=== PATIENT | female | born 1945 | race Caucasian/White ===

== ENCOUNTER 2020-10-29 09:59 | Inpatient (IN) | payer MEDICARE, SELFPAY ==
[2020-10-29] VITALS (9 sets, daily range): BP systolic 136–182; BP diastolic 67–93; PULSE 70–95; RESP 14–19; TEMP 36.7–36.8; O2SAT 88–99; BMI 31.2
--- NOTE | ~2020-10-29 | CT_ITS ---
EXAMINATION: CT ANGIOGRAM OF THE CHEST WITH AND WITHOUT CONTRAST (CT PULMONARY ANGIOGRAM FOR PE) CLINICAL INFORMATION: Reason for Exam History DVTs. Prior on Coumadin. Recently from epistaxis COMPARISON: None TECHNIQUE: Prior to contrast administration, noncontrast localization images were obtained. Subsequently, multidetector volumetric imaging was performed from the thoracic inlet to below the diaphragms following the administration of 65 mL Omnipaque 350 intravenous contrast. No contrast reaction reported Sagittal, coronal, and MIP oblique sagittal reformatted images were obtained on the CT workstation, uploaded to PACS, and reviewed. This CT examination was performed using dose optimization techniques as appropriate, variously including the following: *Automated exposure control *Adjustment of mA and/or kV according to patient size (this includes techniques or standardized protocols for targeted exams where dose is matched to indication/reason for exam; i.e. extremities or head) *Use of iterative reconstruction technique Total exam dose-length product 422 mGy-cm FINDINGS: QUALITY OF STUDY/CONTRAST BOLUS: Satisfactory. PULMONARY ARTERIES: No central or segmental pulmonary emboli. THORACIC AORTA: No aneurysm or dissection. LUNG: There is a large hiatal hernia present with most of the stomach in the chest. This is associated with left lower lobe atelectasis. No gross consolidations or suspicious pulmonary masses are seen. PLEURA: No pleural effusion or pneumothorax. MEDIASTINUM: Normal heart size. Pulmonary artery is prominent in size with the main pulmonary artery measuring 3.5 cm suggesting elevated right-sided heart pressures. No pericardial effusion. No hilar or mediastinal lymphadenopathy. No evidence of septal bowing or right heart strain. CHEST WALL/AXILLA: No axillary or internal mammary lymphadenopathy. OSSEOUS STRUCTURES: No acute or suspicious osseous abnormality. UPPER ABDOMEN: A left-sided renal cyst is present. No reflux of contrast into the hepatic veins to suggest elevated right heart pressures. CT/CT angio chest PE protocol IMPRESSION: No evidence of pulmonary emboli. Large hiatal hernia with most of the stomach within the left chest producing atelectasis/compression. Main pulmonary artery is dilated suggesting elevated right heart pressure. VTE: negative
--- NOTE | ~2020-10-29 | CT_ITS ---
EXAMINATION: CT HEAD WITHOUT CONTRAST CLINICAL INFORMATION: Fall, trauma, on Coumadin COMPARISON: None TECHNIQUE: Contiguous axial imaging was performed from the skull base to vertex without intravenous administration of contrast. Additional 2-D coronal and sagittal reformatted images are generated on the CT workstation and uploaded to PACS. This CT examination was performed using dose optimization techniques as appropriate, variously including the following: *Automated exposure control *Adjustment of mA and/or kV according to patient size (this includes techniques or standardized protocols for targeted exams where dose is matched to indication/reason for exam; i.e. extremities or head) *Use of iterative reconstruction technique DLP: 643 mGy-cm FINDINGS: There is no intracranial hemorrhage, hematoma, or extra-axial fluid collection. The ventricles are normal in size. There is no hydrocephalus, edema, or mass effect. The allen-white matter differentiation appears symmetric. There is no visible acute territorial infarct or mass lesion. The calvarium appears intact. There is no pneumocephalus or orbital emphysema. The visualized sinuses and middle ears and mastoid air cells show no significant mucosal thickening. There are no air-fluid levels. CT/CT head/brain wo con IMPRESSION: No acute intracranial abnormality.
--- NOTE | ~2020-10-29 | XR_ITS ---
EXAMINATION: XR CHEST CLINICAL INFORMATION: Left basilar opacity, follow-up. COMPARISON: Frontal view from earlier today. TECHNIQUE: Lateral view of the chest was obtained. FINDINGS: There is a large hiatal hernia with air-fluid level. Mild superjacent vascular crowding/atelectasis is seen. The right lung is clear. The heart and mediastinal structures are unremarkable. XR/XR chest 1V IMPRESSION: Large hiatal hernia with superjacent vascular crowding/atelectasis. The air-fluid level appears to be within the gastric lumen. No acute cardiopulmonary process.
--- NOTE | ~2020-10-29 | XR_ITS ---
EXAMINATION: XR CHEST CLINICAL INFORMATION: Shortness of breath. COMPARISON: None TECHNIQUE: Frontal view of the chest was obtained. FINDINGS: Mild opacification is seen at the left lung base with blunting of the left costophrenic angle. The left upper lung field and right lung are clear. The heart and mediastinal structures are unremarkable. XR/XR chest 1V IMPRESSION: Mild left basilar opacification is nonspecific and could represent pleural reflection/scarring however a left pleural effusion cannot be excluded. A lateral view of the chest would be helpful in this patient.
--- NOTE | 2020-10-29 10:21 | ECG_ITS ---
Test Reason : WEAKNESS Blood Pressure : / mmHG Vent. Rate : 086 BPM Atrial Rate : 086 BPM P-R Int : 132 ms QRS Dur : 082 ms QT Int : 344 ms P-R-T Axes : 072 067 -21 degrees QTc Int : 411 ms Normal sinus rhythm Nonspecific T wave abnormality Abnormal ECG No previous ECGs available Referred By: Sobeida Aguirre Electronically Signed By:Florencio Marina
--- NOTE | 2020-10-29 10:27 | ED_ITS ---
HPI - Fall General Chief Complaint: Fall Stated Complaint: NAUSEA Time Seen by Provider: 10/29/20 10:08 Source: EMS Mode of arrival: EMS History of Present Illness HPI Narrative: 74-year-old female with past medical history of COPD, HTN, DVT on Coumadin, wheelchair bound s/p back surgery, BIBA for SOB, nausea, and fall last night. Patient reports was discharged from [facility] last night for uncontrolled epistaxis which required nasal packing on Monday, states was trying to change thermostat and fell backwards on buttock, denies head trauma or LOC. Told daughter about incident this morning, who called EMS. States has not ambulated since incident due to fear of falling. Reports feeling SOB prior to fall and mild lightheadedness/dizziness. Per EMS patient was noted to be lethargic and 89% on room air, increased to 100% on non-rebreather due to nasal packing, pt admitted to taking 2 ER Morphine and 1 immediate release Morphine this morning. Reports not taking her Coumadin due to recent epistaxis. Denies fever, chills, cough, abdominal pain, vomiting, diarrhea, chest pain MD complaint: fall Onset (ago): day(s) Related Data Allergies Allergy/AdvReac Type Severity Reaction Status Date / Time No Known Allergies Allergy Verified 10/29/20 10:21 Review of Systems Review of Systems: Constitutional: No Fever, No Chills, No Night Sweats, No Fatigue ENT/Mouth: +epistaxis (resolved) No Sinus Pain, No Hoarseness, No sore throat Eyes: No Eye Pain, No Swelling, No Redness, No Vision Changes Cardiovascular: No Chest Pain, + SOB Respiratory: No Cough, No Sputum Gastrointestinal: +Nausea, No Vomiting, No Diarrhea, No Constipation, No Abdominal pain Genitourinary: No irregular bleeding, No Dysuria, No Urinary Frequency, No Hematuria Musculoskeletal: No joint pain, No Myalgias, No Joint Swelling Skin: No Skin Lesions, No rash Neuro: No Weakness, No Numbness, No Paresthesias, No Loss of Consciousness, +lightheadedness/ Dizziness, No Headache Yes all other systems are reviewed and are negative [facility] Past Medical History Attestation statement: The following information was validated with the patient. Medical History (Updated 10/29/20 @ 17:48 by ZORAIDA Lorenzo) COPD (chronic obstructive pulmonary disease) DVT (deep venous thrombosis) HTN (hypertension) Surgical History (Updated 10/29/20 @ 10:39 by Lamar Hollins) Previous back surgery Social History Social History Smoking Status: Former smoker Use of substances other than those prescribed or required for medical reasons: No Advance Directives: No Advance Directives Information Provided: Yes Physical Exam Vital Signs: Vital Signs: Last Vital Signs Temp 98.2 F 10/29/20 15:05 Pulse 94 10/29/20 16:29 Resp 16 10/29/20 16:29 BP 162/74 H 10/29/20 16:29 Pulse Ox 95 10/29/20 16:29 Body Mass Index 31.2 Const: Other: Lethargic, easily arousable to voice, A&O x3 General: cooperative, healthy appearing, comfortable and lethargic Orientation/consciousness: patient oriented x3 and lethargic Limitations: no limitations HENMT: Other: + nasal packing intact to right nare with dried external blood Head: Yes normal to inspection Ears: hearing grossly normal bilaterally Face and sinus: Yes normal facial exam Mouth: mucous membranes dry Eyes: General: appearance normal, both eyes and all related structures Pupils: Equal, round and reactive pupils present EOM: EOMs intact bilaterally Neck: Neck: Yes normal visual inspection and Yes no meningeal signs Resp: Effort & Inspection: normal respiratory effort Cardio: Rate: regular rate GI: Inspection: Yes normal to inspection Palpation (GI): Soft to palpation, nontender, no guarding and not rigid Back/Spine/Pelvis: Other: No midline thoracic/lumbar spinous tenderness Skin: Rashes: no rashes Wounds: no wounds Neuro: General: patient oriented x3, tone normal, moves all extremities, no meningeal signs, no focal motor deficits and CN's II-XI intact bilaterally Cranial nerves: Yes CN's II-XII intact bilaterally and Yes Equal, round and reactive pupils present Gait exam (Neuro): Normal gait present Coordination: [id number] test normal Extrem: General: Yes normal to inspection Course Course Course Narrative: Received records from [facility]: Patient was admitted for epistaxis due to elevated INR and noted hypoxia. Nasal packing was supposed to be removed on 10/29, will remove today. INR was 2.5 on admission date at [facility], patient was prescribed prophylactic Keflex x5 days. Hypoxia was noted secondary to the nasal packing in her right nare in conjunction with a large hiatal hernia containing all of her stomach and large portion of her transverse colon. Labs from 10/28 showed H&H of 9.3/28.3. PT 28/INR 2.5. Patient voiced wanting to start NOAC and was prescribed Eliquis, instructed to initiate taking once INR reached 1.5 > patient's daughter was spoken to today. Patient lives at home alone, is wheelchair-bound and believes she would benefit from short-term rehab. Patient is in agreement. -H&H stable/improved from [facility] records. INR 1.5 today > discussed with patient her subtherapeutic INR, she voiced still wanting to start Eliquis and d/c Coumadin, will hold Eliquis today and initiate tomorrow due to just removing nasal packing -head CT unremarkable -initial troponin 10 > will obtain 3 hour repeat XR chest 1V IMPRESSION: Large hiatal hernia with superjacent vascular crowding/atelectasis. The air-fluid level appears to be within the gastric lumen. No acute cardiopulmonary process. -on further questioning patient admits to taking 60 mg of extended release morphine, 15 of immediate release morphine, and Klonopin. Is more awake and alert at this time. Nasal packing was removed without evidence of rebleed.. O xygen saturations maintaining greater than 92% on RA when patient is awake and alert/talking, however dropped significantly when falls asleep less nasal cannula placed due to patient's lethargy. Is in no respiratory distress. Plan for PT/case management for STR -1743-on re-evaluation patient is still lethargic, easily arousable, still desatting when sleeping. Will obtain CTA to rule out PE. -1800--ED care transferred to ZORAIDA Condon pending CTA, repeat troponin, PT, and case management evaluation MDM - Fall MDM Narrative Medical decision making narrative: 74-year-old female with past medical history of COPD, HTN, DVT on Coumadin, wheelchair bound s/p back surgery, BIBA for SOB, nausea, and fall last night. Patient reports was discharged from [facility] last night for uncontrolled epistaxis which required nasal packing on Monday, states was trying to change thermostat and fell backwards on buttock, denies head trauma or LOC. On exam standing 91% on room air, lethargic, A&O x3, easily arousable, no focal neuro deficits, packing intact to right Nare. Hypoxia likely due to opiate abuse/nasal packing, Lethargy likely due to over medication with opiates. Fall- ?Mechanical, rule out ACS/metabolic abnormalities or infectious etiology. Lower concern for ICH/CVA/TIA or severe sepsis, or PE. Rule out anemia Plan: EKG, labs, UA, CXR, CTA, IVF, re-evaluate Medical Records Attestation: I reviewed the patient's medical records. Lab Data Attestation: I reviewed the patient's lab results. Result diagrams: 10/29/20 11:09 10/29/20 11:09 Labs: Lab Results 10/29/20 10/29/20 10/29/20 Range/Units 11:09 11:09 11:09 WBC 11.5 H (4.8-10.8) X10*3/uL RBC 3.28 L (4.20-5.50) X10*6/uL Hgb 9.8 L (12.0-16.0) g/dl Hct 29.9 L (37-47) % MCV 91.2 (80-98) fL MCH 29.9 (27.0-33.0) pg MCHC 32.8 (31.0-35.0) g/dl RDW 13.0 (11.0-16.0) % Plt Count 208 (160-400) X10*3/uL MPV 10.9 (9.4-12.3) fL Immature Gran % (Auto) 0.7 H (0.0-0.4) % Neut % (Auto) 85.5 H (45-73) % Lymph % (Auto) 9.8 L (20-40) % [place] % (Auto) 3.6 (2-11) % Eos % (Auto) 0.1 (0-4) % Baso % (Auto) 0.3 (0-2) % Lymph # (Auto) 1.1 L (1.2-4.9) X10*3/uL [place] # (Auto) 0.4 (0.1-1.2) X10*3/uL Eos # (Auto) 0.0 (0.0-0.4) X10*3/uL Baso # (Auto) 0.0 (0.0-0.2) X10*3/uL Abs Immat Gran (auto) 0.08 H (0.00-0.03) X10*3/uL Absolute Neuts (auto) 9.9 H (2.0-8.3) X10*3/uL Absolute Nucleated RBC 0.000 (0.0-0.012) X10*3/uL Nucleated RBC % (auto) 0.0 (0.0-0.2) /100WBC PT (10.8-13.0) SEC INR (0.9-1.1) APTT (24.1-38.0) SEC Sodium 141 (135-145) mmol/L Potassium 3.1 L (3.3-5.1) mmol/L Chloride 99 (96-108) mmol/L Carbon Dioxide 34 H (22-29) mmol/L Anion Gap 11 L (12-20) BUN 22 H (9-16) mg/dL Creatinine 0.78 (0.5-1.4) mg/dL Estim Creat Clear Calc 58.0 Estimated GFR > 60 Random Glucose 152 H (60-115) mg/dL Calcium 9.5 (8.4-10.2) mg/dL Magnesium 1.8 (1.6-2.6) mg/dL Total Bilirubin 0.8 (0.0-1.0) mg/dL Direct Bilirubin 0.3 (0.0-0.5) mg/dL AST 28 (5-31) U/L ALT 21 (0-31) U/L Alkaline Phosphatase 59 (39-117) U/L Total Creatine Kinase 207 H (26-140) U/L Troponin I High Sens 10.0 (<3.5-17.0) ng/L Total Protein 6.4 L (6.5-8.0) g/dL Albumin 3.8 (3.5-5.0) g/dL Ethyl Alcohol mg/dL COVID-19 (SAM) (Negative) COVID-19 Clin Com 10/29/20 10/29/20 10/29/20 Range/Units 11:09 11:09 12:04 WBC (4.8-10.8) X10*3/uL RBC (4.20-5.50) X10*6/uL Hgb (12.0-16.0) g/dl Hct (37-47) % MCV (80-98) fL MCH (27.0-33.0) pg MCHC (31.0-35.0) g/dl RDW (11.0-16.0) % Plt Count (160-400) X10*3/uL MPV (9.4-12.3) fL Immature Gran % (Auto) (0.0-0.4) % Neut % (Auto) (45-73) % Lymph % (Auto) (20-40) % [place] % (Auto) (2-11) % Eos % (Auto) (0-4) % Baso % (Auto) (0-2) % Lymph # (Auto) (1.2-4.9) X10*3/uL [place] # (Auto) (0.1-1.2) X10*3/uL Eos # (Auto) (0.0-0.4) X10*3/uL Baso # (Auto) (0.0-0.2) X10*3/uL Abs Immat Gran (auto) (0.00-0.03) X10*3/uL Absolute Neuts (auto) (2.0-8.3) X10*3/uL Absolute Nucleated RBC (0.0-0.012) X10*3/uL Nucleated RBC % (auto) (0.0-0.2) /100WBC PT 17.8 H (10.8-13.0) SEC INR 1.5 H (0.9-1.1) APTT 29.0 (24.1-38.0) SEC Sodium (135-145) mmol/L Potassium (3.3-5.1) mmol/L Chloride (96-108) mmol/L Carbon Dioxide (22-29) mmol/L Anion Gap (12-20) BUN (9-16) mg/dL Creatinine (0.5-1.4) mg/dL Estim Creat Clear Calc Estimated GFR Random Glucose (60-115) mg/dL Calcium (8.4-10.2) mg/dL Magnesium (1.6-2.6) mg/dL Total Bilirubin (0.0-1.0) mg/dL Direct Bilirubin (0.0-0.5) mg/dL AST (5-31) U/L ALT (0-31) U/L Alkaline Phosphatase (39-117) U/L Total Creatine Kinase (26-140) U/L Troponin I High Sens (<3.5-17.0) ng/L Total Protein (6.5-8.0) g/dL Albumin (3.5-5.0) g/dL Ethyl Alcohol < 10 mg/dL COVID-19 (SAM) Negative (Negative) COVID-19 Clin Com See Note Discharge Plan Discharge Clinical Impression: Misuse of medication, Encounter for removal of nasal packing, Shortness of breath, Fall
[2020-10-29] MEDS: 0.9 % Sodium Chloride 1,000 ML 999 ML IVCONT (11:14)
[2020-10-29 11:15] LABS: MANUAL DIFF FLAG NO
[2020-10-29] MEDS: ondansetron HCL 4 MG/2 ML VIAL IVPUSH (11:16)
[2020-10-29 11:19] LABS: Basophils Percent Auto 0.3 % (0-2); Eosinophils Percent Auto 0.1 % (0-4); Hematocrit 29.9 % (37-47); Hemoglobin 9.8 g/dl (12.0-16.0); Imm Gran Abs Auto 0.08 X10*3/uL (0.00-0.03); Imm Gran Pct Auto 0.7 % (0.0-0.4); Lymphocytes Absolute Auto 1.1 X10*3/uL (1.2-4.9); Lymphocytes Percent Auto 9.8 % (20-40); Mean Corpuscular HGB Conc 32.8 g/dl (31.0-35.0); Mean Corpuscular Hemoglobin 29.9 pg (27.0-33.0); Mean Corpuscular Volume 91.2 fL (80-98); Mean Platelet Volume 10.9 fL (9.4-12.3); Monocytes Absolute Auto 0.4 X10*3/uL (0.1-1.2); Monocytes Percent Auto 3.6 % (2-11); Neutrophils Absolute Auto 9.9 X10*3/uL (2.0-8.3); Neutrophils Percent Auto 85.5 % (45-73); Platelet Count 208 X10*3/uL (160-400); Red Blood Count 3.28 X10*6/uL (4.20-5.50); White Blood Count 11.5 X10*3/uL (4.8-10.8)
--- NOTE | 2020-10-29 11:25 | PC.NURSE ---
Pt reporting freqeunt falls at home, unable to ambulate, uses wheelchair. Fall on Monday and on floor for three days per pt. Fall last night, denies headstrike or LOC Right nare with nasal packing in, dried and crusted around Sat fluctuates 88-90 but have noted sat down to 70s when asleep, denies sleep apnea, or SOB. Placed on 2lpm via nc in left nare, sat consistently 95% at this time. NSR on tele Reports 7/10 buttock pain s/p fall last night. 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 Awakes easily.
[2020-10-29 11:29] LABS: INTERNATIONAL NORM RATIO 1.5 (0.9-1.1); Prothrombin Time 17.8 SEC (10.8-13.0)
[2020-10-29 11:46] LABS: Ethanol < 10 mg/dL
[2020-10-29 11:50] LABS: Alanine Aminotransferase 21 U/L (0-31); Albumin Level 3.8 g/dL (3.5-5.0); Alkaline Phosphatase 59 U/L (39-117); Anion Gap 11 (12-20); Aspartate Amino Transferase 28 U/L (5-31); Bilirubin Direct 0.3 mg/dL (0.0-0.5); Bilirubin Total 0.8 mg/dL (0.0-1.0); Blood Urea Nitrogen 22 mg/dL (9-16); Calcium 9.5 mg/dL (8.4-10.2); Carbon Dioxide 34 mmol/L (22-29); Chloride 99 mmol/L (96-108); Estimated Glomerular Filt Rate > 60; Glucose Random 152 mg/dL (60-115); Magnesium 1.8 mg/dL (1.6-2.6); Potassium 3.1 mmol/L (3.3-5.1); Sodium 141 mmol/L (135-145); Total Protein 6.4 g/dL (6.5-8.0)
[2020-10-29 12:25] LABS: COVID-19 Test Negative (Negative); IDNOW Serial# 9DD0AD1C
--- NOTE | 2020-10-29 12:35 | PC.NURSE ---
Spoke to pts daughter Vilma [phone] and states pt needs rehab/snf placement if no medical reason for admission. Frequent falls at home and pt reports pt was released too early from [facility]. ALso states nasal packing in x 48hours and needs removal. Sobeida CONWAY updated.
[2020-10-29] MEDS: Potassium Chloride Packet 20 MEQ PACKET 40 MEQ PO (13:47)
--- NOTE | 2020-10-29 16:30 | PC.NURSE ---
Plan for PT/case managment, pt and daughter Vilma express concerns for pt to return home. Needs PT evaluation tomorrow in ED. Pt remains sleepy but easily arousable and oriented x 3.
[2020-10-29] MEDS: iohexoL 350 MG/ML 100 ML INFUS..BTL IV (17:59)
--- NOTE | 2020-10-29 18:53 | MHC.CM.ED ---
CM met with pt to discuss plan of care. Pt had fall last night attempting to stand to adjust heat from her motor scooter. Pt is essentially wheelchair bound s/p back surgery. Debilitating pain per daughter. Pt takes both extended release and immediate Morphine for pain. Walks very short distances with her walker in her apartment, but mostly uses her scooter. 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 Also has meals on wheels through [facility] [employer]. CM spoke with HCP/daughter, Vilma Carrion ([phone]). HCP not on file. Requested another be completed. Will review with pt. Discussed plan of care and need for PT eval in the am and STR based on recommendations. Both daughter and pt would like STR. Neither has any requests, will refer locally. Daughter is concerned about her mother's medications, but does not have a medication list. Pharmacy is [facility] in [place]. CM called and obtained medication list. PA and RN aware and given medication list. D/C plan is probable STR with transportation via S. CM to follow for d/c needs
[2020-10-29 20:00] LABS: B Type Natriuretic Peptide 254 pg/mL (<100); Troponin-I High Sensitivity 88.6 ng/L (<3.5-17.0)
--- NOTE | 2020-10-29 22:26 | ECG_ITS ---
Test Reason : ELEVATED TROPONIN Blood Pressure : / mmHG Vent. Rate : 088 BPM Atrial Rate : 088 BPM P-R Int : 120 ms QRS Dur : 076 ms QT Int : 376 ms P-R-T Axes : 044 075 052 degrees QTc Int : 454 ms Normal sinus rhythm Nonspecific ST abnormality Abnormal ECG When compared with ECG of 29-OCT-2020 10:54, Nonspecific T wave abnormality, improved in Inferior leads Referred By: Taurus Sethi Electronically Signed By:Florencio Marina
[2020-10-30] VITALS (8 sets, daily range): BP systolic 133–168; BP diastolic 60–88; PULSE 82–104; RESP 16–20; TEMP 36.8–37; O2SAT 92–100
--- NOTE | 2020-10-30 00:42 | P.HPHOSP_ITS ---
History of Present Illness Date of Service: 10/30/20 Chief Complaint: SOB [age] old female with a past medical history of hypertension, COPD, history of chronic back pain status post surgery, wheelchair-bound for surgery, hiatal hernia presented to the hospital with a chief complaint of shortness of breath. Patient is a poor historian. Most of the history obtained from the records and ER team. Reportedly patient was adequately deep concern hospital on Monday secondary to epistaxis and had Nasser packing placed. Sent home on cephalexin. Coumadin was stopped and placed on apixaban. Today she came into the hospital after a fall. Denies any numbness tingling head strike or loss of consciousness. Mentions that she is at baseline wheelchair-bound and no new focal deficits. Denies any urinary complaints or GI complaints. Mentioned that her shortness of breath is better. Denies any chest pain or palpitations. ER course: For ER team patient had nasal packing that was removed. EKG was nonischemic. Troponin was 10 followed by 88. Spoke to Cardiology who recommended admission to the hospital for observation. Mentioned no heparin. Patient was saturating at 91%-pain rest on 2 L of nasal cannula. Presumed to be secondary to the nasal packing. [facility] Medical History (Updated 10/30/20 @ 00:20 by ZORAIDA Pickering) COPD (chronic obstructive pulmonary disease) DVT (deep venous thrombosis) HTN (hypertension) Surgical History (Updated 10/29/20 @ 10:39 by Lamar Hollins) Previous back surgery Social History Smoking Status: Former smoker Use of substances other than those prescribed or required for medical reasons: No Advance Directives: No Advance Directives Information Provided: Yes Meds Allergies Allergy/AdvReac Type Severity Reaction Status Date / Time No Known Allergies Allergy Verified 10/29/20 10:21 Active Medications: Current Medications Generic Name Dose Route Start Last Admin Trade Name Freq PRN Reason Stop Dose Admin Amphetamine/Dextroamphetamine 15 mg 10/30/20 09:00 Amphetamine Mixed Salts 10 Mg Tablet PO TID KARL Apixaban 5 mg 10/30/20 08:00 Apixaban 5 Mg Tablet PO BID KARL Apixaban 5 mg 10/30/20 09:00 Apixaban 5 Mg Tablet PO BID KARL Bupropion HCl 150 mg 10/30/20 00:45 Bupropion Hcl Xl 150 Mg Tab.Er.24h PO QAM KARL Cephalexin HCl 500 mg 10/30/20 00:45 Cephalexin 500 Mg Capsule PO Q8H [facility] Clonazepam 0.5 mg 10/30/20 00:37 Clonazepam 0.5 Mg Tablet PO BID PRN Anxiety Docusate Sodium 250 mg 10/30/20 09:00 Docusate Sodium 100 Mg/10 Ml Liquid PO BID [facility] Duloxetine HCl 60 mg 10/30/20 09:00 Duloxetine Hcl 60 Mg Capsule.Dr PO DAILY [facility] Morphine Sulfate 15 mg 10/30/20 00:37 Morphine Sulfate Immed Release 15 Mg Tablet PO Q6H PRN Pain Morphine Sulfate 30 mg 10/30/20 00:45 Morphine Sulfate Er 30 Mg Tablet.Er PO Q12H [facility] Naloxone HCl 4 mg 10/30/20 00:37 Naloxone Hcl Nasal 4 Mg [place] NOSTRILALT Q3M PRN Opioid Reversal Non-Formulary Medication 1 tab 10/30/20 09:00 Lisinopril-Hydrochlorothiazide PO BID [facility] Non-Formulary Medication 6 mg 10/30/20 21:00 Melatonin PO BEDTIME [facility] Pharmacy Consult 1 each 10/29/20 18:41 Consult Rx Perform Med Rec MISCELLANE ONCE PRN Consult order Sodium Chloride 3 ml 10/30/20 08:00 0.9 % Sodium Chloride Flush 3 Ml Syringe IVFLUSH QSHIFT [facility] Valacyclovir HCl 1,000 mg 10/30/20 09:00 Valacycyclovir Hcl 1,000 Mg Tablet PO BID [facility] Vitamin D 25 mcg 10/30/20 09:00 Cholecalciferol (Vitamin D3) 25 Mcg Tablet PO DAILY [facility] Home Medications Medication Instructions Recorded Confirmed Last Taken Type Bacillus subtilis-inulin 1 tab PO DAILY 10/29/20 10/29/20 Unknown History apixaban [Eliquis] 5 mg PO BID 10/29/20 10/29/20 Unknown History bupropion HCl 150 mg PO QAM 10/29/20 10/29/20 Unknown History cephalexin [Keflex] 500 mg PO Q8H 10/29/20 10/29/20 Unknown History cholecalciferol (vitamin D3) 25 mcg PO DAILY 10/29/20 10/29/20 Unknown History clonazepam [Klonopin] 0.5 mg PO BID PRN 10/29/20 10/29/20 Unknown History dextroamphetamine-amphetamine 15 mg PO TID 10/29/20 10/29/20 Unknown History [Adderall] docusate sodium 250 mg PO BID 10/29/20 10/29/20 Unknown History duloxetine 60 mg PO DAILY 10/29/20 10/29/20 Unknown History lisinopril-hydrochlorothiazide 1 tab PO BID 10/29/20 10/29/20 Unknown History melatonin 12 mg PO BEDTIME 10/29/20 10/29/20 Unknown History morphine 15 mg PO Q6H PRN 10/29/20 10/29/20 Unknown History morphine 30 mg PO Q12H 10/29/20 10/29/20 Unknown History naloxone [Narcan] 4 mg INTRANASAL Q3M PRN 10/29/20 10/29/20 Unknown History nitrofurantoin macrocrystal 100 mg PO BID 10/29/20 10/29/20 Unknown History valacyclovir 1,000 mg PO BID 10/29/20 10/29/20 Unknown History Physical Exam Vital Signs and Narrative: Vital Signs: Last Vital Signs Temp 98.1 F 10/29/20 20:09 Pulse 75 10/29/20 20:52 Resp 19 10/29/20 20:52 BP 151/73 H 10/29/20 20:52 Pulse Ox 99 10/29/20 20:09 Body Mass Index 31.2 Gen: Appears be in no acute distress HEENT: NCAT, Moist mucosa. Pulmonary: Vesicular breath sounds, fair air entry CVS: Normal S1-S2 Abdomen: BS+, Soft, Nontender Extremities: Warm well perfused; no spinal tenderness noticed. On hip exam range of motion intact and no tenderness elicited. Neuro: Alert and awake. Results Labs CBC and Chem 7: 10/29/20 11:09 10/29/20 11:09 Labs: Laboratory Results - last 24 hr 10/29/20 10/29/20 10/29/20 11:09 11:09 11:09 MCV 91.2 MCH 29.9 MCHC 32.8 RDW 13.0 Plt Count 208 MPV 10.9 Immature Gran % (Auto) 0.7 H Neut % (Auto) 85.5 H Lymph % (Auto) 9.8 L [place] % (Auto) 3.6 Eos % (Auto) 0.1 Baso % (Auto) 0.3 Lymph # (Auto) 1.1 L [place] # (Auto) 0.4 Eos # (Auto) 0.0 Baso # (Auto) 0.0 Abs Immat Gran (auto) 0.08 H Absolute Neuts (auto) 9.9 H Absolute Nucleated RBC 0.000 Nucleated RBC % (auto) 0.0 PT INR APTT Anion Gap 11 L Estim Creat Clear Calc 58.0 Estimated GFR > 60 Random Glucose 152 H Calcium 9.5 Magnesium 1.8 Total Bilirubin 0.8 Direct Bilirubin 0.3 AST 28 ALT 21 Alkaline Phosphatase 59 Total Creatine Kinase 207 H Troponin I High Sens 10.0 B-Natriuretic Peptide Cancelled Total Protein 6.4 L Albumin 3.8 Ethyl Alcohol COVID-19 (SAM) COVID-19 Clin Com 10/29/20 10/29/20 10/29/20 11:09 11:09 12:04 MCV MCH MCHC RDW Plt Count MPV Immature Gran % (Auto) Neut % (Auto) Lymph % (Auto) [place] % (Auto) Eos % (Auto) Baso % (Auto) Lymph # (Auto) [place] # (Auto) Eos # (Auto) Baso # (Auto) Abs Immat Gran (auto) Absolute Neuts (auto) Absolute Nucleated RBC Nucleated RBC % (auto) PT 17.8 H INR 1.5 H APTT 29.0 Anion Gap Estim Creat Clear Calc Estimated GFR Random Glucose Calcium Magnesium Total Bilirubin Direct Bilirubin AST ALT Alkaline Phosphatase Total Creatine Kinase Troponin I High Sens B-Natriuretic Peptide Total Protein Albumin Ethyl Alcohol < 10 COVID-19 (SAM) Negative COVID-19 Clin Com See Note 10/29/20 18:53 MCV MCH MCHC RDW Plt Count MPV Immature Gran % (Auto) Neut % (Auto) Lymph % (Auto) [place] % (Auto) Eos % (Auto) Baso % (Auto) Lymph # (Auto) [place] # (Auto) Eos # (Auto) Baso # (Auto) Abs Immat Gran (auto) Absolute Neuts (auto) Absolute Nucleated RBC Nucleated RBC % (auto) PT INR APTT Anion Gap Estim Creat Clear Calc Estimated GFR Random Glucose Calcium Magnesium Total Bilirubin Direct Bilirubin AST ALT Alkaline Phosphatase Total Creatine Kinase Troponin I High Sens 88.6 H D B-Natriuretic Peptide 254 H Total Protein Albumin Ethyl Alcohol COVID-19 (SAM) COVID-19 Clin Com Imaging Radiologist's Impressions: Impressions Head CT 10/29/20 10:21 IMPRESSION: No acute intracranial abnormality. Chest X-Ray 10/29/20 10:22 IMPRESSION: Mild left basilar opacification is nonspecific and could represent pleural reflection/scarring however a left pleural effusion cannot be excluded. A lateral view of the chest would be helpful in this patient. Chest X-Ray 10/29/20 11:20 IMPRESSION: Large hiatal hernia with superjacent vascular crowding/atelectasis. The air-fluid level appears to be within the gastric lumen. No acute cardiopulmonary process. Chest CTA 10/29/20 17:36 IMPRESSION: No evidence of pulmonary emboli. Large hiatal hernia with most of the stomach within the left chest producing atelectasis/compression. Main pulmonary artery is dilated suggesting elevated right heart pressure. VTE: negative Assessment and Plan (1) Shortness of breath: Status: Acute 74-year-old female with a past medical history of hypertension, COPD, DVT, chronic back pain status post surgery, wheelchair-bound presented with shortness of breath. Shortness of breath: Presumed to be secondary to nasal packing. Which was removed. Placed on supplemental oxygen. Patient denies any chest pain. COVID-19 negative Troponin elevated: Patient denies any chest pain. EKG nonischemic. Cardiology notified. Recommended admission for observation. Echocardiogram; trend troponins Fall: Mechanical in nature. Patient is wheelchair-bound at baseline. History of DVT: Patient was on Coumadin which was discontinued and started on apixaban. Epistaxis: Nasal packing removed in the ER. Patient on cephalexin for prophylaxis. History of hypertension: Continue home medications Code status: Full code
[2020-10-30] MEDS: cephALEXin 500 MG CAPSULE PO ×3 (01:30→16:39)
[2020-10-30] MEDS: Morphine Sulfate Immed Release 15 MG TABLET PO (01:39)
[2020-10-30] MEDS: Melatonin 3 MG TABLET 6 MG PO ×2 (02:48→20:01)
[2020-10-30 06:43] LABS: MANUAL DIFF FLAG NO
[2020-10-30 07:02] LABS: Basophils Percent Auto 0.2 % (0-2); Eosinophils Percent Auto 0.2 % (0-4); Hematocrit 29.3 % (37-47); Hemoglobin 9.8 g/dl (12.0-16.0); Imm Gran Abs Auto 0.11 X10*3/uL (0.00-0.03); Imm Gran Pct Auto 0.8 % (0.0-0.4); Lymphocytes Absolute Auto 1.6 X10*3/uL (1.2-4.9); Mean Corpuscular HGB Conc 33.4 g/dl (31.0-35.0); Mean Corpuscular Hemoglobin 30.2 pg (27.0-33.0); Mean Corpuscular Volume 90.4 fL (80-98); Mean Platelet Volume 10.9 fL (9.4-12.3); Monocytes Percent Auto 7.5 % (2-11); Neutrophils Absolute Auto 10.3 X10*3/uL (2.0-8.3); Neutrophils Percent Auto 79.3 % (45-73); Platelet Count 242 X10*3/uL (160-400); Red Blood Count 3.24 X10*6/uL (4.20-5.50); Red Cell Distribution Width 13.1 % (11.0-16.0)
[2020-10-30 07:17] LABS: Anion Gap 12 (12-20); Blood Urea Nitrogen 13 mg/dL (9-16); Calcium 8.7 mg/dL (8.4-10.2); Carbon Dioxide 32 mmol/L (22-29); Chloride 98 mmol/L (96-108); Creatinine Clr Calc Pharmacy 65.5; Estimated Glomerular Filt Rate > 60; Glucose Random 130 mg/dL (60-115); Potassium 3.6 mmol/L (3.3-5.1); Sodium 138 mmol/L (135-145)
[2020-10-30 07:23] LABS: Troponin-I High Sensitivity 185.7 ng/L (<3.5-17.0)
--- NOTE | 2020-10-30 07:30 | CA_ITS ---
Transthoracic Echocardiogram Patient (Last, First, Middle): Qi Carrington, Gender: Female Date of : 1945 Age: 74 Procedure Date: 10/30/2020 Procedure Type: Transthoracic Echocardiogram Location: ER Height: 152.4 cm Weight: 72.58 kg BSA: 1.70 m2 Heart Rate: bpm BP: 146 / 73 mmHg [place]: Referring MD: Felix Starr MD Symptoms: sob Study Quality: Good ECG Rhythm: Sinus with extra beats Conclusions: - Normal left ventricular size, thickness, systolic function, and wall motion. - Normal right ventricular cavity size and systolic function. Findings Left Ventricle Normal left ventricular size, thickness, systolic function, and wall motion. The visually estimated ejection fraction is between 55-60%. Diastolic function is normal for age. Right Ventricle Normal right ventricular cavity size and systolic function. Atria Both atria are normal in size. Aortic Valve Normal aortic valve structure and function. There is no aortic valve stenosis. There is no aortic valve regurgitation. Mitral Valve Normal mitral valve structure and function. There is no mitral valve regurgitation. There is no mitral valve stenosis. Pulmonic Valve The pulmonic valve is likely normal. Tricuspid Valve Normal tricuspid valve structure and function. There is trace tricuspid valve regurgitation. Normal right atrial pressure. There is no evidence of pulmonary hypertension. Great Vessels All visible segments of the aorta are normal in size. The pulmonary artery was not well visualized. Venous The inferior vena cava is normal in size and collapses greater than 50% with inspiration. Pericardium/Pleural There is no evidence of pericardial effusion. Prior Study Comparison No prior study available for comparison. Measurements 2D Linear Measurements IVSd: 1.10 0.6-0.9/0.6-1.0 cm LVIDd: 3.88 3.9-5.3/4.2-5.9 cm LVIDd Index: 2.28 2.4-3.2/2.2-3.1 cm/m2 LVIDs: 2.40 2.0-3.6 cm LVPWd: 0.81 0.7-1.1 cm Ao Root: 2.90 2.1-3.5 cm LA Diam: 2.00 2.7-3.8/3.0-4.0 cm LAIDs Index: 1.18 1.5-2.3 cm/m2 LV Mass: 141.23 67-162/88-224 g LV Mass Index: 83.07 43-95/49-115 g/m2 LVOT Diam: 2.00 3.0+(-)1.3 cm Mitral Valve MV Pk E: 0.83 MV PK A: 1.04 MV Decel Time: 201.00 E/A: 0.80 E'Lateral: 7.45 E'Medial: 6.67 E/E' Med: 12.40 E/E' Lat: 11.10 PHT: 59.00 MVA PHT: 3.73 Decel [place]: 4.13 Aortic Valve AoV Pk Davian: 1.84 AoV Mn Davian: 1.11 AoV VTI: 0.33 AoV Pk Grad: 14.00 Aov Mn Grad: 6.00 ROXANA Cont.VTI: 2.15 LVOT LVOT Pk Davian: 1.09 LVOT Mn Davian: 0.69 LVOT VTI: 0.22 LVOT Pk Grad: 5.00 LVOT Mn Grad: 2.00 LVOT Diam: 2.00 LVOT Area: 3.14 Diastolic Function MV Pk E: 0.83 MV Pk A: 1.04 E/A: 0.80 E'Medial: 6.67 E/E' Med: 12.40 E' Laterial: 7.45 E/E' Lat: 11.10 Tricuspid Valve TR Pk Davian: 1.82 TR Pk Grad: 13.00 RA Press: 2.00 RVSP: 15.00 Great Vessels Aorta Ao Root-2D: 2.90 2.0-3.7 cm Ao Asc: 3.00 2.1-3.4 cm Pulmonary Valve PV Pk Davian: 1.15 Peak PV Grad: 5.00 Updated in Other Vendor System with Status of Final Florencio Marina MD electronically signed on 10/31/2020 1:08:04 PM with status of Final
[2020-10-30] MEDS: Docusate Sodium 100 MG/10 ML LIQUID 250 MG PO ×2 (08:49→20:00)
[2020-10-30] MEDS: Amphetamine Mixed Salts 10 MG TABLET 15 MG PO ×2 (08:49→16:39)
[2020-10-30] MEDS: DULoxetine HCl 60 MG CAPSULE.DR PO (08:49)
[2020-10-30] MEDS: Cholecalciferol (Vitamin D3) 25 MCG TABLET PO (08:50)
[2020-10-30] MEDS: hydroCHLOROthiazide 12.5 MG TABLET PO ×2 (08:52→20:01)
[2020-10-30] MEDS: Morphine Sulfate ER 30 MG TABLET.ER PO ×2 (08:52→20:01)
[2020-10-30] MEDS: Apixaban 5 MG TABLET PO ×3 (08:52→20:02)
[2020-10-30] MEDS: buPROPion HCl XL 150 MG TAB.ER.24H PO (08:52)
[2020-10-30] MEDS: 0.9 % Sodium Chloride Flush 3 ML SYRINGE IVFLUSH ×2 (09:49→16:41)
--- NOTE | 2020-10-30 11:48 | P.CONCA_ITS ---
History of Present Illness History of Present Illness Date of Service: 10/30/20 Requesting physician: Jorge A York Chief complaint: SOB, + troponin Narrative: Pleasant 74-year-old female with background history of hypertension, COPD, previous DVT for which she has on Coumadin presented recently to [facility] with epistaxis and has nasal packing done. Subsequent to that she presented again with shortness of breath and was noted to have mildly abno rmal troponin levels. The nasal packing has been removed at this stage. On discussing with her she has no chest pain or shortness of breath. She said she is unsure why she came back to the hospital. Epistaxis currently is stable. She is denying any symptoms right now. It appears she was hypoxic when she came in with saturations 91% on 2 L nasal cannula. Her troponin I level was 10 which increased to 88. She was getting an echocardiogram at the time of interview. The wall motion was normal on brief assessment. Review of Systems Review of Systems: Asymptomatic Yes all other systems are reviewed and are negative [facility] Past Medical History Medical History (Updated 10/30/20 @ 11:55 by Florencio Marina MD) COPD (chronic obstructive pulmonary disease) DVT (deep venous thrombosis) HTN (hypertension) Surgical History Surgical History (Updated 10/29/20 @ 10:39 by Lamar Hollins) Previous back surgery Social History Social History Smoking Status: Former smoker Use of substances other than those prescribed or required for medical reasons: No Advance Directives: No Advance Directives Information Provided: Yes Meds Allergies Allergy/AdvReac Type Severity Reaction Status Date / Time No Known Allergies Allergy Verified 10/29/20 10:21 Active Medications: Current Medications Generic Name Dose Route Start Last Admin Trade Name Konstantinq PRN Reason Stop Dose Admin Amphetamine/Dextroamphetamine 15 mg 10/30/20 09:00 10/30/20 08:49 Amphetamine Mixed Salts 10 Mg Tablet PO 15 mg TID KARL Administration Apixaban 5 mg 10/30/20 08:00 10/30/20 10:20 Apixaban 5 Mg Tablet PO 5 mg BID KARL Administration Bupropion HCl 150 mg 10/30/20 09:00 10/30/20 08:52 Bupropion Hcl Xl 150 Mg Tab.Er.24h PO 150 mg DAILY KARL Administration Cephalexin HCl 500 mg 10/30/20 00:45 10/30/20 08:49 Cephalexin 500 Mg Capsule PO 500 mg Q8H KARL Administration Clonazepam 0.5 mg 10/30/20 00:37 Clonazepam 0.5 Mg Tablet PO BID PRN Anxiety Docusate Sodium 250 mg 10/30/20 09:00 10/30/20 08:49 Docusate Sodium 100 Mg/10 Ml Liquid PO 250 mg BID KARL Administration Duloxetine HCl 60 mg 10/30/20 09:00 10/30/20 08:49 Duloxetine Hcl 60 Mg Capsule.Dr PO 60 mg DAILY KARL Administration Hydrochlorothiazide 12.5 mg 10/30/20 09:00 10/30/20 08:52 Hydrochlorothiazide 12.5 Mg Tablet PO 12.5 mg BID KARL Administration Lisinopril 20 mg 10/30/20 09:00 10/30/20 08:50 Lisinopril 20 Mg Tablet PO 20 mg BID KARL Administration Melatonin 6 mg 10/30/20 00:50 10/30/20 02:48 Melatonin 3 Mg Tablet PO 6 mg BEDTIME KARL Administration Morphine Sulfate 15 mg 10/30/20 00:37 10/30/20 01:39 Morphine Sulfate Immed Release 15 Mg Tablet PO 15 mg Q6H PRN Administration Pain Morphine Sulfate 30 mg 10/30/20 09:00 10/30/20 08:52 Morphine Sulfate Er 30 Mg Tablet.Er PO 30 mg Q12H KARL Administration Naloxone HCl 4 mg 10/30/20 00:37 Naloxone Hcl Nasal 4 Mg [place] NOSTRILALT Q3M PRN Opioid Reversal Pharmacy Consult 1 each 10/29/20 18:41 Consult Rx Perform Med Rec MISCELLANE ONCE PRN Consult order Sodium Chloride 3 ml 10/30/20 08:00 10/30/20 09:49 0.9 % Sodium Chloride Flush 3 Ml Syringe IVFLUSH 3 ml QSHIFT KARL Administration Valacyclovir HCl 1,000 mg 10/30/20 09:00 10/30/20 08:49 Valacycyclovir Hcl 1,000 Mg Tablet PO 1,000 mg BID KARL Administration Vitamin D 25 mcg 10/30/20 09:00 10/30/20 08:50 Cholecalciferol (Vitamin D3) 25 Mcg Tablet PO 25 mcg DAILY KARL Administration Home Medications Medication Instructions Recorded Confirmed Last Taken Type Bacillus subtilis-inulin 1 tab PO DAILY 10/29/20 10/29/20 Unknown History apixaban [Eliquis] 5 mg PO BID 10/29/20 10/29/20 Unknown History bupropion HCl 150 mg PO QAM 10/29/20 10/29/20 Unknown History cephalexin [Keflex] 500 mg PO Q8H 10/29/20 10/29/20 Unknown History cholecalciferol (vitamin D3) 25 mcg PO DAILY 10/29/20 10/29/20 Unknown History clonazepam [Klonopin] 0.5 mg PO BID PRN 10/29/20 10/29/20 Unknown History dextroamphetamine-amphetamine 15 mg PO TID 10/29/20 10/29/20 Unknown History [Adderall] docusate sodium 250 mg PO BID 10/29/20 10/29/20 Unknown History duloxetine 60 mg PO DAILY 10/29/20 10/29/20 Unknown History lisinopril-hydrochlorothiazide 1 tab PO BID 10/29/20 10/29/20 Unknown History melatonin 12 mg PO BEDTIME 10/29/20 10/29/20 Unknown History morphine 15 mg PO Q6H PRN 10/29/20 10/29/20 Unknown History morphine 30 mg PO Q12H 10/29/20 10/29/20 Unknown History naloxone [Narcan] 4 mg INTRANASAL Q3M PRN 10/29/20 10/29/20 Unknown History nitrofurantoin macrocrystal 100 mg PO BID 10/29/20 10/29/20 Unknown History valacyclovir 1,000 mg PO BID 10/29/20 10/29/20 Unknown History Physical Exam Vital Signs: Vital Signs: Last Vital Signs Temp 98.1 F 10/29/20 20:09 Pulse 95 10/30/20 08:50 Resp 16 10/30/20 07:54 BP 168/69 H 10/30/20 08:50 Pulse Ox 97 10/30/20 07:54 Body Mass Index 31.2 GENERAL APPEARANCE: in no acute distress, well developed, well nourished. HEENT: unremarkable. HEAD: normocephalic, atraumatic. NECK/THYROID: no carotid bruit, no jugular venous distention. SKIN: no suspicious lesions, warm and dry. HEART: no murmurs, regular rate and rhythm, S1, S2 normal. LUNGS: clear to auscultation bilaterally. ABDOMEN: normal, bowel sounds present, soft, nontender, nondistended. EXTREMITIES: no clubbing, cyanosis, or edema. PERIPHERAL PULSES: equal. NEUROLOGIC: nonfocal, alert and oriented. PSYCH: mood/affect full range. Results Labs and Meds Result diagrams: 10/30/20 06:35 10/30/20 06:35 Lab results: Laboratory Results - last 24 hr 10/29/20 10/29/20 10/29/20 11:09 11:09 12:04 WBC RBC Hgb Hct MCV MCH MCHC RDW Plt Count MPV Immature Gran % (Auto) Neut % (Auto) Lymph % (Auto) [place] % (Auto) Eos % (Auto) Baso % (Auto) Lymph # (Auto) [place] # (Auto) Eos # (Auto) Baso # (Auto) Abs Immat Gran (auto) Absolute Neuts (auto) Absolute Nucleated RBC Nucleated RBC % (auto) Sodium 141 Potassium 3.1 L Chloride 99 Carbon Dioxide 34 H Anion Gap 11 L BUN 22 H Creatinine 0.78 Estim Creat Clear Calc 58.0 Estimated GFR > 60 Random Glucose 152 H Calcium 9.5 Magnesium 1.8 Total Bilirubin 0.8 Direct Bilirubin 0.3 AST 28 ALT 21 Alkaline Phosphatase 59 Total Creatine Kinase 207 H Troponin I High Sens 10.0 B-Natriuretic Peptide Cancelled Total Protein 6.4 L Albumin 3.8 COVID-19 (SAM) Negative COVID-19 Clin Com See Note 10/29/20 10/30/20 10/30/20 18:53 06:35 06:35 WBC 13.0 H RBC 3.24 L Hgb 9.8 L Hct 29.3 L MCV 90.4 MCH 30.2 MCHC 33.4 RDW 13.1 Plt Count 242 MPV 10.9 Immature Gran % (Auto) 0.8 H Neut % (Auto) 79.3 H Lymph % (Auto) 12.0 L [place] % (Auto) 7.5 Eos % (Auto) 0.2 Baso % (Auto) 0.2 Lymph # (Auto) 1.6 [place] # (Auto) 1.0 Eos # (Auto) 0.0 Baso # (Auto) 0.0 Abs Immat Gran (auto) 0.11 H Absolute Neuts (auto) 10.3 H Absolute Nucleated RBC 0.000 Nucleated RBC % (auto) 0.0 Sodium 138 Potassium 3.6 Chloride 98 Carbon Dioxide 32 H Anion Gap 12 BUN 13 Creatinine 0.69 Estim Creat Clear Calc 65.5 Estimated GFR > 60 Random Glucose 130 H Calcium 8.7 D Magnesium Total Bilirubin Direct Bilirubin AST ALT Alkaline Phosphatase Total Creatine Kinase Troponin I High Sens 88.6 H D B-Natriuretic Peptide 254 H Total Protein Albumin COVID-19 (SAM) COVID-19 Clin Com 10/30/20 06:35 WBC RBC Hgb Hct MCV MCH MCHC RDW Plt Count MPV Immature Gran % (Auto) Neut % (Auto) Lymph % (Auto) [place] % (Auto) Eos % (Auto) Baso % (Auto) Lymph # (Auto) [place] # (Auto) Eos # (Auto) Baso # (Auto) Abs Immat Gran (auto) Absolute Neuts (auto) Absolute Nucleated RBC Nucleated RBC % (auto) Sodium Potassium Chloride Carbon Dioxide Anion Gap BUN Creatinine Estim Creat Clear Calc Estimated GFR Random Glucose Calcium Magnesium Total Bilirubin Direct Bilirubin AST ALT Alkaline Phosphatase Total Creatine Kinase Troponin I High Sens 185.7 H D B-Natriuretic Peptide Total Protein Albumin COVID-19 (SAM) COVID-19 Clin Com Imaging Radiologist's impression: Impressions Head CT 10/29/20 10:21 IMPRESSION: No acute intracranial abnormality. Chest X-Ray 10/29/20 11:20 IMPRESSION: Large hiatal hernia with superjacent vascular crowding/atelectasis. The air-fluid level appears to be within the gastric lumen. No acute cardiopulmonary process. Chest CTA 10/29/20 17:36 IMPRESSION: No evidence of pulmonary emboli. Large hiatal hernia with most of the stomach within the left chest producing atelectasis/compression. Main pulmonary artery is dilated suggesting elevated right heart pressure. VTE: negative Assessment and Plan (1) Shortness of breath: Status: Acute (2) Elevated troponin: Status: Acute (3) Hypertension: Qualifiers: Hypertension type: essential hypertension Qualified Code(s): I10 - Essential (primary) hypertension Status: Acute Pleasant 74-year-old female who is presenting with dyspnea reportedly. She is denying any symptoms. She had nasal packing done for epistaxis which has been removed. Currently completely asymptomatic. She had mildly abnormal troponin level. This can be explained by the high blood pressures. No clinical symptoms or signs of ACS right now. Blood pressure is uncontrolled. She is on Adderall which can affect blood pressures. I do not know whether this can be stopped or not. In any case currently with her home medication her blood pressure is elevated. She should be given 5 mg of amlodipine once a day to see if that improves her blood pressure. We will review the echocardiogram if there is any abnormality noticed we will relay that to the medicine team. Thank you for allowing me to participate in the care of your patient. Please feel free to contact me if you have any questions.
--- NOTE | 2020-10-30 15:34 | MHC.CM.PN ---
Received call from pt's dtr Vilma who had many questions about pt's plan of care and eventual d/c to [facility]. Explained in detail the process of PT eval for facilities to submit to [facility] for authorization - explained in detail that [facility] is not usually available on weekends to give [facility] auth and this would necessitate pt staying the weekend until [facility] was opened Monday. She verbalized understanding Vilma requests that all caregivers assigned to her mother are Covid vaccinated - CM explained that vaccine is not mandated for employees but that all employees follow COVID precautions and wear appropriate PPE Vilma states STR choices are: 1. [facility] 2. [facility] - referrals have been made to both: PT is pending at this time - had to hold d/t pt's elevated BP and troponins. CM to follow for d/c planning.
[2020-10-30] MEDS: ondansetron HCL 4 MG/2 ML VIAL IVPUSH (20:00)
[2020-10-30 20:56] LABS: Glucose Urine UA NEG (NEG); Leukocyte Esterase Urine NEG (NEG); Nitrite Urine NEG (NEG); PH 7.5 (5.0-8.0); Urine Blood NEG (NEG); Urine Ketones NEG (NEG); Urine Protein TRACE MG/DL (NEG-TRACE)
[2020-10-30 20:59] LABS: Appearance Urine CLEAR; Color Urine YELLOW
[2020-10-30 21:18] LABS: Amphetamine Screen Urine POSITIVE (Not Detect); Barbiturates, Urine Not Detected (Not Detect); Benzodiazepines Screen Urine Not Detected (Not Detect); Cannabinoid Screen Urine POSITIVE (Not Detect); Cocaine Screen Urine Not Detected (Not Detect); Opiate Screen Urine POSITIVE (Not Detect); Phencyclidine Screen Urine Not Detected (Not Detect)
[2020-10-31] MEDS: cephALEXin 500 MG CAPSULE PO ×4 (01:18→23:46)
[2020-10-31] MEDS: 0.9 % Sodium Chloride Flush 3 ML SYRINGE IVFLUSH ×4 (01:19→23:46)
[2020-10-31 04:00] VITALS: BP 100/55; PULSE 80; RESP 14; TEMP 37; O2SAT 98
[2020-10-31 05:14] LABS: Hematocrit 27.9 % (37-47); Hemoglobin 9.1 g/dl (12.0-16.0); Mean Corpuscular HGB Conc 32.6 g/dl (31.0-35.0); Mean Corpuscular Hemoglobin 29.5 pg (27.0-33.0); Mean Corpuscular Volume 90.6 fL (80-98); Mean Platelet Volume 10.8 fL (9.4-12.3); Platelet Count 237 X10*3/uL (160-400); Red Blood Count 3.08 X10*6/uL (4.20-5.50); White Blood Count 9.3 X10*3/uL (4.8-10.8)
[2020-10-31 05:45] LABS: Anion Gap 11 (12-20); Blood Urea Nitrogen 13 mg/dL (9-16); Calcium 8.8 mg/dL (8.4-10.2); Carbon Dioxide 33 mmol/L (22-29); Chloride 97 mmol/L (96-108); Creatinine Clr Calc Pharmacy 58.7; Estimated Glomerular Filt Rate > 60; Glucose Random 113 mg/dL (60-115); Potassium 3.6 mmol/L (3.3-5.1); Sodium 137 mmol/L (135-145)
[2020-10-31 07:31] VITALS: BP 87/50; PULSE 83; RESP 85; TEMP 36.7; O2SAT 98
[2020-10-31] MEDS: Cholecalciferol (Vitamin D3) 25 MCG TABLET PO (09:56)
[2020-10-31] MEDS: buPROPion HCl XL 150 MG TAB.ER.24H PO (09:56)
[2020-10-31] MEDS: DULoxetine HCl 60 MG CAPSULE.DR PO (09:56)
[2020-10-31] MEDS: Docusate Sodium 100 MG/10 ML LIQUID 250 MG PO ×2 (09:56→21:13)
[2020-10-31] MEDS: Amphetamine Mixed Salts 10 MG TABLET 15 MG PO ×2 (09:56→16:47)
[2020-10-31] MEDS: Apixaban 5 MG TABLET PO ×2 (09:57→21:13)
[2020-10-31] MEDS: Morphine Sulfate ER 30 MG TABLET.ER PO ×2 (10:06→21:12)
[2020-10-31] MEDS: ondansetron HCL 4 MG/2 ML VIAL IVPUSH ×2 (10:36→18:30)
[2020-10-31 11:45] VITALS: BP 146/95; PULSE 108; RESP 28; TEMP 36.2; O2SAT 96
--- NOTE | 2020-10-31 15:21 | HO.PM.IMPN ---
Subjective Subjective Date of Service: 10/31/20 Interval History: seen and examined this AM in the unit comfortable and no complaints dneies cp or sob d/w her re: home vs rehab -- thinks she would need rehab ROS General - no fevers or chills Cardiovascular - no chest pain Respiratory - no shortness of breath or cough Abdominal- no abdominal pain, nausea, vomiting, diarrhea Physical Exam Vital Signs: Vital Signs: Last Vital Signs Temp 97.2 F 10/31/20 11:45 Pulse 108 H 10/31/20 11:45 Resp 28 H 10/31/20 11:45 BP 146/95 H 10/31/20 11:45 Pulse Ox 96 10/31/20 11:45 Body Mass Index 31.2 Const: Other: General - no acute distress, appears comfortable Cardiovascular - regular rate and rhythm, S1-S2 Lungs - normal respiratory effort, clear to auscultation bilaterally, no wheezing Abdomen - soft, nontender, no rebound or guarding Extremities - no edema bilaterally Neuro - awake and alert, no focal deficits Objective Data Current Medications Generic Name Dose Route Start Last Admin Trade Name Freq PRN Reason Stop Dose Admin Amphetamine/Dextroamphetamine 15 mg 10/30/20 09:00 10/31/20 09:56 Amphetamine Mixed Salts 10 Mg Tablet PO 15 mg TID KARL Administration Apixaban 5 mg 10/30/20 08:00 10/31/20 09:57 Apixaban 5 Mg Tablet PO 5 mg BID KARL Administration Bupropion HCl 150 mg 10/30/20 09:00 10/31/20 09:56 Bupropion Hcl Xl 150 Mg Tab.Er.24h PO 150 mg DAILY KARL Administration Cephalexin HCl 500 mg 10/30/20 00:45 10/31/20 09:56 Cephalexin 500 Mg Capsule PO 500 mg Q8H KARL Administration Clonazepam 0.5 mg 10/30/20 00:37 Clonazepam 0.5 Mg Tablet PO BID PRN Anxiety Docusate Sodium 250 mg 10/30/20 09:00 10/31/20 09:56 Docusate Sodium 100 Mg/10 Ml Liquid PO 250 mg BID KARL Administration Duloxetine HCl 60 mg 10/30/20 09:00 10/31/20 09:56 Duloxetine Hcl 60 Mg Capsule.Dr PO 60 mg DAILY KARL Administration Melatonin 6 mg 10/30/20 00:50 10/30/20 20:01 Melatonin 3 Mg Tablet PO 6 mg BEDTIME KARL Administration Morphine Sulfate 15 mg 10/30/20 00:37 10/30/20 01:39 Morphine Sulfate Immed Release 15 Mg Tablet PO 15 mg Q6H PRN Administration Pain Morphine Sulfate 30 mg 10/30/20 09:00 10/31/20 10:06 Morphine Sulfate Er 30 Mg Tablet.Er PO 30 mg Q12H KARL Administration Naloxone HCl 4 mg 10/30/20 00:37 Naloxone Hcl Nasal 4 Mg [place] NOSTRILALT Q3M PRN Opioid Reversal Ondansetron HCl 4 mg 10/30/20 19:22 10/31/20 10:36 Ondansetron Hcl 4 Mg/2 Ml Vial IVPUSH 4 mg Q8H PRN Administration Nausea and Vomiting Pharmacy Consult 1 each 10/29/20 18:41 Consult Rx Perform Med Rec MISCELLANE ONCE PRN Consult order Sodium Chloride 3 ml 10/30/20 08:00 10/31/20 09:58 0.9 % Sodium Chloride Flush 3 Ml Syringe IVFLUSH 3 ml QSHIFT KARL Administration Valacyclovir HCl 1,000 mg 10/30/20 09:00 10/31/20 09:56 Valacycyclovir Hcl 1,000 Mg Tablet PO 1,000 mg BID KARL Administration Vitamin D 25 mcg 10/30/20 09:00 10/31/20 09:56 Cholecalciferol (Vitamin D3) 25 Mcg Tablet PO 25 mcg DAILY KARL Administration Labs CBC & Chem 7: 10/31/20 04:56 10/31/20 04:56 Assessment and Plan (1) Elevated troponin: Status: Acute Assessment and Plan: This is a 74 yo F with a PMH of DVT on coumadin, HTN, Chronic pain back s/p back surgery -- now wheel chair bound who presented with shortness of breath. 1. Shortness of breath resolved wean O2 2. elevated trop-I mildly elevated echo without [facility] cardiology on board 3. Uncontrolled HTN BP very low this Am, without symptoms ? accurary stop antihypertensives for now and observe 4. Fall mechanical pt eval once medically stable 5. History of DVT eliuqis 6. Recent epistaxis no furher bleeds monitor Full Code DVT pptx, Eliquis
[2020-10-31 15:51] VITALS: BP 146/83; PULSE 108; RESP 20; TEMP 36.9; O2SAT 95
[2020-10-31 20:00] VITALS: BP 165/90; PULSE 108; RESP 16; TEMP 37.3; O2SAT 96
[2020-10-31] MEDS: Melatonin 3 MG TABLET 6 MG PO (21:13)
[2020-10-31 23:34] VITALS: BP 147/83; PULSE 105; RESP 15; TEMP 37.3; O2SAT 94
[2020-11-01] VITALS (8 sets, daily range): BP systolic 80–138; BP diastolic 48–73; PULSE 70–99; RESP 17–22; TEMP 36.4–36.8; O2SAT 90–98
[2020-11-01] MEDS: Apixaban 5 MG TABLET PO ×2 (08:21→20:41)
[2020-11-01] MEDS: buPROPion HCl XL 150 MG TAB.ER.24H PO (08:21)
[2020-11-01] MEDS: Morphine Sulfate ER 30 MG TABLET.ER PO ×2 (08:21→20:42)
[2020-11-01] MEDS: Cholecalciferol (Vitamin D3) 25 MCG TABLET PO (08:21)
[2020-11-01] MEDS: 0.9 % Sodium Chloride Flush 3 ML SYRINGE IVFLUSH ×2 (08:21→15:57)
[2020-11-01] MEDS: Amphetamine Mixed Salts 10 MG TABLET 15 MG PO ×2 (08:21→15:56)
[2020-11-01] MEDS: DULoxetine HCl 60 MG CAPSULE.DR PO (08:21)
[2020-11-01] MEDS: cephALEXin 500 MG CAPSULE PO ×2 (08:21→15:56)
[2020-11-01] MEDS: Docusate Sodium 100 MG/10 ML LIQUID 250 MG PO (08:22)
--- NOTE | 2020-11-01 09:25 | HO.PM.IMPN ---
Subjective Subjective Date of Service: 11/01/20 Interval History: seen and examined this AM in the unit slept well no chest pain or sob ROS General - no fevers or chills Cardiovascular - no chest pain Respiratory - no shortness of breath or cough Abdominal- no abdominal pain, nausea, vomiting, diarrhea Physical Exam Vital Signs: Vital Signs: Last Vital Signs Temp 98.3 F 11/01/20 07:48 Pulse 70 11/01/20 08:21 Resp 21 H 11/01/20 07:48 BP 128/56 L 11/01/20 08:21 Pulse Ox 97 11/01/20 07:48 Body Mass Index 31.2 Const: Other: General - no acute distress, appears comfortable Cardiovascular - regular rate and rhythm, S1-S2 Lungs - normal respiratory effort, clear to auscultation bilaterally, no wheezing Abdomen - soft, nontender, no rebound or guarding Extremities - no edema bilaterally Neuro - awake and alert, no focal deficits Objective Data Current Medications Generic Name Dose Route Start Last Admin Trade Name Freq PRN Reason Stop Dose Admin Amphetamine/Dextroamphetamine 15 mg 10/30/20 09:00 11/01/20 08:21 Amphetamine Mixed Salts 10 Mg Tablet PO 15 mg TID KARL Administration Apixaban 5 mg 10/30/20 08:00 11/01/20 08:21 Apixaban 5 Mg Tablet PO 5 mg BID KARL Administration Bupropion HCl 150 mg 10/30/20 09:00 11/01/20 08:21 Bupropion Hcl Xl 150 Mg Tab.Er.24h PO 150 mg DAILY KARL Administration Cephalexin HCl 500 mg 10/30/20 00:45 11/01/20 08:21 Cephalexin 500 Mg Capsule PO 500 mg Q8H KARL Administration Clonazepam 0.5 mg 10/30/20 00:37 Clonazepam 0.5 Mg Tablet PO BID PRN Anxiety Docusate Sodium 250 mg 10/30/20 09:00 11/01/20 08:22 Docusate Sodium 100 Mg/10 Ml Liquid PO 250 mg BID KARL Administration Duloxetine HCl 60 mg 10/30/20 09:00 11/01/20 08:21 Duloxetine Hcl 60 Mg Capsule.Dr PO 60 mg DAILY KARL Administration Lisinopril 20 mg 11/01/20 09:00 11/01/20 08:21 Lisinopril 20 Mg Tablet PO 20 mg BID KARL Administration Protocol Melatonin 6 mg 10/30/20 00:50 10/31/20 21:13 Melatonin 3 Mg Tablet PO 6 mg BEDTIME KARL Administration Morphine Sulfate 15 mg 10/30/20 00:37 10/30/20 01:39 Morphine Sulfate Immed Release 15 Mg Tablet PO 15 mg Q6H PRN Administration Pain Morphine Sulfate 30 mg 10/30/20 09:00 11/01/20 08:21 Morphine Sulfate Er 30 Mg Tablet.Er PO 30 mg Q12H KARL Administration Naloxone HCl 4 mg 10/30/20 00:37 Naloxone Hcl Nasal 4 Mg [place] NOSTRILALT Q3M PRN Opioid Reversal Ondansetron HCl 4 mg 10/30/20 19:22 10/31/20 18:30 Ondansetron Hcl 4 Mg/2 Ml Vial IVPUSH 4 mg Q8H PRN Administration Nausea and Vomiting Pharmacy Consult 1 each 10/29/20 18:41 Consult Rx Perform Med Rec MISCELLANE ONCE PRN Consult order Sodium Chloride 3 ml 10/30/20 08:00 11/01/20 08:21 0.9 % Sodium Chloride Flush 3 Ml Syringe IVFLUSH 3 ml QSHIFT KARL Administration Valacyclovir HCl 1,000 mg 10/30/20 09:00 11/01/20 08:21 Valacycyclovir Hcl 1,000 Mg Tablet PO 1,000 mg BID KARL Administration Vitamin D 25 mcg 10/30/20 09:00 11/01/20 08:21 Cholecalciferol (Vitamin D3) 25 Mcg Tablet PO 25 mcg DAILY KARL Administration Labs CBC & Chem 7: 10/31/20 04:56 10/31/20 04:56 Assessment and Plan (1) Elevated troponin: Status: Acute Assessment and Plan: This is a 74 yo F with a PMH of DVT on coumadin, HTN, Chronic pain back s/p back surgery -- now wheel chair bound who presented with shortness of breath. 1. Shortness of breath resolved wean O2 2. elevated trop-I mildly elevated, suspected secondary to elevated bp echo without [facility] cardiology on board 3. Uncontrolled HTN no hypotesion last 24 hours, restart meds 4. Fall mechanical pt eval once medically stable 5. History of DVT Eliquis 6. Recent epistaxis no furher bleeds monitor 7. Weakness PT eval and anticipate STR Full Code DVT pptx, Eliquis called to update daughter -- went unanswered.
[2020-11-01] MEDS: ondansetron HCL 4 MG/2 ML VIAL IVPUSH (11:32)
[2020-11-01] MEDS: 0.9 % Sodium Chloride 500 ML 999 ML IV (17:55)
--- NOTE | 2020-11-01 18:38 | PC.NURSE ---
P- Pt bp 80/52, HR 96. I- messaged sent to . 500ml bolus ordered. E- pt bp improved to 93/48m map of 74.
[2020-11-01] MEDS: Melatonin 3 MG TABLET 6 MG PO (20:41)
[2020-11-02] VITALS: BP 91/49; PULSE 90; RESP 18; TEMP 36.7; O2SAT 95
[2020-11-02] MEDS: 0.9 % Sodium Chloride Flush 3 ML SYRINGE IVFLUSH ×3 (00:28→16:04)
[2020-11-02] MEDS: cephALEXin 500 MG CAPSULE PO ×3 (00:28→16:03)
[2020-11-02 04:00] VITALS: BP 94/46; PULSE 86; RESP 16; O2SAT 94
[2020-11-02] MEDS: Morphine Sulfate Immed Release 15 MG TABLET PO (04:06)
[2020-11-02 08:00] VITALS: BP 104/58; PULSE 95; RESP 16; TEMP 36.7; O2SAT 93
[2020-11-02 09:02] VITALS: BP 94/46; PULSE 86; O2SAT 94
[2020-11-02] MEDS: Morphine Sulfate ER 30 MG TABLET.ER PO (09:48)
[2020-11-02] MEDS: DULoxetine HCl 60 MG CAPSULE.DR PO (09:49)
[2020-11-02] MEDS: Amphetamine Mixed Salts 10 MG TABLET 15 MG PO ×2 (09:49→16:03)
[2020-11-02] MEDS: buPROPion HCl XL 150 MG TAB.ER.24H PO (09:49)
[2020-11-02] MEDS: Apixaban 5 MG TABLET PO (09:50)
[2020-11-02] MEDS: Cholecalciferol (Vitamin D3) 25 MCG TABLET PO (09:50)
[2020-11-02] MEDS: Docusate Sodium 100 MG/10 ML LIQUID 250 MG PO (09:50)
--- NOTE | 2020-11-02 10:15 | HO.PM.IMPN ---
Subjective Subjective Date of Service: 11/02/20 Interval History: seen and examined this AM in the unit no complaints no cp or sob unsure of her BP readings at home ROS General - no fevers or chills Cardiovascular - no chest pain Respiratory - no shortness of breath or cough Abdominal- no abdominal pain, nausea, vomiting, diarrhea Physical Exam Vital Signs: Vital Signs: Last Vital Signs Temp 98.0 F 11/02/20 00:00 Pulse 86 11/02/20 09:02 Resp 16 11/02/20 04:00 BP 94/46 L 11/02/20 09:02 Pulse Ox 94 11/02/20 09:02 Body Mass Index 31.2 Const: Other: General - no acute distress, appears comfortable Cardiovascular - regular rate and rhythm, S1-S2 Lungs - normal respiratory effort, clear to auscultation bilaterally, no wheezing Abdomen - soft, nontender, no rebound or guarding Extremities - no edema bilaterally Neuro - awake and alert, no focal deficits Objective Data Current Medications Generic Name Dose Route Start Last Admin Trade Name Konstantinq PRN Reason Stop Dose Admin Amphetamine/Dextroamphetamine 15 mg 10/30/20 09:00 11/02/20 09:49 Amphetamine Mixed Salts 10 Mg Tablet PO 15 mg TID KARL Administration Apixaban 5 mg 10/30/20 08:00 11/02/20 09:50 Apixaban 5 Mg Tablet PO 5 mg BID KARL Administration Bupropion HCl 150 mg 10/30/20 09:00 11/02/20 09:49 Bupropion Hcl Xl 150 Mg Tab.Er.24h PO 150 mg DAILY KARL Administration Cephalexin HCl 500 mg 10/30/20 00:45 11/02/20 09:49 Cephalexin 500 Mg Capsule PO 500 mg Q8H KARL Administration Clonazepam 0.5 mg 10/30/20 00:37 Clonazepam 0.5 Mg Tablet PO BID PRN Anxiety Docusate Sodium 250 mg 10/30/20 09:00 11/02/20 09:50 Docusate Sodium 100 Mg/10 Ml Liquid PO 250 mg BID KARL Administration Duloxetine HCl 60 mg 10/30/20 09:00 11/02/20 09:49 Duloxetine Hcl 60 Mg Capsule.Dr PO 60 mg DAILY KARL Administration Melatonin 6 mg 10/30/20 00:50 11/01/20 20:41 Melatonin 3 Mg Tablet PO 6 mg BEDTIME KARL Administration Morphine Sulfate 15 mg 10/30/20 00:37 11/02/20 04:06 Morphine Sulfate Immed Release 15 Mg Tablet PO 15 mg Q6H PRN Administration Pain Morphine Sulfate 30 mg 10/30/20 09:00 11/02/20 09:48 Morphine Sulfate Er 30 Mg Tablet.Er PO 30 mg Q12H KARL Administration Naloxone HCl 4 mg 10/30/20 00:37 Naloxone Hcl Nasal 4 Mg [place] NOSTRILALT Q3M PRN Opioid Reversal Ondansetron HCl 4 mg 10/30/20 19:22 11/01/20 11:32 Ondansetron Hcl 4 Mg/2 Ml Vial IVPUSH 4 mg Q8H PRN Administration Nausea and Vomiting Pharmacy Consult 1 each 10/29/20 18:41 Consult Rx Perform Med Rec MISCELLANE ONCE PRN Consult order Sodium Chloride 3 ml 10/30/20 08:00 11/02/20 09:50 0.9 % Sodium Chloride Flush 3 Ml Syringe IVFLUSH 3 ml QSHIFT KARL Administration Vitamin D 25 mcg 10/30/20 09:00 11/02/20 09:50 Cholecalciferol (Vitamin D3) 25 Mcg Tablet PO 25 mcg DAILY KARL Administration Labs CBC & Chem 7: 11/02/20 10:49 11/02/20 10:49 Assessment and Plan (1) Elevated troponin: Status: Acute Assessment and Plan: This is a 74 yo F with a PMH of DVT on coumadin, HTN, Chronic pain back s/p back surgery -- now wheel chair bound who presented with shortness of breath. 1. Hypotension came in with significantly elevated BPs and was placed on her home meds. Now has been hypotensive. Will hold BP meds recheck labs. likely secondary to dysautonomia, hold antihypertensives for now 2. Elevated troponins Echo without wall motion was attributed to elevated BP 3. Shortness of breath resolved wean O2 2. elevated trop-I mildly elevated, suspected secondary to elevated bp echo without [facility] cardiology on board 3. Uncontrolled HTN see re: above hypotension hold bp meds 4. Fall mechanical pt eval -- str 5. History of DVT Eliquis 6. Recent epistaxis no furher bleeds monitor 7. Weakness PT eval and anticipate STR Full Code DVT pptx, Eliquis dispo: to STR when bed available
--- NOTE | 2020-11-02 11:01 | P.PNCA_ITS ---
Subjective Subjective Date of Service: 11/02/20 Principal diagnosis: Labile blood pressure. Interval history: Patient completely asymptomatic and denies any cardiac c omplaints. Noted to have low blood pressure. No lightheadedness, syncope. Home was no from bed to chair without any lightheadedness. On further questioning she says usually a blood pressures are in this range. She has not had any further complaints Review of Systems Review of Systems Yes all other systems are reviewed and are negative Physical Exam Vital Signs: Last Vital Signs Temp 98.0 F 11/02/20 00:00 Pulse 86 11/02/20 09:02 Resp 16 11/02/20 04:00 BP 94/46 L 11/02/20 09:02 Pulse Ox 94 11/02/20 09:02 Body Mass Index 31.2 Const General: cooperative, comfortable, alert and awake Orientation/consciousness: patient oriented x3 Neck Neck: Yes trachea midline, Yes supple and Yes no JVD Resp Effort & Inspection: normal respiratory effort Auscultation: clear to auscultation bilaterally Cardio Jugular venous distension: no JVD Palpation: normal PMI Rate: regular rate Rhythm: regular rhythm Heart sounds: S1 normal heart sound present and S2 normal heart sound present Skin General skin exam: no rashes or lesions noted Neuro General: patient oriented x3 and no focal motor deficits Extrem General: Yes no clubbing, cyanosis or edema Results Labs and Meds Result diagrams: 10/31/20 04:56 10/31/20 04:56 Progress Note: A&P Assessment and plan (1) Labile blood pressure: Status: Acute Assessment and Plan: Patient blood pressure is on the lower side. She has no symptoms. These are her usual home blood pressures. Admission blood pressure most likely related to anxiety related to her acute bleeding issue. Currently having no recurrent bleeds. Blood pressure is on the lower side. Advised her to drink increased fluid and also add salt to her diet. Monitor blood pressure at home. No particular medications to be added to her regimen at this point in time. (2) Elevated troponin: Status: Acute Assessment and Plan: Elevated troponin and BNP in the setting of acutely elevated blood pressure. Echocardiogram shows normal wall motion with normal LV systolic function. Most likely due to subendocardial strain. Currently not having any cardiac symptoms. Can follow up with the primary care physician as an outpatient. 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 Will sign of the case. Patient can be discharged home from cardiac perspective Fall Risk Details Current Medications: Current Medications Generic Name Dose Route Start Last Admin Trade Name Freq PRN Reason Stop Dose Admin Amphetamine/Dextroamphetamine 15 mg 10/30/20 09:00 11/02/20 09:49 Amphetamine Mixed Salts 10 Mg Tablet PO 15 mg TID KARL Administration Apixaban 5 mg 10/30/20 08:00 11/02/20 09:50 Apixaban 5 Mg Tablet PO 5 mg BID KARL Administration Bupropion HCl 150 mg 10/30/20 09:00 11/02/20 09:49 Bupropion Hcl Xl 150 Mg Tab.Er.24h PO 150 mg DAILY KARL Administration Cephalexin HCl 500 mg 10/30/20 00:45 11/02/20 09:49 Cephalexin 500 Mg Capsule PO 500 mg Q8H KARL Administration Clonazepam 0.5 mg 10/30/20 00:37 Clonazepam 0.5 Mg Tablet PO BID PRN Anxiety Docusate Sodium 250 mg 10/30/20 09:00 11/02/20 09:50 Docusate Sodium 100 Mg/10 Ml Liquid PO 250 mg BID KARL Administration Duloxetine HCl 60 mg 10/30/20 09:00 11/02/20 09:49 Duloxetine Hcl 60 Mg Capsule.Dr PO 60 mg DAILY KARL Administration Melatonin 6 mg 10/30/20 00:50 11/01/20 20:41 Melatonin 3 Mg Tablet PO 6 mg BEDTIME KARL Administration Morphine Sulfate 15 mg 10/30/20 00:37 11/02/20 04:06 Morphine Sulfate Immed Release 15 Mg Tablet PO 15 mg Q6H PRN Administration Pain Morphine Sulfate 30 mg 10/30/20 09:00 11/02/20 09:48 Morphine Sulfate Er 30 Mg Tablet.Er PO 30 mg Q12H KARL Administration Naloxone HCl 4 mg 10/30/20 00:37 Naloxone Hcl Nasal 4 Mg [place] NOSTRILALT Q3M PRN Opioid Reversal Ondansetron HCl 4 mg 10/30/20 19:22 11/01/20 11:32 Ondansetron Hcl 4 Mg/2 Ml Vial IVPUSH 4 mg Q8H PRN Administration Nausea and Vomiting Pharmacy Consult 1 each 10/29/20 18:41 Consult Rx Perform Med Rec MISCELLANE ONCE PRN Consult order Sodium Chloride 3 ml 10/30/20 08:00 11/02/20 09:50 0.9 % Sodium Chloride Flush 3 Ml Syringe IVFLUSH 3 ml QSHIFT KARL Administration Vitamin D 25 mcg 10/30/20 09:00 11/02/20 09:50 Cholecalciferol (Vitamin D3) 25 Mcg Tablet PO 25 mcg DAILY KARL Administration Time Spent With Patient Time: Total time spent is greater than 50% in coordination of care (as documented) at patient's floor/unit and/or counseling patient: Time with patient: 25 - 35 minutes
[2020-11-02 11:02] LABS: Hematocrit 28.8 % (37-47); Hemoglobin 9.2 g/dl (12.0-16.0); Mean Corpuscular HGB Conc 31.9 g/dl (31.0-35.0); Mean Corpuscular Hemoglobin 29.8 pg (27.0-33.0); Mean Corpuscular Volume 93.2 fL (80-98); Mean Platelet Volume 10.7 fL (9.4-12.3); Platelet Count 258 X10*3/uL (160-400); Red Blood Count 3.09 X10*6/uL (4.20-5.50); Red Cell Distribution Width 13.8 % (11.0-16.0); White Blood Count 9.5 X10*3/uL (4.8-10.8)
[2020-11-02 11:29] VITALS: BMI 31.2
[2020-11-02 11:37] LABS: Anion Gap 12 (12-20); Blood Urea Nitrogen 25 mg/dL (9-16); Carbon Dioxide 29 mmol/L (22-29); Chloride 100 mmol/L (96-108); Creatinine Clr Calc Pharmacy 47.6; Estimated Glomerular Filt Rate 58; Glucose Random 144 mg/dL (60-115); Potassium 3.8 mmol/L (3.3-5.1); Sodium 137 mmol/L (135-145)
[2020-11-02 12:00] VITALS: BP 101/70; PULSE 104; RESP 15; TEMP 36.4
--- NOTE | 2020-11-02 13:47 | MHC.CM.PN ---
DP Female 74 DX SOB Plan is [facility] the pts 2nd choice has offered a bed and is going for Auth. Information was sent earlier. Pt will DC today via BLS if approved. CM will follow.
--- NOTE | 2020-11-02 14:11 | P.DS_ITS ---
DS: Providers Provider Date of Service: 11/02/20 Date of admission: 10/30/20 00:35 Primary care physician: Chata Niño NP Consults: 10/30/20 00:37 Consult to Cardiology Stat Consulting Provider: Florencio Marina Reason for consultation: elevated trops DS: Diagnosis Discharge Diagnosis (1) Elevated troponin: Status: Acute (2) Labile blood pressure: Status: Acute (3) Shortness of breath: Status: Acute (4) Hypertension: Status: Acute DS: Medications Discharge Medications Home Medications: Home Medications Medication Instructions Recorded Confirmed Bacillus subtilis-inulin 1 tab PO DAILY 10/29/20 10/29/20 apixaban [Eliquis] 5 mg PO BID 10/29/20 10/29/20 bupropion HCl 150 mg PO QAM 10/29/20 10/29/20 cephalexin [Keflex] 500 mg PO Q8H 10/29/20 10/29/20 cholecalciferol (vitamin D3) 25 mcg PO DAILY 10/29/20 10/29/20 clonazepam [Klonopin] 0.5 mg PO BID PRN 10/29/20 10/29/20 dextroamphetamine-amphetamine 15 mg PO TID 10/29/20 10/29/20 [Adderall] docusate sodium 250 mg PO BID 10/29/20 10/29/20 duloxetine 60 mg PO DAILY 10/29/20 10/29/20 lisinopril-hydrochlorothiazide 1 tab PO BID 10/29/20 10/29/20 melatonin 12 mg PO BEDTIME 10/29/20 10/29/20 morphine 15 mg PO Q6H PRN 10/29/20 10/29/20 morphine 30 mg PO Q12H 10/29/20 10/29/20 naloxone [Narcan] 4 mg INTRANASAL Q3M PRN 10/29/20 10/29/20 nitrofurantoin macrocrystal 100 mg PO BID 10/29/20 10/29/20 valacyclovir 1,000 mg PO BID 10/29/20 10/29/20 DS: Summary Hospital Course Hospital Course: Patient presented with respiratory distress which was felt to be seconary to nasal packing from prior nose bleed. Once this was removed, patients syptoms quickly resolved. She was noted to have mild trop-I elevation without any symptoms and was further evaluated for this with a 2D echo which did not show regional wall motion abnormality. This was attributed secondary to significantly elevated blood pressure upon arrival (which was felt to be secondary to her distress from nasal packing) . In regards to her blood pressure, initially although she was hypertensive blood pressures began to decrease and so her antihypertensives were discontinued. She remained without any symptoms of hypotension. She likely has dysautonomia. Her blood pressure can be observed at SNF and can be restarted on antihpyerteves if needed. Time Spent with Patient Time attestation: Total time spent providing and/or coordinating discharge services: Discharge coordination time: Greater than 30 minutes Physical Exam Vital Signs: Vital Signs: Last Vital Signs Temp 98.0 F 11/02/20 08:00 Pulse 86 11/02/20 09:02 Resp 16 11/02/20 08:00 BP 94/46 L 11/02/20 09:02 Pulse Ox 94 11/02/20 09:02 Body Mass Index 31.2 Const: Other: General - no acute distress, appears comfortable Cardiovascular - regular rate and rhythm, S1-S2 Lungs - normal respiratory effort, clear to auscultation bilaterally, no wheezing Abdomen - soft, nontender, no rebound or guarding Extremities - no edema bilaterally Neuro - awake and alert, no focal deficits DS: Data Data Completed and Pending Labs on day of discharge: Laboratory Results - last 24 hr 11/02/20 11/02/20 10:49 10:49 WBC 9.5 RBC 3.09 L Hgb 9.2 L Hct 28.8 L MCV 93.2 MCH 29.8 MCHC 31.9 RDW 13.8 Plt Count 258 MPV 10.7 Absolute Nucleated RBC 0.000 Nucleated RBC % (auto) 0.0 Sodium 137 Potassium 3.8 Chloride 100 Carbon Dioxide 29 Anion Gap 12 BUN 25 H D Creatinine 0.95 Estim Creat Clear Calc 47.6 Estimated GFR 58 Random Glucose 144 H Calcium 9.0 Discharge Plan Discharge Patient Disposition: Xfer [facility] Referrals: Chata Niño NP [Primary Care Provider] - Discharge Medications: Continued bupropion HCl 150 mg Tablet Extended Release 24 Hr 150 mg PO QAM RF: 0 Eliquis 5 mg Tablet 5 mg PO BID RF: 0 duloxetine 60 mg Capsule,Delayed Release(Dr/Ec) 60 mg PO DAILY RF: 0 Narcan 4 mg/actuation [place],Non-Aerosol 4 mg INTRANASAL Q3M PRN (Reason: Opioid Reversal) RF: 0 dextroamphetamine-amphetamine [Adderall] 10 mg Tablet 15 mg PO TID RF: 0 docusate sodium 250 mg Capsule 250 mg PO BID RF: 0 cholecalciferol (vitamin D3) 25 mcg (1,000 unit) Tablet 25 mcg PO DAILY RF: 0 melatonin 1 mg Tablet 12 mg PO BEDTIME RF: 0 Bacillus subtilis-inulin 1.5 billion cell-1 gram Tablet,Chewable 1 tab PO DAILY RF: 0 clonazepam [Klonopin] 0.5 mg Tablet 0.5 mg PO BID PRN (Reason: Anxiety) Qty: 10 RF: 0 morphine 30 mg Tablet Extended Release 30 mg PO Q12H Qty: 10 RF: 0 morphine 15 mg Tablet 15 mg PO Q6H PRN (Reason: Pain) Qty: 10 RF: 0 Discontinued cephalexin [Keflex] 500 mg Capsule 500 mg PO Q8H RF: 0 lisinopril-hydrochlorothiazide 20-12.5 mg Tablet 1 tab PO BID RF: 0 valacyclovir 500 mg tablet 1,000 mg PO BID RF: 0 nitrofurantoin macrocrystal 100 mg Capsule 100 mg PO BID RF: 0 Discharge Orders: Discharge Order (Routine); Ordered 11/02/20 Ordered By: Bunny Reina Diet: advance to usual diet Activity on Discharge: As tolerated Stand Alone Forms: Patient Portal Discharge page Care Plan Goals: To stay healthy and out of the hospital. Health Concerns: Labile Blood pressure Plan of Treatment: Do not take your BP meds for the time being. If your blood pressures increase, you can restart them.
[2020-11-02 14:51] LABS: COVID-19 Test Negative (Negative); IDNOW Serial# 9DD0AD1C
--- NOTE | 2020-11-02 15:28 | MHC.CM.PN ---
IMM 11/02/20 FEMALE DX SOB DC TODAY TO [facility] [address] VIA BLS @ 6PM.
[2020-11-02 16:00] VITALS: PULSE 106; RESP 15
--- NOTE | 2020-11-02 16:21 | PC.NURSE ---
Patient planning for discharge today. Cardiology in to see patient. Aware of mild hypotension. Patient is Covid negative according to rapid Castañeda swab. Patient belongings sent home with patient. Discharge instructions sent home with patient and faxed to SNF. Nurse to nurse report called over the phone. Ambulance to transport patient.
== END 2020-11-02 18:22 | disposition skilled nursing facility (03) | DRG 93 ==
LOC: HO.ED 10-30 00:20 → HO.EDOVER 10-30 01:08 → HO.ICU 10-30 10:41
PROVIDERS: Internal Medicine; Physician Assistant; Admitting Provider Hospitalist; Emergency Provider Emergency Medicine; PCP Nurse Practitioner Family; Visit Provider Family Medicine
DX: G90.1 Familial dysautonomia [Riley-Day] (principal); I10 Essential (primary) hypertension; I95.9 Hypotension, unspecified; Z91.81 History of falling; Z99.3 Dependence on wheelchair; Z86.718 Personal history of other venous thrombosis and embolism; Z20.822 Contact with and (suspected) exposure to COVID-19; Z79.01 Long term (current) use of anticoagulants; Z79.891 Long term (current) use of opiate analgesic; Z79.899 Other long term (current) drug therapy
CPT/HCPCS: 36415; 70450; 71045; 71275; 80048; 80076; 80307; 80320; 81003; 82550; 83735; 83880; 84484; 85025; 85027; 85610; 85730; 87635; 93005; 93306; 96361; 96374; 97162; 99285; J2405; Q9967

== ENCOUNTER 2022-02-16 13:17 | Inpatient (IN) | payer MEDICARE, SELFPAY ==
--- NOTE | ~2022-02-16 | CT_ITS ---
EXAMINATION: CT ANGIOGRAM OF THE CHEST WITH AND WITHOUT CONTRAST (CT PULMONARY ANGIOGRAM FOR PE) CLINICAL INFORMATION: Reason for Exam hypoxia, SOB, tachypnea, h/o DVTs COMPARISON: CT PE study 10/29/2021 TECHNIQUE: Prior to contrast administration, noncontrast localization images were obtained. Subsequently, multidetector volumetric imaging was performed from the thoracic inlet to below the diaphragms following the administration of 65 mL Omnipaque 350 intravenous contrast. No contrast reaction reported Sagittal, coronal, and MIP oblique sagittal reformatted images were obtained on the CT workstation, uploaded to PACS, and reviewed. This CT examination was performed using dose optimization techniques as appropriate, variously including the following: *Automated exposure control *Adjustment of mA and/or kV according to patient size (this includes techniques or standardized protocols for targeted exams where dose is matched to indication/reason for exam; i.e. extremities or head) *Use of iterative reconstruction technique Total exam dose-length product 377 mGy-cm FINDINGS: QUALITY OF STUDY/CONTRAST BOLUS: Satisfactory. PULMONARY ARTERIES: No central or segmental pulmonary emboli. THORACIC AORTA: No aneurysm or dissection. LUNG: There are underlying changes of COPD which are more apparent on today's exam than the previously slight increase in interstitial markings and thickening of peripheral septa could represent mild superimposed CHF. Again seen is a large hiatal hernia present with most of the stomach in the chest. This is associated with left lower lobe atelectasis. No gross consolidations or suspicious pulmonary masses are seen. PLEURA: There is a new small right-sided pleural effusion present MEDIASTINUM: Normal heart size. Pulmonary artery remains prominent in size with the main pulmonary artery measuring 3.5 cm suggesting elevated right-sided heart pressures. No pericardial effusion. No hilar or mediastinal lymphadenopathy. No evidence of septal bowing or right heart strain. CHEST WALL/AXILLA: No axillary or internal mammary lymphadenopathy. OSSEOUS STRUCTURES: No acute or suspicious osseous abnormality. UPPER ABDOMEN: Hiatal hernia. See above. A 1 cm hepatic cyst is present (7:382). A left-sided renal cyst is again seen. No reflux of contrast into the hepatic veins to suggest elevated right heart pressures. CT/CT angio chest PE protocol IMPRESSION: 1. No evidence of pulmonary emboli. 2. There is underlying COPD with some mild increase in interstitial markings and a new right effusion suggesting possible CHF. 3. Large hiatal hernia with most of the stomach within the left chest producing atelectasis/compression. 4. Main pulmonary artery is dilated suggesting elevated right heart pressure. VTE: negative
--- NOTE | ~2022-02-16 | XR_ITS ---
EXAMINATION: XR CHEST CLINICAL INFORMATION: Cough. Dyspnea. COMPARISON: Previous chest x-ray and chest CT October 2020 TECHNIQUE: Frontal view of the chest was obtained. FINDINGS: The cardiac and mediastinal contours are stable. There is an air-fluid level of the left lung base just above large esophageal hernia or intrathoracic stomach. There is adjacent left lower lobe atelectasis/consolidation. This is similar to previous exam. There is prominence of the central right hilar markings questionable for pulmonary venous redistribution/mild fluid overload. There is no significant pleural effusion. There is no pneumothorax. There are degenerative changes of the spine and shoulders. There are postsurgical changes to the lumbar spine. XR/XR chest 1V IMPRESSION: Abnormal left lung base likely representing combination of left esophageal hernia/intrathoracic stomach and adjacent consolidation or atelectasis at the left lower lobe. This finding is similar to previous exams. Increased right hilar markings questionable for pulmonary venous redistribution/mild CHF.
[2022-02-16 13:19] VITALS: BP 173/88; PULSE 107; RESP 24; TEMP 37.1; O2SAT 90; BMI 33.2
[2022-02-16 15:34] VITALS: BP 181/105; PULSE 96; RESP 18; O2SAT 98
[2022-02-16 16:01] LABS: Basophils Percent Auto 0.2 % (0-2); Hematocrit 40.9 % (37.0-47.0); Hemoglobin 12.8 g/dl (12.0-16.0); Imm Gran Abs Auto 0.05 X10*3/uL (0.00-0.03); Imm Gran Pct Auto 0.4 % (0.0-0.4); Lymphocytes Absolute Auto 0.6 X10*3/uL (1.2-4.9); Lymphocytes Percent Auto 4.9 % (20-40); MANUAL DIFF FLAG SCAN; Mean Corpuscular HGB Conc 31.3 g/dl (31.0-35.0); Mean Corpuscular Hemoglobin 26.8 pg (27.0-33.0); Mean Corpuscular Volume 85.7 fL (80.0-98.0); Mean Platelet Volume 10.5 fL (9.4-12.3); Monocytes Absolute Auto 0.1 X10*3/uL (0.1-1.2); Monocytes Percent Auto 1.1 % (2-11); Neutrophils Absolute Auto 11.4 x10*3/uL (2.0-8.3); Neutrophils Percent Auto 93.4 % (45-73); Platelet Count 311 X10*3/uL (160-400); Red Blood Count 4.77 X10*6/uL (4.20-5.50); Red Cell Distribution Width 16.5 % (11.0-16.0); SCAN SMEAR FLAG 1; White Blood Count 12.2 X10*3/uL (4.8-10.8)
--- NOTE | 2022-02-16 16:11 | ECG_ITS ---
Test Reason : DYSPNEA Blood Pressure : / mmHG Vent. Rate : 099 BPM Atrial Rate : 099 BPM P-R Int : 130 ms QRS Dur : 084 ms QT Int : 360 ms P-R-T Axes : 072 080 122 degrees QTc Int : 462 ms Sinus rhythm with Premature ventricular complexes Nonspecific ST and T wave abnormality Abnormal ECG When compared with ECG of 29-OCT-2020 22:32, Non-specific change in ST segment in Anterior leads Nonspecific T wave abnormality now evident in Lateral leads Referred By: Danielle Webster Electronically Signed By:GENA BELTRAN
[2022-02-16 16:14] LABS: Alanine Aminotransferase 31 U/L (0-31); Albumin Level 3.8 g/dL (3.5-5.0); Alkaline Phosphatase 95 U/L (39-117); Anion Gap 14 (12-20); Aspartate Amino Transferase 22 U/L (5-31); Bilirubin Total 0.2 mg/dL (0.0-1.0); Blood Urea Nitrogen 27 mg/dL (9-16); Calcium 9.7 mg/dL (8.4-10.2); Carbon Dioxide 26 mmol/L (22-29); Chloride 106 mmol/L (96-108); Creatinine Clr Calc Pharmacy 46.7; Estimated Glomerular Filt Rate 56; Glucose Random 149 mg/dL (60-115); Potassium 4.9 mmol/L (3.3-5.1); Sodium 141 mmol/L (135-145); Total Protein 6.7 g/dL (6.5-8.0)
[2022-02-16 16:26] LABS: SLIDE REVIEW VERIFIED
--- NOTE | 2022-02-16 16:32 | ED.SOB ---
HPI - SOB/Dyspnea General Chief Complaint: Dyspnea Stated Complaint: trouble breathing Time Seen by Provider: 02/16/22 15:38 Source: patient Mode of arrival: ambulatory Limitations: no limitations History of Present Illness HPI Narrative: 76-year-old female with a history of COPD, DVT on Eliquis, hypertension, chronic back pain status post surgery pain (on chronic opoiods), patient is wheelchair-bound here with complaints of shortness of breath over the last 1 week. Patient is our primary care doctor on Monday and was started on prednisone. She took 3 doses of prednisone but still is having symptoms. She denies any URI symptoms such as runny nose, sore throat, ear pain. No fevers or chills. She has a very slight dry cough. No chest pain, no leg swelling or leg pain. Related Data Home Medications Medication Instructions Recorded Confirmed Bacillus subtilis 1.5 billion 1 tab PO DAILY 10/29/20 10/29/20 cell-inulin 1 gram chewable tablet apixaban 5 mg tablet (Eliquis) 5 mg PO BID 10/29/20 10/29/20 bupropion HCl 150 mg 24 hr tablet, 150 mg PO QAM 10/29/20 10/29/20 extended release cholecalciferol (vitamin D3) 25 25 mcg PO DAILY 10/29/20 10/29/20 mcg (1,000 unit) tablet dextroamphetamine-amphetamine 10 15 mg PO TID 10/29/20 10/29/20 mg tablet (Adderall) docusate sodium 250 mg capsule 250 mg PO BID 10/29/20 10/29/20 duloxetine 60 mg capsule,delayed 60 mg PO DAILY 10/29/20 10/29/20 release melatonin 1 mg tablet 12 mg PO BEDTIME 10/29/20 10/29/20 naloxone 4 mg/actuation nasal 4 mg intranasal Q3M PRN Opioid 10/29/20 10/29/20 spray (Narcan) Reversal Previous Rx's Medication Instructions Recorded clonazepam 0.5 mg tablet (Klonopin) 0.5 mg PO BID PRN Anxiety #10 tabs 11/02/20 morphine 15 mg immediate release 15 mg PO Q6H PRN Pain #10 tabs 11/02/20 tablet morphine 30 mg tablet,extended 30 mg PO Q12H #10 tabs 11/02/20 release Allergies Allergy/AdvReac Type Severity Reaction Status Date / Time No Known Allergies Allergy Verified 10/29/20 10:21 Review of Systems Review of Systems: Yes all other systems are reviewed and are negative Constitutional: Constitutional: Reports no additional constitutional complaints, Denies body ache(s), Denies chills, Denies fever(s), Denies headache(s) and Denies weakness Eyes: Eyes: Reports no additional eye complaints and Denies change in vision ENT: Reports system reviewed and no additional complaints, except as documented, Denies dizziness, Denies headache(s), Denies nasal congestion, Denies nasal discharge and Denies neck pain Cardiovascular: Cardiovascular: Reports no additional cardiovascular complaints, Denies chest pain, Denies leg edema and Reports dyspnea Respiratory: Respiratory: Reports no additional respiratory complaints, Reports cough and Reports dyspnea Gastrointestinal: Gastrointestinal: Reports no additional gastrointestinal complaints, Denies abdominal pain, Denies diarrhea, Denies nausea and Denies vomiting Genitourinary: Genitourinary: Reports no additional female genitourinary complaints and Denies urinary incontinence Musculoskeletal: Musculoskeletal: Reports no additional musculoskeletal complaints, Denies back pain, Denies arthralgias, Denies joint swelling, Denies neck pain, Denies numbness and Denies tingling Integumentary/Breasts: Skin/Breast: Reports system reviewed and no additional complaints, except as docu and Denies rash Neurologic: Reports system reviewed and no additional complaints, except as documented, Denies Abnormal speech present, Denies dizziness, Denies headache(s), Denies numbness, Denies tingling and Denies weakness [facility] Past Medical History Attestation statement: The following information was validated with the patient. Source: old records reviewed and nursing notes reviewed Medical History COPD (chronic obstructive pulmonary disease) DVT (deep venous thrombosis) Elevated troponin HTN (hypertension) Hypertension Shortness of breath Surgical History Previous back surgery Social History Social History Household Members: None Housing: Apartment Do you presently have visiting nurse or other home services: Yes Advance Directives: Yes Advance Directives on File: Yes Advance Directives Date on File: 10/29/20 service: No Current occupational status: disabled Physical Exam Vital Signs: Vital Signs: Last Vital Signs Temp 97.9 F 02/16/22 17:35 Pulse 92 02/16/22 17:35 Resp 22 H 02/16/22 17:35 BP 170/104 H 02/16/22 17:35 Pulse Ox 96 02/16/22 17:35 O2 Del Method 02/16/22 17:35 O2 Flow Rate 2 02/16/22 17:35 BMI result Body Mass Index 33.2 Const: General: cooperative, healthy appearing, comfortable and no acute distress Orientation/consciousness: patient oriented x3 Limitations: no limitations HEENT: Head: Yes normal to inspection Ears: hearing grossly normal bilaterally General nose exam: Normal external nose present Face and sinus: Yes normal facial exam Mouth: Normal oral and palatal mucosa present Throat: Yes posterior oropharynx normal Eyes: General: appearance normal, both eyes and all related structures Pupils: Equal, round and reactive pupils present Neck: Neck: Yes normal visual inspection Chest: Chest palpation & inspection: normal inspection of the chest Resp: Effort & Inspection: normal respiratory effort Auscultation: clear to auscultation bilaterally Cardio: Rate: regular rate Rhythm: regular rhythm Peripheral pulses: Peripheral pulses 2+ throughout GI: Inspection: Yes normal to inspection Palpation (GI): Soft to palpation and nontender Auscultation: normal bowel sounds Back/Spine/Pelvis: Thoracic/Lumbar Spine: thoracic and lumbar spine normal to inspection Skin: General skin exam: no rashes or lesions noted Neuro: General: patient oriented x3, no focal motor deficits and normal sensation to monofilament Cranial nerves: Yes Equal, round and reactive pupils present Cognition (Neuro): normal cognition Speech: No Abnormal speech present Gait exam (Neuro): Normal gait present Motor exam (neuro): 5/5 motor strength present throughout Extrem: General: Yes normal to inspection, Yes no pedal edema and Yes no calf tenderness Course Course Course Narrative: 76-year-old female here with reports of shortness of breath 1 week with slight cough. Unrelieved with prednisone and albuterol. On arrival patient is tachypneic. Pulse ox on room air is 90%. This improved with 2 L of oxygen. Her lungs are clear. She has no obvious wheezing. Chest x-ray reviewed from triage which shows abnormal left lung base. This could represent consolidation or atelectasis. There is also increased right hilar markings questionable for mild CHF Will check labs including blood cultures and lactic acid, COVID screen, flu screen, EKG At this time hypoxia, tachypnea tachycardia are likely secondary to chronic lung disease and not infection Reevaluation(s) Reevaluation #1: Consider PE with hypoxia, tachypnea, shortness of breath with clear lungs and history of DVT. Sedentary lifestyle. Patient is wheelchair-bound. CTA ordered Time: 17:40 Reevaluation #2: Sign out to Kelli [employer] pending additional labs, CTA Time: 18:00 MDM - SOB/Dyspnea MDM Narrative Medical decision making narrative: Less likely PE-patient has been compliant with her Xarelto with no missed doses Pneumonia, COPD, ACS Medical Records Attestation: I reviewed the patient's medical records. Lab Data Attestation: I reviewed the patient's lab results. Result diagrams: 02/16/22 15:51 02/16/22 15:51 Labs: Lab Results 02/16/22 02/16/22 Range/Units 15:51 15:51 WBC 12.2 H (4.8-10.8) X10*3/uL RBC 4.77 (4.20-5.50) X10*6/uL Hgb 12.8 (12.0-16.0) g/dl Hct 40.9 (37.0-47.0) % MCV 85.7 (80.0-98.0) fL MCH 26.8 L (27.0-33.0) pg MCHC 31.3 (31.0-35.0) g/dl RDW 16.5 H (11.0-16.0) % Plt Count 311 (160-400) X10*3/uL MPV 10.5 (9.4-12.3) fL Immature Gran % (Auto) 0.4 (0.0-0.4) % Neut % (Auto) 93.4 H (45-73) % Lymph % (Auto) 4.9 L (20-40) % [place] % (Auto) 1.1 L (2-11) % Eos % (Auto) 0.0 (0-4) % Baso % (Auto) 0.2 (0-2) % Lymph # (Auto) 0.6 L (1.2-4.9) X10*3/uL [place] # (Auto) 0.1 (0.1-1.2) X10*3/uL Eos # (Auto) 0.0 (0.0-0.4) X10*3/uL Baso # (Auto) 0.0 (0.0-0.2) X10*3/uL Abs Immat Gran (auto) 0.05 H (0.00-0.03) X10*3/uL Absolute Neuts (auto) 11.4 H (2.0-8.3) x10*3/uL Absolute Nucleated RBC 0.000 (0.0-0.012) X10*3/uL Nucleated RBC % (auto) 0.0 (0.0-0.2) /100WBC Smear Tech's Comments VERIFIED Sodium 141 (135-145) mmol/L Potassium 4.9 D (3.3-5.1) mmol/L Chloride 106 (96-108) mmol/L Carbon Dioxide 26 (22-29) mmol/L Anion Gap 14 (12-20) BUN 27 H (9-16) mg/dL Creatinine 0.97 (0.5-1.4) mg/dL Estim Creat Clear Calc 46.7 Estimated GFR 56 Random Glucose 149 H (60-115) mg/dL Calcium 9.7 D (8.4-10.2) mg/dL Total Bilirubin 0.2 (0.0-1.0) mg/dL AST 22 (5-31) U/L ALT 31 (0-31) U/L Alkaline Phosphatase 95 D (39-117) U/L Total Protein 6.7 (6.5-8.0) g/dL Albumin 3.8 (3.5-5.0) g/dL Imaging Data Chest x-ray: Attestation: I personally reviewed and interpreted this imaging study as follows: Radiologist's impression: XR/XR chest 1V IMPRESSION: Abnormal left lung base likely representing combination of left esophageal hernia/intrathoracic stomach and adjacent consolidation or atelectasis at the left lower lobe. This finding is similar to previous exams. Increased right hilar markings questionable for pulmonary venous redistribution/mild CHF. ECG Data Attestation: I personally reviewed and interpreted this ECG as follows: ECG interpretation date: 02/16/22 ECG interpretation time: 16:46 Interpretation: Sinus rhythm with PVCs with a rate of 99, normal LA, normal QRS, nonspecific ST changes Scores [place] PE Heart rate > 100 p/min: 1.5 Immobilization or surgery within 4 weeks: 1.5 Previous DVT or PE: 1.5 Score: 4.5 2-tier Risk: likely risk (17-53%) Discharge Plan Discharge Clinical Impression: Shortness of breath, Hypoxia Patient Disposition: Still a Patient Prescriptions: No Action bupropion HCl 150 mg Tablet Extended Release 24 Hr 150 mg PO QAM Eliquis 5 mg Tablet 5 mg PO BID duloxetine 60 mg Capsule,Delayed Release(Dr/Ec) 60 mg PO DAILY Narcan 4 mg/actuation [place],Non-Aerosol 4 mg INTRANASAL Q3M PRN (Reason: Opioid Reversal) dextroamphetamine-amphetamine [Adderall] 10 mg Tablet 15 mg PO TID docusate sodium 250 mg Capsule 250 mg PO BID cholecalciferol (vitamin D3) 25 mcg (1,000 unit) Tablet 25 mcg PO DAILY melatonin 1 mg Tablet 12 mg PO BEDTIME Bacillus subtilis-inulin 1.5 billion cell-1 gram Tablet,Chewable 1 tab PO DAILY clonazepam [Klonopin] 0.5 mg Tablet 0.5 mg PO BID PRN (Reason: Anxiety) Qty: 10 0RF morphine 30 mg Tablet Extended Release 30 mg PO Q12H Qty: 10 0RF morphine 15 mg Tablet 15 mg PO Q6H PRN (Reason: Pain) Qty: 10 0RF
[2022-02-16 17:35] VITALS: BP 170/104; PULSE 92; RESP 22; TEMP 36.6; O2SAT 96
[2022-02-16 17:49] LABS: Appearance Urine CLEAR; Color Urine YELLOW; Glucose Urine UA NEG (NEG); Leukocyte Esterase Urine NEG (NEG); Nitrite Urine POS (NEG); PH 5.5 (5.0-8.0); Specific Gravity - Urine >= 1.030 (1.005-1.025); UACC Culture Trigger YES; Urine Blood 1+ (NEG); Urine Ketones NEG (NEG); Urine Protein 1+ MG/DL (NEG-TRACE)
[2022-02-16 17:54] LABS: INTERNATIONAL NORM RATIO 1.1 (0.9-1.1); Prothrombin Time 12.5 SEC (9.9-13.0)
[2022-02-16 17:56] LABS: Amorphous Sediment Urine 2+ /LPF; Bacteria Urine 4+ /LPF; Mucus Urine TRACE /LPF; Squamous Epithelial Cell Urine 1+ /LPF
[2022-02-16 18:05] LABS: COVID-19 Test Negative (Negative); IDNOW Serial# 9DB6401D; Influenza A Negative (Negative); Influenza B2 Negative (Negative)
[2022-02-16 18:05] LABS: Alanine Aminotransferase 30 U/L (0-31); Albumin Level 3.8 g/dL (3.5-5.0); Alkaline Phosphatase 100 U/L (39-117); Aspartate Amino Transferase 23 U/L (5-31); Bilirubin Direct 0.2 mg/dL (0.0-0.5); Bilirubin Total 0.2 mg/dL (0.0-1.0); Magnesium 2.1 mg/dL (1.6-2.6); Total Protein 6.7 g/dL (6.5-8.0)
[2022-02-16 18:12] LABS: B Type Natriuretic Peptide 1036 pg/mL (<100); Troponin-I High Sensitivity 33.1 ng/L (<3.5-17.0)
[2022-02-16] MEDS: iohexoL 350 MG/ML 100 ML INFUS..BTL IV (18:47)
--- NOTE | 2022-02-16 19:58 | PHA.MEDREC ---
Pharmacy Consult ? Medication Reconciliation Pharmacy has completed the medication reconciliation.
[2022-02-16 20:18] VITALS: PULSE 94; RESP 22; O2SAT 98
[2022-02-16] MEDS: Furosemide 40 MG/4 ML VIAL IVPUSH (20:40)
[2022-02-16] MEDS: cefTRIAXone sodium 1 GM in 0.9 % Sodium Chloride 50 ML IV (20:40)
--- NOTE | 2022-02-16 22:19 | P.HPHOSP_ITS ---
History of Present Illness Date of Service: 02/16/22 Chief Complaint: Shortness of breath 77-year-old female with a past medical history of hypertension, COPD-not on home oxygen, history of DVT on Eliquis, history of chronic back pain status post spine surgery, wheelchair-bound; presented to the hospital today with a chief complaint of shortness of breath. Patient reports that over the past few days she has been having shortness of breath and has seen the PCP couple days ago was given prednisone; but still not improving; has been trying her home inhalers as well with no significant improvement. Hence decided to come to the ER for further evaluation. Denies any change in her energy levels; denies any orthopnea; but complains of shortness of breath and dyspnea on exertion. Denies any numbness tingling or focal weakness. Denies any cough or sputum production. Denies any fevers and chills. Denies any nausea vomiting or diarrhea Mentions that she has recurrent UTI; Mentions that she has longstanding history of COPD; before was briefly on home oxygen but not actively on any home oxygen currently. Review of all other systems is negative except mentioned above ER course: Per ER team patient on presentation noted shortness of breath, placed on supplemental oxygen; on labs noted to have abnormal urinalysis consistent with UTI-given ceftriaxone; CT chest showed no evidence of pulmonary embolism but noted pulmonary congestion and a possible new onset CHF. Patient proBNP elevated to 1 thousands. Patient was given IV Lasix. Admitted to the hospital for further management. [facility] Medical History DVT (deep venous thrombosis) HTN (hypertension) Hypertension Family History Father Pulmonary fibrosis Pertinent family history: Father had idiopathic pulmonary fibrosis. Mother had cancer. Surgical History Previous back surgery Social History Household Members: None Housing: Apartment Do you presently have visiting nurse or other home services: Yes Patient Tobacco Use Status: Former Tobacco user Substance Use Type: Marijuana Advance Directives Date on File: 10/29/20 service: No Current occupational status: disabled Meds Allergies Allergy/AdvReac Type Severity Reaction Status Date / Time No Known Allergies Allergy Verified 10/29/20 10:21 Home Medications Medication Instructions Recorded Confirmed Last Taken Type Bacillus subtilis 1.5 billion 1 tab PO DAILY 10/29/20 03/02/22 Unknown History cell-inulin 1 gram chewable tablet apixaban 5 mg tablet (Eliquis) 5 mg PO BID 10/29/20 03/02/22 02/16/22 History cholecalciferol (vitamin D3) 25 25 mcg PO DAILY 10/29/20 03/02/22 Unknown Histor y mcg (1,000 unit) tablet dextroamphetamine-amphetamine 10 15 mg PO TID 10/29/20 03/02/22 Unknown History mg tablet (Adderall) duloxetine 60 mg capsule,delayed 60 mg PO DAILY 10/29/20 03/02/22 Unknown History release melatonin 1 mg tablet 12 mg PO BEDTIME 10/29/20 03/02/22 Unknown History albuterol sulfate 90 mcg/actuation 2 puff inhalation Q4H PRN 02/16/22 03/02/22 02/16/22 History aerosol inhaler Shortness Of Breath melatonin 3 mg tablet 12 mg PO BEDTIME PRN Sleep 02/16/22 03/02/22 Unknown History umeclidinium 62.5 mcg-vilanterol 1 puff PO DAILY 02/16/22 03/02/22 Unknown History 25 mcg/actuation powdr for inhalation (Anoro Ellipta) Physical Exam Vital Signs and Narrative: Vital Signs: Last Vital Signs Temp 97.9 F 02/16/22 17:35 Pulse 94 02/16/22 20:18 Resp 22 H 02/16/22 20:18 BP 170/104 H 02/16/22 17:35 Pulse Ox 98 02/16/22 20:18 O2 Del Method 02/16/22 20:18 O2 Flow Rate 2 02/16/22 17:35 BMI result Body Mass Index 33.2 Gen: Appears be in no acute distress HEENT: NCAT, Moist mucosa. Pulmonary: Noted bilateral crackles; fair air entry. CVS: Normal S1-S2 Abdomen: BS+, Soft, Nontender Extremities: Warm well perfused Neuro: Alert and awake. Results Labs CBC and Chem 7: 02/22/22 06:05 06/14/22 06:05 Labs: Laboratory Results - last 24 hr 02/16/22 02/16/22 02/16/22 15:51 15:51 17:26 MCV 85.7 MCH 26.8 L MCHC 31.3 RDW 16.5 H Plt Count 311 MPV 10.5 Immature Gran % (Auto) 0.4 Neut % (Auto) 93.4 H Lymph % (Auto) 4.[address] [place] % (Auto) 1.1 L Eos % (Auto) 0.0 Baso % (Auto) 0.2 Lymph # (Auto) 0.[address] [place] # (Auto) 0.1 Eos # (Auto) 0.0 Baso # (Auto) 0.0 Abs Immat Gran (auto) 0.05 H Absolute Neuts (auto) 11.4 H Absolute Nucleated RBC 0.000 Nucleated RBC % (auto) 0.0 Smear Tech's Comments VERIFIED PT 12.5 INR 1.1 Anion Gap 14 Estim Creat Clear Calc 46.7 Estimated GFR 56 Random Glucose 149 H Lactic Acid Calcium 9.7 D Magnesium Total Bilirubin 0.2 Direct Bilirubin AST 22 ALT 31 Alkaline Phosphatase 95 D Troponin I High Sens B-Natriuretic Peptide Total Protein 6.7 Albumin 3.8 Urine Color Urine Appearance Urine pH Ur Specific [place] Urine Protein Urine Glucose (UA) Urine Ketones Urine Blood Urine Nitrite Ur Leukocyte Esterase Urine RBC Urine WBC Ur Squamous Epith Cells Amorphous Sediment Urine Bacteria Urine Mucus COVID-19 (SAM) COVID-19 Clin Com Influenza Type A (VANESSA) Influenza Type B (VANESSA) Influenza A & B Note 02/16/22 02/16/22 02/16/22 17:26 17:26 17:26 MCV MCH MCHC RDW Plt Count MPV Immature Gran % (Auto) Neut % (Auto) Lymph % (Auto) [place] % (Auto) Eos % (Auto) Baso % (Auto) Lymph # (Auto) [place] # (Auto) Eos # (Auto) Baso # (Auto) Abs Immat Gran (auto) Absolute Neuts (auto) Absolute Nucleated RBC Nucleated RBC % (auto) Smear Tech's Comments PT INR Anion Gap Estim Creat Clear Calc Estimated GFR Random Glucose Lactic Acid 1.0 Calcium Magnesium 2.1 Total Bilirubin 0.2 Direct Bilirubin 0.2 AST 23 ALT 30 Alkaline Phosphatase 100 Troponin I High Sens 33.1 H B-Natriuretic Peptide 1036 H Total Protein 6.7 Albumin 3.8 Urine Color Urine Appearance Urine pH Ur Specific [place] Urine Protein Urine Glucose (UA) Urine Ketones Urine Blood Urine Nitrite Ur Leukocyte Esterase Urine RBC Urine WBC Ur Squamous Epith Cells Amorphous Sediment Urine Bacteria Urine Mucus COVID-19 (SAM) COVID-19 Clin Com Influenza Type A (VANESSA) Influenza Type B (VANESSA) Influenza A & B Note 02/16/22 02/16/22 02/16/22 17:26 17:27 17:27 MCV MCH MCHC RDW Plt Count MPV Immature Gran % (Auto) Neut % (Auto) Lymph % (Auto) [place] % (Auto) Eos % (Auto) Baso % (Auto) Lymph # (Auto) [place] # (Auto) Eos # (Auto) Baso # (Auto) Abs Immat Gran (auto) Absolute Neuts (auto) Absolute Nucleated RBC Nucleated RBC % (auto) Smear Tech's Comments PT INR Anion Gap Estim Creat Clear Calc Estimated GFR Random Glucose Lactic Acid Calcium Magnesium Total Bilirubin Direct Bilirubin AST ALT Alkaline Phosphatase Troponin I High Sens B-Natriuretic Peptide Total Protein Albumin Urine Color YELLOW Urine Appearance CLEAR Urine pH 5.5 Ur Specific [place] >= 1.030 H Urine Protein 1+ H Urine Glucose (UA) NEG Urine Ketones NEG Urine Blood 1+ H Urine Nitrite POS H Ur Leukocyte Esterase NEG Urine RBC 5-9 H Urine WBC 10-14 H Ur Squamous Epith Cells 1+ Amorphous Sediment 2+ Urine Bacteria 4+ Urine Mucus TRACE COVID-19 (SAM) Negative COVID-19 Clin Com See Note Influenza Type A (VANESSA) Negative Influenza Type B (VANESSA) Negative Influenza A & B Note See Note Imaging Radiologist's Impressions: Impressions Chest X-Ray 02/16/22 13:37 IMPRESSION: Abnormal left lung base likely representing combination of left esophageal hernia/intrathoracic stomach and adjacent consolidation or atelectasis at the left lower lobe. This finding is similar to previous exams. Increased right hilar markings questionable for pulmonary venous redistribution/mild CHF. Chest CTA 02/16/22 18:53 IMPRESSION: 1. No evidence of pulmonary emboli. 2. There is underlying COPD with some mild increase in interstitial markings and a new right effusion suggesting possible CHF. 3. Large hiatal hernia with most of the stomach within the left chest producing atelectasis/compression. 4. Main pulmonary artery is dilated suggesting elevated right heart pressure. VTE: negative Assessment and Plan (1) Shortness of breath: Status: Deleted (2) Acute UTI: Status: Deleted (3) New onset of congestive heart failure: Status: Deleted (4) Hypoxia: Status: Inactive Plan 77-year-old female with a past medical history of hypertension, COPD-not on home oxygen, history of DVT on Eliquis, history of chronic back pain status post spine surgery, wheelchair-bound; presented to the hospital today with a chief complaint of shortness of breath. Noted to have pulmonary congestion and elevated proBNP concern for new onset CHF. Admitted for further management. New onset CHF: CT chest showed pulmonary congestion as well as dilated pulmonary arteries- question pulmonary artery hypertension Echo from October 2020 showed EF of 60-65%; normal diastolic function. Will repeat an echocardiogram Daily weights and I's and O's Cardiology consult Telemetry Initial troponin 33.1-repeat pending EKG nonischemic Lasix 20 mg IV daily COPD: prednisone 40mg for 5 days- started on 02/14/22. duonebs prn Recurrent UTI: Continue ceftriaxone. Id consult. Follow up cultures. Hypertensive urgency: Will keep the patient on labetalol p.r.n. History of depression: Continue home duloxetine History of ADHD: Continue home Adderall History of DVT: Continue home Eliquis DVT prophylaxis: Patient on Eliquis Code status: DNR/DNI. Discussed in detail with the patient. Also patient daughter at bedside confirmed. Quality Stroke Does the patient have a stroke diagnosis?: No VTE Prior VTE?: No VTE Risk Level:: Medical - moderate - high VTE Device Contraindication: Treatment Not Indicated VTE Drug Contraindication: N/A - Med Ordered
[2022-02-16 22:43] VITALS: BP 165/91; PULSE 89; RESP 22; TEMP 36.3; O2SAT 98
[2022-02-16 23:25] LABS: Troponin-I High Sensitivity 27.1 ng/L (<3.5-17.0)
[2022-02-16 23:34] VITALS: BP 148/93; PULSE 91; RESP 25; TEMP 36.7; O2SAT 98
--- NOTE | 2022-02-17 04:16 | PC.NURSE ---
Addendum entered by Jessica Ortega 02/17/22 07:03: report given to KYLE Mahoney Original Note: report received from KYLE Wells
[2022-02-17 04:47] VITALS: BP 150/88; PULSE 89; RESP 16; TEMP 36.2; O2SAT 99
[2022-02-17 06:29] LABS: MANUAL DIFF FLAG NO
[2022-02-17 06:31] LABS: Basophils Percent Auto 0.3 % (0-2); Eosinophils Absolute Auto 0.1 X10*3/uL (0.0-0.4); Eosinophils Percent Auto 0.5 % (0-4); Hemoglobin 12.3 g/dl (12.0-16.0); Imm Gran Abs Auto 0.04 X10*3/uL (0.00-0.03); Imm Gran Pct Auto 0.4 % (0.0-0.4); Lymphocytes Absolute Auto 1.8 X10*3/uL (1.2-4.9); Lymphocytes Percent Auto 15.7 % (20-40); Mean Corpuscular HGB Conc 30.8 g/dl (31.0-35.0); Mean Corpuscular Hemoglobin 26.4 pg (27.0-33.0); Mean Corpuscular Volume 85.8 fL (80.0-98.0); Mean Platelet Volume 10.4 fL (9.4-12.3); Monocytes Percent Auto 9.2 % (2-11); Neutrophils Absolute Auto 8.3 x10*3/uL (2.0-8.3); Neutrophils Percent Auto 73.9 % (45-73); Platelet Count 287 X10*3/uL (160-400); Red Blood Count 4.66 X10*6/uL (4.20-5.50); Red Cell Distribution Width 16.6 % (11.0-16.0); White Blood Count 11.2 X10*3/uL (4.8-10.8)
--- NOTE | 2022-02-17 07:00 | CA_ITS ---
Transthoracic Echocardiogram Patient (Last, First, Middle): Qi Carrington, Gender: Female Date of : 1945 Age: 76 Procedure Date: 02/17/2022 Procedure Type: Transthoracic Echocardiogram Location: [facility] [place] Height: 152.4 cm Weight: 77.11 kg BSA: 1.74 m2 Heart Rate: 88 bpm BP: 150 / 88 mmHg Forgesmith: SB Referring MD: Felix Starr MD Symptoms: CHF Study Quality: Good ECG Rhythm: Sinus Conclusions: - The left ventricular systolic function is severely decreased. The visually estimated ejection fraction is between 25-30%. - No obvious valvular pathology seen on this study. Findings Left Ventricle Normal left ventricular cavity size. There is normal left ventricular wall thickness. The left ventricular systolic function is severely decreased. The visually estimated ejection fraction is between 25-30%. There is severe global hypokinesis. E/E prime ratio is >15, consistent with elevated filling pressures. Evidence suggests grade I (mild) diastolic dysfunction. Right Ventricle Normal right ventricular cavity size and systolic function. Atria Both atria are normal in size. Aortic Valve There is a normal trileaflet aortic valve. There is no aortic valve stenosis. There is no aortic valve regurgitation. Mitral Valve The mitral valve appears normal. There is mild mitral valve regurgitation. There is no mitral valve stenosis. Pulmonic Valve The pulmonic valve is likely normal. Tricuspid Valve Normal tricuspid valve structure. There is no tricuspid valve regurgitation. Tricuspid regurgitation envelope is inadequate for calculation of right ventricular systolic pressure. Great Vessels The aortic annulus, sinuses of valsalva, and asc aorta are normal in size. Venous The inferior vena cava is normal in size and collapses greater than 50% with inspiration. Pericardium/Pleural There is no evidence of pericardial effusion. Prior Study Comparison Changes noted compared to prior study dated: 10/30/2020. Decrease in LVEF. Recommendations, Care & Conclusions No obvious valvular pathology seen on this study. Measurements 2D Linear Measurements IVSd: 0.61 0.6-0.9/0.6-1.0 cm LVIDd: 5.39 3.9-5.3/4.2-5.9 cm LVIDd Index: 3.10 2.4-3.2/2.2-3.1 cm/m2 LVIDs: 4.21 2.0-3.6 cm LVPWd: 0.84 0.7-1.1 cm Ao Root: 2.80 2.1-3.5 cm LA Diam: 4.00 2.7-3.8/3.0-4.0 cm LAIDs Index: 2.30 1.5-2.3 cm/m2 LV Mass: 169.52 67-162/88-224 g LV Mass Index: 97.43 43-95/49-115 g/m2 LVOT Diam: 2.20 3.0+(-)1.3 cm 2D Systolic Function EF 4C: 27.40 >55% EF 2C: 30.40 >55% EF BiP: 31.80 >55% Mitral Valve MV Pk E: 0.60 MV PK A: 0.89 MV Decel Time: 131.00 E/A: 0.70 E'Medial: 3.15 E/E' Med: 19.00 PHT: 38.00 MVA PHT: 5.79 Decel [place]: 4.59 MR Vol - PW Dopp: 12.60 MR VTI: 1.80 MR ERO: 7.00 MR Alias Davian: 0.38 MR RAD: 0.40 Aortic Valve AoV Pk Davian: 1.34 AoV Mn Davian: 0.92 AoV VTI: 0.22 AoV Pk Grad: 7.00 Aov Mn Grad: 4.00 ROXANA Cont.VTI: 2.29 LVOT LVOT Pk Davian: 0.78 LVOT Mn Davian: 0.55 LVOT VTI: 0.13 LVOT Pk Grad: 2.00 LVOT Mn Grad: 1.00 LVOT Diam: 2.20 LVOT Area: 3.80 Diastolic Function MV Pk E: 0.60 MV Pk A: 0.89 E/A: 0.70 E'Medial: 3.15 E/E' Med: 19.00 Right Ventricle TAPSE (mm): 19.80 TVS' Davian: 12.40 Tricuspid Valve RA Press: 3.00 Great Vessels Aorta Ao Root-2D: 2.80 2.0-3.7 cm Sinus of Valsalva: 2.80 2.0-3.5 cm Ao Asc: 3.20 2.1-3.4 cm Pulmonary Valve PV Pk Davian: 0.70 Peak PV Grad: 2.00 Updated in Other Vendor System with Status of Final Collins Munguia MD electronically signed on 02/18/2022 8:39:38 AM with status of Final
[2022-02-17 07:06] LABS: Anion Gap 10 (12-20); Blood Urea Nitrogen 33 mg/dL (9-16); Calcium 9.3 mg/dL (8.4-10.2); Carbon Dioxide 30 mmol/L (22-29); Chloride 105 mmol/L (96-108); Creatinine Clr Calc Pharmacy 54.6; Estimated Glomerular Filt Rate > 60; Glucose Random 132 mg/dL (60-115); Potassium 3.7 mmol/L (3.3-5.1); Sodium 141 mmol/L (135-145)
[2022-02-17 07:42] VITALS: BP 160/94; PULSE 78; RESP 24; TEMP 36.6; O2SAT 99
--- NOTE | 2022-02-17 09:31 | PC.NURSE ---
report given to KYLE Hughes. pt alert, oriented, vss.
--- NOTE | 2022-02-17 09:54 | MHC.CM.PN ---
Addendum entered by Lita Mcgraw 02/17/22 09:57: IMM 02/17 FIRST ATTEMPT COPY SENT TO [facility] Original Note: AT TIME OF ASSESSMENT ATTEMPT, PATIENT WAS ASLEEP AND DID NOT RESPOND TO CASE MANAGEMENT ATTEMPT TO COMPLETE ASSESSMENT ELECTRIC SCOOTER IN ROOM IMM 02/17 LEFT BEDSIDE FOR PATIENT REVIEW.
[2022-02-17] MEDS: predniSONE 20 MG TABLET 40 MG PO (10:06)
[2022-02-17] MEDS: DULoxetine HCl 60 MG CAPSULE.DR PO (10:06)
[2022-02-17] MEDS: Cholecalciferol (Vitamin D3) 25 MCG TABLET PO (10:07)
[2022-02-17] MEDS: Furosemide 20 MG/2 ML VIAL IVPUSH ×2 (10:07→18:17)
[2022-02-17] MEDS: Apixaban 5 MG TABLET PO ×2 (10:07→20:54)
[2022-02-17] MEDS: Amphetamine Mixed Salts 10 MG TABLET 15 MG PO ×3 (10:14→20:54)
[2022-02-17 10:15] VITALS: BP 148/82; PULSE 71; RESP 19; TEMP 36.9; O2SAT 97
[2022-02-17 11:36] VITALS: BP 154/88; PULSE 83; RESP 20; TEMP 36.7; O2SAT 97
--- NOTE | 2022-02-17 12:21 | P.PNIM_ITS ---
Subjective Subjective Date of Service: 02/17/22 Interval History: cc: sob interval history:improving Cardiovascular Cardiovascular: Reports no additional cardiovascular complaints Respiratory Respiratory: Reports no additional respiratory complaints Physical Exam Vital Signs: Vital Signs: Last Vital Signs Temp 98.0 F 02/17/22 11:36 Pulse 83 02/17/22 11:36 Resp 20 02/17/22 11:36 BP 154/88 H 02/17/22 11:36 Pulse Ox 97 02/17/22 11:36 O2 Del Method 02/17/22 11:36 O2 Flow Rate 2 02/17/22 11:36 BMI result Body Mass Index 33.2 General: AO X 3, no acute distress Resp: mild basilar bilateral, no accessory muscles used CVS: S1,S2,RRR GI: soft, non tender, non distended Neuro: motor grossly intact, alert Psych: appropriate affect, appropriate insight Objective Data Active Medications Acetaminophen (Acetaminophen 325 Mg Tablet) 650 mg PO Q6H PRN PRN Reason: Pain, Mild (Pain Scale 1-3) Albuterol Sulfate (Albuterol Sulfate 90 Mcg 8 Gm Inhaler) 2 puff INHALE Q4H PRN PRN Reason: Shortness Of Breath Albuterol/Ipratropium (Albuterol/Iprat 2.5/0.5mg 3 Ml Ampul.Neb) 3 ml INHALE RQ4H WHILE AWAKE PRN PRN Reason: Shortness of Breath/Wheezing Amphetamine/Dextroamphetamine (Amphetamine Mixed Salts 10 Mg Tablet) 15 mg PO TID [facility] Last Admin: 02/17/22 10:14 Dose: 15 mg Documented By: MARIBEL Apixaban (Apixaban 5 Mg Tablet) 5 mg PO BID [facility] Last Admin: 02/17/22 10:07 Dose: 5 mg Documented By: MARIBEL Duloxetine HCl (Duloxetine Hcl 60 Mg Capsule.Dr) 60 mg PO DAILY [facility] Last Admin: 02/17/22 10:06 Dose: 60 mg Documented By: MARIBEL Furosemide (Furosemide 20 Mg/2 Ml Vial) 20 mg IVPUSH BID@0900,1800 [facility]; Protocol Ceftriaxone Sodium 1 gm/ (Sodium Chloride) 50 mls @ 100 mls/hr IV Q24H [facility] Labetalol HCl (Labetalol Hcl 20 Mg/4 Ml Syringe) 10 mg IVPUSH Q4H PRN PRN Reason: BP>160/90 Melatonin (Melatonin 3 Mg Tablet) 12 mg PO BEDTIME PRN PRN Reason: Sleep Prednisone (Prednisone 20 Mg Tablet) 40 mg PO DAILY [facility] Last Admin: 02/17/22 10:06 Dose: 40 mg Documented By: MARIBEL Senna (Sennosides 8.6 Mg Tablet) 17.2 mg PO BEDTIME PRN PRN Reason: Constipation Sodium Chloride (0.9 % Sodium Chloride Flush 3 Ml Syringe) 3 ml IVFLUSH QSHIFT [facility] Last Admin: 02/17/22 09:33 Dose: Not Given Documented By: AYLIN Non-Admin Reason: See Note Vitamin D (Cholecalciferol (Vitamin D3) 25 Mcg Tablet) 25 mcg PO DAILY [facility] Last Admin: 02/17/22 10:07 Dose: 25 mcg Documented By: MARIBEL Labs CBC & Chem 7: 02/17/22 06:23 02/17/22 06:22 Labs: Laboratory Results - last 24 hr 02/16/22 02/16/22 02/16/22 15:51 15:51 17:26 MCV 85.7 MCH 26.8 L MCHC 31.3 RDW 16.5 H Plt Count 311 MPV 10.5 Immature Gran % (Auto) 0.4 Neut % (Auto) 93.4 H Lymph % (Auto) 4.9 L [place] % (Auto) 1.1 L Eos % (Auto) 0.0 Baso % (Auto) 0.2 Lymph # (Auto) 0.6 L [place] # (Auto) 0.1 Eos # (Auto) 0.0 Baso # (Auto) 0.0 Abs Immat Gran (auto) 0.05 H Absolute Neuts (auto) 11.4 H Absolute Nucleated RBC 0.000 Nucleated RBC % (auto) 0.0 Smear Tech's Comments VERIFIED PT 12.5 INR 1.1 Anion Gap 14 Estim Creat Clear Calc 46.7 Estimated GFR 56 Random Glucose 149 H Lactic Acid Calcium 9.7 D Magnesium Total Bilirubin 0.2 Direct Bilirubin AST 22 ALT 31 Alkaline Phosphatase 95 D Troponin I High Sens B-Natriuretic Peptide Total Protein 6.7 Albumin 3.8 Urine Color Urine Appearance Urine pH Ur Specific [place] Urine Protein Urine Glucose (UA) Urine Ketones Urine Blood Urine Nitrite Ur Leukocyte Esterase Urine RBC Urine WBC Ur Squamous Epith Cells Amorphous Sediment Urine Bacteria Urine Mucus COVID-19 (SAM) COVID-19 Clin Com Influenza Type A (VANESSA) Influenza Type B (VANESSA) Influenza A & B Note 02/16/22 02/16/22 02/16/22 17:26 17:26 17:26 MCV MCH MCHC RDW Plt Count MPV Immature Gran % (Auto) Neut % (Auto) Lymph % (Auto) [place] % (Auto) Eos % (Auto) Baso % (Auto) Lymph # (Auto) [place] # (Auto) Eos # (Auto) Baso # (Auto) Abs Immat Gran (auto) Absolute Neuts (auto) Absolute Nucleated RBC Nucleated RBC % (auto) Smear Tech's Comments PT INR Anion Gap Estim Creat Clear Calc Estimated GFR Random Glucose Lactic Acid 1.0 Calcium Magnesium 2.1 Total Bilirubin 0.2 Direct Bilirubin 0.2 AST 23 ALT 30 Alkaline Phosphatase 100 Troponin I High Sens 33.1 H B-Natriuretic Peptide 1036 H Total Protein 6.7 Albumin 3.8 Urine Color Urine Appearance Urine pH Ur Specific [place] Urine Protein Urine Glucose (UA) Urine Ketones Urine Blood Urine Nitrite Ur Leukocyte Esterase Urine RBC Urine WBC Ur Squamous Epith Cells Amorphous Sediment Urine Bacteria Urine Mucus COVID-19 (SAM) COVID-19 Clin Com Influenza Type A (VANESSA) Influenza Type B (VANESSA) Influenza A & B Note 02/16/22 02/16/22 02/16/22 17:26 17:27 17:27 MCV MCH MCHC RDW Plt Count MPV Immature Gran % (Auto) Neut % (Auto) Lymph % (Auto) [place] % (Auto) Eos % (Auto) Baso % (Auto) Lymph # (Auto) [place] # (Auto) Eos # (Auto) Baso # (Auto) Abs Immat Gran (auto) Absolute Neuts (auto) Absolute Nucleated RBC Nucleated RBC % (auto) Smear Tech's Comments PT INR Anion Gap Estim Creat Clear Calc Estimated GFR Random Glucose Lactic Acid Calcium Magnesium Total Bilirubin Direct Bilirubin AST ALT Alkaline Phosphatase Troponin I High Sens B-Natriuretic Peptide Total Protein Albumin Urine Color YELLOW Urine Appearance CLEAR Urine pH 5.5 Ur Specific [place] >= 1.030 H Urine Protein 1+ H Urine Glucose (UA) NEG Urine Ketones NEG Urine Blood 1+ H Urine Nitrite POS H Ur Leukocyte Esterase NEG Urine RBC 5-9 H Urine WBC 10-14 H Ur Squamous Epith Cells 1+ Amorphous Sediment 2+ Urine Bacteria 4+ Urine Mucus TRACE COVID-19 (SAM) Negative COVID-19 Clin Com See Note Influenza Type A (VANESSA) Negative Influenza Type B (VANESSA) Negative Influenza A & B Note See Note 02/16/22 02/17/22 02/17/22 22:55 06:22 06:23 MCV 85.8 MCH 26.4 L MCHC 30.8 L RDW 16.6 H Plt Count 287 MPV 10.4 Immature Gran % (Auto) 0.4 Neut % (Auto) 73.9 H Lymph % (Auto) 15.7 L [place] % (Auto) 9.2 Eos % (Auto) 0.5 Baso % (Auto) 0.3 Lymph # (Auto) 1.8 [place] # (Auto) 1.0 Eos # (Auto) 0.1 Baso # (Auto) 0.0 Abs Immat Gran (auto) 0.04 H Absolute Neuts (auto) 8.3 Absolute Nucleated RBC 0.000 Nucleated RBC % (auto) 0.0 Smear Tech's Comments PT INR Anion Gap 10 L Estim Creat Clear Calc 54.6 Estimated GFR > 60 Random Glucose 132 H Lactic Acid Calcium 9.3 Magnesium Total Bilirubin Direct Bilirubin AST ALT Alkaline Phosphatase Troponin I High Sens 27.1 H B-Natriuretic Peptide Total Protein Albumin Urine Color Urine Appearance Urine pH Ur Specific [place] Urine Protein Urine Glucose (UA) Urine Ketones Urine Blood Urine Nitrite Ur Leukocyte Esterase Urine RBC Urine WBC Ur Squamous Epith Cells Amorphous Sediment Urine Bacteria Urine Mucus COVID-19 (SAM) COVID-19 Clin Com Influenza Type A (VANESSA) Influenza Type B (VANESSA) Influenza A & B Note Microbiology Microbiology Results: Microbiology 02/16/22 22:54 Urine Culture - Preliminary Urine clean catch - Urine allen top Culture in progress. Assessment and Plan (1) Hypoxia: Status: Acute Plan 77F presented with sob acute unspecified chf iv lasix, echo, cardio eval, monitor electrolytes COPD predniosne bacturia unclear signifiance, continue empiric rocpehin, follow up cultures history of DVT eliquis mood disorder cymbalta dnr/dni reason for continued hospitalization: ongoing diuresis Quality Stroke Does the patient have a stroke diagnosis?: No VTE Prior VTE?: No VTE Risk Level:: Medical - moderate - high VTE Device Contraindication: Treatment Not Indicated VTE Drug Contraindication: N/A - Med Ordered
--- NOTE | 2022-02-17 13:08 | P.CONCA_ITS ---
History of Present Illness History of Present Illness Date of Service: 02/17/22 Chief complaint: New onset CHF Narrative: This is a cardiology consultation regarding shortness of breath and possible congestive heart failure. Patient has a history of COPD but not on home oxygen. She has a history of DVT on Eliquis. According to H and P, she is also wheelchair bound. She is presenting mainly for shortness of breath. For the last few days she has been short of breath. Even with mild activity she feels this way. Even turning in bed or just moving her body mixed short of breath. No significant leg swelling. No significant anginal-type complaints. Otherwise no known coronary artery disease or myocardial infarction or cardiomyopathy. We have been asked assess her from cardiac standpoint. Review of Systems Review of Systems: Yes all other systems are reviewed and are negative Constitutional: Constitutional: Reports as per HPI Eyes: Eyes: Reports as per HPI ENT: Reports as per HPI Cardiovascular: Cardiovascular: Reports as per HPI, Denies acrocyanosis, Denies cool extremities, Denies chest pain, Denies leg edema, Denies lightheadedness, Denies palpitations and Reports dyspnea Respiratory: Respiratory: Reports as per HPI, Reports no additional respiratory complaints and Reports dyspnea Gastrointestinal: Gastrointestinal: Reports as per HPI and Reports no additional gastrointestinal complaints Genitourinary: Genitourinary: Reports as per HPI Musculoskeletal: Musculoskeletal: Reports no additional musculoskeletal complaints and Reports as per HPI Integumentary/Breasts: Skin/Breast: Reports system reviewed and no additional complaints, except as docu Neurologic: Reports system reviewed and no additional complaints, except as documented and Reports as per HPI Psychiatric: Psychiatric: Reports no additional psychiatric complaints and R eports as per HPI Endocrine: Endocrine: Reports no additional endocrine complaints, Reports as per HPI and Denies palpitations Hematologic/Lymphatic: Hematologic/Lymphatic: Reports no additional hematologic/lymphatic complaints and Reports as per HPI Allergic/Immunologic: Allergic/Immunologic: Reports no additional allergic/immunologic complaints and Reports as per HPI PMF Past Medical History Medical History COPD (chronic obstructive pulmonary disease) DVT (deep venous thrombosis) Elevated troponin HTN (hypertension) Hypertension Shortness of breath Family History Family History (Updated 02/17/22 @ 13:10 by Collins Munguia MD) Father Pulmonary fibrosis Surgical History Surgical History Previous back surgery Social History Social History Household Members: None Housing: Apartment Do you presently have visiting nurse or other home services: Yes Patient Tobacco Use Status: Former Tobacco user Use of substances other than those prescribed or required for medical reasons: Yes Substance Use Type: Marijuana Substance Use Frequency: Chronic Longstanding Last Used Substance: Days (ago) Currently Displaying Signs/Symptoms of Drug Intoxication Withdrawal: No Any prior treatment program specific to substance use: No Have you been hit, kicked, punched, or otherwise hurt by someone within the past year? If so, by whom?: No Do you feel safe in your current relationship?: No Current Relationship Is there a partner from a previous relationship who is making you feel unsafe now?: No Are you made to feel afraid or neglected: No Advance Directives: Yes Advance Directives on File: Yes Advance Directives Date on File: 10/29/20 Do you have thoughts of harming others: None Do you have a plan to hurt others: No Plan Recently lost weight without trying: No Eating poorly because of decreased appetite: No Nutrition Risks: No Nutritional Risk Patient : No : No service: No Current occupational status: disabled Meds Allergies Allergy/AdvReac Type Severity Reaction Status Date / Time No Known Allergies Allergy Verified 10/29/20 10:21 Active Medications: Current Medications Acetaminophen (Acetaminophen 325 Mg Tablet) 650 mg PO Q6H PRN PRN Reason: Pain, Mild (Pain Scale 1-3) Albuterol Sulfate (Albuterol Sulfate 90 Mcg 8 Gm Inhaler) 2 puff INHALE Q4H PRN PRN Reason: Shortness Of Breath Albuterol/Ipratropium (Albuterol/Iprat 2.5/0.5mg 3 Ml Ampul.Neb) 3 ml INHALE RQ4H WHILE AWAKE PRN PRN Reason: Shortness of Breath/Wheezing Amphetamine/Dextroamphetamine (Amphetamine Mixed Salts 10 Mg Tablet) 15 mg PO TID [facility] Last Admin: 02/17/22 10:14 Dose: 15 mg Apixaban (Apixaban 5 Mg Tablet) 5 mg PO BID [facility] Last Admin: 02/17/22 10:07 Dose: 5 mg Duloxetine HCl (Duloxetine Hcl 60 Mg Capsule.Dr) 60 mg PO DAILY [facility] Last Admin: 02/17/22 10:06 Dose: 60 mg Furosemide (Furosemide 20 Mg/2 Ml Vial) 20 mg IVPUSH BID@0900,1800 [facility]; Protocol Ceftriaxone Sodium 1 gm/ (Sodium Chloride) 50 mls @ 100 mls/hr IV Q24H [facility] Labetalol HCl (Labetalol Hcl 20 Mg/4 Ml Syringe) 10 mg IVPUSH Q4H PRN PRN Reason: BP>160/90 Melatonin (Melatonin 3 Mg Tablet) 12 mg PO BEDTIME PRN PRN Reason: Sleep Prednisone (Prednisone 20 Mg Tablet) 40 mg PO DAILY [facility] Last Admin: 02/17/22 10:06 Dose: 40 mg Senna (Sennosides 8.6 Mg Tablet) 17.2 mg PO BEDTIME PRN PRN Reason: Constipation Sodium Chloride (0.9 % Sodium Chloride Flush 3 Ml Syringe) 3 ml IVFLUSH QSHIFT [facility] Last Admin: 02/17/22 09:33 Dose: Not Given Vitamin D (Cholecalciferol (Vitamin D3) 25 Mcg Tablet) 25 mcg PO DAILY [facility] Last Admin: 02/17/22 10:07 Dose: 25 mcg Home Medications Medication Instructions Recorded Confirmed Last Taken Type Bacillus subtilis 1.5 billion 1 tab PO DAILY 10/29/20 02/16/22 Unknown History cell-inulin 1 gram chewable tablet apixaban 5 mg tablet (Eliquis) 5 mg PO BID 10/29/20 02/16/22 02/16/22 History cholecalciferol (vitamin D3) 25 25 mcg PO DAILY 10/29/20 02/16/22 Unknown History mcg (1,000 unit) tablet dextroamphetamine-amphetamine 10 15 mg PO TID 10/29/20 02/16/22 Unknown History mg tablet (Adderall) duloxetine 60 mg capsule,delayed 60 mg PO DAILY 10/29/20 02/16/22 Unknown History release melatonin 1 mg tablet 12 mg PO BEDTIME 10/29/20 10/29/20 Unknown History albuterol sulfate 90 mcg/actuation 2 puff inhalation Q4H PRN 02/16/22 02/16/22 02/16/22 History aerosol inhaler Shortness Of Breath melatonin 3 mg tablet 12 mg PO BEDTIME PRN Sleep 02/16/22 02/16/22 Unknown History prednisone 20 mg tablet 2 tab PO DAILY 02/16/22 02/16/22 Unknown History umeclidinium 62.5 mcg-vilanterol 1 puff PO DAILY 02/16/22 02/16/22 Unknown History 25 mcg/actuation powdr for inhalation (Anoro Ellipta) Physical Exam Vital Signs: Vital Signs: Last Vital Signs Temp 98.0 F 02/17/22 11:36 Pulse 83 02/17/22 11:36 Resp 20 02/17/22 11:36 BP 154/88 H 02/17/22 11:36 Pulse Ox 97 02/17/22 11:36 O2 Del Method 02/17/22 11:36 O2 Flow Rate 2 02/17/22 11:36 BMI result Body Mass Index 33.2 Const: General: comfortable and no acute distress Orientation/consciousness: patient oriented x3 HEENT: Other: Unremarkable Head: Yes normal to inspection Neck: Neck: Yes normal visual inspection Chest: Chest palpation & inspection: normal inspection of the chest Resp: Other: Few crackles at the bases but minimal. Cardio: Palpation: normal PMI Heart sounds: S1 normal heart sound present, S2 normal heart sound present, no gallops, no murmurs and no rubs GI: Palpation (GI): Soft to palpation Back/Spine/Pelvis: Other: unremarkable Skin: General skin exam: no rashes or lesions noted Neuro: General: patient oriented x3 Extrem: General: Yes normal to inspection Psych: Mental Status: mental status grossly normal Objective Labs and Meds Result diagrams: 02/17/22 06:23 02/17/22 06:22 Lab results: Laboratory Results - last 24 hr 02/16/22 02/16/22 02/16/22 15:51 15:51 17:26 WBC 12.2 H RBC 4.77 Hgb 12.8 Hct 40.9 MCV 85.7 MCH 26.8 L MCHC 31.3 RDW 16.5 H Plt Count 311 MPV 10.5 Immature Gran % (Auto) 0.4 Neut % (Auto) 93.4 H Lymph % (Auto) 4.9 L [place] % (Auto) 1.1 L Eos % (Auto) 0.0 Baso % (Auto) 0.2 Lymph # (Auto) 0.6 L [place] # (Auto) 0.1 Eos # (Auto) 0.0 Baso # (Auto) 0.0 Abs Immat Gran (auto) 0.05 H Absolute Neuts (auto) 11.4 H Absolute Nucleated RBC 0.000 Nucleated RBC % (auto) 0.0 Smear Tech's Comments VERIFIED PT 12.5 INR 1.1 Sodium 141 Potassium 4.9 D Chloride 106 Carbon Dioxide 26 Anion Gap 14 BUN 27 H Creatinine 0.97 Estim Creat Clear Calc 46.7 Estimated GFR 56 Random Glucose 149 H Lactic Acid Calcium 9.7 D Magnesium Total Bilirubin 0.2 Direct Bilirubin AST 22 ALT 31 Alkaline Phosphatase 95 D Troponin I High Sens B-Natriuretic Peptide Total Protein 6.7 Albumin 3.8 Urine Color Urine Appearance Urine pH Ur Specific [place] Urine Protein Urine Glucose (UA) Urine Ketones Urine Blood Urine Nitrite Ur Leukocyte Esterase Urine RBC Urine WBC Ur Squamous Epith Cells Amorphous Sediment Urine Bacteria Urine Mucus COVID-19 (SAM) COVID-19 Clin Com Influenza Type A (VANESSA) Influenza Type B (VANESSA) Influenza A & B Note 02/16/22 02/16/22 02/16/22 17:26 17:26 17:26 WBC RBC Hgb Hct MCV MCH MCHC RDW Plt Count MPV Immature Gran % (Auto) Neut % (Auto) Lymph % (Auto) [place] % (Auto) Eos % (Auto) Baso % (Auto) Lymph # (Auto) [place] # (Auto) Eos # (Auto) Baso # (Auto) Abs Immat Gran (auto) Absolute Neuts (auto) Absolute Nucleated RBC Nucleated RBC % (auto) Smear Tech's Comments PT INR Sodium Potassium Chloride Carbon Dioxide Anion Gap BUN Creatinine Estim Creat Clear Calc Estimated GFR Random Glucose Lactic Acid 1.0 Calcium Magnesium 2.1 Total Bilirubin 0.2 Direct Bilirubin 0.2 AST 23 ALT 30 Alkaline Phosphatase 100 Troponin I High Sens 33.1 H B-Natriuretic Peptide 1036 H Total Protein 6.7 Albumin 3.8 Urine Color Urine Appearance Urine pH Ur Specific Spencer Urine Protein Urine Glucose (UA) Urine Ketones Urine Blood Urine Nitrite Ur Leukocyte Esterase Urine RBC Urine WBC Ur Squamous Epith Cells Amorphous Sediment Urine Bacteria Urine Mucus COVID-19 (SAM) COVID-19 Clin Com Influenza Type A (VANESSA) Influenza Type B (VANESSA) Influenza A & B Note 02/16/22 02/16/22 02/16/22 17:26 17:27 17:27 WBC RBC Hgb Hct MCV MCH MCHC RDW Plt Count MPV Immature Gran % (Auto) Neut % (Auto) Lymph % (Auto) [place] % (Auto) Eos % (Auto) Baso % (Auto) Lymph # (Auto) [place] # (Auto) Eos # (Auto) Baso # (Auto) Abs Immat Gran (auto) Absolute Neuts (auto) Absolute Nucleated RBC Nucleated RBC % (auto) Smear Tech's Comments PT INR Sodium Potassium Chloride Carbon Dioxide Anion Gap BUN Creatinine Estim Creat Clear Calc Estimated GFR Random Glucose Lactic Acid Calcium Magnesium Total Bilirubin Direct Bilirubin AST ALT Alkaline Phosphatase Troponin I High Sens B-Natriuretic Peptide Total Protein Albumin Urine Color YELLOW Urine Appearance CLEAR Urine pH 5.5 Ur Specific Spencer >= 1.030 H Urine Protein 1+ H Urine Glucose (UA) NEG Urine Ketones NEG Urine Blood 1+ H Urine Nitrite POS H Ur Leukocyte Esterase NEG Urine RBC 5-9 H Urine WBC 10-14 H Ur Squamous Epith Cells 1+ Amorphous Sediment 2+ Urine Bacteria 4+ Urine Mucus TRACE COVID-19 (SAM) Negative COVID-19 Clin Com See Note Influenza Type A (VANESSA) Negative Influenza Type B (VANESSA) Negative Influenza A & B Note See Note 02/16/22 02/17/22 02/17/22 22:55 06:22 06:23 WBC 11.2 H RBC 4.66 Hgb 12.3 Hct 40.0 MCV 85.8 MCH 26.4 L MCHC 30.8 L RDW 16.6 H Plt Count 287 MPV 10.4 Immature Gran % (Auto) 0.4 Neut % (Auto) 73.9 H Lymph % (Auto) 15.7 L [place] % (Auto) 9.2 Eos % (Auto) 0.5 Baso % (Auto) 0.3 Lymph # (Auto) 1.8 [place] # (Auto) 1.0 Eos # (Auto) 0.1 Baso # (Auto) 0.0 Abs Immat Gran (auto) 0.04 H Absolute Neuts (auto) 8.3 Absolute Nucleated RBC 0.000 Nucleated RBC % (auto) 0.0 Smear Tech's Comments PT INR Sodium 141 Potassium 3.7 D Chloride 105 Carbon Dioxide 30 H Anion Gap 10 L BUN 33 H Creatinine 0.83 Estim Creat Clear Calc 54.6 Estimated GFR > 60 Random Glucose 132 H Lactic Acid Calcium 9.3 Magnesium Total Bilirubin Direct Bilirubin AST ALT Alkaline Phosphatase Troponin I High Sens 27.1 H B-Natriuretic Peptide Total Protein Albumin Urine Color Urine Appearance Urine pH Ur Specific [place] Urine Protein Urine Glucose (UA) Urine Ketones Urine Blood Urine Nitrite Ur Leukocyte Esterase Urine RBC Urine WBC Ur Squamous Epith Cells Amorphous Sediment Urine Bacteria Urine Mucus COVID-19 (SAM) COVID-19 Clin Com Influenza Type A (VANESSA) Influenza Type B (VANESSA) Influenza A & B Note ECG Interpretation: EKG with sinus rhythm at 99/Min; PVCs. Nonspecific ST-T changes. Normal [place]/QTc. Imaging Radiologist's impression: Impressions Chest X-Ray 02/16/22 13:37 IMPRESSION: Abnormal left lung base likely representing combination of left esophageal hernia/intrathoracic stomach and adjacent consolidation or atelectasis at the left lower lobe. This finding is similar to previous exams. Increased right hilar markings questionable for pulmonary venous redistribution/mild CHF. Chest CTA 02/16/22 18:53 IMPRESSION: 1. No evidence of pulmonary emboli. 2. There is underlying COPD with some mild increase in interstitial markings and a new right effusion suggesting possible CHF. 3. Large hiatal hernia with most of the stomach within the left chest producing atelectasis/compression. 4. Main pulmonary artery is dilated suggesting elevated right heart pressure. VTE: negative Assessment and Plan (1) Acute diastolic (congestive) heart failure: Status: Acute Plan EKG shows nonspecific ST-T changes. High sensitivity troponins showed minimal elevation. Cardiac BNP elevated at 1036. CT chest reported to have no pulmonary emboli. Underlying COPD; mild increase in interstitial markings and possible CHF. Large hiatal hernia with most of the stomach within the left chest producing compression atelectasis. Main pulmonary artery dilated suggesting elevated right heart pressures. Shortness of breath could be multifactorial from a combination of COPD, diastolic heart failure as well as probably from the hiatal hernia above. From the cardiac standpoint, empiric diuretics. Echocardiogram to be completed. Will follow up with you. Procedures Date of Service Date of Service: 02/17/22
[2022-02-17] MEDS: 0.9 % Sodium Chloride Flush 3 ML SYRINGE IVFLUSH (15:40)
[2022-02-17 15:45] VITALS: BP 165/92; PULSE 98; RESP 14; TEMP 36.6; O2SAT 95
[2022-02-17 19:37] VITALS: PULSE 115; RESP 14; TEMP 36.6; O2SAT 98
[2022-02-17] MEDS: cefTRIAXone sodium 1 GM in 0.9 % Sodium Chloride 50 ML IV (20:54)
[2022-02-18] VITALS (11 sets, daily range): BP systolic 142–173; BP diastolic 71–96; PULSE 66–111; RESP 15–20; TEMP 36.6–37.1; O2SAT 90–97
[2022-02-18 07:14] LABS: Hematocrit 42.6 % (37.0-47.0); Hemoglobin 13.4 g/dl (12.0-16.0); Mean Corpuscular HGB Conc 31.5 g/dl (31.0-35.0); Mean Corpuscular Hemoglobin 27.1 pg (27.0-33.0); Mean Corpuscular Volume 86.1 fL (80.0-98.0); Platelet Count 324 X10*3/uL (160-400); Red Blood Count 4.95 X10*6/uL (4.20-5.50); Red Cell Distribution Width 16.3 % (11.0-16.0)
[2022-02-18 07:29] LABS: Anion Gap 13 (12-20); Blood Urea Nitrogen 41 mg/dL (9-16); Calcium 9.5 mg/dL (8.4-10.2); Carbon Dioxide 33 mmol/L (22-29); Chloride 98 mmol/L (96-108); Creatinine Clr Calc Pharmacy 46.2; Estimated Glomerular Filt Rate 55; Glucose Fasting 121 mg/dL (60-99); Magnesium 2.3 mg/dL (1.6-2.6); Potassium 4.5 mmol/L (3.3-5.1); Sodium 139 mmol/L (135-145)
[2022-02-18] MEDS: Apixaban 5 MG TABLET PO ×2 (09:27→20:29)
[2022-02-18] MEDS: predniSONE 20 MG TABLET 40 MG PO (09:27)
[2022-02-18] MEDS: DULoxetine HCl 60 MG CAPSULE.DR PO (09:27)
[2022-02-18] MEDS: Amphetamine Mixed Salts 10 MG TABLET 15 MG PO ×3 (09:27→20:29)
[2022-02-18] MEDS: Cholecalciferol (Vitamin D3) 25 MCG TABLET PO (09:27)
[2022-02-18] MEDS: Furosemide 20 MG/2 ML VIAL IVPUSH (09:28)
[2022-02-18] MEDS: 0.9 % Sodium Chloride Flush 3 ML SYRINGE IVFLUSH ×3 (09:29→20:30)
--- NOTE | 2022-02-18 10:05 | P.PNIM_ITS ---
Subjective Subjective Date of Service: 02/18/22 Interval History: cc: sob interval history:improving Cardiovascular Cardiovascular: Reports no additional cardiovascular complaints Respiratory Respiratory: Reports no additional respiratory complaints Physical Exam Vital Signs: Vital Signs: Last Vital Signs Temp 98.1 F 02/18/22 07:57 Pulse 66 02/18/22 07:57 Resp 20 02/18/22 07:57 BP 167/84 H 02/18/22 07:57 Pulse Ox 94 02/18/22 09:35 O2 Del Method 02/18/22 09:35 O2 Flow Rate 2 02/18/22 07:57 BMI result Body Mass Index 33.2 General: AO X 3, no acute distress Resp: mild basilar bilateral, no accessory muscles used CVS: S1,S2,RRR GI: soft, non tender, non distended Neuro: motor grossly intact, alert Psych: appropriate affect, appropriate insight Objective Data Active Medications Acetaminophen (Acetaminophen 325 Mg Tablet) 650 mg PO Q6H PRN PRN Reason: Pain, Mild (Pain Scale 1-3) Albuterol Sulfate (Albuterol Sulfate 90 Mcg 8 Gm Inhaler) 2 puff INHALE Q4H PRN PRN Reason: Shortness Of Breath Albuterol/Ipratropium (Albuterol/Iprat 2.5/0.5mg 3 Ml Ampul.Neb) 3 ml INHALE RQ4H WHILE AWAKE PRN PRN Reason: Shortness of Breath/Wheezing Amphetamine/Dextroamphetamine (Amphetamine Mixed Salts 10 Mg Tablet) 15 mg PO TID [facility] Last Admin: 02/18/22 09:27 Dose: 15 mg Documented By: DOROTHY Apixaban (Apixaban 5 Mg Tablet) 5 mg PO BID [facility] Last Admin: 02/18/22 09:27 Dose: 5 mg Documented By: DOROTHY Duloxetine HCl (Duloxetine Hcl 60 Mg Capsule.Dr) 60 mg PO DAILY [facility] Last Admin: 02/18/22 09:27 Dose: 60 mg Documented By: DOROTHY Furosemide (Furosemide 20 Mg/2 Ml Vial) 20 mg IVPUSH BID@0900,1800 [facility]; Protocol Last Admin: 02/18/22 09:28 Dose: 20 mg Documented By: DOROTHY Ceftriaxone Sodium 1 gm/ (Sodium Chloride) 50 mls @ 100 mls/hr IV Q24H [facility] Last Infusion: 02/17/22 22:12 Dose: 0 mls/hr Documented By: MINESH Labetalol HCl (Labetalol Hcl 20 Mg/4 Ml Syringe) 10 mg IVPUSH Q4H PRN PRN Reason: BP>160/90 Melatonin (Melatonin 3 Mg Tablet) 12 mg PO BEDTIME PRN PRN Reason: Sleep Prednisone (Prednisone 20 Mg Tablet) 40 mg PO DAILY [facility] Last Admin: 02/18/22 09:27 Dose: 40 mg Documented By: DOROTHY Senna (Sennosides 8.6 Mg Tablet) 17.2 mg PO BEDTIME PRN PRN Reason: Constipation Sodium Chloride (0.9 % Sodium Chloride Flush 3 Ml Syringe) 3 ml IVFLUSH QSHIFT [facility] Last Admin: 02/18/22 09:29 Dose: 3 ml Documented By: DOROTHY Vitamin D (Cholecalciferol (Vitamin D3) 25 Mcg Tablet) 25 mcg PO DAILY [facility] Last Admin: 02/18/22 09:27 Dose: 25 mcg Documented By: DOROTHY Labs CBC & Chem 7: 02/18/22 06:40 02/18/22 06:40 Labs: Laboratory Results - last 24 hr 02/18/22 02/18/22 06:40 06:40 MCV 86.1 MCH 27.1 MCHC 31.5 RDW 16.3 H Plt Count 324 MPV 11.0 Absolute Nucleated RBC 0.000 Nucleated RBC % (auto) 0.0 Anion Gap 13 Estim Creat Clear Calc 46.2 Estimated GFR 55 Fasting Glucose 121 H Calcium 9.5 Magnesium 2.3 Microbiology Microbiology Results: Microbiology 02/16/22 17:21 Blood Culture - Preliminary Blood - Venous No growth after 24 hours. 02/16/22 17:27 Blood Culture - Preliminary Blood - Venous No growth after 24 hours. 02/16/22 22:54 Urine Culture - Preliminary Urine clean catch - Urine allen top Culture in progress. Assessment and Plan (1) Hypoxia: Status: Acute Plan 77F presented with sob acute systolic chf continue iv diuresis will increase to 40mg bid cardio follow up COPD prednisone severe hiatal hernia causing left basilar atelectasis outpatient follow up bacturia unclear significance, continue empiric Rocephin, follow up cultures history of DVT eliquis mood disorder cymbalta dnr/dni reason for continued hospitalization: ongoing diuresis Quality Stroke Does the patient have a stroke diagnosis?: No VTE Prior VTE?: No VTE Risk Level:: Medical - moderate - high VTE Device Contraindication: Treatment Not Indicated VTE Drug Contraindication: N/A - Med Ordered
--- NOTE | 2022-02-18 10:23 | PM.PNCARD ---
Subjective Subjective Date of Service: 02/18/22 Interval history: Shortness of breath is slightly better. However she has not moved from bed. Even at baseline she has minimal activity and needs wheelchair. Review of Systems Review of Systems Yes all other systems are reviewed and are negative Constitutional: Reports as per HPI Eyes: Reports as per HPI Reports as per HPI Cardiovascular: Reports as per HPI, Denies acrocyanosis, Denies cool extremities, Denies chest pain, Denies leg edema, Denies lightheadedness, Denies palpitations and Reports dyspnea Respiratory: Reports as per HPI, Reports no additional respiratory complaints and Reports dyspnea Gastrointestinal: Reports as per HPI and Reports no additional gastrointestinal complaints Genitourinary: Reports as per HPI Musculoskeletal: Reports no additional musculoskeletal complaints and Reports as per HPI Skin/Breast: Reports system reviewed and no additional complaints, except as docu Reports system reviewed and no additional complaints, except as documented and Reports as per HPI Psychiatric: Reports no additional psychiatric complaints and Reports as per HPI Endocrine: Reports no additional endocrine complaints, Reports as per HPI and Denies palpitations Hematologic/Lymphatic: Reports no additional hematologic/lymphatic complaints and Reports as per HPI Allergic/Immunologic: Reports no additional allergic/immunologic complaints and Reports as per HPI Physical Exam Vital Signs: Last Vital Signs Temp 98.1 F 02/18/22 07:57 Pulse 66 02/18/22 07:57 Resp 20 02/18/22 07:57 BP 167/84 H 02/18/22 07:57 Pulse Ox 94 02/18/22 09:35 O2 Del Method 02/18/22 09:35 O2 Flow Rate 2 02/18/22 07:57 BMI result Body Mass Index 33.2 Const General: comfortable and no acute distress Orientation/consciousness: patient oriented x3 HEENT Other: Unremarkable Head: Yes normal to inspection Neck Neck: Yes normal visual inspection Chest Chest palpation & inspection: normal inspection of the chest Resp Other: Crackles at the bases Cardio Palpation: normal PMI Heart sounds: S1 normal heart sound present, S2 normal heart sound present, no gallops, no murmurs and no rubs GI Palpation (GI): Soft to palpation Back/Spine/Pelvis Other: unremarkable Skin General skin exam: no rashes or lesions noted Neuro General: patient oriented x3 Extrem General: Yes normal to inspection Psych Mental Status: mental status grossly normal Objective Labs and Meds Result diagrams: 02/18/22 06:40 02/18/22 06:40 Lab results: Laboratory Results - last 24 hr 02/18/22 02/18/22 06:40 06:40 WBC 12.0 H RBC 4.95 Hgb 13.4 Hct 42.6 MCV 86.1 MCH 27.1 MCHC 31.5 RDW 16.3 H Plt Count 324 MPV 11.0 Absolute Nucleated RBC 0.000 Nucleated RBC % (auto) 0.0 Sodium 139 Potassium 4.5 D Chloride 98 Carbon Dioxide 33 H Anion Gap 13 BUN 41 H Creatinine 0.98 Estim Creat Clear Calc 46.2 Estimated GFR 55 Fasting Glucose 121 H Calcium 9.5 Magnesium 2.3 Progress Note: A&P Assessment and plan (1) Acute combined systolic and diastolic congestive heart failure, NYHA class 3: Status: Acute Assessment and Plan: Echocardiogram with severely diminished LVEF at 25-30%. There is mild diastolic dysfunction with elevated filling pressures. No significant valvular pathology. Shortness of breath is probably from some combination of cardiomyopathy, COPD as well as hiatal hernia seen. From the cardiac standpoint, empiric diuretics. Since admission, she has negative 685 cc. Otherwise, discussed about ischemia workup. Ideally, she needs a diagnostic cardiac catheterization. We discussed about doing this as an inpatient with transfer to [facility] as well as an outpatient but she states that she would rather have it done while she is here. Will need to see if this is feasible or not. Will follow up with you. Time Spent With Patient Time: Total time spent is greater than 50% in coordination of care (as documented) at patient's floor/unit and/or counseling patient: 35min. Progress Note: Quality Stroke Does the patient have a stroke diagnosis?: No Procedures Date of Service Date of Service: 02/18/22
--- NOTE | 2022-02-18 12:53 | P.CNID_ITS ---
History of Present Illness Data of Consult Service Date: 02/17/22 Requesting physician: Luigi Barnhart Primary Care Provider: Katherine Slade MD HPI Reason for consult: bacteriuria She presents with shortness of breath for a week. She was given Prednisone. She doesnt declare hematuria,fever,pelvic pain or frequency complaints Review of Systems Review of Systems: Yes all other systems are reviewed and are negative PMFSH Past Medical History Medical History (Updated 02/18/22 @ 12:56 by Mera Camacho MD) Asymptomatic bacteriuria COPD (chronic obstructive pulmonary disease) DVT (deep venous thrombosis) Hiatal hernia HTN (hypertension) Hypertension Family History Family History Father Pulmonary fibrosis Surgical History Surgical History Previous back surgery Social History Social History Household Members: None Housing: Apartment Do you presently have visiting nurse or other home services: Yes Patient Tobacco Use Status: Former Tobacco user Use of substances other than those prescribed or required for medical reasons: Yes Substance Use Type: Marijuana Substance Use Frequency: Chronic Longstanding Last Used Substance: Days (ago) Currently Displaying Signs/Symptoms of Drug Intoxication Withdrawal: No Any prior treatment program specific to substance use: No Have you been hit, kicked, punched, or otherwise hurt by someone within the past year? If so, by whom?: No Do you feel safe in your current relationship?: No Current Relationship Is there a partner from a previous relationship who is making you feel unsafe now?: No Are you made to feel afraid or neglected: No Advance Directives: Yes Advance Directives on File: Yes Advance Directives Date on File: 10/29/20 Do you have thoughts of harming others: None Do you have a plan to hurt others: No Plan Recently lost weight without trying: No Eating poorly because of decreased appetite: No Nutrition Risks: No Nutritional Risk Patient : No : No service: No Current occupational status: disabled Meds Allergies Allergy/AdvReac Type Severity Reaction Status Date / Time No Known Allergies Allergy Verified 10/29/20 10:21 Active Medications: Current Medications Acetaminophen (Acetaminophen 325 Mg Tablet) 650 mg PO Q6H PRN PRN Reason: Pain, Mild (Pain Scale 1-3) Albuterol Sulfate (Albuterol Sulfate 90 Mcg 8 Gm Inhaler) 2 puff INHALE Q4H PRN PRN Reason: Shortness Of Breath Albuterol/Ipratropium (Albuterol/Iprat 2.5/0.5mg 3 Ml Ampul.Neb) 3 ml INHALE RQ4H WHILE AWAKE PRN PRN Reason: Shortness of Breath/Wheezing Amphetamine/Dextroamphetamine (Amphetamine Mixed Salts 10 Mg Tablet) 15 mg PO TID [facility] Last Admin: 02/18/22 09:27 Dose: 15 mg Apixaban (Apixaban 5 Mg Tablet) 5 mg PO BID [facility] Last Admin: 02/18/22 09:27 Dose: 5 mg Duloxetine HCl (Duloxetine Hcl 60 Mg Capsule.Dr) 60 mg PO DAILY [facility] Last Admin: 02/18/22 09:27 Dose: 60 mg Furosemide (Furosemide 20 Mg/2 Ml Vial) 40 mg IVPUSH BID@0900,1800 [facility]; Protocol Ceftriaxone Sodium 1 gm/ (Sodium Chloride) 50 mls @ 100 mls/hr IV Q24H [facility] Last Infusion: 02/17/22 22:12 Dose: Infused Labetalol HCl (Labetalol Hcl 20 Mg/4 Ml Syringe) 10 mg IVPUSH Q4H PRN PRN Reason: BP>160/90 Melatonin (Melatonin 3 Mg Tablet) 12 mg PO BEDTIME PRN PRN Reason: Sleep Prednisone (Prednisone 20 Mg Tablet) 40 mg PO DAILY [facility] Last Admin: 02/18/22 09:27 Dose: 40 mg Senna (Sennosides 8.6 Mg Tablet) 17.2 mg PO BEDTIME PRN PRN Reason: Constipation Sodium Chloride (0.9 % Sodium Chloride Flush 3 Ml Syringe) 3 ml IVFLUSH QSHIFT [facility] Last Admin: 02/18/22 09:29 Dose: 3 ml Vitamin D (Cholecalciferol (Vitamin D3) 25 Mcg Tablet) 25 mcg PO DAILY [facility] Last Admin: 02/18/22 09:27 Dose: 25 mcg Home Medications Medication Instructions Recorded Confirmed Last Taken Type Bacillus subtilis 1.5 billion 1 tab PO DAILY 10/29/20 02/16/22 Unknown History cell-inulin 1 gram chewable tablet apixaban 5 mg tablet (Eliquis) 5 mg PO BID 10/29/20 02/16/22 02/16/22 History cholecalciferol (vitamin D3) 25 25 mcg PO DAILY 10/29/20 02/16/22 Unknown History mcg (1,000 unit) tablet dextroamphetamine-amphetamine 10 15 mg PO TID 10/29/20 02/16/22 Unknown History mg tablet (Adderall) duloxetine 60 mg capsule,delayed 60 mg PO DAILY 10/29/20 02/16/22 Unknown History release melatonin 1 mg tablet 12 mg PO BEDTIME 10/29/20 10/29/20 Unknown History albuterol sulfate 90 mcg/actuation 2 puff inhalation Q4H PRN 02/16/22 02/16/22 02/16/22 History aerosol inhaler Shortness Of Breath melatonin 3 mg tablet 12 mg PO BEDTIME PRN Sleep 02/16/22 02/16/22 Unknown History prednisone 20 mg tablet 2 tab PO DAILY 02/16/22 02/16/22 Unknown History umeclidinium 62.5 mcg-vilanterol 1 puff PO DAILY 02/16/22 02/16/22 Unknown History 25 mcg/actuation powdr for inhalation (Anoro Ellipta) Physical Exam Vital Signs: Vital Signs: Last Vital Signs Temp 98.1 F 02/18/22 07:57 Pulse 66 02/18/22 07:57 Resp 20 02/18/22 07:57 BP 167/84 H 02/18/22 07:57 Pulse Ox 94 02/18/22 09:35 O2 Del Method 02/18/22 09:35 O2 Flow Rate 2 02/18/22 07:57 BMI result Body Mass Index 33.2 Const: General: cooperative Eyes: General: appearance normal, both eyes and all related structures Resp: Effort & Inspection: normal respiratory effort Cardio: Rate: regular rate Rhythm: regular rhythm GI: Palpation (GI): Soft to palpation and nontender Extrem: General: Yes normal to inspection Results Labs CBC & Chem 7: 02/18/22 06:40 02/18/22 06:40 Labs: Short CBC 02/18/22 Range/Units 06:40 WBC 12.0 H (4.8-10.8) X10*3/uL Hgb 13.4 (12.0-16.0) g/dl Hct 42.6 (37.0-47.0) % Plt Count 324 (160-400) X10*3/uL BMP 02/18/22 06:40 Sodium 139 Potassium 4.5 D Chloride 98 Carbon Dioxide 33 H BUN 41 H Creatinine 0.98 Calcium 9.5 Microbiology Microbiology Results: Microbiology 02/16/22 22:54 Urine clean catch - Urine allen top Urine Culture - Preliminary Gram negative hailey 02/16/22 17:21 Blood - Venous Blood Culture - Preliminary No growth after 24 hours. 02/16/22 17:27 Blood - Venous Blood Culture - Preliminary No growth after 24 hours. Assessment and Plan (1) Acute combined systolic and diastolic congestive heart failure, NYHA class 3: Status: Acute (2) Asymptomatic bacteriuria: Status: Acute There is no clinical hematuria,minimal bacteriuria and no fever or abdominal pain and only minimal elevation WBC. Plan Would hold Ceftriaxone and observe Start if fever or complaints related to urinary tract.
--- NOTE | 2022-02-18 13:06 | MHC.CM.PN ---
IMM 02/18/22 Female 76 DX HF She lives by herself with assist of CERTIFIED REGISTERED DENTAL ASSISTANT. CERTIFIED REGISTERED DENTAL ASSISTANT services provided by [facility]. She requires assist with ADLs. She uses a scooter 100% of the time. DP Acute TX to [facility] [facility] via ALS.
[2022-02-18] MEDS: Furosemide 20 MG/2 ML VIAL 40 MG IVPUSH (18:27)
[2022-02-19 04:00] VITALS: BP 144/86; PULSE 75; RESP 20; TEMP 37; O2SAT 93
[2022-02-19 06:34] LABS: Hematocrit 45.6 % (37.0-47.0); Hemoglobin 13.9 g/dl (12.0-16.0); Mean Corpuscular HGB Conc 30.5 g/dl (31.0-35.0); Mean Corpuscular Volume 85.2 fL (80.0-98.0); Mean Platelet Volume 10.7 fL (9.4-12.3); Platelet Count 359 X10*3/uL (160-400); Red Blood Count 5.35 X10*6/uL (4.20-5.50); Red Cell Distribution Width 15.9 % (11.0-16.0); White Blood Count 14.1 X10*3/uL (4.8-10.8)
[2022-02-19 06:50] LABS: Anion Gap 12 (12-20); Blood Urea Nitrogen 43 mg/dL (9-16); Calcium 9.8 mg/dL (8.4-10.2); Carbon Dioxide 35 mmol/L (22-29); Chloride 97 mmol/L (96-108); Creatinine Clr Calc Pharmacy 50.8; Estimated Glomerular Filt Rate > 60; Glucose Fasting 100 mg/dL (60-99); Potassium 4.5 mmol/L (3.3-5.1); Sodium 139 mmol/L (135-145)
[2022-02-19 07:37] VITALS: BP 160/70; PULSE 80; RESP 19; TEMP 36.2; O2SAT 95
[2022-02-19] MEDS: 0.9 % Sodium Chloride Flush 3 ML SYRINGE IVFLUSH ×3 (09:15→19:44)
[2022-02-19] MEDS: DULoxetine HCl 60 MG CAPSULE.DR PO (09:15)
[2022-02-19] MEDS: Cholecalciferol (Vitamin D3) 25 MCG TABLET PO (09:15)
[2022-02-19] MEDS: Apixaban 5 MG TABLET PO ×2 (09:15→19:43)
[2022-02-19] MEDS: Amphetamine Mixed Salts 10 MG TABLET 15 MG PO ×3 (09:15→19:43)
[2022-02-19] MEDS: predniSONE 20 MG TABLET 40 MG PO (09:15)
[2022-02-19] MEDS: Furosemide 20 MG/2 ML VIAL 40 MG IVPUSH (09:16)
--- NOTE | 2022-02-19 10:16 | P.PNCA_ITS ---
Subjective Subjective Date of Service: 02/19/22 Interval history: She states that she feels okay. Denies any shortness of breath or chest pains. Review of Systems Review of Systems Yes all other systems are reviewed and are negative Constitutional: Reports as per HPI Eyes: Reports as per HPI Reports as per HPI Cardiovascular: Reports as per HPI, Denies acrocyanosis, Denies cool extremities, Denies chest pain, Denies leg edema, Denies lightheadedness, Denies palpitations and Denies dyspnea Respiratory: Reports as per HPI, Reports no additional respiratory complaints and Denies dyspnea Gastrointestinal: Reports as per HPI and Reports no additional gastrointestinal complaints Genitourinary: Reports as per HPI Musculoskeletal: Reports no additional musculoskeletal complaints and Reports as per HPI Skin/Breast: Reports system reviewed and no additional complaints, except as docu Reports system reviewed and no additional complaints, except as documented and Reports as per HPI Psychiatric: Reports no additional psychiatric complaints and Reports as per HPI Endocrine: Reports no additional endocrine complaints, Reports as per HPI and Denies palpitations Hematologic/Lymphatic: Reports no additional hematologic/lymphatic complaints and Reports as per HPI Allergic/Immunologic: Reports no additional allergic/immunologic complaints and Reports as per HPI Physical Exam Vital Signs: Last Vital Signs Temp 97.2 F 02/19/22 07:37 Pulse 80 02/19/22 07:37 Resp 19 02/19/22 07:37 BP 160/70 H 02/19/22 07:37 Pulse Ox 95 02/19/22 07:37 O2 Del Method 02/19/22 07:37 O2 Flow Rate 1 02/19/22 07:37 BMI result Body Mass Index 33.2 Const General: comfortable and no acute distress Orientation/consciousness: patient oriented x3 HEENT Other: Unremarkable Head: Yes normal to inspection Neck Neck: Yes normal visual inspection Chest Chest palpation & inspection: normal inspection of the chest Resp Auscultation: crackles bilateral at the base Cardio Palpation: normal PMI Heart sounds: S1 normal heart sound present, S2 normal heart sound present, no gallops, no murmurs and no rubs GI Palpation (GI): Soft to palpation Back/Spine/Pelvis Other: unremarkable Skin General skin exam: no rashes or lesions noted Neuro General: patient oriented x3 Extrem General: Yes normal to inspection Psych Mental Status: mental status grossly normal Objective Labs and Meds Result diagrams: 02/19/22 05:56 02/19/22 05:56 Lab results: Laboratory Results - last 24 hr 02/19/22 02/19/22 05:56 05:56 WBC 14.1 H RBC 5.35 Hgb 13.9 Hct 45.6 MCV 85.2 MCH 26.0 L MCHC 30.5 L RDW 15.9 Plt Count 359 MPV 10.7 Absolute Nucleated RBC 0.000 Nucleated RBC % (auto) 0.0 Sodium 139 Potassium 4.5 Chloride 97 Carbon Dioxide 35 H Anion Gap 12 BUN 43 H Creatinine 0.89 Estim Creat Clear Calc 50.8 Estimated GFR > 60 Fasting Glucose 100 H Calcium 9.8 Progress Note: A&P Assessment and plan (1) Acute combined systolic and diastolic congestive heart failure, NYHA class 3: Status: Acute Assessment and Plan: Echocardiogram with severely diminished LVEF at 25-30%. There is mild diastolic dysfunction with elevated filling pressures. No significant valvular pathology. Shortness of breath is probably from some combination of cardiomyopathy, COPD as well as hiatal hernia seen. With regard to the cardiomyopathy, can start carvedilol/Entresto. Empiric diuretics. She will need a diagnostic cardiac catheterization for coronary assessment. The re is a history of heavy smoking in the past. She also has hypertension. Hence at risk for CAD. Due to scheduling issues, availability, will likely have to do this as an outpatient. Will make arrangements for the same. Discussed with patient she is agreeable. Also discussed with Dr. Barnhart. Time Spent With Patient Time: Total time spent is greater than 50% in coordination of care (as documented) at patient's floor/unit and/or counseling patient: 35min. Progress Note: Quality Stroke Does the patient have a stroke diagnosis?: No Procedures Date of Service Date of Service: 02/19/22
--- NOTE | 2022-02-19 11:05 | HO.PM.IMPN ---
Subjective Subjective Date of Service: 02/19/22 Interval History: cc: sob interval history:improving Cardiovascular Cardiovascular: Reports no additional cardiovascular complaints Respiratory Respiratory: Reports no additional respiratory complaints Physical Exam Vital Signs: Vital Signs: Last Vital Signs Temp 97.2 F 02/19/22 07:37 Pulse 80 02/19/22 07:37 Resp 19 02/19/22 07:37 BP 160/70 H 02/19/22 07:37 Pulse Ox 95 02/19/22 07:37 O2 Del Method 02/19/22 07:37 O2 Flow Rate 1 02/19/22 07:37 BMI result Body Mass Index 33.2 Const: General: comfortable and no acute distress Orientation/consciousness: patient oriented x3 HEENT: Other: Unremarkable Head: Yes normal to inspection Neck: Neck: Yes normal visual inspection Chest: Chest palpation & inspection: normal inspection of the chest Resp: Auscultation: crackles bilateral at the base Cardio: Palpation: normal PMI Heart sounds: S1 normal heart sound present, S2 normal heart sound present, no gallops, no murmurs and no rubs GI: Palpation (GI): Soft to palpation Back/Spine/Pelvis: Other: unremarkable Skin: General skin exam: no rashes or lesions noted Neuro: General: patient oriented x3 Extrem: General: Yes normal to inspection Psych: Mental Status: mental status grossly normal Objective Data Active Medications Acetaminophen (Acetaminophen 325 Mg Tablet) 650 mg PO Q6H PRN PRN Reason: Pain, Mild (Pain Scale 1-3) Albuterol Sulfate (Albuterol Sulfate 90 Mcg 8 Gm Inhaler) 2 puff INHALE Q4H PRN PRN Reason: Shortness Of Breath Albuterol/Ipratropium (Albuterol/Iprat 2.5/0.5mg 3 Ml Ampul.Neb) 3 ml INHALE RQ4H WHILE AWAKE PRN PRN Reason: Shortness of Breath/Wheezing Amphetamine/Dextroamphetamine (Amphetamine Mixed Salts 10 Mg Tablet) 15 mg PO TID [facility] Last Admin: 02/19/22 09:15 Dose: 15 mg Documented By: DOBROB Apixaban (Apixaban 5 Mg Tablet) 5 mg PO BID [facility] Last Admin: 02/19/22 09:15 Dose: 5 mg Documented By: DOBROB Carvedilol (Carvedilol 3.125 Mg Tablet) 3.125 mg PO BID [facility]; Protocol Duloxetine HCl (Duloxetine Hcl 60 Mg Capsule.Dr) 60 mg PO DAILY [facility] Last Admin: 02/19/22 09:15 Dose: 60 mg Documented By: NUNO Furosemide (Furosemide 20 Mg/2 Ml Vial) 40 mg IVPUSH BID@0900,1800 [facility]; Protocol Last Admin: 02/19/22 09:16 Dose: 40 mg Documented By: NUNO Labetalol HCl (Labetalol Hcl 20 Mg/4 Ml Syringe) 10 mg IVPUSH Q4H PRN PRN Reason: BP>160/90 Melatonin (Melatonin 3 Mg Tablet) 12 mg PO BEDTIME PRN PRN Reason: Sleep Prednisone (Prednisone 20 Mg Tablet) 40 mg PO DAILY [facility] Last Admin: 02/19/22 09:15 Dose: 40 mg Documented By: NUNO Sacubitril/Valsartan (Sacubitril/Valsartan 1 Tab Tablet) 1 tab PO BID [facility]; Protocol Senna (Sennosides 8.6 Mg Tablet) 17.2 mg PO BEDTIME PRN PRN Reason: Constipation Sodium Chloride (0.9 % Sodium Chloride Flush 3 Ml Syringe) 3 ml IVFLUSH QSHIFT [facility] Last Admin: 02/19/22 09:15 Dose: 3 ml Documented By: NUNO Vitamin D (Cholecalciferol (Vitamin D3) 25 Mcg Tablet) 25 mcg PO DAILY [facility] Last Admin: 02/19/22 09:15 Dose: 25 mcg Documented By: NUNO Labs CBC & Chem 7: 02/19/22 05:56 02/19/22 05:56 Labs: Laboratory Results - last 24 hr 02/19/22 02/19/22 05:56 05:56 MCV 85.2 MCH 26.0 L MCHC 30.5 L RDW 15.9 Plt Count 359 MPV 10.7 Absolute Nucleated RBC 0.000 Nucleated RBC % (auto) 0.0 Anion Gap 12 Estim Creat Clear Calc 50.8 Estimated GFR > 60 Fasting Glucose 100 H Calcium 9.8 Microbiology Microbiology Results: Microbiology 02/16/22 22:54 Urine Culture - Final Urine clean catch - Urine allen top Escherichia coli 02/16/22 17:21 Blood Culture - Preliminary Blood - Venous No growth after 48 hours. 02/16/22 17:27 Blood Culture - Preliminary Blood - Venous No growth after 48 hours. Assessment and Plan (1) Hypoxia: Status: Inactive Plan 77F presented with sob acute systolic chf diuresed well, change to oral lasix tomorrow will need ischemic work up, plan for cardiac cath as outpatient will start entresto and coreg, monitor bmp COPD prednisone severe hiatal hernia causing left basilar atelectasis outpatient follow up asymptomatic bacturia ID appreciated, abx dced history of DVT eliquis mood disorder cymbalta dnr/dni reason for continued hospitalization: monitoring for tolerance of neurohormonals Quality Stroke Does the patient have a stroke diagnosis?: No VTE Prior VTE?: No VTE Risk Level:: Medical - moderate - high VTE Device Contraindication: Treatment Not Indicated VTE Drug Contraindication: N/A - Med Ordered
[2022-02-19] MEDS: Sacubitril/Valsartan 24/26 1 TAB TABLET PO ×2 (11:17→19:41)
[2022-02-19] MEDS: carvediloL 3.125 MG TABLET PO ×2 (11:17→19:42)
[2022-02-19 12:00] VITALS: BP 168/72; PULSE 85; RESP 20; TEMP 36.8; O2SAT 98
[2022-02-19 15:25] VITALS: BP 132/80; PULSE 91; RESP 18; TEMP 36.9; O2SAT 91
[2022-02-19 19:23] VITALS: BP 120/70; PULSE 109; RESP 18; TEMP 37.1; O2SAT 93
[2022-02-19 23:31] VITALS: BP 113/75; PULSE 80; RESP 18; TEMP 36.7; O2SAT 92
[2022-02-20 03:14] VITALS: BP 130/77; PULSE 60; RESP 18; TEMP 36.9; O2SAT 94
[2022-02-20 06:19] LABS: Hematocrit 50.8 % (37.0-47.0); Hemoglobin 15.9 g/dl (12.0-16.0); Mean Corpuscular HGB Conc 31.3 g/dl (31.0-35.0); Mean Corpuscular Hemoglobin 26.5 pg (27.0-33.0); Mean Corpuscular Volume 84.7 fL (80.0-98.0); Mean Platelet Volume 10.5 fL (9.4-12.3); Platelet Count 405 X10*3/uL (160-400); Red Cell Distribution Width 16.2 % (11.0-16.0); White Blood Count 14.2 X10*3/uL (4.8-10.8)
[2022-02-20 08:00] VITALS: BP 128/82; PULSE 71; RESP 17; TEMP 36.6; O2SAT 95
[2022-02-20 08:37] LABS: Anion Gap 13 (12-20); Blood Urea Nitrogen 36 mg/dL (9-16); Calcium 9.8 mg/dL (8.4-10.2); Carbon Dioxide 32 mmol/L (22-29); Chloride 97 mmol/L (96-108); Creatinine Clr Calc Pharmacy 50.3; Estimated Glomerular Filt Rate > 60; Glucose Fasting 125 mg/dL (60-99); Potassium 4.5 mmol/L (3.3-5.1); Sodium 137 mmol/L (135-145)
[2022-02-20] MEDS: Sacubitril/Valsartan 24/26 1 TAB TABLET PO ×2 (08:37→20:46)
[2022-02-20] MEDS: Apixaban 5 MG TABLET PO ×2 (08:37→20:46)
[2022-02-20] MEDS: Amphetamine Mixed Salts 10 MG TABLET 15 MG PO ×3 (08:37→20:45)
[2022-02-20] MEDS: Furosemide 40 MG TABLET PO (08:37)
[2022-02-20] MEDS: 0.9 % Sodium Chloride Flush 3 ML SYRINGE IVFLUSH ×3 (08:38→20:46)
[2022-02-20] MEDS: predniSONE 20 MG TABLET 40 MG PO (08:38)
[2022-02-20] MEDS: DULoxetine HCl 60 MG CAPSULE.DR PO (08:38)
[2022-02-20] MEDS: carvediloL 3.125 MG TABLET PO ×2 (08:38→20:46)
[2022-02-20] MEDS: Cholecalciferol (Vitamin D3) 25 MCG TABLET PO (08:38)
--- NOTE | 2022-02-20 09:30 | PM.DS ---
DS: Providers Provider Date of Service: 02/22/22 Date of admission: 02/16/22 22:31 Primary care physician: Katherine Slade MD Consults: 02/16/22 22:21 Consult to Cardiology Routine Consulting Provider: Collins Munguia Reason for consultation: chf 02/16/22 22:36 Consult to Infectious Diseases Routine Consulting Provider: Mera Camacho Reason for consultation: Recurrent UTI DS: Summary Hospital Course Hospital Course: from initial hpi: Chief Complaint: Shortness of breath 77-year-old female with a past medical history of hypertension, COPD-not on home oxygen, history of DVT on Eliquis, history of chronic back pain status post spine surgery, wheelchair-bound; presented to the hospital today with a chief complaint of shortness of breath.? Patient reports that over the past few days she has been having shortness of breath and has seen the PCP couple days ago was given prednisone; but still not improving; has been trying her home inhalers as well with no significant improvement.? Hence decided to come to the ER for further evaluation.? Denies any change in her energy levels; denies any orthopnea; but complains of shortness of breath and dyspnea on exertion.? Denies any numbness tingling or focal weakness.? Denies any cough or sputum production.? Denies any fevers and chills.? Denies any nausea vomiting or diarrhea Mentions that she has recurrent UTI; Mentions that she has longstanding history of COPD; before was briefly on home oxygen but not actively on any home oxygen currently.? Review of all other systems is negative except mentioned above ER course: Per ER team patient on presentation noted shortness of breath, placed on supplemental oxygen; on labs noted to have abnormal urinalysis consistent with UTI-given ceftriaxone; CT chest showed no evidence of pulmonary embolism but noted pulmonary congestion and a possible new onset CHF.? Patient proBNP elevated to 1 thousands.? Patient was given IV Lasix.? Admitted to the hospital for further management. hospital course: Patient was admitted for dyspnea found to be secondary to acute systolic CHF. She was given IV Lasix and diuresed well her shortness of breath significantly improved by time of discharge, she will continue 40mg daily. Her echocardiogram showed a new finding of global hypokinesis with an EF of about 25%. She was seen by Cardiology who recommended starting Entresto and carvedilol and arranging for cardiac catheterization as outpatient. She was also initially treated for suspected urinary tract infection. She was evaluated by Infectious Disease felt that this was asymptomatic bacturia and antibiotics have been discontinued. For her recent COPD with acute decompensation she was continued on her prednisone and can be discontinued on discharge. Patient's shortness of breath is also being contributed to by severe hiatal hernia causing left basilar atelectasis. This can be followed up as outpatient, though patient is hesitant to pursue surgical treatment. For history of DVT she will continue on Eliquis. For mood disorder she will continue on Cymbalta. she was noted to have acute leukocytosis, thrombocytosis, and polycythemia, thought to be hemoconcentration, should follow up cbc. patient will be discharged to SNF for STR, expected to require less than 30 days. Time Spent with Patient Time attestation: Total time spent providing and/or coordinating discharge services: Discharge coordination time: Greater than 30 minutes Quality: Safe Use of Opioids Does Pt have an Active Cancer Diagnosis on the Problem List?: No Quality: Stroke Does the patient have a stroke diagnosis?: No Physical Exam Vital Signs: Vital Signs: Last Vital Signs Temp 97.8 F 02/20/22 08:00 Pulse 71 02/20/22 08:00 Resp 17 02/20/22 08:00 BP 128/82 02/20/22 08:00 Pulse Ox 95 02/20/22 08:00 O2 Del Method 02/20/22 08:00 O2 Flow Rate 1 02/19/22 12:00 BMI result Body Mass Index 33.2 General: AO X 3, no acute distress Resp: CTA bilateral, no accessory muscles used CVS: S1,S2,RRR GI: soft, non tender, non distended Neuro: motor grossly intact, alert Psych: appropriate affect, appropriate insight DS: Data Data Completed and Pending Labs on day of discharge: Laboratory Results - last 24 hr 02/20/22 02/20/22 05:38 08:15 WBC 14.2 H RBC 6.00 H Hgb 15.9 Hct 50.8 H MCV 84.7 MCH 26.5 L MCHC 31.3 RDW 16.2 H Plt Count 405 H MPV 10.5 Absolute Nucleated RBC 0.000 Nucleated RBC % (auto) 0.0 Sodium 137 Potassium 4.5 Chloride 97 Carbon Dioxide 32 H Anion Gap 13 BUN 36 H Creatinine 0.90 Estim Creat Clear Calc 50.3 Estimated GFR > 60 Fasting Glucose 125 H Calcium 9.8 Preliminary micro results at discharge 02/16/22 17:21 Blood Culture - Preliminary Blood - Venous No growth after 48 hours. 02/16/22 17:27 Blood Culture - Preliminary Blood - Venous No growth after 48 hours. Discharge Plan Discharge Patient Disposition: Xfer SNF Discharge Diagnosis: chf Referrals: [facility] [Outside] - 1 Week Katherine Slade MD [Primary Care Provider] - 1 Week Discharge Medications: New carvedilol 3.125 mg Tablet 3.125 mg PO BID Qty: 60 0RF Protocol: Hold for SBP/HR < HOLD for SBP < : 90 HOLD for HR < : 60 Entresto 24-26 mg Tablet 1 tab PO BID Qty: 60 0RF Protocol: Hold for SBP< HOLD for SBP < : 90 furosemide 40 mg Tablet 40 mg PO DAILY Qty: 30 0RF Protocol: Hold for SBP< HOLD for SBP < : 90 Continued Eliquis 5 mg Tablet 5 mg PO BID duloxetine 60 mg Capsule,Delayed Release(Dr/Ec) 60 mg PO DAILY dextroamphetamine-amphetamine [Adderall] 10 mg Tablet 15 mg PO TID cholecalciferol (vitamin D3) 25 mcg (1,000 unit) Tablet 25 mcg PO DAILY melatonin 1 mg Tablet 12 mg PO BEDTIME Bacillus subtilis-inulin 1.5 billion cell-1 gram Tablet,Chewable 1 tab PO DAILY albuterol sulfate 90 mcg/actuation HFA aerosol inhaler 2 puff inhalation Q4H PRN (Reason: Shortness Of Breath) Anoro Ellipta 62.5-25 mcg/actuation blister with device 1 puff PO DAILY melatonin 3 mg Tablet 12 mg PO BEDTIME PRN (Reason: Sleep) Discontinued prednisone 20 mg tablet 2 tab PO DAILY Discharge Orders: Discharge Order (Routine); Ordered 02/22/22 Ordered By: Luigi Barnhart Diet: advance to usual diet Activity on Discharge: As tolerated Stand Alone Forms: Patient Portal Discharge page Other Ambulatory Orders: Basic Metabolic Panel Fasting (Routine) Timeframe: 3 Days Facility: [facility] - Location: Laboratory Ordered By: Luigi Barnhart Complete Blood Count Auto Diff (Routine) Timeframe: 3 Days Facility: [facility] - Location: Laboratory Ordered By: Luigi Barnhart Care Plan Goals: recovery Health Concerns: chf Plan of Treatment: start entresto, coreg, follow up with cardiology for catheterization bmp, cbc in several days Assessment: see above
--- NOTE | 2022-02-20 10:36 | MHC.CM.PN ---
Spoke w/daughter; per daughter patient utilizes a scooter at baseline at home and also indicates that patient has told her that she does not functionally feel safe going home at this time. Daughter states patient has been here w/a purewick, etc and has also not had a chance to get OOB to the BR. etc. Daughter said that patient would like to go to inpatient rehab. No PT eval noted in chart. Reported circumstance to MD. MD plans for patient to stay one night for PT eval in am, so that functional recommendations can be made. If inpatient rehab is recommended, authorization will need to be established for transfer/placement. PT eval is required for this. Daughter informed and in agreement. informed and in agreement.
--- NOTE | 2022-02-20 10:41 | HO.PM.IMPN ---
Subjective Subjective Date of Service: 02/20/22 Interval History: cc: sob interval history:improved, feeling weak Cardiovascular Cardiovascular: Reports no additional cardiovascular complaints Respiratory Respiratory: Reports no additional respiratory complaints Physical Exam Vital Signs: Vital Signs: Last Vital Signs Temp 97.8 F 02/20/22 08:00 Pulse 71 02/20/22 08:00 Resp 17 02/20/22 08:00 BP 128/82 02/20/22 08:00 Pulse Ox 95 02/20/22 08:00 O2 Del Method 02/20/22 08:00 O2 Flow Rate 1 02/19/22 12:00 BMI result Body Mass Index 33.2 General: AO X 3, no acute distress Resp: CTA bilateral, no accessory muscles used CVS: S1,S2,RRR GI: soft, non tender, non distended Neuro: motor grossly intact, alert Psych: appropriate affect, appropriate insight Objective Data Active Medications Acetaminophen (Acetaminophen 325 Mg Tablet) 650 mg PO Q6H PRN PRN Reason: Pain, Mild (Pain Scale 1-3) Albuterol Sulfate (Albuterol Sulfate 90 Mcg 8 Gm Inhaler) 2 puff INHALE Q4H PRN PRN Reason: Shortness Of Breath Albuterol/Ipratropium (Albuterol/Iprat 2.5/0.5mg 3 Ml Ampul.Neb) 3 ml INHALE RQ4H WHILE AWAKE PRN PRN Reason: Shortness of Breath/Wheezing Amphetamine/Dextroamphetamine (Amphetamine Mixed Salts 10 Mg Tablet) 15 mg PO TID COUNT INCLUDES THE [facility] Last Admin: 02/20/22 08:37 Dose: 15 mg Documented By: NUNO Apixaban (Apixaban 5 Mg Tablet) 5 mg PO BID COUNT INCLUDES THE [facility] Last Admin: 02/20/22 08:37 Dose: 5 mg Documented By: NUNO Carvedilol (Carvedilol 3.125 Mg Tablet) 3.125 mg PO BID COUNT INCLUDES THE [facility]; Protocol Last Admin: 02/20/22 08:38 Dose: 3.125 mg Documented By: NUNO Duloxetine HCl (Duloxetine Hcl 60 Mg Capsule.) 60 mg PO DAILY COUNT INCLUDES THE [facility] Last Admin: 02/20/22 08:38 Dose: 60 mg Documented By: NUNO Furosemide (Furosemide 40 Mg Tablet) 40 mg PO DAILY COUNT INCLUDES THE [facility]; Protocol Last Admin: 02/20/22 08:37 Dose: 40 mg Documented By: NUNO Labetalol HCl (Labetalol Hcl 20 Mg/4 Ml Syringe) 10 mg IVPUSH Q4H PRN PRN Reason: BP>160/90 Melatonin (Melatonin 3 Mg Tablet) 12 mg PO BEDTIME PRN PRN Reason: Sleep Prednisone (Prednisone 20 Mg Tablet) 40 mg PO DAILY COUNT INCLUDES THE [facility] Last Admin: 02/20/22 08:38 Dose: 40 mg Documented By: NUNO Sacubitril/Valsartan (Sacubitril/Valsartan 1 Tab Tablet) 1 tab PO BID COUNT INCLUDES THE [facility]; Protocol Last Admin: 02/20/22 08:37 Dose: 1 tab Documented By: NUNO Senna (Sennosides 8.6 Mg Tablet) 17.2 mg PO BEDTIME PRN PRN Reason: Constipation Sodium Chloride (0.9 % Sodium Chloride Flush 3 Ml Syringe) 3 ml IVFLUSH QSHIFT COUNT INCLUDES THE [facility] Last Admin: 02/20/22 08:38 Dose: 3 ml Documented By: NUNO Vitamin D (Cholecalciferol (Vitamin D3) 25 Mcg Tablet) 25 mcg PO DAILY COUNT INCLUDES THE [facility] Last Admin: 02/20/22 08:38 Dose: 25 mcg Documented By: NUNO Labs CBC & Chem 7: 02/20/22 05:38 02/20/22 08:15 Labs: Laboratory Results - last 24 hr 02/20/22 02/20/22 05:38 08:15 MCV 84.7 MCH 26.5 L MCHC 31.3 RDW 16.2 H Plt Count 405 H MPV 10.5 Absolute Nucleated RBC 0.000 Nucleated RBC % (auto) 0.0 Anion Gap 13 Estim Creat Clear Calc 50.3 Estimated GFR > 60 Fasting Glucose 125 H Calcium 9.8 Microbiology Microbiology Results: Microbiology 02/16/22 22:54 Urine Culture - Final Urine clean catch - Urine allen top Escherichia coli Assessment and Plan (1) Hypoxia: Status: Inactive Plan 77F presented with sob acute systolic chf diuresed well, changed to oral lasix will need ischemic work up, plan for cardiac cath as outpatient started entresto and coreg, monitor bmp weakness pt eval COPD completed prednisone severe hiatal hernia causing left basilar atelectasis outpatient follow up asymptomatic bacturia ID appreciated, abx dced history of DVT eliquis ADD adderall mood disorder cymbalta dnr/dni reason for continued hospitalization: weak, safe dispo planning Quality Stroke Does the patient have a stroke diagnosis?: No VTE Prior VTE?: No VTE Risk Level:: Medical - moderate - high VTE Device Contraindication: Treatment Not Indicated VTE Drug Contraindication: N/A - Med Ordered
--- NOTE | 2022-02-20 11:02 | PM.PNCARD ---
Subjective Subjective Date of Service: 02/20/22 Interval history: She states that she is feeling fine. Shortness of breath is controlled. No chest pain. No other complaints. Review of Systems Review of Systems Yes all other systems are reviewed and are negative Constitutional: Reports as per HPI Eyes: Reports as per HPI Reports as per HPI Cardiovascular: Reports as per HPI, Denies acrocyanosis, Denies cool extremities, Denies chest pain, Denies leg edema, Denies lightheadedness, Denies palpitations and Denies dyspnea Respiratory: Reports as per HPI, Reports no additional respiratory complaints and Denies dyspnea Gastrointestinal: Reports as per HPI and Reports no additional gastrointestinal complaints Musculoskeletal: Reports no additional musculoskeletal complaints and Reports as per HPI Skin/Breast: Reports system reviewed and no additional complaints, except as docu Reports system reviewed and no additional complaints, except as documented and Reports as per HPI Psychiatric: Reports no additional psychiatric complaints and Reports as per HPI Endocrine: Reports no additional endocrine complaints, Reports as per HPI and Denies palpitations Hematologic/Lymphatic: Reports no additional hematologic/lymphatic complaints and Reports as per HPI Allergic/Immunologic: Reports no additional allergic/immunologic complaints and Reports as per HPI Physical Exam Vital Signs: Last Vital Signs Temp 97.8 F 02/20/22 08:00 Pulse 71 02/20/22 08:00 Resp 17 02/20/22 08:00 BP 128/82 02/20/22 08:00 Pulse Ox 95 02/20/22 08:00 O2 Del Method 02/20/22 08:00 O2 Flow Rate 1 02/19/22 12:00 BMI result Body Mass Index 33.2 Const General: comfortable and no acute distress Orientation/consciousness: patient oriented x3 HEENT Other: Unremarkable Head: Yes normal to inspection Neck Neck: Yes normal visual inspection Chest Chest palpation & inspection: normal inspection of the chest Resp Other: Crackles at the bases Auscultation: crackles bilateral at the base Cardio Palpation: normal PMI Heart sounds: S1 normal heart sound present, S2 normal heart sound present, no gallops, no murmurs and no rubs GI Palpation (GI): Soft to palpation Back/Spine/Pelvis Other: unremarkable Skin General skin exam: no rashes or lesions noted Neuro General: patient oriented x3 Extrem General: Yes normal to inspection Psych Mental Status: mental status grossly normal Objective Labs and Meds Result diagrams: 02/20/22 05:38 02/20/22 08:15 Lab results: Laboratory Results - last 24 hr 02/20/22 02/20/22 05:38 08:15 WBC 14.2 H RBC 6.00 H Hgb 15.9 Hct 50.8 H MCV 84.7 MCH 26.5 L MCHC 31.3 RDW 16.2 H Plt Count 405 H MPV 10.5 Absolute Nucleated RBC 0.000 Nucleated RBC % (auto) 0.0 Sodium 137 Potassium 4.5 Chloride 97 Carbon Dioxide 32 H Anion Gap 13 BUN 36 H Creatinine 0.90 Estim Creat Clear Calc 50.3 Estimated GFR > 60 Fasting Glucose 125 H Calcium 9.8 Progress Note: A&P Assessment and plan (1) Acute combined systolic and diastolic congestive heart failure, NYHA class 3: Status: Acute Assessment and Plan: Echocardiogram with severely diminished LVEF at 25-30%. There is mild diastolic dysfunction with elevated filling pressures. No significant valvular pathology. Shortness of breath is probably from some combination of cardiomyopathy, COPD as well as hiatal hernia seen. Discussed about this with the patient and she understands the rationale. Clinically she seems euvolemic. Can take low-dose Lasix. Also started on Entresto and carvedilol. Will need follow-up basic metabolic panel in a few days time. Otherwise, she also needs a diagnostic catheterization to assess coronary status. Unable to do this as an inpatient due to scheduling and we will pursue this rather as an outpatient in the near future. Again discussed about this with the patient she understands. Follow-up will be arranged. Discussed with . Time Spent With Patient Time: Total time spent is greater than 50% in coordination of care (as documented) at patient's floor/unit and/or counseling patient: 30min. Progress Note: Quality Stroke Does the patient have a stroke diagnosis?: No Procedures Date of Service Date of Service: 02/20/22
[2022-02-20 11:54] VITALS: BP 120/75; PULSE 75; RESP 18; TEMP 37.2; O2SAT 98
[2022-02-20 16:00] VITALS: BP 95/58; PULSE 100; RESP 17; TEMP 36.3; O2SAT 92
[2022-02-20 20:00] VITALS: BP 125/84; PULSE 97; RESP 18; TEMP 36.8; O2SAT 93
[2022-02-21] VITALS (9 sets, daily range): BP systolic 101–149; BP diastolic 60–79; PULSE 80–94; RESP 16–20; TEMP 35.6–37.1; O2SAT 92–96
[2022-02-21 06:28] LABS: Hematocrit 53.4 % (37.0-47.0); Hemoglobin 16.5 g/dl (12.0-16.0); Mean Corpuscular HGB Conc 30.9 g/dl (31.0-35.0); Mean Corpuscular Hemoglobin 26.4 pg (27.0-33.0); Mean Corpuscular Volume 85.6 fL (80.0-98.0); Mean Platelet Volume 12.1 fL (9.4-12.3); Platelet Count 260 X10*3/uL (160-400); Red Blood Count 6.24 X10*6/uL (4.20-5.50); Red Cell Distribution Width 16.7 % (11.0-16.0); White Blood Count 15.4 X10*3/uL (4.8-10.8)
[2022-02-21 09:13] LABS: Anion Gap 12 (12-20); Blood Urea Nitrogen 43 mg/dL (9-16); Calcium 9.7 mg/dL (8.4-10.2); Carbon Dioxide 32 mmol/L (22-29); Chloride 96 mmol/L (96-108); Creatinine Clr Calc Pharmacy 42.3; Estimated Glomerular Filt Rate 50; Glucose Fasting 118 mg/dL (60-99); Potassium 4.4 mmol/L (3.3-5.1); Sodium 136 mmol/L (135-145)
[2022-02-21] MEDS: Furosemide 40 MG TABLET PO (09:26)
[2022-02-21] MEDS: Cholecalciferol (Vitamin D3) 25 MCG TABLET PO (09:26)
[2022-02-21] MEDS: DULoxetine HCl 60 MG CAPSULE.DR PO (09:26)
[2022-02-21] MEDS: Sacubitril/Valsartan 24/26 1 TAB TABLET PO ×2 (09:26→22:14)
[2022-02-21] MEDS: carvediloL 3.125 MG TABLET PO ×2 (09:26→22:14)
[2022-02-21] MEDS: Amphetamine Mixed Salts 10 MG TABLET 15 MG PO ×3 (09:26→22:12)
[2022-02-21] MEDS: Apixaban 5 MG TABLET PO ×2 (09:26→22:13)
[2022-02-21] MEDS: 0.9 % Sodium Chloride Flush 3 ML SYRINGE IVFLUSH ×3 (09:27→22:15)
[2022-02-21] MEDS: Acetaminophen 325 MG TABLET 650 MG PO (09:37)
--- NOTE | 2022-02-21 09:59 | HO.PM.IMPN ---
Subjective Subjective Date of Service: 02/21/22 Interval History: cc: sob interval history:improved, feeling weak Cardiovascular Cardiovascular: Reports no additional cardiovascular complaints Respiratory Respiratory: Reports no additional respiratory complaints Physical Exam Vital Signs: Vital Signs: Last Vital Signs Temp 97.6 F 02/21/22 07:24 Pulse 80 02/21/22 09:35 Resp 20 02/21/22 07:24 BP 149/67 H 02/21/22 09:35 Pulse Ox 94 02/21/22 09:35 O2 Del Method 02/21/22 07:24 O2 Flow Rate 1 02/19/22 12:00 BMI result Body Mass Index 33.2 General: AO X 3, no acute distress Resp: CTA bilateral, no accessory muscles used CVS: S1,S2,RRR GI: soft, non tender, non distended Neuro: motor grossly intact, alert Psych: appropriate affect, appropriate insight Objective Data Active Medications Acetaminophen (Acetaminophen 325 Mg Tablet) 650 mg PO Q6H PRN PRN Reason: Pain, Mild (Pain Scale 1-3) Last Admin: 02/21/22 09:37 Dose: 650 mg Documented By: MARYAM Albuterol Sulfate (Albuterol Sulfate 90 Mcg 8 Gm Inhaler) 2 puff INHALE Q4H PRN PRN Reason: Shortness Of Breath Albuterol/Ipratropium (Albuterol/Iprat 2.5/0.5mg 3 Ml Ampul.Neb) 3 ml INHALE RQ4H WHILE AWAKE PRN PRN Reason: Shortness of Breath/Wheezing Amphetamine/Dextroamphetamine (Amphetamine Mixed Salts 10 Mg Tablet) 15 mg PO TID [facility] Last Admin: 02/21/22 09:26 Dose: 15 mg Documented By: MARYAM Apixaban (Apixaban 5 Mg Tablet) 5 mg PO BID [facility] Last Admin: 02/21/22 09:26 Dose: 5 mg Documented By: MARYAM Carvedilol (Carvedilol 3.125 Mg Tablet) 3.125 mg PO BID [facility]; Protocol Last Admin: 02/21/22 09:26 Dose: 3.125 mg Documented By: MARYAM Duloxetine HCl (Duloxetine Hcl 60 Mg Capsule.Dr) 60 mg PO DAILY [facility] Last Admin: 02/21/22 09:26 Dose: 60 mg Documented By: MARYAM Furosemide (Furosemide 40 Mg Tablet) 40 mg PO DAILY [facility]; Protocol Last Admin: 02/21/22 09:26 Dose: 40 mg Documented By: MARYAM Labetalol HCl (Labetalol Hcl 20 Mg/4 Ml Syringe) 10 mg IVPUSH Q4H PRN PRN Reason: BP>160/90 Melatonin (Melatonin 3 Mg Tablet) 12 mg PO BEDTIME PRN PRN Reason: Sleep Sacubitril/Valsartan (Sacubitril/Valsartan 1 Tab Tablet) 1 tab PO BID [facility]; Protocol Last Admin: 02/21/22 09:26 Dose: 1 tab Documented By: MARYAM Senna (Sennosides 8.6 Mg Tablet) 17.2 mg PO BEDTIME PRN PRN Reason: Constipation Sodium Chloride (0.9 % Sodium Chloride Flush 3 Ml Syringe) 3 ml IVFLUSH QSHIFT [facility] Last Admin: 02/21/22 09:27 Dose: 3 ml Documented By: MARYAM Vitamin D (Cholecalciferol (Vitamin D3) 25 Mcg Tablet) 25 mcg PO DAILY [facility] Last Admin: 02/21/22 09:26 Dose: 25 mcg Documented By: MARYAM Labs CBC & Chem 7: 02/21/22 06:09 02/21/22 08:21 Labs: Laboratory Results - last 24 hr 02/21/22 02/21/22 06:09 08:21 MCV 85.6 MCH 26.4 L MCHC 30.9 L RDW 16.7 H Plt Count 260 D MPV 12.1 Absolute Nucleated RBC 0.000 Nucleated RBC % (auto) 0.0 Anion Gap 12 Estim Creat Clear Calc 42.3 Estimated GFR 50 Fasting Glucose 118 H Calcium 9.7 Assessment and Plan (1) Hypoxia: Status: Inactive Plan 77F presented with sob acute systolic chf diuresed well, changed to oral lasix will need ischemic work up, plan for cardiac cath as outpatient started entresto and coreg, monitor bmp polycythemia, leukocytosis, thrombocytosis possibly hemoconcentration, monitor weakness pt eval COPD completed prednisone severe hiatal hernia causing left basilar atelectasis outpatient follow up asymptomatic bacturia ID appreciated, abx dced history of DVT eliquis ADD adderall mood disorder cymbalta dnr/dni reason for continued hospitalization: weak, safe dispo planning Quality Stroke Does the patient have a stroke diagnosis?: No VTE Prior VTE?: No VTE Risk Level:: Medical - moderate - high VTE Device Contraindication: Treatment Not Indicated VTE Drug Contraindication: N/A - Med Ordered
[2022-02-21 12:52] LABS: COVID-19 Test Negative (Negative); IDNOW Serial# 16C4AD1C
[2022-02-21] MEDS: Melatonin 3 MG TABLET 12 MG PO (22:12)
[2022-02-22 04:00] VITALS: BP 92/78; PULSE 76; RESP 20; TEMP 36.4; O2SAT 94
[2022-02-22 06:27] LABS: Hematocrit 51.6 % (37.0-47.0); Hemoglobin 15.7 g/dl (12.0-16.0); Mean Corpuscular HGB Conc 30.4 g/dl (31.0-35.0); Mean Corpuscular Hemoglobin 26.1 pg (27.0-33.0); Mean Corpuscular Volume 85.7 fL (80.0-98.0); Mean Platelet Volume 10.7 fL (9.4-12.3); Platelet Count 415 X10*3/uL (160-400); Red Blood Count 6.02 X10*6/uL (4.20-5.50); Red Cell Distribution Width 16.5 % (11.0-16.0); White Blood Count 14.5 X10*3/uL (4.8-10.8)
[2022-02-22 06:56] LABS: Blood Urea Nitrogen 49 mg/dL (9-16); Calcium 9.8 mg/dL (8.4-10.2); Estimated Glomerular Filt Rate 44; Glucose Fasting 175 mg/dL (60-99)
[2022-02-22 07:32] LABS: Anion Gap 15 (12-20); Carbon Dioxide 34 mmol/L (22-29); Chloride 93 mmol/L (96-108); Potassium 5.7 mmol/L (3.3-5.1); Sodium 136 mmol/L (135-145)
[2022-02-22 08:00] VITALS: BP 106/62; PULSE 84; RESP 18; TEMP 36.4; O2SAT 95
[2022-02-22 10:08] VITALS: BP 106/62; PULSE 84; O2SAT 95
[2022-02-22] MEDS: Cholecalciferol (Vitamin D3) 25 MCG TABLET PO (10:36)
[2022-02-22] MEDS: 0.9 % Sodium Chloride Flush 3 ML SYRINGE IVFLUSH ×2 (10:36→16:06)
[2022-02-22] MEDS: Apixaban 5 MG TABLET PO (10:36)
[2022-02-22] MEDS: Sacubitril/Valsartan 24/26 1 TAB TABLET PO (10:36)
[2022-02-22] MEDS: carvediloL 3.125 MG TABLET PO (10:36)
[2022-02-22] MEDS: Amphetamine Mixed Salts 10 MG TABLET 15 MG PO ×2 (10:36→16:05)
[2022-02-22] MEDS: DULoxetine HCl 60 MG CAPSULE.DR PO (10:37)
[2022-02-22 12:00] VITALS: BP 98/63; PULSE 84; RESP 19; TEMP 37.1; O2SAT 94
--- NOTE | 2022-02-22 14:54 | MHC.CM.PN ---
Patient has been medically cleared for dc to SNF/[facility] today. Patient will dc to [facility] today at 5 PM, via [facility]. IMM addressed with Patient at bedside and original has been given to her and a copy has been placed on the chart. CM has left a detailed message for Daughter/HCP/Hilaria @ [phone], informing her of the dc plan.
[2022-02-22 16:00] VITALS: BP 105/65; PULSE 86; RESP 18; TEMP 36.6; O2SAT 94
== END 2022-02-22 18:42 | disposition skilled nursing facility (03) | DRG 291 ==
LOC: HO.ED 20:04 → HO.EDOVER 22:48 → HO.IMC 02-17 09:05
PROVIDERS: Nurse Practitioner Family; Admitting Provider Hospitalist; Emergency Provider Emergency Medicine; PCP Student in an Organized Health Care Education/Training Program; Visit Provider Internal Medicine
DX: I11.0 Hypertensive heart disease with heart failure (principal); I50.21 Acute systolic (congestive) heart failure; J98.11 Atelectasis; K44.9 Diaphragmatic hernia without obstruction or gangrene; F39 Unspecified mood [affective] disorder; Z66 Do not resuscitate; G89.28 Other chronic postprocedural pain; D75.1 Secondary polycythemia; R09.02 Hypoxemia; D75.839 Thrombocytosis, unspecified; D72.829 Elevated white blood cell count, unspecified; Z20.822 Contact with and (suspected) exposure to COVID-19; Z99.3 Dependence on wheelchair; Z86.718 Personal history of other venous thrombosis and embolism; Z87.891 Personal history of nicotine dependence; Z79.01 Long term (current) use of anticoagulants; Z79.891 Long term (current) use of opiate analgesic; Z79.899 Other long term (current) drug therapy
CPT/HCPCS: 36415; 71045; 71275; 80048; 80053; 80076; 81001; 83605; 83735; 83880; 84484; 85025; 85027; 85610; 87040; 87086; 87088; 87186; 87502; 87635; 93005; 93306; 96365; 96375; 97110; 97116; 97162; 99285; J0696; J1940; Q9967

== ENCOUNTER → 2022-03-02 12:50 | Outpatient (BNVA) | payer MEDICARE, SELFPAY | PROVIDERS: PCP Student in an Organized Health Care Education/Training Program; Visit Provider Nurse Practitioner Family | DX: Z09 Encounter for follow-up examination after completed treatment for conditions other than malignant neoplasm (principal); I50.21 Acute systolic (congestive) heart failure; I42.9 Cardiomyopathy, unspecified; E87.5 Hyperkalemia | CPT/HCPCS: 99212 ==

== ENCOUNTER 2022-03-26 09:22 | Outpatient (REF) | payer MEDICARE, SELFPAY ==
[2022-03-26 09:32] LABS: MANUAL DIFF FLAG NO
[2022-03-26 10:33] LABS: Basophils Absolute Auto 0.1 X10*3/uL (0.0-0.2); Basophils Percent Auto 0.8 % (0-2); Eosinophils Absolute Auto 0.2 X10*3/uL (0.0-0.4); Eosinophils Percent Auto 2.4 % (0-4); Hematocrit 44.1 % (37.0-47.0); Hemoglobin 13.3 g/dl (12.0-16.0); Imm Gran Abs Auto 0.04 X10*3/uL (0.00-0.03); Imm Gran Pct Auto 0.5 % (0.0-0.4); Lymphocytes Absolute Auto 2.3 X10*3/uL (1.2-4.9); Lymphocytes Percent Auto 30.6 % (20-40); Mean Corpuscular HGB Conc 30.2 g/dl (31.0-35.0); Mean Corpuscular Hemoglobin 26.6 pg (27.0-33.0); Mean Corpuscular Volume 88.2 fL (80.0-98.0); Mean Platelet Volume 10.8 fL (9.4-12.3); Monocytes Absolute Auto 0.6 X10*3/uL (0.1-1.2); Monocytes Percent Auto 8.5 % (2-11); Neutrophils Absolute Auto 4.2 x10*3/uL (2.0-8.3); Neutrophils Percent Auto 57.2 % (45-73); Platelet Count 258 X10*3/uL (160-400); Red Cell Distribution Width 15.7 % (11.0-16.0); White Blood Count 7.4 X10*3/uL (4.8-10.8)
[2022-03-26 10:41] LABS: INTERNATIONAL NORM RATIO 1.1 (0.9-1.1)
[2022-03-26 10:57] LABS: B Type Natriuretic Peptide 45 pg/mL (<100)
[2022-03-26 10:58] LABS: Anion Gap 10 (12-20); Blood Urea Nitrogen 33 mg/dL (9-16); Calcium 9.4 mg/dL (8.4-10.2); Carbon Dioxide 32 mmol/L (22-29); Chloride 106 mmol/L (96-108); Estimated Glomerular Filt Rate > 60; Glucose Random 121 mg/dL (60-115); Potassium 4.2 mmol/L (3.3-5.1); Sodium 144 mmol/L (135-145)
== END 2022-03-26 09:23 | disposition home or self-care (01) ==
LOC: HO.LAB 09:22
PROVIDERS: Visit Provider Nurse Practitioner Family
DX: I42.9 Cardiomyopathy, unspecified (principal); I50.21 Acute systolic (congestive) heart failure
CPT/HCPCS: 36415; 80048; 83880; 85025; 85610

== ENCOUNTER 2024-01-03 12:57 | Emergency (ER) | payer MEDICARE, SELFPAY ==
--- NOTE | ~2024-01-03 | CT_ITS ---
EXAMINATION: CT FACIAL BONES WITHOUT CONTRAST CLINICAL INFORMATION: Fall COMPARISON: None available. TECHNIQUE: Axial images through the facial bones without IV contrast. Sagittal and coronal reconstructions on the technologist workstation were performed. This CT examination was performed using dose optimization techniques as appropriate, variously including the following: *Automated exposure control *Adjustment of mA and/or kV according to patient size (this includes techniques or standardized protocols for targeted exams where dose is matched to indication/reason for exam; i.e. extremities or head) *Use of iterative reconstruction technique DLP: 522 mGy-cm FINDINGS: Significant dental hardware artifact. Question nondisplaced nasal bone fractures and fracture of the left nasal spine of maxilla. No other fracture or dislocation. Significant high attenuation soft tissue swelling over the left frontal bone, left orbit and bridge of nose suggestive of soft tissue hematoma. Mild membranous soft tissue thickening in both maxillary sinuses. Visualized paranasal sinuses, mastoid air cells and middle ears are otherwise clear. Normal-appearing temporomandibular joints. Preseptal soft tissue swelling over the left orbit. Post septal left orbital soft tissues are normal. The right orbit is normal. CT/CT facial bones wo IV con IMPRESSION: Question nondisplaced nasal bone fractures and left left nasal spine of maxilla. No other fracture seen. High attenuation soft tissue over the bridge of the nose, left orbit and left frontal bone suggestive of soft tissue hematoma. Postseptal left orbital soft tissues normal.
--- NOTE | ~2024-01-03 | CT_ITS ---
EXAMINATION: CT HEAD WITHOUT CONTRAST CLINICAL INFORMATION: Fall. Head trauma. COMPARISON: Previous head CT October 2020. TECHNIQUE: Contiguous axial imaging was performed from the skull base to vertex without intravenous administration of contrast. This CT examination was performed using dose optimization techniques as appropriate, variously including the following: *Automated exposure control *Adjustment of mA and/or kV according to patient size (this includes techniques or standardized protocols for targeted exams where dose is matched to indication/reason for exam; i.e. extremities or head) *Use of iterative reconstruction technique DLP: 619 mGy-cm FINDINGS: There is no evidence of an extra-axial collection. There is no evidence of intra or extra-axial hemorrhage. The ventricles and extra-axial CSF spaces are slightly prominent suggestive of mild generalized atrophy. There is mild nonspecific periventricular white matter disease. No mass, mass effect or infarct. No skull fracture. High attenuation soft tissue over the bridge of the nose, left orbit and left frontal bone suggestive of soft tissue hematoma. Visualized paranasal sinuses, mastoid air cells and middle ears are clear. CT/CT head/brain wo IV con IMPRESSION: No acute intracranial findings. Large soft tissue hematoma over the bridge of the nose, left orbit and left frontal bone.
--- NOTE | ~2024-01-03 | CT_ITS ---
EXAMINATION: CT CERVICAL SPINE WITHOUT IV CONTRAST CLINICAL INFORMATION: Neck pain. Fall. COMPARISON: None available. TECHNIQUE: Axial images through the cervical spine without IV contrast. Sagittal and coronal reconstructions on the technologist workstation were performed. This CT examination was performed using dose optimization techniques as appropriate, variously including the following: *Automated exposure control *Adjustment of mA and/or kV according to patient size (this includes techniques or standardized protocols for targeted exams where dose is matched to indication/reason for exam; i.e. extremities or head) *Use of iterative reconstruction technique DLP: 599 mGy-cm. FINDINGS: Mild 2 mm anterior subluxation of C2 with respect to C3 and C3 with respect to C4, probably degenerative. Slight increased cervical kyphosis at C3-C4. Bone alignment is otherwise normal. No fracture or dislocation. Multilevel degenerative spondylosis and degenerative disc disease from C3-C4 to T1-T2. Bilateral multilevel facet arthritis. Severe degenerative changes at the C1 dens articulation. Prevertebral soft tissues are normal. Visualized lung apices are clear. CT/CT cervical spine wo IV con IMPRESSION: Degenerative changes. No fracture or dislocation. Fleischner guidelines were followed.
--- NOTE | 2024-01-03 13:01 | ED.GENADULT ---
HPI - General Adult General Chief complaint: Fall Stated complaint: Head L Eye Lac Fall 01/03/24 Related Data Home Medications ?Medication ?Instructions ?Recorded ?Confirmed Bacillus subtilis 1.5 billion 1 tab PO DAILY 10/29/20 03/02/22 cell-inulin 1 gram chewable tablet apixaban 5 mg tablet (Eliquis) 5 mg PO BID 10/29/20 03/02/22 cholecalciferol (vitamin D3) 25 25 mcg PO DAILY 10/29/20 03/02/22 mcg (1,000 unit) tablet dextroamphetamine-amphetamine 10 15 mg PO TID 10/29/20 03/02/22 mg tablet (Adderall) duloxetine 60 mg capsule,delayed 60 mg PO DAILY 10/29/20 03/02/22 release melatonin 1 mg tablet 12 mg PO BEDTIME 10/29/20 03/02/22 albuterol sulfate 90 mcg/actuation 2 puff inhalation Q4H PRN 02/16/22 03/02/22 aerosol inhaler Shortness Of Breath melatonin 3 mg tablet 12 mg PO BEDTIME PRN Sleep 02/16/22 03/02/22 umeclidinium 62.5 mcg-vilanterol 1 puff PO DAILY 02/16/22 03/02/22 25 mcg/actuation powdr for inhalation (Anoro Ellipta) Previous Rx's ?Medication ?Instructions ?Recorded carvedilol 3.125 mg tablet 3.125 mg PO BID #60 tabs 02/20/22 furosemide 40 mg tablet 40 mg PO DAILY #30 tabs 02/20/22 sacubitril 24 mg-valsartan 26 mg 1 tab PO BID #60 tabs 02/20/22 tablet (Entresto) cefuroxime axetil 250 mg tablet 250 mg PO BID 7 days #14 tabs 01/14/24 Allergies Allergy/AdvReac Type Severity Reaction Status Date / Time No Known Allergies Allergy Verified 01/03/24 13:05 [facility] Past Medical History Medical History DVT (deep venous thrombosis) HTN (hypertension) Hypertension Surgical History Previous back surgery Family History Family History Father Pulmonary fibrosis Social History Social History Household Members: None Housing: Apartment Do you presently have visiting nurse or other home services: Yes Patient Tobacco Use Status: Former Tobacco user Substance Use Type: Marijuana Advance Directives: Yes Advance Directives on File: Yes Advance Directives Date on File: 10/29/20 Do you have a plan to hurt others: No Plan service: No Current occupational status: disabled Physical Exam ED Vital Signs: Vital Signs - 24 hr 01/03/24 13:03 01/03/24 19:47 Temperature 97.8 F 98.2 F Pulse Rate 93 102 H Respiratory Rate 20 20 Blood Pressure 127/85 122/73 Pulse Oximetry 92 93 Oxygen Delivery Method Room Air Room Air BMI result Body Mass Index 31.9 Course Course Course Narrative: This is an RME: Additional HPI, ROS, PE not included below will be deferred to primary provider. 78 year old female hx of DVT on eliquis, chf, cardiomyopathy, copd, dementia presents sp fall about 2 hours ago. Unsure how she fell just remembers being on the floor in her bedroom thinks she hit a dresser. Reports she cant open her L eye. Unclear if there were preceding sx to fall. Typically able to take a few steps on her own, otherwise uses electric scooter to get around. Plan- labs, imaging ordered from triage On exam significant swelling to forehead L eye and L side of face. Will need eye exam reports significant pain w/ moving swollen shut NIHSS- 0 GCS-15 Medical Decision Making Lab Data 01/03/24 13:20 01/03/24 13:20 Labs: Lab Results 01/03/24 01/03/24 01/03/24 Range/Units 13:20 16:04 20:14 WBC 15.0 H Cancelled (4.8-10.8) X10*3/uL RBC 4.88 Cancelled (4.20-5.50) X10*6/uL Hgb 13.8 Cancelled (12.0-16.0) g/dl Hct 43.2 Cancelled (37.0-47.0) % MCV 88.5 Cancelled (80.0-98.0) fL MCH 28.3 Cancelled (27.0-33.0) pg MCHC 31.9 Cancelled (31.0-35.0) g/dl RDW 15.2 Cancelled (11.0-16.0) % Plt Count 278 Cancelled (160-400) X10*3/uL MPV 9.9 Cancelled (9.4-12.3) fL Immature Gran % (Auto) 0.4 Cancelled (0.0-0.4) % Neut % (Auto) 79.9 H Cancelled (45-73) % Lymph % (Auto) 13.2 L Cancelled (20-40) % [place] % (Auto) 5.3 Cancelled (2-11) % Eos % (Auto) 0.9 Cancelled (0-4) % Baso % (Auto) 0.3 Cancelled (0-2) % Lymph # (Auto) 2.0 Cancelled (1.2-4.9) X10*3/uL [place] # (Auto) 0.8 Cancelled (0.1-1.2) X10*3/uL Eos # (Auto) 0.1 Cancelled (0.0-0.4) X10*3/uL Baso # (Auto) 0.1 Cancelled (0.0-0.2) X10*3/uL Abs Immat Gran (auto) 0.06 H Cancelled (0.00-0.03) X10*3/uL Absolute Neuts (auto) 12.0 H Cancelled (2.0-8.3) x10*3/uL Absolute Nucleated RBC 0.000 Cancelled (0.0-0.012) X10*3/uL Nucleated RBC % (auto) 0.0 Cancelled (0.0-0.2) /100WBC PT 14.3 H (11.1-13.3) SEC INR 1.2 H (0.9-1.1) Sodium 142 (135-145) mmol/L Potassium 4.1 (3.3-5.1) mmol/L Chloride 100 (96-108) mmol/L Carbon Dioxide 33 H (22-29) mmol/L Anion Gap 13 (12-20) BUN 25 H (9-16) mg/dL Creatinine 1.00 (0.5-1.4) mg/dL Estim Creat Clear Calc 48.4 Estimated GFR 54 Random Glucose 154 H (60-115) mg/dL Calcium 10.1 D (8.4-10.2) mg/dL Magnesium 2.2 (1.6-2.6) mg/dL Total Bilirubin 0.5 (0.0-1.0) mg/dL AST 17 (5-31) U/L ALT 19 (0-31) U/L Alkaline Phosphatase 90 (39-117) U/L Total Creatine Kinase 55 59 (26-140) U/L Troponin I High Sens 7.1 6.8 (<3.5-17.0) ng/L Total Protein 7.3 (6.5-8.0) g/dL Albumin 3.8 (3.5-5.0) g/dL Urine Color Urine Appearance Urine pH (5.0-9.0) Ur Specific [place] (1.005-1.025) Urine Protein (Neg-Trace) mg/dL Urine Glucose (UA) (Negative) mg/dL Urine Ketones (Negative) mg/dL Urine Blood (Negative) Urine Nitrite (Negative) Ur Leukocyte Esterase (Negative) Urine RBC (0-2) /HPF Urine WBC (0-5) /HPF Ur Squamous Epith Cells (0-2) /HPF Urine Bacteria (None Seen) Hyaline Casts (0-2) /LPF 01/03/24 Range/Units 20:36 WBC (4.8-10.8) X10*3/uL RBC (4.20-5.50) X10*6/uL Hgb (12.0-16.0) g/dl Hct (37.0-47.0) % MCV (80.0-98.0) fL MCH (27.0-33.0) pg MCHC (31.0-35.0) g/dl RDW (11.0-16.0) % Plt Count (160-400) X10*3/uL MPV (9.4-12.3) fL Immature Gran % (Auto) (0.0-0.4) % Neut % (Auto) (45-73) % Lymph % (Auto) (20-40) % [place] % (Auto) (2-11) % Eos % (Auto) (0-4) % Baso % (Auto) (0-2) % Lymph # (Auto) (1.2-4.9) X10*3/uL [place] # (Auto) (0.1-1.2) X10*3/uL Eos # (Auto) (0.0-0.4) X10*3/uL Baso # (Auto) (0.0-0.2) X10*3/uL Abs Immat Gran (auto) (0.00-0.03) X10*3/uL Absolute Neuts (auto) (2.0-8.3) x10*3/uL Absolute Nucleated RBC (0.0-0.012) X10*3/uL Nucleated RBC % (auto) (0.0-0.2) /100WBC PT (11.1-13.3) SEC INR (0.9-1.1) Sodium (135-145) mmol/L Potassium (3.3-5.1) mmol/L Chloride (96-108) mmol/L Carbon Dioxide (22-29) mmol/L Anion Gap (12-20) BUN (9-16) mg/dL Creatinine (0.5-1.4) mg/dL Estim Creat Clear Calc Estimated GFR Random Glucose (60-115) mg/dL Calcium (8.4-10.2) mg/dL Magnesium (1.6-2.6) mg/dL Total Bilirubin (0.0-1.0) mg/dL AST (5-31) U/L ALT (0-31) U/L Alkaline Phosphatase (39-117) U/L Total Creatine Kinase (26-140) U/L Troponin I High Sens (<3.5-17.0) ng/L Total Protein (6.5-8.0) g/dL Albumin (3.5-5.0) g/dL Urine Color Yellow Urine Appearance Clear Urine pH 5.5 (5.0-9.0) Ur Specific [place] 1.010 (1.005-1.025) Urine Protein Negative (Neg-Trace) mg/dL Urine Glucose (UA) Negative (Negative) mg/dL Urine Ketones Negative (Negative) mg/dL Urine Blood Trace H (Negative) Urine Nitrite Positive H (Negative) Ur Leukocyte Esterase Moderate (2+) H (Negative) Urine RBC 6-10 H (0-2) /HPF Urine WBC 11-20 H (0-5) /HPF Ur Squamous Epith Cells 3-5 (0-2) /HPF Urine Bacteria 4+ (None Seen) Hyaline Casts 3-5 (0-2) /LPF Discharge Plan Discharge Clinical Impression: Eloped from emergency department Patient Disposition: Left W/O Completing Treatment Prescriptions: New cefuroxime axetil 250 mg tablet 250 mg PO BID 7 Days Qty: 14 0RF No [facility] Eliquis 5 mg Tablet 5 mg PO BID duloxetine 60 mg Capsule,Delayed Release(Dr/Ec) 60 mg PO DAILY dextroamphetamine-amphetamine [Adderall] 10 mg Tablet 15 mg PO TID cholecalciferol (vitamin D3) 25 mcg (1,000 unit) Tablet 25 mcg PO DAILY melatonin 1 mg Tablet 12 mg PO BEDTIME Bacillus subtilis-inulin 1.5 billion cell-1 gram Tablet,Chewable 1 tab PO DAILY albuterol sulfate 90 mcg/actuation HFA aerosol inhaler 2 puff inhalation Q4H PRN (Reason: Shortness Of Breath) Anoro Ellipta 62.5-25 mcg/actuation blister with device 1 puff PO DAILY melatonin 3 mg Tablet 12 mg PO BEDTIME PRN (Reason: Sleep) carvedilol 3.125 mg Tablet 3.125 mg PO BID Qty: 60 0RF Protocol: Hold for SBP/HR < HOLD for SBP < : 90 HOLD for HR < : 60 Entresto 24-26 mg Tablet 1 tab PO BID Qty: 60 0RF Protocol: Hold for SBP< HOLD for SBP < : 90 furosemide 40 mg Tablet 40 mg PO DAILY Qty: 30 0RF Protocol: Hold for SBP< HOLD for SBP < : 90 Discharge Date/Time: 01/03/24 23:05
[2024-01-03 13:03] VITALS: BP 127/85; PULSE 93; RESP 20; TEMP 36.6; O2SAT 92; BMI 31.9
--- NOTE | 2024-01-03 13:05 | ECG_ITS ---
Test Reason : fall Blood Pressure : / mmHG Vent. Rate : 092 BPM Atrial Rate : 092 BPM P-R Int : 132 ms QRS Dur : 076 ms QT Int : 370 ms P-R-T Axes : 053 063 052 degrees QTc Int : 457 ms Normal sinus rhythm Normal ECG When compared with ECG of 16-FEB-2022 16:46, Premature ventricular complexes are no longer Present Nonspecific T wave abnormality, improved in Lateral leads Referred By: Nahum Newton Electronically Signed By:RO JOHNSON MD
[2024-01-03 13:24] LABS: MANUAL DIFF FLAG NO
[2024-01-03 13:26] LABS: Basophils Absolute Auto 0.1 X10*3/uL (0.0-0.2); Basophils Percent Auto 0.3 % (0-2); Eosinophils Absolute Auto 0.1 X10*3/uL (0.0-0.4); Eosinophils Percent Auto 0.9 % (0-4); Hematocrit 43.2 % (37.0-47.0); Hemoglobin 13.8 g/dl (12.0-16.0); Imm Gran Abs Auto 0.06 X10*3/uL (0.00-0.03); Imm Gran Pct Auto 0.4 % (0.0-0.4); Lymphocytes Percent Auto 13.2 % (20-40); Mean Corpuscular HGB Conc 31.9 g/dl (31.0-35.0); Mean Corpuscular Hemoglobin 28.3 pg (27.0-33.0); Mean Corpuscular Volume 88.5 fL (80.0-98.0); Mean Platelet Volume 9.9 fL (9.4-12.3); Monocytes Absolute Auto 0.8 X10*3/uL (0.1-1.2); Monocytes Percent Auto 5.3 % (2-11); Neutrophils Percent Auto 79.9 % (45-73); Platelet Count 278 X10*3/uL (160-400); Red Blood Count 4.88 X10*6/uL (4.20-5.50); Red Cell Distribution Width 15.2 % (11.0-16.0)
[2024-01-03 13:37] LABS: INTERNATIONAL NORM RATIO 1.2 (0.9-1.1); Prothrombin Time 14.3 SEC (11.1-13.3)
[2024-01-03 13:41] LABS: Alanine Aminotransferase 19 U/L (0-31); Albumin Level 3.8 g/dL (3.5-5.0); Alkaline Phosphatase 90 U/L (39-117); Anion Gap 13 (12-20); Aspartate Amino Transferase 17 U/L (5-31); Bilirubin Total 0.5 mg/dL (0.0-1.0); Blood Urea Nitrogen 25 mg/dL (9-16); Calcium 10.1 mg/dL (8.4-10.2); Carbon Dioxide 33 mmol/L (22-29); Chloride 100 mmol/L (96-108); Creatinine Clr Calc Pharmacy 48.4; Estimated Glomerular Filt Rate 54; Glucose Random 154 mg/dL (60-115); Magnesium 2.2 mg/dL (1.6-2.6); Potassium 4.1 mmol/L (3.3-5.1); Sodium 142 mmol/L (135-145); Total Protein 7.3 g/dL (6.5-8.0)
[2024-01-03 13:48] LABS: Troponin-I High Sensitivity 7.1 ng/L (<3.5-17.0)
[2024-01-03 16:33] LABS: Troponin-I High Sensitivity 6.8 ng/L (<3.5-17.0)
[2024-01-03 19:47] VITALS: BP 122/73; PULSE 102; RESP 20; TEMP 36.8; O2SAT 93
[2024-01-03 20:46] LABS: Appearance Urine Clear; Color Urine Yellow; Glucose Urine UA Negative (Negative); Leukocyte Esterase Urine Moderate (2+) (Negative); Nitrite Urine Positive (Negative); PH 5.5 (5.0-9.0); UMIC TRIGGER UACC YES; Urine Blood Trace (Negative); Urine Ketones Negative (Negative); Urine Protein Negative (Neg-Trace)
[2024-01-03 20:48] LABS: Bacteria Urine 4+ (None Seen); UACC Culture Trigger YES
== END 2024-01-03 23:05 | disposition left against medical advice (07) ==
PROVIDERS: Physician Assistant; Emergency Provider Emergency Medicine; PCP Student in an Organized Health Care Education/Training Program
DX: S01.91XA Laceration without foreign body of unspecified part of head, initial encounter (principal); X58.XXXA Exposure to other specified factors, initial encounter; Y93.9 Activity, unspecified; Y92.9 Unspecified place or not applicable; Y99.9 Unspecified external cause status
CPT/HCPCS: 36415; 70450; 70486; 72125; 80053; 81001; 82550; 83735; 84484; 85025; 85610; 87086; 87088; 87186; 93005; 99283; 99284

== ENCOUNTER → 2024-01-03 13:05 | Outpatient (BNV) | payer MEDICARE, SELFPAY | PROVIDERS: Emergency Provider Emergency Medicine; PCP Student in an Organized Health Care Education/Training Program; Visit Provider Internal Medicine Cardiovascular Disease | DX: I49.3 Ventricular premature depolarization (principal) | CPT/HCPCS: 93010 ==

== ENCOUNTER 2024-05-06 11:03 | Inpatient (IN) | payer MEDICARE, SELFPAY ==
[2024-05-06] VITALS (15 sets, daily range): BP systolic 75–123; BP diastolic 21–91; PULSE 82–92; RESP 4–28; TEMP 36.4–37.1; O2SAT 73–97; BMI 38.0
--- NOTE | ~2024-05-06 | XR_ITS ---
EXAMINATION: XR CHEST CLINICAL INFORMATION: Shortness of breath COMPARISON: Chest x-ray on 05/09/2024 TECHNIQUE: Frontal view of the chest was obtained. FINDINGS: The cardiomediastinal silhouette is enlarged but stable. There are increased perihilar opacities and left basilar atelectasis with a small left pleural effusion. XR/XR chest 1V IMPRESSION: Stable exam. Electronically signed by: Liza Whelan MD 05/11/2024 03:08 PM EDT
--- NOTE | ~2024-05-06 | XR_ITS ---
EXAMINATION: XR CHEST CLINICAL INFORMATION: Respiratory distress COMPARISON: Chest CT on 05/06/2024 TECHNIQUE: Frontal view of the chest was obtained. FINDINGS: The cardiomediastinal silhouette is stable. There is chronic elevation of the left hemidiaphragm with left basilar and midlung consolidation. There is moderate emphysema and bronchial wall thickening. No pleural effusions. XR/XR chest 1V IMPRESSION: Left basilar and midlung consolidation. Electronically signed by: Liza Whelan MD 05/07/2024 04:09 AM EDT
--- NOTE | ~2024-05-06 | XR_ITS ---
EXAMINATION: XR CHEST CLINICAL INFORMATION: Question aspiration. COMPARISON: Chest radiograph dated 05/07/2024. TECHNIQUE: Frontal view of the chest was obtained. FINDINGS: Left-sided pleural effusion with left basilar and right perihilar opacities, similar when compared to the prior examination. No right-sided pleural effusion. No pneumothorax. Stable cardiomediastinal silhouette. XR/XR chest 1V IMPRESSION: Left-sided pleural effusion with left basilar and right perihilar opacities, similar when compared to the prior examination. Electronically signed by: Alton Avitia MD 05/10/2024 05:34 AM EDT
--- NOTE | ~2024-05-06 | XR_ITS ---
EXAMINATION: XR CHEST CLINICAL INFORMATION: Hypoxia and CHF COMPARISON: Chest radiograph and CT chest yesterday TECHNIQUE: Frontal view of the chest was obtained. FINDINGS: Again noted is chronic dilation of the left hemidiaphragm with left basilar atelectasis. Slightly increased reticulonodular markings seen in the lungs. No focal consolidations or large pleural effusions are seen. No gross evidence of CHF. Degenerative changes are seen in both shoulders. Degenerative changes are present in the spine with partially visualized pedicular screws in the lumbar region. XR/XR chest 1V IMPRESSION: No acute intrathoracic disease. Chronically elevated left hemidiaphragm with left basilar atelectasis. Electronically signed by: Adrien Calderon MD 05/07/2024 10:49 AM EDT
--- NOTE | ~2024-05-06 | XR_ITS ---
EXAMINATION: XR CHEST CLINICAL INFORMATION: Hypoxia. COMPARISON: Chest radiograph 05/11/2024. TECHNIQUE: Frontal view of the chest was obtained. FINDINGS: Low lung volumes. Stable perihilar and left lower lung opacities. No new focal air space density. Stable left-sided pleural effusion. No pneumothorax. Unchanged prominence of the cardiomediastinal silhouette. Redemonstration of large hiatal hernia. No acute osseous findings. XR/XR chest 1V IMPRESSION: No significant change compared to 05/11/2024. Electronically signed by: Gretta Rojas MD 05/16/2024 11:30 AM EDT
--- NOTE | ~2024-05-06 | CT_ITS ---
EXAMINATION: CT HEAD WITHOUT CONTRAST CT CERVICAL SPINE WITHOUT CONTRAST CLINICAL INFORMATION: Fall. Head straight. Neck pain. COMPARISON: CT head and cervical spine from 01/03/2024. TECHNIQUE: Contiguous axial imaging was performed from the skull base to vertex without intravenous administration of contrast. Contiguous axial imaging was performed from the upper chest through the skull base without intravenous administration of contrast. Coronal and sagittal reformats were obtained at the acquisition workstation. This CT examination was performed using dose optimization techniques as appropriate, variously including the following: *Automated exposure control. *Adjustment of mA and/or kV according to patient size (this includes techniques or standardized protocols for targeted exams where dose is matched to indication/reason for exam; i.e. extremities or head). *Use of iterative reconstruction technique. DLP: 1246 mGy-cm FINDINGS: Head: There is no evidence of acute intracranial hemorrhage or edematous territorial infarction. Betts-white matter differentiation is preserved. Scattered and partially confluent hypoattenuation in the periventricular and deep white matter are consistent with moderate microangiopathy. Proportional prominence of the ventricles and sulcal spaces without evidence of obstructive hydrocephalus. No abnormal mass effect or midline shift. No extra-axial fluid collections. Calcific atherosclerotic disease of the intracranial internal carotid and vertebral arteries. No hyperdense vessel sign. No acute soft tissue or osseous abnormalities. Mild mucosal thickening of the paranasal sinuses. The mastoid air cells and middle ear cavities are clear. Cervical Spine: Moderately motion degraded. The atlantooccipital and atlantoaxial articulations remain well aligned. Straightening of the normal cervical lordosis. Moderate degenerative supplement interstices of C2-C4. Otherwise, there is anatomic alignment of the vertebral bodies and posterior elements. No evidence of acute fracture or subluxation. The vertebral body heights are maintained. Advanced degenerative disc disease from C3-T1. Facet and uncovertebral joint arthropathy leads to osseous encroachment on the neural foramina from C2-T1. There is no prevertebral soft tissue swelling. The thyroid gland and remaining cervical soft tissues are within normal limits. The lung apices demonstrate no abnormalities. CT/CT cervical spine wo IV con IMPRESSION: 1. No evidence of acute intracranial hemorrhage or edematous territorial infarction. Moderate underlying microangiopathy and generalized cerebral volume loss. 2. No evidence of acute fracture or traumatic subluxation of the cervical spine. Moderate to advanced multilevel degenerative spondyloarthropathy of the cervical spine. Electronically signed by: Fili Munoz DO 05/06/2024 06:03 PM EDT RP
--- NOTE | ~2024-05-06 | CT_ITS ---
EXAMINATION: CT CHEST, ABDOMEN AND PELVIS WITH CONTRAST CLINICAL INFORMATION: Chest and abdominal pain after fall COMPARISON: CT angiogram chest February 16, 2022, CT lumbar spine January 20, 2021 TECHNIQUE: Multidetector volumetric imaging was performed from the thoracic inlet through the pubic symphysis following administration of 85 mL of Omnipaque 350. Sagittal and coronal reformatted images were obtained on the technologist's workstation. This CT examination was performed using dose optimization techniques as appropriate, variously including the following: *Automated exposure control *Adjustment of mA and/or kV according to patient size (this includes techniques or standardized protocols for targeted exams where dose is matched to indication/reason for exam; i.e. extremities or head) *Use of iterative reconstruction technique DLP: 602 mGy-cm FINDINGS: CHEST: Lung: Left hemidiaphragm is elevated. Basilar atelectasis is seen. No suspicious lung mass is seen. Mediastinum: The mediastinum is unremarkable. The central vascular structures are unremarkable. No hilar or mediastinal lymphadenopathy. Coronary Artery Calcium: Mild Pericardium/Pleura: No significant effusion. No pleural mass or thickening. Chest Wall/Axilla: Unremarkable there is marked respiratory artifact severely limiting for evaluation of rib fractures which could be present. Recommend plain film radiography if exclusion of rib fractures is desired. Heart ABDOMEN/PELVIS: Peritoneal Space: No significant free air or free fluid identified. Liver, Gallbladder, Biliary Tree: The liver is normal in size, shape, and attenuation. Benign hepatic cysts are present. No solid focal hepatic lesion or biliary ductal dilatation is present. The gallbladder is unremarkable with no evidence of radiopaque gallstones, gallbladder wall thickening, or obvious pericholecystic inflammatory changes. Pancreas: Unremarkable Spleen: Unremarkable Adrenal Glands: Unremarkable Kidneys and Ureters: The kidneys are normal in size, shape, and attenuation. No hydronephrosis, hydroureter, or calculi seen. Multiple collateral benign Bosniak class I renal cysts are noted which require no additional imaging or follow-up. No solid renal masses are seen. No perinephric stranding. Bladder: Unremarkable Gastrointestinal Tract: There is colonic diverticulosis present without evidence of diverticulitis. A moderate portion descending colon is in the left lateral/lumbar hernia sac. The small and large bowel are otherwise unremarkable. The appendix is unremarkable. Abdominal Wall: A large collateral/lumbar hernia is present on the left with the defect measuring about 5.5 cm with the hernia sac containing descending colon. No other abdominal wall hernias are seen. Lymph Nodes: No lymphadenopathy. Vascular: Calcific atherosclerotic changes are present in the aorta and iliofemoral vessels. There is no evidence of an abdominal aortic aneurysm.. The IVC appears unremarkable. PELVIC VISCERA: Unremarkable OSSEUS STRUCTURES: Severe degenerative changes are present throughout posterior fusion with pedicular screws at L2-S1. No screws are present at the L2-L3 level with a disc spacer present. Some chronic appearing compression fractures are seen. CT/CT abdomen pelvis w IV con IMPRESSION: A definitive cause for the patient's chest and abdominal pain has not been found. Incidental findings as described above. As mentioned above, there is marked respiratory motion artifact limiting evaluation especially for rib fractures. Fleischner guidelines were followed. Electronically signed by: Adrien Calderon MD 05/06/2024 06:58 PM EDT
--- NOTE | 2024-05-06 11:13 | ECG_ITS ---
Test Reason : OD Blood Pressure : / mmHG Vent. Rate : 094 BPM Atrial Rate : 094 BPM P-R Int : 148 ms QRS Dur : 072 ms QT Int : 376 ms P-R-T Axes : 054 093 043 degrees QTc Int : 470 ms Sinus rhythm with occasional Premature ventricular complexes Rightward axis Nonspecific T wave abnormality Abnormal ECG When compared with ECG of 03-JAN-2024 13:12, Premature ventricular complexes are now Present Nonspecific T wave abnormality is now Present Referred By: Nahum Newton Electronically Signed By:ALMA ROSA SAENZ
--- NOTE | 2024-05-06 11:17 | ED.GENADULT ---
HPI - General Adult General Chief complaint: Overdose Stated complaint: ATTEMPTED OD ON MEDS LAST NIGHT,10HR ON FLOOR Time Seen by Provider: 05/06/24 11:11 Source: patient and EMS Mode of arrival: EMS Limitations: altered mental status History of Present Illness ED Provider: Maximiliano REGALADO HPI narrative: This is a 78-year-old female history of cardiomyopathy, heart failure, COPD, hiatal presenting status post intentional drug overdose, patient took clonazepam 0.5 mg unknown amount, between last night and this morning. Patient has been on the ground since last night at approximately 23:00. She has never done this before. She did endorse suicidal ideation with plan to overdose. She lives at home by herself. Patient is very groggy and poor historian. Unable to obtain an accurate history from patient as she is a poor historian. GCS 15 on arrival. Collared out of percaution Related Data Home Medications ?Medication ?Instructions ?Recorded ?Confirmed Bacillus subtilis 1.5 billion 1 tab PO DAILY 10/29/20 03/02/22 cell-inulin 1 gram chewable tablet apixaban 5 mg tablet (Eliquis) 5 mg PO BID 10/29/20 03/02/22 cholecalciferol (vitamin D3) 25 25 mcg PO DAILY 10/29/20 03/02/22 mcg (1,000 unit) tablet dextroamphetamine-amphetamine 10 15 mg PO TID 10/29/20 03/02/22 mg tablet (Adderall) duloxetine 60 mg capsule,delayed 60 mg PO DAILY 10/29/20 03/02/22 release melatonin 1 mg tablet 12 mg PO BEDTIME 10/29/20 03/02/22 albuterol sulfate 90 mcg/actuation 2 puff inhalation Q4H PRN 02/16/22 03/02/22 aerosol inhaler Shortness Of Breath melatonin 3 mg tablet 12 mg PO BEDTIME PRN Sleep 02/16/22 03/02/22 umeclidinium 62.5 mcg-vilanterol 1 puff PO DAILY 02/16/22 03/02/22 25 mcg/actuation powdr for inhalation (Anoro Ellipta) atorvastatin 80 mg tablet 80 mg PO DAILY 05/06/24 clopidogrel 75 mg tablet 75 mg PO DAILY 05/06/24 donepezil 10 mg tablet 10 mg PO BEDTIME 05/06/24 furosemide 80 mg tablet 80 mg PO DAILY 05/06/24 methenamine hippurate 1 gram tablet 1 g PO BID 05/06/24 Previous Rx's ?Medication ?Instructions ?Recorded carvedilol 3.125 mg tablet 3.125 mg PO BID #60 tabs 02/20/22 sacubitril 24 mg-valsartan 26 mg 1 tab PO BID #60 tabs 02/20/22 tablet (Entresto) cefuroxime axetil 250 mg tablet 250 mg PO BID 7 days #14 tabs 01/14/24 Allergies Allergy/AdvReac Type Severity Reaction Status Date / Time No Known Allergies Allergy Verified 05/06/24 11:26 Review of Systems Review of Systems: Yes all other systems are reviewed and are negative PMFSH Past Medical History Attestation statement: The following information was validated with the patient. Source: old records reviewed and nursing notes reviewed Medical History Asymptomatic bacteriuria Hiatal hernia Hypertension HTN (hypertension) DVT (deep venous thrombosis) COPD (chronic obstructive pulmonary disease) Surgical History Previous back surgery Family History Family History Father Pulmonary fibrosis Social History Social History Household Members: None Housing: Apartment Do you presently have visiting nurse or other home services: Yes Patient Tobacco Use Status: Former Tobacco user Substance Use Type: Marijuana Advance Directives: Yes Advance Directives on File: Yes Advance Directives Date on File: 10/29/20 service: No Current occupational status: disabled Physical Exam ED Vital Signs: Vital Signs - 24 hr 05/06/24 11:15 05/06/24 12:04 05/06/24 12:52 Temperature 97.5 F Pulse Rate 92 84 86 Respiratory Rate 18 22 H 16 Blood Pressure 115/62 99/49 L 93/67 Pulse Oximetry 73 L 95 95 Oxygen Delivery Method Room Air Nasal Cannula Nasal Cannula Oxygen Flow Rate 2 2 05/06/24 14:17 05/06/24 14:46 05/06/24 16:10 Temperature Pulse Rate 87 86 82 Respiratory Rate 28 H 27 H 12 Blood Pressure 111/81 120/75 111/76 Pulse Oximetry 95 96 97 Oxygen Delivery Method Nasal Cannula Room Air Nasal Cannula Oxygen Flow Rate 2 2 05/06/24 16:21 05/06/24 18:05 Temperature 97.7 F 97.9 F Pulse Rate 89 89 Respiratory Rate 4 L 22 H Blood Pressure 123/91 H 105/37 L Pulse Oximetry 92 92 Oxygen Delivery Method Nasal Cannula Nasal Cannula Oxygen Flow Rate 2 2 BMI result Body Mass Index 38.0 vss Appearance: Alert.? Oriented X3.? No acute distress.? Head: Normocephalic, atraumatic, no step-offs or deformities Eyes: Pupils equal, round and reactive to light.? Neck: Normal inspection.? Neck supple.?+ cervical collar CVS: Normal heart rate and rhythm.? Pulses normal.? Respiratory: No respiratory distress.? Breath sounds normal.? Abdomen: Soft and nontender.? Skin: Skin warm and dry.? Normal skin color.? Normal skin turgor.? Extremities: No lower extremity edema.? No calf ttp. 5/5 strength to bilateral upper and lower extremities Back: No midline tenderness, no C-spine tenderness, full range of motion, no CVA tenderness bilaterally Neuro: Oriented X 3.? No motor deficit.? No sensory deficit. CN 2-12 intact Course Reevaluation(s) Reevaluation #1: Patient with leukocytosis, slight shift however this could be reactive. Chemistry with low potassium, IV potassium ordered. Point of care stable. BUN and creatinine slightly elevated IV hydration initiated. Patient's troponin 24 repeat pending, no cp or sob however. Salicylates, acetaminophen ethanol negative. CT head and neck unremarkable. CT chest, abdomen and pelvis pending. UA also pending. Will have him straight cath for urine. Time: 18:15 Reevaluation #2: Poison control recommends observation for day and ensuring patient does not go into [employer] distress or respiratory discharge Time: 18:21 Reevaluation #3: UTI + for urine. Hypoxia from OD not from severe infection. Time: 18:49 Medications Administered Discontinued Medications Generic Name Dose Route Start Last Admin Trade Name Freq PRN Reason Stop Dose Admin Sodium Chloride 1,000 mls @ 999 mls/hr 05/06/24 12:30 05/06/24 16:03 Ns IV 05/06/24 13:30 Infused .Q1H1M KARL Infusion Sodium Chloride 1,000 mls @ 999 mls/hr 05/06/24 12:30 05/06/24 14:05 Ns IV 05/06/24 13:30 Infused .Q1H1M KARL Infusion Potassium Chloride 10 meq in 100 mls @ 100 mls/hr 05/06/24 12:30 05/06/24 17:41 Potassium Chloride/H20 IV 05/06/24 16:29 100 mls/hr Q1H KARL Administration Iohexol 100 ml 05/06/24 14:02 05/06/24 14:02 Iohexol 350 Mg/Ml 100 Ml Infus..Btl IV 05/06/24 14:03 85 ml ONCE ONE Administration Medical Decision Making Medical Decision Making [facility] Narrative: 78-year-old female presents status post benzodiazepine overdose unclear how many pills she took clonazepam 0.5 mg pill bottle brought in completely empty initial quantity on it 60 however this is an old prescription that was last filled in 11/28/2022. Physical exam patient is groggy. History and physical exam concerning for intentional drug overdose. Will look out for signs and symptoms of benzodiazepine overdose such as lethargy, respiratory distress. Also will rule out traumatic injury to head neck, chest, abdomen pelvis. Will rule out metabolic derangements as well as cardiac abnormalities. Plan- labs, imaging, ekg Differential Diagnosis Differential Diagnoses: The differential diagnosis associated with the presentation includes History and physical exam concerning for intentional drug overdose. Will look out for signs and symptoms of benzodiazepine overdose such as lethargy, respiratory distress. Also will rule out traumatic injury to head neck, chest, abdomen pelvis. Will rule out metabolic derangements as well as cardiac abnormalities. Admission/Observation Consideration of admission/observation: Escalation of care including admission/observation considered Lab Data [facility] Lab Attestation statement: I reviewed the patient's lab results. 05/06/24 11:34 05/06/24 11:34 Labs: Lab Results 05/06/24 05/06/24 05/06/24 Range/Units 11:34 17:25 18:10 WBC 14.0 H (4.8-10.8) X10*3/uL RBC 5.10 (4.20-5.50) X10*6/uL Hgb 15.2 (12.0-16.0) g/dl Hct 48.2 H (37.0-47.0) % MCV 94.5 (80.0-98.0) fL MCH 29.8 (27.0-33.0) pg MCHC 31.5 (31.0-35.0) g/dl RDW 14.0 (11.0-16.0) % Plt Count 270 (160-400) X10*3/uL MPV 10.1 (9.4-12.3) fL Immature Gran % (Auto) 0.5 H (0.0-0.4) % Neut % (Auto) 82.2 H (45-73) % Lymph % (Auto) 12.3 L (20-40) % [place] % (Auto) 4.6 (2-11) % Eos % (Auto) 0.1 (0-4) % Baso % (Auto) 0.3 (0-2) % Lymph # (Auto) 1.7 (1.2-4.9) X10*3/uL [place] # (Auto) 0.7 (0.1-1.2) X10*3/uL Eos # (Auto) 0.0 (0.0-0.4) X10*3/uL Baso # (Auto) 0.0 (0.0-0.2) X10*3/uL Abs Immat Gran (auto) 0.07 H (0.00-0.03) X10*3/uL Absolute Neuts (auto) 11.5 H (2.0-8.3) x10*3/uL Absolute Nucleated RBC 0.000 (0.0-0.012) X10*3/uL Nucleated RBC % (auto) 0.0 (0.0-0.2) /100WBC Sodium 146 H (135-145) mmol/L Potassium 3.0 L D (3.3-5.1) mmol/L Chloride 100 (96-108) mmol/L Carbon Dioxide 36 H (22-29) mmol/L Anion Gap 13 (12-20) BUN 34 H (9-16) mg/dL Creatinine 1.37 (0.5-1.4) mg/dL Estim Creat Clear Calc 34.5 Estimated GFR 37 POC Glucose 125 H (60-115) mg/dL Random Glucose 169 H (60-115) mg/dL Calcium 9.9 (8.4-10.2) mg/dL Magnesium 2.2 (1.6-2.6) mg/dL Total Bilirubin 0.4 (0.0-1.0) mg/dL AST 17 (5-31) U/L ALT 21 (0-31) U/L Alkaline Phosphatase 84 (39-117) U/L Total Creatine Kinase 50 (26-140) U/L Troponin I High Sens 24.1 H D (<3.5-17.0) ng/L Total Protein 7.3 (6.5-8.0) g/dL Albumin 3.9 (3.5-5.0) g/dL Lipase 30 (8-78) U/L Urine Color Yellow Urine Appearance Cloudy Urine pH 5.5 (5.0-9.0) Ur Specific [place] 1.025 (1.005-1.025) Urine Protein Trace (Neg-Trace) mg/dL Urine Glucose (UA) Negative (Negative) mg/dL Urine Ketones Negative (Negative) mg/dL Urine Blood Trace H (Negative) Urine Nitrite Negative (Negative) Ur Leukocyte Esterase Moderate (2+) H (Negative) Urine RBC 0-2 (0-2) /HPF Urine WBC 6-10 (0-5) /HPF Ur Squamous Epith Cells 3-5 (0-2) /HPF Urine Bacteria 4+ (None Seen) Hyaline Casts 11-20 (0-2) /LPF Salicylates < 5.0 L (15-30) mg/dL Urine Opiates Screen Not Detected (Not Detect) Ur Buprenorphine Scrn Not Detected (Not Detect) ng/mL Ur Oxycodone Screen Not Detected (Not Detect) ng/mL Urine Methadone Screen Not Detected (Not Detect) ng/mL Urine Fentanyl Screen Not Detected (Not Detect) Acetaminophen < 3 (<30) mcg/mL Ur Barbiturates Screen Not Detected (Not Detect) Ur Phencyclidine Scrn Not Detected (Not Detect) Ur Amphetamines Screen POSITIVE H (Not Detect) U Benzodiazepines Scrn POSITIVE H (Not Detect) Urine Cocaine Screen Not Detected (Not Detect) U Marijuana (THC) Screen Not Detected (Not Detect) Ethyl Alcohol < 10 mg/dL Independent Interpretation I performed an independent interpretation of an: CT Scan ( CT/CT cervical spine wo IV con IMPRESSION: 1. No evidence of acute intracranial hemorrhage or edematous territorial infarction. Moderate underlying microangiopathy and generalized cerebral volume loss. 2. No evidence of acute fracture or traumatic subluxation of the cervical spine. Moderate to) Radiology Impression Discussion of test interpretation with radiology: I have reviewed the radiologist's reading. External Record Review External record reviewed: Inpatient record, Office record, Outpatient record, Prior outpatient labs, Prior outpatient radiology, Primary care record and Outside ED record Critical Care Time Critical Care Time Critical Care Time: Yes Total Critical Care Time: 35 Attestation: I attest to this time spent taking care of the patient, obtaining history, physical, reviewing labs, imaging, speaking to my attending, speaking to specialist. Discharge Plan Discharge Clinical Impression: Drug overdose, UTI (urinary tract infection) Patient Disposition: Still a Patient Prescriptions: No Action Eliquis 5 mg Tablet 5 mg PO BID duloxetine 60 mg Capsule,Delayed Release(Dr/Ec) 60 mg PO DAILY dextroamphetamine-amphetamine [Adderall] 10 mg Tablet 15 mg PO TID cholecalciferol (vitamin D3) 25 mcg (1,000 unit) Tablet 25 mcg PO DAILY melatonin 1 mg Tablet 12 mg PO BEDTIME Bacillus subtilis-inulin 1.5 billion cell-1 gram Tablet,Chewable 1 tab PO DAILY albuterol sulfate 90 mcg/actuation HFA aerosol inhaler 2 puff inhalation Q4H PRN (Reason: Shortness Of Breath) Anoro Ellipta 62.5-25 mcg/actuation blister with device 1 puff PO DAILY melatonin 3 mg Tablet 12 mg PO BEDTIME PRN (Reason: Sleep) carvedilol 3.125 mg Tablet 3.125 mg PO BID Qty: 60 0RF Protocol: Hold for SBP/HR < HOLD for SBP < : 90 HOLD for HR < : 60 Entresto 24-26 mg Tablet 1 tab PO BID Qty: 60 0RF Protocol: Hold for SBP< HOLD for SBP < : 90 cefuroxime axetil 250 mg tablet 250 mg PO BID 7 Days Qty: 14 0RF atorvastatin 80 mg tablet 80 mg PO DAILY donepezil 10 mg tablet 10 mg PO BEDTIME clopidogrel 75 mg tablet 75 mg PO DAILY methenamine hippurate 1 gram tablet 1 g PO BID furosemide 80 mg tablet 80 mg PO DAILY Print Language: Australian
[2024-05-06 11:37] LABS: MANUAL DIFF FLAG NO
[2024-05-06 11:40] LABS: Basophils Percent Auto 0.3 % (0-2); Eosinophils Percent Auto 0.1 % (0-4); Hematocrit 48.2 % (37.0-47.0); Hemoglobin 15.2 g/dl (12.0-16.0); Imm Gran Abs Auto 0.07 X10*3/uL (0.00-0.03); Imm Gran Pct Auto 0.5 % (0.0-0.4); Lymphocytes Absolute Auto 1.7 X10*3/uL (1.2-4.9); Lymphocytes Percent Auto 12.3 % (20-40); Mean Corpuscular HGB Conc 31.5 g/dl (31.0-35.0); Mean Corpuscular Hemoglobin 29.8 pg (27.0-33.0); Mean Corpuscular Volume 94.5 fL (80.0-98.0); Mean Platelet Volume 10.1 fL (9.4-12.3); Monocytes Absolute Auto 0.7 X10*3/uL (0.1-1.2); Monocytes Percent Auto 4.6 % (2-11); Neutrophils Absolute Auto 11.5 x10*3/uL (2.0-8.3); Neutrophils Percent Auto 82.2 % (45-73); Platelet Count 270 X10*3/uL (160-400)
[2024-05-06 12:03] LABS: Troponin-I High Sensitivity 24.1 ng/L (<3.5-17.0)
[2024-05-06 12:07] LABS: Alanine Aminotransferase 21 U/L (0-31); Albumin Level 3.9 g/dL (3.5-5.0); Alkaline Phosphatase 84 U/L (39-117); Anion Gap 13 (12-20); Aspartate Amino Transferase 17 U/L (5-31); Bilirubin Total 0.4 mg/dL (0.0-1.0); Blood Urea Nitrogen 34 mg/dL (9-16); Calcium 9.9 mg/dL (8.4-10.2); Carbon Dioxide 36 mmol/L (22-29); Chloride 100 mmol/L (96-108); Creatinine Clr Calc Pharmacy 34.5; Estimated Glomerular Filt Rate 37; Ethanol < 10 mg/dL; Glucose Random 169 mg/dL (60-115); Lipase 30 U/L (8-78); Magnesium 2.2 mg/dL (1.6-2.6); Sodium 146 mmol/L (135-145); Total Protein 7.3 g/dL (6.5-8.0)
[2024-05-06 12:14] LABS: Acetaminophen LAB < 3 mcg/mL (<30); Salicylate < 5.0 mg/dL (15-30)
[2024-05-06] MEDS: Potassium Chloride/H20 10 MEQ/100 ML PIGGYBACK 100 MEQ IV ×7 (12:42→23:56)
[2024-05-06] MEDS: 0.9 % Sodium Chloride 1,000 ML 999 ML IV ×2 (12:45→15:02)
--- OUTSIDE RECORDS SUMMARY | 2024-05-06 12:57 | XMS_ITS | Continuity of Care Document ---
Author Organization [facility] Address [address] [place] [id number]- Care Team Providers Care Licensed Psychologist Manager Name Role Phone Katherine Slade MD Primary Care Physician [id number] Date(s): 09/14/21 - 11/14/[address] [address]- Discharge Disposition: A-D/C Home Attending Physician: Katherine Slade MD Admitting Physician: Katherine Slade MD Referring Physician: Katherine Slade MD Allergies, Adverse Reactions, Alerts No Known Allergies Immunizations Given and Recorded Vaccine Date Status Refusal Reason SARS-CoV-2 (COVID-19) mRNA BNT-162b2 vac 12/23/20 Recorded SARS-CoV-2 (COVID-19) mRNA BNT-162b2 vac 12/02/20 Recorded pneumococcal 23-valent vaccine 06/22/20 Recorded influenza virus vaccine, inactivated 06/22/20 Jeromy rded Medications Adderall 15 mg oral tablet 1 tablet = 15 mg, By Mouth, 3 times a day, 0 Refills, Maintenance, 11/22/18 10:40:54 EDT Start Date: 11/22/18 Status: Ordered Colace sodium 100 mg oral capsule 100 mg, 1, capsule, By Mouth, 2 times a day, Refills 0, Maintenance, 04/07/21 16:52:00 EDT, Partialfill upon patient request if the prescription is for a schedule II opioid drug. Start Date: 04/07/21 Status: Ordered duloxetine 30 mg oral enteric coated capsule 2 capsule = 60 mg, By Mouth, Daily at bedtime, 0 Refills, Maintenance, 04/07/21 16:50:00 EDT, Partial fill upon patient request if the prescription is for a schedule II opioid drug. Start Date: 04/07/21 Status: Ordered Eliquis 5 mg oral tablet 1 tablet = 5 mg, By Mouth, 2 times a day, # 60 tablet, 0 Refills, Maintenance, 04/07/21 16:47:00 EDT, Tablet, Partial fill upon patient request if the prescription is for a schedule II opioid drug. Start Date: 04/07/21 Status: Ordered Melatonin 10 mg oral tablet 1 tablet = 10 mg, By Mouth, Daily at bedtime, 0 Refills, Maintenance, 04/07/21 16:53:00 EDT, Partial fill upon patient request if the prescription is for a schedule II opioid drug. Start Date: 04/07/21 Status: Ordered morphine 45 mg/24 hours oral capsule, extended release 1 capsule = 45 mg, By Mouth, 2 times a day, # 60 capsule, 0 Refills, Maintenance, 04/22/21 11:14:00EDT, ER Capsule, Partial fill upon patient request if the prescription is for a schedule II opioid drug. Start Date: 04/22/21 Status: Ordered Probiotic Formula By Mouth, Daily, 0 Refills, Maintenance, 04/07/21 16:51:00 EDT, Partial fill upon patient request if the prescription is for a schedule II opioid drug. Start Date: 04/07/21 Status: Ordered Vitamin D3 1000 intl units oral capsule = 25 mcg, By Mouth, Daily, 0 Refills, Maintenance, 04/07/21 16:51:00 EDT, Partial fill upon patientrequest if the prescription is for a schedule II opioid drug. Start Date: 04/07/21 Status: Ordered
--- OUTSIDE RECORDS SUMMARY | 2024-05-06 12:57 | XMS_ITS | Continuity of Care Document ---
Author Organization [facility] Address [address] [place] [id number]- Care Team Providers Care Assistant Basketball Coach Name Role Phone [place] REEVES, Chata Ozuna Primary Care Physician Encounter [facility] Date(s): 04/22/21 - 04/25/[address] [address] Discharge Disposition: A-Transfer SNF Attending Physician: Nazario Carrasco MD Admitting Physician: Nazario Carrasco MD Referring Physician: Nazario Carrasco MD Allergies, Adverse Reactions, Alerts Substance Reaction Severity Status NKA Active Immunizations Given and Recorded Vaccine Date Status [...] drug. Start Date: 04/07/21 Status: Ordered morphine 15 mg oral tablet, immediate release 1 tablet = 15 mg, By Mouth, Every 3 hours, PRN Pain , Moderate, # 28 tablet, 0 Refills, Acute 04/30/21 11:14:00 EDT, 04/22/21 11:14:00 EDT, Tablet, Partial fill upon patient request if the prescription is for a schedule II opioid drug. Start Date: 04/22/21 Stop Date: 04/30/21 Status: Ordered morphine 45 mg/24 hours oral capsule, extended release 1 capsule = 45 mg, By Mouth, 2 times a day, # 60 capsule, 0 Refills, Maintenance, 04/22/21 11:14:00EDT, ER Capsule, Partial fill upon patient request if the prescription is for a schedule II opioid drug. Start Date: 04/22/21 Status: Ordered MorPHINE CR Tablet 45 mg, CR Tablet, By Mouth, 04/25/21 9:00:00 EDT Start Date: 04/25/21 Stop Date: 04/25/21 Status: Completed Probiotic Formula By Mouth, Daily, 0 Refills, [...] opioid drug. Start Date: 04/07/21 Status: Ordered Procedures Procedure Date Related Diagnosis Body Site Status Arthrodesis, posterior or po sterolateral technique, single level; lumbar (with lateral transverse technique, when performed) Completed Results Radiology Reports * Exam Date Time Procedure Performing Provider Status 04/22/21 2:47 PM C-Arm > 1 Hour Radha Sylvester h (Verified) Notes: (C-Arm > 1 Hour) Reason For Exam: spinal stenosis RESULT: C-Arm > 1 Hour Lumbar Spine 2 or 3 Views, C-Arm > 1 Hour INDICATION: spinal stenosis COMPARISONS: None TECHNIQUE: Fluoroscopy support was provided. There was no radiologist in attendance. Fluoroscopy time: 40.5 seconds Technologist time: 1 hour 5 minutes Exposure: 46 mGy FINDINGS: 5 images were submitted showing TLIF at what appears to be L5-S1. Please refer to operative note for full details. IMPRESSION: See above. WSN: [id number] Ordering Physician: Nazario Carrasco Dictated By: Jan Diaz MD Dictated Date/Time: 04/22/21 3:04 pm Reviewed By: Jan Diaz MD Signed By: Jan Diaz MD Signed Date/Time: 04/22/21 3:04 pm Transcribed By: MARTHA Transcribed Date/Time: 04/22/21 3:03 pm * Exam Date Time Procedure Performing Provider Status 04/22/21 2:47 PM Lumbar Spine 2 or 3 Views Col aaron Sylvester; Nilda (Verified) Notes: (Lumbar Spine 2 or 3 Views) Reason For Exam: spinal stenosis RESULT: Lumbar Spine 2 or 3 Views Lumbar Spine 2 or 3 Views, C-Arm > 1 Hour INDICATION: spinal stenosis COMPARISONS: None TECHNIQUE: Fluoroscopy support was provided. There was no radiologist in attendance. Fluoroscopy time: 40.5 seconds Technologist time: 1 hour 5 minutes Exposure: 46 mGy FINDINGS: 5 images were submitted showing TLIF at what appears to be L5-S1. Please refer to operative note for full details. IMPRESSION: See above. WSN: [id number] Ordering Physician: Nazario Carrasco Dictated By: Jan Diaz MD Dictated Date/Time: 04/22/21 3:04 pm Reviewed By: Jan Diaz MD Signed By: Jan Diaz MD Signed Date/Time: 04/22/21 3:04 pm Transcribed By: MARTHA Transcribed Date/Time: 04/22/21 3:03 pm Vital Signs Most recent to oldest [Reference Range]: 1 2 3 Height 152.40 cm (04/25/21 4:24 PM) 152.40 cm (04/25/21 12:37 PM) 152.40 cm (04/25/21 8:20 AM) Weight 75 kg (04/22/21 8:00 PM) 75.0 kg (04/22/21 10:28 AM) 75.0 kg (04/07/21 5:37 PM) Oxygen Saturation [94-100 %] 94 % (04/25/21 4:24 PM) 95 % (04/25/21 12:37 PM) 93 % *L* (04/25/21 8:20 AM) Pulse Rate [55-90 bpm] 93 bpm *H* (04/25/21 4:24 PM) 90 bpm (04/25/21 12:37 PM) 91 bpm *H* (04/25/21 8:20 AM) Body Mass Index [18.5-24.99] 32.29 *>HHI* (04/22/21 8:00 PM) 32.29 *>HHI* (04/22/21 10:28 AM) 32.29 *>HHI* (04/07/21 5:37 PM) Blood Pressure [90-138/55-84 mm Hg] 153/81mm Hg *H* (04/25/21 4:24 PM) 139/88mm Hg *H* (04/25/21 12:37 PM) 128/64mm Hg (04/25/21 8:20 AM) Respiratory Rate [16-30 br/min] 18 br/min (04/25/21 4:24 PM) 18 br/min (04/25/21 12:37 PM) 20 br/min (04/25/21 11:22 AM) Temperature [96.8-100.4 DegF] 99.4 DegF (04/25/21 4:24 PM) 98.3 DegF (04/25/21 12:37 PM) 98.5 DegF (04/25/21 8:20 AM) Liters per Minute 2 L/min (04/24/21 7:56 PM) 2 L/min (04/24/21 8:09 AM) 1 L/min (04/24/21 4:00 AM) Mode of Delivery (Oxygen) Room air (04/25/21 4:24 PM) Room air (04/25/21 12:37 PM) Room air (04/25/21 8:20 AM) Blood pressure sites Arm, left (04/25/21 4:24 PM) Arm, left (04/25/21 12:37 PM) Arm, left (04/25/21 8:20 AM) Temperature Route Oral (04/25/21 4:24 PM) Oral (04/25/21 12:37 PM) Oral (04/25/21 8:20 AM) Dry Weight 75 kg (04/22/21 8:00 PM) 75.0 kg (04/07/21 5:37 PM) Weight Obtained Via Patient/family state d (04/22/21 8:00 PM) Patient/family stated (04/07/21 5:37 PM) Dry Weight Obtained Via Patient/family s tated (04/22/21 8:00 PM)
--- OUTSIDE RECORDS SUMMARY | 2024-05-06 12:57 | XMS_ITS | Continuity of Care Document ---
Author Organization [facility] Address Unknown Care Team Providers Care Attraction Attendant Name Role Phone [place] CEVALLOS, Katherine Yancey Primary Care Physician Encounter [facility] [place] [facility] R [id number] Date(s): 12/06/21 - 02/09/22 [facility] Attending Physician: Bernabe Freeman DO Referring Physician: Ever Browne MD Allergies, Adverse Reactions, Alerts No Known Allergies Immunizations Given and Recorded Vaccine Date Status Refusal Reason SARS-CoV-2 (COVID-19) mRNA BNT-162b2 vac 07/02/21 Recorded SARS-CoV-2 (COVID-19) mRNA BNT-162b2 vac 12/23/20 Recorded SARS-CoV-2 (COVID-19) mRNA BNT-162b2 vac 12/02/20 Recorded pneumococcal 23-valent vaccine 06/22/20 Recorded influenza virus vaccine, inactivated 06/22/20 Jeromy rded Medications Adderall 15 mg oral tablet 1 tablet = 15 mg, By Mouth, 3 times a day, # 21 tablet, 0 Refills, Maintenance, 12/07/21 8:51:00 EDT, Tablet, [facility] #[id number], Partial fill upon patient request if the prescription is fora schedule II opioid drug., 1 tablet By Mouth 3 colette... Start Date: 12/07/21 Stop Date: 12/14/21 Status: Ordered Anoro Ellipta 62.5 mcg-25 mcg/inh inhalation powder 1 puffs, Inhalation, Daily, # 1 each, 0 Refills, Maintenance, 12/07/21 8:51:00 EDT, Powder, [facility] #[id number], Partial fill upon patient request if the prescription is for a schedule II opioid drug., 1 puffs Inhalation Daily,x30 days, 152.4,... Start Date: 12/07/21 Stop Date: 01/06/22 Status: Ordered duloxetine 30 mg oral enteric [...] opioid drug. Start Date: 04/07/21 Status: Ordered ProAir HFA 90 mcg/inh inhalation aerosol 2 puffs, Inhalation, Every 6 hours, PRN as needed for wheezing, # 8.5 Gm, 0 Refills, Maintenance, 12/16/21 10:48:00 EDT, Aerosol, Partial fill upon patient request if the prescription is for a schedule II opioid drug. Start Date: 12/16/21 Status: Ordered Probiotic Formula By Mouth, Daily, [...] opioid drug. 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
--- OUTSIDE RECORDS SUMMARY | 2024-05-06 12:57 | XMS_ITS | Continuity of Care Document ---
Author Organization [facility] Address [address] [place] [address]- Care Team Providers Care Compressor Station Engineer Chief Name Role Phone [place] CEVALLOS, Katherine Yancey Primary Care Physician Encounter [facility] [place] Date(s): 11/29/21 - 12/29/21 [facility] [address] [place] [address]- Allergies, Adverse Reactions, Alerts No Known Allergies [...] 0 Refills, Maintenance, 12/07/21 8:51:00 EDT, Tablet, [facility] #[id number], Partial fill upon patient request if the prescription is fora schedule II opioid drug., 1 tablet By Mouth 3 colette... Start Date: 12/07/21 Stop Date: 12/14/21 Status: Ordered Anoro Ellipta 62.5 mcg-25 mcg/inh inhalation powder 1 puffs, Inhalation, Daily, # 1 each, 0 Refills, Maintenance, 12/07/21 8:51:00 EDT, Powder, [facility] #[id number], Partial fill upon patient request if the [...]
--- OUTSIDE RECORDS SUMMARY | 2024-05-06 12:57 | XMS_ITS | Continuity of Care Document ---
Author Organization [facility] ter Address [address] [place] [address]- Care Team Providers Care Toy Department Manager Name Role Phone Katherine Slade MD Primary Care Physician Encounter [facility] [place] Date(s): 01/06/22 - 02/11/[address] [address] Attending Physician: Felipe Holly MD Admitting Physician: Felipe Holly MD Referring Physician: Pancho Morales MD Allergies, Adverse Reactions, Alerts No Known [...] 0 Refills, Maintenance, 12/07/21 8:51:00 EDT, Tablet, [facility] #[id number], Partial fill upon patient request if the prescription is fora schedule II opioid drug., 1 tablet By Mouth 3 colette... Start Date: 12/07/21 Stop Date: 12/14/21 Status: Ordered Anoro Ellipta 62.5 mcg-25 mcg/inh inhalation powder 1 puffs, Inhalation, Daily, # 1 each, 0 Refills, Maintenance, 12/07/21 8:51:00 EDT, Powder, [facility] #[id number], Partial fill upon patient request if the [...]
--- OUTSIDE RECORDS SUMMARY | 2024-05-06 12:57 | XMS_ITS | Continuity of Care Document ---
Author Organization [facility] Address [address] [place] [address]- Care Team Providers Care Transaction Manager Name Role Phone [place] CEVALLOS, Katherine Yancey Primary Care Physician Encounter [facility] [place] Date(s): 07/29/21 - 08/28/[address] [address]- Attending Physician: Divya Obrien Admitting Physician: Divya Obrien Referring Physician: AdmtrDivya Allergies, Adverse Reactions, Alerts Substance Reaction Severity [...]
--- OUTSIDE RECORDS SUMMARY | 2024-05-06 12:57 | XMS_ITS | Continuity of Care Document ---
Author Organization [facility] Address [address] [place] [address]- Care Team Providers Care Bolter Helper Name Role Phone Mikey Aguirre MD Primary Care Physician Encounter [facility] Date(s): 02/26/21 - 03/28/21 [facility] [address] [place] [address]- Attending Physician: Divya Obrien Admitting Physician: Admtr, Divya Referring Physician: Admtr, Ar8 Allergies, Adverse Reactions, Alerts Substance Reaction Severity Status NKA Active Medications Adderall 15 mg oral tablet 1 tablet = 15 mg, By Mouth, 3 times a day, 0 Refills, Maintenance, 11/22/18 10:40:54 EDT Start Date: 11/22/18 Status: Ordered Coumadin 2.5 mg oral tablet 1 tablet = 2.5 mg, By Mouth, Daily, # 30 tablet, 0 Refills, Maintenance, 11/22/18 10:41:58 EDT, Tablet Start Date: 11/22/18 Status: Ordered Dilaudid 4 mg oral tablet 1 tablet = 4 mg, By Mouth, Every 4 hours, PRN for pain, 0 Refills, Maintenance, 11/22/18 10:40:41 EDT, Tablet Start Date: 11/22/18 Status: Ordered hydrochlorothiazide-lisinopril 12.5 mg-20 mg oral tablet 1 tablet, By Mouth, Daily, # 30 tablet, 0 Refills, Maintenance, 11/22/18 10:41:43 EDT, Tablet Start Date: 11/22/18 Status: Ordered
--- OUTSIDE RECORDS SUMMARY | 2024-05-06 12:57 | XMS_ITS | Continuity of Care Document ---
Author Organization [facility] ter Address [address] [place] [address]- Care Team Providers Care Phys Therapist Name Role Phone [place] CEVALLOS, Katherine Yancey Primary Care Physician [place] [facility] 03/29/22 - 03/30/[address] [address] Discharge Disposition: A-D/C Home Attending Physician: Florencio Marina MD Admitting Physician: Florencio Marina MD Referring Physician: Collins Munguia MD Allergies, Adverse Reactions, Alerts No Known [...] 0 Refills, Maintenance, 12/07/21 8:51:00 EDT, Tablet, [facility] #[id number], Partial fill upon patient request if the prescription is fora schedule II opioid drug., 1 tablet By Mouth 3 colette... Start Date: 12/07/21 Stop Date: 12/14/21 Status: Ordered Anoro Ellipta 62.5 mcg-25 mcg/inh inhalation powder 1 puffs, Inhalation, Daily, # 1 each, 0 Refills, Maintenance, 12/07/21 8:51:00 EDT, Powder, [facility] #[id number], Partial fill upon patient request if the prescription is for a schedule II opioid drug., 1 puffs Inhalation Daily,x30 days, 152.4,... Start Date: 12/07/21 Stop Date: 01/06/22 Status: Ordered carvedilol 6.25 mg oral tablet 6.25 mg, 1, tablet, By Mouth, 2 times a day, # 60 tablet, Refills 6, Tot. Refills 6, Maintenance, 03/30/22 9:11:00 EDT, Route to Pharmacy Electronically, [facility] #[id number], Partial fill upon patient request if the prescription is for a sched... Start Date: 03/30/22 Status: Ordered clopidogrel 75 mg oral tablet 75 mg, 1, tablet, By Mouth, Daily, # 30 tablet, Refills 11, Tot. Refills 11, Maintenance, 03/29/22 13:18:00 EDT, Route to Pharmacy Electronically, [facility] #[id number], Partial fill upon patient request if the prescription is for a schedule II... Start Date: 03/29/22 Status: Ordered duloxetine 30 mg oral enteric coated capsule 2 capsule = 60 mg, By Mouth, Daily, 0 Refills, Maintenance, 04/07/21 16:50:00 EDT, Partial [...] opioid drug. Start Date: 04/07/21 Status: Ordered Entresto 24 mg-26 mg oral tablet 1 tablet, By Mouth, Daily, 0 Refills, Maintenance, 03/29/22 8:34:00 EDT, Partial fill upon patient request if the prescription is for a schedule II opioid drug. Start Date: 03/29/22 Status: Ordered furosemide 40 mg oral tablet 40 mg, 1, tablet, By Mouth, Daily, # 30 tablet, Refills 0, Maintenance, 03/29/22 8:35:00 EDT, Partial fill upon patient request if the prescription is for a schedule II opioid drug. Start Date: 03/29/22 Status: Ordered KlonoPIN 0.5 mg oral tablet 1 tablet = 0.5 mg, By Mouth, 2 times a day, PRN Anxiety, 0 Refills, Maintenance, 03/29/22 15:59:00 EDT, Tablet, Partial fill upon patient request if the prescription is for a schedule II opioid drug. Start Date: 03/29/22 Status: Ordered Lipitor 80 mg oral tablet 1 tablet = 80 mg, By Mouth, Daily, # 30 tablet, 11 Refills, Maintenance, 03/29/22 15:37:00 EDT, Tablet, [facility] #[id number], Partial fill upon patient request if the prescription is for a schedule II opioid drug., 152.4, cm, 03/29/22 14:07:00... Start Date: 03/29/22 Status: Ordered Melatonin 10 mg oral tablet [...] Active Lumbago(Confirmed) Active Obese class I(Confirmed) Active Vital Signs Most recent to oldest [Reference Range]: 1 2 3 Height 152.4 cm (03/30/22 8:20 AM) 152.4 cm (03/30/22 3:20 AM) 152.4 cm (03/29/22 11:32 PM) Weight 79.1 kg (03/29/22 3:43 PM) 79.1 kg (03/29/22 2:08 PM) 80 kg (03/29/22 9:28 AM) Oxygen Saturation [94-100 %] 95 % (03/30/22 8:20 AM) 94 % (03/30/22 3:20 AM) 95 % (03/29/22 11:32 PM) Pulse Rate [55-90 bpm] 64 bpm (03/30/22 8:20 AM) 88 bpm (03/30/22 3:20 AM) 84 bpm (03/29/22 11:32 PM) Body Mass Index [18.5-24.99] 34.06 *>HHI* (03/29/22 3:43 PM) 34.44 *>HHI* (03/29/22 9:28 AM) Blood Pressure [90-138/55-84 mm Hg] 137/75mm Hg (03/30/22 8:20 AM) 113/65mm Hg (03/30/22 3:20 AM) 118/65mm Hg (03/29/22 11:32 PM) Respiratory Rate [16-30 br/min] 18 br/min (03/30/22 8:20 AM) 18 br/min (03/30/22 3:20 AM) 18 br/min (03/29/22 11:32 PM) Temperature [96.8-100.4 DegF] 97.3 DegF (03/30/22 8:20 AM) 97.7 DegF (03/30/22 3:20 AM) 97.4 DegF (03/29/22 11:32 PM) Mode of Delivery (Oxygen) Room air (03/30/22 8:20 AM) Room air (03/30/22 3:20 AM) Room air (03/29/22 11:32 PM) Blood pressure sites Arm, left (03/30/22 8:20 AM) Arm, left (03/30/22 3:20 AM) Arm, left (03/29/22 11:32 PM) Temperature Route Oral (03/30/22 8:20 AM) Oral (03/30/22 3:20 AM) Oral (03/29/22 11:32 PM) Dry Weight 80 kg (03/29/22 3:43 PM) 80 kg (03/29/22 9:28 AM) 80 kg (03/29/22 8:39 AM) Weight Obtained Via Bed scale (03/29/22 3:43 PM) Bed scale (03/29/22 2:08 PM) Sensory deficits None (03/29/22 3:43 PM) Medical Equipment Implanted Date:12/03/21Target Site:Pelvis and Genitalia Description Quantity MRI Company Model coloplast suspend fascia nadia 2 x 7 cm 1 coloplastsuspend fas reggie nadia 2 x 7 cm Unknown SINAN:No Information Assigning Authority: FDA
--- OUTSIDE RECORDS SUMMARY | 2024-05-06 12:57 | XMS_ITS | Continuity of Care Document ---
Author Organization [facility] Address [address] [place] [address]- Care Team Providers Care Mainframe Systems Programmer Name Role Phone Berlin CEVALLOS, Katherine Yancey Primary Care Physician ( [phone] Encounter [facility] Date(s): 02/23/22 - 03/25/22 [facility] [address] [place] [address]- [place] Allergies, Adverse Reactions, Alerts No Known Allergies [...] 0 Refills, Maintenance, 12/07/21 8:51:00 EDT, Tablet, [facility] #[id number], Partial fill upon patient request if the prescription is fora schedule II opioid drug., 1 tablet By Mouth 3 colette... Start Date: 12/07/21 Stop Date: 12/14/21 Status: Ordered Anoro Ellipta 62.5 mcg-25 mcg/inh inhalation powder 1 puffs, Inhalation, Daily, # 1 each, 0 Refills, Maintenance, 12/07/21 8:51:00 EDT, Powder, [facility] #[id number], Partial fill upon patient request if the [...]
--- OUTSIDE RECORDS SUMMARY | 2024-05-06 12:57 | XMS_ITS | Continuity of Care Document ---
Author Organization [facility] Address Unknown Care Team Providers Care Armhole Feller Handstitching Machine Name Role Phone [place] CEVALLOS, Katherine Yancey Primary Care Physician Encounter [facility] [place] Date(s): 01/10/22 - 02/09/22 [facility] Attending Physician: Divya Obrien Admitting Physician: Divya Obrien Referring Physician: AdmtrDivya Allergies, Adverse Reactions, Alerts No Known Allergies [...] 0 Refills, Maintenance, 12/07/21 8:51:00 EDT, Tablet, [facility] #[id number], Partial fill upon patient request if the prescription is fora schedule II opioid drug., 1 tablet By Mouth 3 colette... Start Date: 12/07/21 Stop Date: 12/14/21 Status: Ordered Anoro Ellipta 62.5 mcg-25 mcg/inh inhalation powder 1 puffs, Inhalation, Daily, # 1 each, 0 Refills, Maintenance, 12/07/21 8:51:00 EDT, Powder, [facility] #[id number], Partial fill upon patient request if the [...]
--- OUTSIDE RECORDS SUMMARY | 2024-05-06 12:57 | XMS_ITS | Continuity of Care Document ---
Author Organization [facility] Address [address] [place] [address]- Care Team Providers Care Parking Meter Installer Name Role Phone Katherine Slade MD Primary Care Physician [id number] Date(s): 09/10/21 - 10/16/[address] [address] Attending Physician: Katherine Slade MD Admitting Physician: Katherine Slade MD Allergies, Adverse Reactions, [...]
--- OUTSIDE RECORDS SUMMARY | 2024-05-06 12:57 | XMS_ITS | Continuity of Care Document ---
Author Organization [facility] Address [address] [place] [address]- Care Team Providers Care Bistro Attendant Name Role Phone Berlin CEVALLOS, Katherine Yancey Primary Care Physician ( [phone] Encounter [facility] Date(s): 09/30/21 - 10/30/[address] [address] Attending Physician: Divya Obrien Admitting Physician: Divya Obrien Referring Physician: Divya Obrien Referring Physician: Regine Perry Allergies, Adverse Reactions, Alerts No Known Allergies [...]
--- OUTSIDE RECORDS SUMMARY | 2024-05-06 12:57 | XMS_ITS | Continuity of Care Document ---
Author Organization [facility] ter Address [address] [place] [address]- Care Team Providers Care Informatics Educator Name Role Phone Berlin CEVALLOS, Katherine Yancey Primary Care Physician Encounter [facility] [place] Date(s): 12/14/21 - 12/17/[address] [address] Discharge Disposition: A-Transfer VNA/Home Health Attending Physician: Shawna Ingram DO Admitting Physician: Pancho Morales MD Referring Physician: Not on Staff, Referring MD Allergies, Adverse Reactions, Alerts No Known [...] 0 Refills, Maintenance, 12/07/21 8:51:00 EDT, Tablet, [facility] #[id number], Partial fill upon patient request if the prescription is fora schedule II opioid drug., 1 tablet By Mouth 3 colette... Start Date: 12/07/21 Stop Date: 12/14/21 Status: Ordered Anoro Ellipta 62.5 mcg-25 mcg/inh inhalation powder 1 puffs, Inhalation, Daily, # 1 each, 0 Refills, Maintenance, 12/07/21 8:51:00 EDT, Powder, [facility] #[id number], Partial fill upon patient request if the prescription is for a schedule II opioid drug., 1 puffs Inhalation Daily,x30 days, 152.4,... Start Date: 12/07/21 Stop Date: 01/06/22 Status: Ordered Bactrim DS 800 mg-160 mg oral tablet 1 tablet, By Mouth, 2 times a day, for 3 days, # 6 tablet, 0 Refills, Acute 12/20/21 15:38:00 EDT, 12/17/21 15:38:00 EDT, Tablet, [facility], Partial fill upon patient request if the prescription is for a schedule II opioid drug., 1 tabl... Start Date: 12/17/21 Stop Date: 12/20/21 Status: Ordered duloxetine 30 mg oral enteric [...] Active Lumbago(Confirmed) Active Obese class I(Confirmed) Active Results Orders for Microbiology Reports Name Date Urine Culture (URINE CULTURE) 12/14/21 Microbiology Reports TEST:Urine Culture STATUS:Auth (Verified) BODY SITE: SOURCE:URINE COLLECTED DATE/TIME:12/14/21 4:01 PM Urine Culture SPECIMEN DESCRIPTION : URINE SPECIAL REQUESTS : NONE CULTURE : >100,000 COL/ML MORGANELLA MORGANII This isolate was identified using Maldi-TOF system These AST results were performed on the Yumbercan ID and AST system REPORT STATUS : FINAL 12/17/2021 ORGANISM >100,000 COL/ML MORGANELLA MORGANII This isolate was identified using Maldi-TOF system These AST results were performed on the Yumbercan ID and AST system METHOD MIN. INHIB. CONC. (MCG/ML) AMPICILLIN RESISTANT AMPICILLIN/SULBACTAM RESISTANT AMOXICILLIN/CLAVULAN RESISTANT CEFAZOLIN RESISTANT CEFEPIME SUSCEPTIBLE CEFTRIAXONE SUSCEPTIBLE CIPROFLOXACIN SUSCEPTIBLE ERTAPENEM SUSCEPTIBLE GENTAMICIN SUSCEPTIBLE LEVOFLOXACIN SUSCEPTIBLE MEROPENEM SUSCEPTIBLE NITROFURANTOIN RESISTANT PIPERACILLIN/TAZOBAC SUSCEPTIBLE TRIMETH/SULFAMETHOX SUSCEPTIBLE TETRACYCLINE SUSCEPTIBLE Radiology Reports * Exam Date Time Procedure Performing Provider Status 12/14/21 2:19 PM Chest Portable Ever Shoemaker; Auth (Verified) Notes: (Chest Portable) Reason For Exam: Shortness of Breath RESULT: Chest Portable Chest Portable Reason: Shortness of Breath; Clinical Question(s): Pneumonia COMPARISON: Chest radiographs dated December 05, [address] chest dated December 04, 2021. FINDINGS: LINES AND TUBES: None. LUNGS AND PLEURA: Low lung volumes with bronchovascular crowding and atelectasis. Mildly congested appearing vasculature. Stable large left-sided paraesophageal hernia with some associated left lung atelectasis. No pleural effusion. No pneumothorax. HEART, MEDIASTINUM AND ZOEY: The cardiomediastinal silhouette is unchanged. BONES AND SOFT TISSUES: No acute abnormality. Partially visualized lumbar spinal fusion hardware. Moderate degenerative changes of the right glenohumeral joint. IMPRESSION: Low lung volumes with a similar large left paraesophageal hernia. Bibasilar opacities may representatelectasis in the setting of low lung volumes or developing consolidation, depending upon the clinical setting. Vasculature is mildly congested without fernando edema. WSN: [id number] Ordering Physician: Ralph Gutierrez Dictated By: Emir Allan MD Dictated Date/Time: 12/14/21 2:26 pm Reviewed By: Emir Allan MD Signed By: Emir Allna MD Signed Date/Time: 12/14/21 2:26 pm Transcribed By: MARTHA Transcribed Date/Time: 12/14/21 2:23 pm Vital Signs Most recent to oldest [Reference Range]: 1 2 3 Oxygen Saturation [94-100 %] 95 % (12/17/21 3:00 PM) 96 % (12/17/21 6:14 AM) 100 % (12/16/21 8:00 PM) Pulse Rate [55-90 bpm] 99 bpm *H* (12/17/21 3:00 PM) 88 bpm (12/17/21 6:14 AM) 58 bpm (12/16/21 8:00 PM) Blood Pressure [90-138/55-84 mm Hg] 145/79mm Hg *H* (12/17/21 3:00 PM) 142/86mm Hg *H* (12/17/21 6:14 AM) 122/59mm Hg (12/16/21 8:00 PM) Respiratory Rate [16-30 br/min] 22 br/min (12/17/21 3:00 PM) 20 br/min (12/17/21 6:14 AM) 19 br/min (12/16/21 8:00 PM) Temperature [96.8-100.4 DegF] 98.1 DegF (12/17/21 3:00 PM) 98.5 DegF (12/17/21 6:14 AM) 97.8 DegF (12/16/21 8:00 PM) Liters per Minute 2 L/min (12/16/21 8:00 PM) 2 L/min (12/16/21 11:02 AM) 2 L/min (12/16/21 4:00 AM) Mode of Delivery (Oxygen) Room air (12/17/21 3:00 PM) Room air (12/17/21 6:14 AM) Nasal cannula (12/16/21 8:00 PM) Blood pressure sites Arm, left (12/17/21 3:00 PM) Arm, left (12/17/21 6:14 AM) Arm, right (12/16/21 8:00 PM) Temperature Route Oral (12/17/21 3:00 PM) Oral (12/17/21 6:14 AM) Axillary (12/16/21 8:00 PM) Medical Equipment Implanted Date:12/03/21Target Site:Pelvis and Genitalia Description Quantity MRI Company Model coloplast suspend fascia nadia 2 x 7 cm 1 coloplastsuspend fas reggie nadia 2 x 7 cm Unknown SINAN:No Information Assigning Authority: FDA
--- OUTSIDE RECORDS SUMMARY | 2024-05-06 12:57 | XMS_ITS | Continuity of Care Document ---
Author Organization [facility] ter Address [address] [place] [address]- Care Team Providers Care Extraction Operator Name Role Phone Katherine Slade MD Primary Care Physician Encounter [facility] [place] Date(s): 12/06/21 - 01/05/[address] [address] Attending Physician: Not on Staff, Attending MD Admitting Physician: Not on Staff, Admitting MD Referring Physician: Not on Staff, Referring [...] 0 Refills, Maintenance, 12/07/21 8:51:00 EDT, Tablet, [facility] #[id number], Partial fill upon patient request if the prescription is fora schedule II opioid drug., 1 tablet By Mouth 3 colette... Start Date: 12/07/21 Stop Date: 12/14/21 Status: Ordered Anoro Ellipta 62.5 mcg-25 mcg/inh inhalation powder 1 puffs, Inhalation, Daily, # 1 each, 0 Refills, Maintenance, 12/07/21 8:51:00 EDT, Powder, [facility] #[id number], Partial fill upon patient request if the [...]
--- OUTSIDE RECORDS SUMMARY | 2024-05-06 12:57 | XMS_ITS | Continuity of Care Document ---
Author Organization [facility] ter Address [address] [place] [address]- Care Team Providers Care Hoistman Name Role Phone Berlin CEVALLOS, Katherine Yancey Primary Care Physician Encounter [facility] [place] Date(s): 12/05/21 - 01/04/[address] [address]- Referring Physician: Regine Perry Allergies, Adverse Reactions, [...] 0 Refills, Maintenance, 12/07/21 8:51:00 EDT, Tablet, [facility] #[id number], Partial fill upon patient request if the prescription is fora schedule II opioid drug., 1 tablet By Mouth 3 colette... Start Date: 12/07/21 Stop Date: 12/14/21 Status: Ordered Anoro Ellipta 62.5 mcg-25 mcg/inh inhalation powder 1 puffs, Inhalation, Daily, # 1 each, 0 Refills, Maintenance, 12/07/21 8:51:00 EDT, Powder, [facility] #[id number], Partial fill upon patient request if the [...]
--- OUTSIDE RECORDS SUMMARY | 2024-05-06 12:57 | XMS_ITS | Continuity of Care Document ---
Author Organization [facility] Address [address] [place] [id number]- Care Team Providers Care Clinical Statistics Manager Name Role Phone [place] CEVALLOS, Katherine Yancey Primary Care Physician Encounter [facility] Date(s): 12/06/21 - 12/07/[address] [address]- Discharge Disposition: A-D/C Home Attending Physician: Jesus Phelps MD Admitting Physician: Cirilo Anderson MD Referring Physician: Cirilo Anderson MD Allergies, Adverse Reactions, Alerts No Known [...] 0 Refills, Maintenance, 12/07/21 8:51:00 EDT, Tablet, [facility] #[id number], Partial fill upon patient request if the prescription is fora schedule II opioid drug., 1 tablet By Mouth 3 colette... Start Date: 12/07/21 Stop Date: 12/14/21 Status: Ordered Anoro Ellipta 62.5 mcg-25 mcg/inh inhalation powder 1 puffs, Inhalation, Daily, # 1 each, 0 Refills, Maintenance, 12/07/21 8:51:00 EDT, Powder, [facility] #[id number], Partial fill upon patient request if the [...] mg, By Mouth, 3 times a day, PRN as needed for pain, for 7 days, # 21 tablet, 0 Refills, Acute 12/14/21 8:51:00 EDT, 12/07/21 8:51:00 EDT, Tablet, [facility] #[id number], Partial fill upon patient request if the prescription is for... Start Date: 12/07/21 Stop Date: 12/14/21 Status: Ordered MS Contin Tablet 15 mg, CR Tablet, By Mouth, 12/07/21 11:00:00 EDT Start Date: 12/07/21 Stop Date: 12/07/21 Status: Completed Probiotic Formula By Mouth, Daily, [...] Lumbago(Confirmed) Active Obese class I(Confirmed) Active Results Radiology Reports * Exam Date Time Procedure Performing Provider Status 12/05/21 8:01 PM Chest Portable Sissy Marina; Auth (V erified) Notes: (Chest Portable) Reason For Exam: Hypoxemia;Other: RESULT: Chest Portable Chest Portable Reason: Other:; Hypoxemia; Clinical Question(s): Atelectasis COMPARISON: None. FINDINGS: LINES AND TUBES: None. LUNGS AND PLEURA: Slightly patchy density both lung olvera likely atelectasis. There is a large hiatal hernia present. No pleural effusion. No pneumothorax. HEART, MEDIASTINUM AND ZOEY: Heart is normal in size. Normal upper mediastinal and hilar contour. BONES AND SOFT TISSUES: Pronounced arthropathy in both glenohumeral joints. IMPRESSION: No definite acute abnormality. Limited visualization of the left base secondary to large hernia better demonstrated on previous CT scan. WSN: [id number] Ordering Physician: Pancho Morales Dictated By: Paresh Ayala MD Dictated Date/Time: 12/05/21 9:39 pm Reviewed By: Paresh Ayala MD Signed By: Paresh Ayala MD Signed Date/Time: 12/05/21 9:39 pm Transcribed By: MARTHA Transcribed Date/Time: 12/05/21 9:33 pm Vital Signs Most recent to oldest [Reference Range]: 1 2 3 Height 152.4 cm (12/07/21 3:49 AM) 152.4 cm (12/07/21 12:44 AM) 152.4 cm (12/06/21 4:39 PM) Weight 80 kg (12/03/21 6:37 AM) 65.91 kg (11/29/21 9:19 AM) Oxygen Saturation [94-100 %] 96 % (12/07/21 7:00 AM) 96 % (12/07/21 3:49 AM) 93 % *L* (12/07/21 12:44 AM) Pulse Rate [55-90 bpm] 76 bpm (12/07/21 7:00 AM) 78 bpm (12/07/21 3:49 AM) 79 bpm (12/07/21 12:44 AM) Body Mass Index [18.5-24.99] 34.44 *>HHI* (12/03/21 6:37 AM) 28.38 *H* (11/29/21 9:19 AM) Blood Pressure [90-138/55-84 mm Hg] 150/88mm Hg *H* (12/07/21 7:00 AM) 133/70mm Hg (12/07/21 3:49 AM) 127/50mm Hg (12/07/21 12:44 AM) Respiratory Rate [16-30 br/min] 18 br/min (12/07/21 12:00 PM) 18 br/min (12/07/21 7:00 AM) 22 br/min (12/07/21 3:49 AM) Temperature [96.8-100.4 DegF] 98.6 DegF (12/07/21 7:00 AM) 98.4 DegF (12/07/21 3:49 AM) 98.1 DegF (12/07/21 12:44 AM) Liters per Minute 1 L/min (12/07/21 12:44 AM) 1 L/min (12/06/21 7:00 PM) 1 L/min (12/06/21 4:39 PM) Mode of Delivery (Oxygen) Nasal cannula (12/07/21 7:00 AM) Room air (12/07/21 3:49 AM) Nasal cannula (12/07/21 12:44 AM) Blood pressure sites Arm, right (12/07/21 7:00 AM) Arm, right (12/07/21 3:49 AM) Arm, right (12/07/21 12:44 AM) Temperature Route Oral (12/07/21 7:00 AM) Oral (12/07/21 3:49 AM) Oral (12/07/21 12:44 AM) Dry Weight 65.91 kg (11/29/21 9:19 AM) Weight Obtained Via Standing scale (12/03/21 6:37 AM) Medical Equipment Implanted Date:12/03/21Target Site:Pelvis and Genitalia Description Quantity MRI Company Model coloplast suspend fascia nadia 2 x 7 cm 1 coloplastsuspend fas reggie nadia 2 x 7 cm Unknown SINAN:No Information Assigning Authority: FDA
[2024-05-06] MEDS: iohexoL 350 MG/ML 100 ML INFUS..BTL IV (14:02)
--- NOTE | 2024-05-06 16:11 | PC.NURSE ---
sitter at bedside. pt is only arousable to sternal rub and nods back off immeditaly. awaits CT read to clear collar and proceed with care. skin pd. nsr.
--- NOTE | 2024-05-06 17:09 | PC.NURSE ---
poison control contacted. state to watch for FRONT COUNTER CLERK and resp depression. advise to watch overnight. no need for repeat EKG or labs unless there are changes noted in patient.
[2024-05-06 17:28] LABS: Glucose, Whole Blood 125 mg/dL (60-115)
--- NOTE | 2024-05-06 17:57 | PC.NURSE ---
collar removed by PA. pt fully ndressed and cleansed. was wearing brief. straight cathed. becoming more animated after interventions. r epeating Hilaria I don't want to go unable to assist with bed mobility. sitter remains at bedside. endorses SI.
--- NOTE | 2024-05-06 18:00 | MHC.EDTECH ---
washed patient up and changed her into a gown
--- NOTE | 2024-05-06 18:01 | MHC.EDTECH ---
patient belonging will be in the pod
[2024-05-06 18:23] LABS: Appearance Urine Cloudy; Color Urine Yellow; Glucose Urine UA Negative (Negative); Leukocyte Esterase Urine Moderate (2+) (Negative); Nitrite Urine Negative (Negative); PH 5.5 (5.0-9.0); Specific Gravity - Urine 1.025 (1.005-1.025); UMIC TRIGGER UACC YES; Urine Blood Trace (Negative); Urine Ketones Negative (Negative); Urine Protein Trace mg/dL (Neg-Trace)
[2024-05-06 18:30] LABS: Amphetamine Screen Urine POSITIVE (Not Detect); Barbiturates, Urine Not Detected (Not Detect); Benzodiazepines Screen Urine POSITIVE (Not Detect); Buprenorphine Scr Not Detected (Not Detect); Cannabinoid Screen Urine Not Detected (Not Detect); Cocaine Screen Urine Not Detected (Not Detect); Fentanyl, urine Not Detected (Not Detect); Methadone Screen, Urine Not Detected (Not Detect); Opiate Screen Urine Not Detected (Not Detect); Oxycodone Screen Urine Not Detected (Not Detect); Phencyclidine Screen Urine Not Detected (Not Detect)
[2024-05-06 18:43] LABS: Bacteria Urine 4+ (None Seen); RBC Urine 0-2 /HPF (0-2); UACC Culture Trigger YES
--- NOTE | 2024-05-06 19:01 | PM.IMHP ---
History of Present Illness Date of Service: 05/06/24 Attending physician on admission: Jorge A York Chief Complaint: ?hypoxia ,clonidine overdose 78 y/o F cardiomyopathy, heart failure, COPD, hiatal presenting status post intentional drug overdose, patient took clonazepam 0.5 mg unknown amount, between last night and this morning. Patient has been on the ground since last night at approximately 23:00. She has never done this before. She did endorse suicidal ideation with plan to overdose. She lives at home by herself. Initially she was groggy but during my examination she seems more awake could able to tell that she took unknown amount of clonazepam that is the only medication she overdosed. She unable to tell why she decided to to overdose of clonazepam. Denies any nausea vomiting abdominal pain or chest pain or fever or chills She has some dry cough otherwise, no new complaints-but because still somewhat sleepy so could not able to provide appropriate history. Sats were 73% on room air initially. Lab imaging EKG reviewed: WBC count 14 Sodium 146, potassium 3.0 Troponin 24, 2nd 1 is pending EKG-no ST changes, NSR CT head negative CT chest and abdomen pending UA is looks pyuria/bacteriuria, urine cultures -pending Review of Systems Review of Systems: Yes all other systems are reviewed and are negative [facility] Medical History Asymptomatic bacteriuria Hiatal hernia Hypertension HTN (hypertension) DVT (deep venous thrombosis) COPD (chronic obstructive pulmonary disease) Family History Father Pulmonary fibrosis Surgical History Previous back surgery Social History Household Members: None Housing: Apartment Do you presently have visiting nurse or other home services: Yes Patient Tobacco Use Status: Former Tobacco user Substance Use Type: Marijuana Advance Directives: Yes Advance Directives on File: Yes Advance Directives Date on File: 10/29/20 service: No Current occupational status: disabled Meds Allergies Allergy/AdvReac Type Severity Reaction Status Date / Time No Known Allergies Allergy Verified 05/06/24 11:26 Active Medications: Current Medications Acetaminophen (Acetaminophen 325 Mg Tablet) 650 mg PO Q6H PRN PRN Reason: Pain, Mild (Pain Scale 1-3), fever or headache Albuterol/Ipratropium (Albuterol/Iprat 2.5/0.5mg 3 Ml Ampul.Neb) 3 ml INHALE Q3H PRN PRN Reason: sob Calcium Carbonate (Calcium Carbonate 750 Mg Tab.Chew) 750 mg PO Q4H PRN PRN Reason: Heartburn Potassium Chloride (Potassium Chloride/H20) 10 meq in 100 mls @ 100 mls/hr IV Q1H KARL Stop: 05/06/24 22:29 Ceftriaxone Sodium 1 gm/ (Sodium Chloride) 50 mls @ 100 mls/hr IV ONCE ONE Stop: 05/06/24 19:16 Magnesium Hydroxide (Milk Of Magnesia 30 Ml Oral.Susp) 30 ml PO DAILY PRN PRN Reason: Constipation Melatonin (Melatonin 3 Mg Tablet) 6 mg PO BEDTIME PRN PRN Reason: Insomnia Sodium Chloride (0.9 % Sodium Chloride Flush 3 Ml Syringe) 3 ml IVFLUSH QSHIFT [facility] Home Medications ?Medication ?Instructions ?Recorded ?Confirmed ?Last Taken ?Type Bacillus subtilis 1.5 billion 1 tab PO DAILY 10/29/20 03/02/22 Unknown History cell-inulin 1 gram chewable tablet apixaban 5 mg tablet (Eliquis) 5 mg PO BID 10/29/20 03/02/22 02/16/22 History cholecalciferol (vitamin D3) 25 25 mcg PO DAILY 10/29/20 03/02/22 Unknown History mcg (1,000 unit) tablet dextroamphetamine-amphetamine 10 15 mg PO TID 10/29/20 03/02/22 Unknown History mg tablet (Adderall) duloxetine 60 mg capsule,delayed 60 mg PO DAILY 10/29/20 03/02/22 Unknown History release melatonin 1 mg tablet 12 mg PO BEDTIME 10/29/20 03/02/22 Unknown History albuterol sulfate 90 mcg/actuation 2 puff inhalation Q4H PRN 02/16/22 03/02/22 02/16/22 History aerosol inhaler Shortness Of Breath melatonin 3 mg tablet 12 mg PO BEDTIME PRN Sleep 02/16/22 03/02/22 Unknown History umeclidinium 62.5 mcg-vilanterol 1 puff PO DAILY 02/16/22 03/02/22 Unknown History 25 mcg/actuation powdr for inhalation (Anoro Ellipta) atorvastatin 80 mg tablet 80 mg PO DAILY 05/06/24 Unknown History clopidogrel 75 mg tablet 75 mg PO DAILY 05/06/24 Unknown History donepezil 10 mg tablet 10 mg PO BEDTIME 05/06/24 Unknown History furosemide 80 mg tablet 80 mg PO DAILY 05/06/24 Unknown History methenamine hippurate 1 gram tablet 1 g PO BID 05/06/24 Unknown History Physical Exam Vital Signs and Narrative: Vital Signs: Last Vital Signs Temp 97.9 F 05/06/24 18:05 Pulse 89 05/06/24 18:05 Resp 22 H 05/06/24 18:05 BP 105/37 L 05/06/24 18:05 Pulse Ox 92 05/06/24 18:05 O2 Del Method Nasal Cannula 05/06/24 18:05 O2 Flow Rate 2 05/06/24 18:05 BMI result Body Mass Index 38.0 exam limited due to patient cooperation Appearance: Alert.? Oriented X2.?little sleepy Eyes: Pupils equal, round and reactive to light.? ENT: Pharynx normal.? Moist mucous membranes. cvs: rrr, [id number] . res: clear to auscultation ,no rhonchii or wheezing abd: no rebound or guarding ,nt, bs present. ext pulses present , no cyanosis . neuro: nonfocal. Results Labs 05/06/24 11:34 05/06/24 11:34 Labs: Laboratory Results - last 24 hr 05/06/24 05/06/24 05/06/24 11:34 17:25 18:10 MCV 94.5 MCH 29.8 MCHC 31.5 RDW 14.0 Plt Count 270 MPV 10.1 Immature Gran % (Auto) 0.5 H Neut % (Auto) 82.2 H Lymph % (Auto) 12.3 L [place] % (Auto) 4.6 Eos % (Auto) 0.1 Baso % (Auto) 0.3 Lymph # (Auto) 1.7 Winston # (Auto) 0.7 Eos # (Auto) 0.0 Baso # (Auto) 0.0 Abs Immat Gran (auto) 0.07 H Absolute Neuts (auto) 11.5 H Absolute Nucleated RBC 0.000 Nucleated RBC % (auto) 0.0 Anion Gap 13 Estim Creat Clear Calc 34.5 Estimated GFR 37 POC Glucose 125 H Random Glucose 169 H Calcium 9.9 Magnesium 2.2 Total Bilirubin 0.4 AST 17 ALT 21 Alkaline Phosphatase 84 Total Creatine Kinase 50 Troponin I High Sens 24.1 H D Total Protein 7.3 Albumin 3.9 Lipase 30 Urine Color Yellow Urine Appearance Cloudy Urine pH 5.5 Ur Specific [place] 1.025 Urine Protein Trace Urine Glucose (UA) Negative Urine Ketones Negative Urine Blood Trace H Urine Nitrite Negative Ur Leukocyte Esterase Moderate (2+) H Urine RBC 0-2 Urine WBC 6-10 Ur Squamous Epith Cells 3-5 Urine Bacteria 4+ Hyaline Casts 11-20 Salicylates < 5.0 L Urine Opiates Screen Not Detected Ur Buprenorphine Scrn Not Detected Ur Oxycodone Screen Not Detected Urine Methadone Screen Not Detected Urine Fentanyl Screen Not Detected Acetaminophen < 3 Ur Barbiturates Screen Not Detected Ur Phencyclidine Scrn Not Detected Ur Amphetamines Screen POSITIVE H U Benzodiazepines Scrn POSITIVE H Urine Cocaine Screen Not Detected U Marijuana (THC) Screen Not Detected Ethyl Alcohol < 10 Imaging Radiologist's Impressions: Impressions Head CT 05/06/24 11:17 IMPRESSION: 1. No evidence of acute intracranial hemorrhage or edematous territorial infarction. Moderate underlying microangiopathy and generalized cerebral volume loss. 2. No evidence of acute fracture or traumatic subluxation of the cervical spine. Moderate to advanced multilevel degenerative spondyloarthropathy of the cervical spine. Electronically signed by: Fili Muonz DO 05/06/2024 06:03 PM EDT RP Cervical Spine CT 05/06/24 13:14 IMPRESSION: 1. No evidence of acute intracranial hemorrhage or edematous territorial infarction. Moderate underlying microangiopathy and generalized cerebral volume loss. 2. No evidence of acute fracture or traumatic subluxation of the cervical spine. Moderate to advanced multilevel degenerative spondyloarthropathy of the cervical spine. Electronically signed by: Fili Munoz DO 05/06/2024 06:03 PM EDT RP Assessment and Plan (1) UTI (urinary tract infection): Qualifiers: Urinary tract infection type: acute cystitis Hematuria presence: without hematuria Qualified Code(s): N30.00 - Acute cystitis without hematuria Status: Acute (2) Drug overdose: Qualifiers: Encounter type: initial encounter Injury intent: intentional self-harm Qualified Code(s): T50.902A - Poisoning by unspecified drugs, medicaments and biological substances, intentional self-harm, initial encounter Status: Acute (3) Hyperkalemia: Status: Acute (4) Hypernatremia: Status: Acute Plan 78 y/o F cardiomyopathy, heart failure, COPD, hiatal presenting status post intentional drug overdose: Patient admitted for clonidine overdose: ED discussed the case with poison control-admitted for monitoring respiratory status and tele. Patient on tele, pulse oximetry continuous U tox is positive for amphetamine, benzos. Mentation somewhat improving Will avoid sedating medications including clonazepam. Hypoxia- possible secondary to hypoventilation/atelectasis Continue pulse oximetry and oxygen, added nebs, incentive spirometry Patient's oxygen demand already improving currently on 98% on 2 L, taper down to titrate oxygen level of 90% Possible UTI: Started on ceftriaxone. Urine culture pending Cardiomyopathy ,history of CHF etiology unclear: Will reconcile medications once medication reconciliation is done. COPD: Will reconcile medication once reconciliation done. Will admit the patient might need 2 midnight stay considering clonidine overdose need close monitoring of neuro checks, pulse oximetry and telemetry, also patiently supplement oxygen for hypoxia, and antibiotic for UTI. Assessment and plan coordination time spent 70 minute, patient is DNR DNI MOLST form in chart. Quality Stroke Does the patient have a stroke diagnosis?: No VTE Prior VTE?: No VTE Risk Level:: Medical - moderate - high VTE Device Contraindication: N/A - Device Ordered VTE Drug Contraindication: N/A - Med Ordered
--- NOTE | 2024-05-06 19:12 | PC.NURSE ---
assumed care of pt at 1900 - pt belongings placed in pod locker #1
[2024-05-06 19:33] LABS: Troponin-I High Sensitivity 22.1 ng/L (<3.5-17.0)
--- NOTE | 2024-05-06 19:36 | PHA.MEDREC ---
Addendum entered by Jolene Oliver RPh 05/06/24 20:07: reviewed by [facility]. Original Note: Pharmacy Consult ? Medication Reconciliation Pharmacy has completed the medication reconciliation. Confirmed medications with patient daughter over the phone. Patient daughter was able to confirm everything but she was unsure the last time her mom took her medications.
[2024-05-06] MEDS: cefTRIAXone sodium 1 GM in 0.9 % Sodium Chloride 50 ML IV (20:00)
--- NOTE | 2024-05-06 21:44 | PC.NURSE ---
pt did not pass swallow eval, could not tolerate sip of water without coughing, suction provided, pt presents with increased wob, end tidal up to 56, MD Zhong aware - ordering deep suction by RT , vbg, and chest xray. plan of care ongoing
--- NOTE | 2024-05-06 21:45 | PC.NURSE ---
per MD Zhong pt remains NPO even meds
[2024-05-06 22:10] LABS: VBG Base Excess 5.8 mmol/L; VBG HCO3 34 mmol/L (22-26); VBG pCO2 70 mmHg; VBG pO2 9 mmHg
[2024-05-06] MEDS: Albuterol/Iprat 2.5/0.5MG 3 ML AMPUL.NEB INHALE (22:20)
[2024-05-06 22:38] LABS: Venous Blood Gas Refer to POC result
[2024-05-06] MEDS: Lactated Ringers 1,000 ML 999 ML IV (22:54)
[2024-05-06 23:35] LABS: ABG Base Excess 6.3 mmol/L; ABG HCO3 33 mmol/L (22-26); ABG pCO2 61 mmHg (32-45); ABG pH 7.34 (7.35-7.45); ABG pO2 76 mmHg (83-108)
--- NOTE | 2024-05-06 23:44 | PM.EVENT ---
Event Note Date of Service: 05/06/24 Event Note: ABG with resp acidosis with compensation, likely chronic. Will try NIV Time Spent With Patient Time: Total time managing care of this patient today ____ minutes.
[2024-05-07] VITALS (13 sets, daily range): BP systolic 104–174; BP diastolic 60–86; PULSE 71–104; RESP 16–22; TEMP 36.2–37.6; O2SAT 93–98; BMI 38.6
--- NOTE | 2024-05-07 | ECG_ITS ---
Test Reason : rythem check Blood Pressure : / mmHG Vent. Rate : 074 BPM Atrial Rate : 074 BPM P-R Int : 134 ms QRS Dur : 074 ms QT Int : 412 ms P-R-T Axes : 055 073 060 degrees QTc Int : 457 ms Normal sinus rhythm with sinus arrhythmia Normal ECG When compared with ECG of 06-MAY-2024 11:32, Premature ventricular complexes are no longer Present Nonspecific T wave abnormality has replaced inverted T waves in Inferior leads Nonspecific T wave abnormality no longer evident in Lateral leads Referred By: Jorge A York Electronically Signed By:ALMA ROSA SAENZ
[2024-05-07] MEDS: Potassium Chloride/H20 10 MEQ/100 ML PIGGYBACK 100 MEQ IV ×2 (01:00→08:46)
[2024-05-07 01:33] LABS: ABG Refer to POC result
--- NOTE | 2024-05-07 07:00 | CA_ITS ---
Transthoracic Echocardiogram Patient (Last, First, Middle): Qi Carrington, Gender: Female Date of : 1945 Age: 78 Procedure Date: 05/07/2024 Procedure Type: Transthoracic Echocardiogram [place] [facility] [place]: 152.4 cm Weight: 89.36 kg BSA: 1.85 m2 Heart Rate: 84 bpm BP: 119 / 75 mmHg Price Checker: DYLAN Referring MD: Jorge A York MD Spot Worker: Shahbaz Meraz MD Symptoms: Elevated troponin Study Quality: Adequate w contrast ECG Rhythm: Sinus with extra beats Conclusions: - 1. Normal LV ejection fraction of 60 65% with impaired relaxation filling pattern 2. Normal cardiac valvular Dopplers 3. Upper limits of normal RV systolic pressure 4. No gross pericardial effusion Findings Procedure Information Contrast agent, definity, is being given per protocol without apparent complications. The quality of the study was technically difficult. The study quality is limited by patients body habitus. Left Ventricle Normal left ventricular size, thickness, and systolic function. The visually estimated ejection fraction is between 60-65%. Spectral Doppler is indicative of an impaired relaxation filling pattern. E/E prime ratio is between 8 and 15 consistent with indeterminate filling pressures. Possible basal inferior and basal inferoseptal wall motion abnormality Right Ventricle Normal right ventricular cavity size and systolic function. Atria Both atria are normal in size. Interatrial shunt cannot be excluded. Aortic Valve There is mild calcification of the aortic valve. There is no aortic valve stenosis. There is no aortic valve regurgitation. Mitral Valve Normal mitral valve structure and function. There is trace mitral valve regurgitation. There is no mitral valve stenosis. Pulmonic Valve The pulmonic valve was not well visualized. Tricuspid Valve Likely normal tricuspid valve structure and function. There is trace tricuspid valve regurgitation. Normal right atrial pressure. There is no evidence of pulmonary hypertension. Great Vessels All visible segments of the aorta are normal in size. The pulmonary artery was not well visualized. There is no dilatation of the ascending aorta measuring 3.30 cm. Venous The inferior vena cava is normal in size. Pericardium/Pleural The pericardium was not well visualized. Prior Study Comparison Changes noted compared to prior study dated: 02/17/2022. LV systolic function is in normal range on this study Measurements 2D Linear Measurements IVSd: 0.68 0.6-0.9/0.6-1.0 cm LVIDd: 4.58 3.9-5.3/4.2-5.9 cm LVIDd Index: 2.48 2.4-3.2/2.2-3.1 cm/m2 LVIDs: 3.81 2.0-3.6 cm LA Diam: 2.20 2.7-3.8/3.0-4.0 cm LAIDs Index: 1.19 1.5-2.3 cm/m2 LVOT Diam: 2.00 3.0+(-)1.3 cm 2D Systolic Function EF 4C: 69.40 >55% EF 2C: 61.60 >55% EF BiP: 63.30 >55% Mitral Valve MV Pk E: 0.89 MV PK A: 1.02 MV Decel Time: 108.00 E/A: 0.90 E'Lateral: 5.44 E'Medial: 4.24 E/E' Med: 21.00 E/E' Lat: 16.40 PHT: 32.00 MVA PHT: 6.88 Decel Ashley: 8.24 Aortic Valve AoV Pk Davian: 1.42 AoV Pk Grad: 8.00 ROXANA: 2.01 LVOT LVOT Pk Davian: 0.92 LVOT Mn Davian: 0.66 LVOT VTI: 0.19 LVOT Pk Grad: 3.00 LVOT Mn Grad: 2.00 LVOT Diam: 2.00 LVOT Area: 3.14 Diastolic Function MV Pk E: 0.89 MV Pk A: 1.02 E/A: 0.90 E'Medial: 4.24 E/E' Med: 21.00 E' Laterial: 5.44 E/E' Lat: 16.40 Right Ventricle TAPSE (mm): 18.30 TVS' Davian: 9.70 Tricuspid Valve TR Pk Davian: 2.96 TR Pk Grad: 35.00 RA Press: 3.00 RVSP: 38.00 Great Vessels Aorta Sinus of Valsalva: 3.00 2.0-3.5 cm Ao Asc: 3.30 2.1-3.4 cm Pulmonary Valve PV Pk Davian: 0.62 Peak PV Grad: 2.00 Updated in Other Vendor System with Status of Final Shahbaz Meraz MD electronically signed on 05/07/2024 12:37:19 PM with status of Final
[2024-05-07] MEDS: Magnesium Sulfate/D5W 1 GM/100 ML PIGGYBACK IV (08:45)
[2024-05-07] MEDS: 0.9 % Sodium Chloride Flush 3 ML SYRINGE IVFLUSH ×2 (08:46→19:56)
[2024-05-07 09:33] LABS: Hematocrit 42.4 % (37.0-47.0); Hemoglobin 13.1 g/dl (12.0-16.0); Mean Corpuscular HGB Conc 30.9 g/dl (31.0-35.0); Mean Corpuscular Hemoglobin 29.7 pg (27.0-33.0); Mean Corpuscular Volume 96.1 fL (80.0-98.0); Mean Platelet Volume 10.4 fL (9.4-12.3); Platelet Count 202 X10*3/uL (160-400); Red Blood Count 4.41 X10*6/uL (4.20-5.50); Red Cell Distribution Width 14.2 % (11.0-16.0); White Blood Count 10.7 X10*3/uL (4.8-10.8)
[2024-05-07 09:37] LABS: VBG Base Excess 6.9 mmol/L; VBG HCO3 28 mmol/L (22-26); VBG pCO2 32 mmHg; VBG pH 7.56 (7.32-7.43); VBG pO2 83 mmHg
[2024-05-07 09:38] LABS: Venous Blood Gas Refer to POC result
--- NOTE | 2024-05-07 09:38 | PC.RT ---
ABG ordered, pt lethargic on bipap unable to pull mask off. Dr Connelly and at bedside. ICU consulted and a Rapid response is called over head on pt.
[2024-05-07 09:41] LABS: ABG Base Excess 8.5 mmol/L; ABG HCO3 33 mmol/L (22-26); ABG pCO2 48 mmHg (32-45); ABG pH 7.44 (7.35-7.45); ABG pO2 76 mmHg (83-108)
[2024-05-07 10:12] LABS: Glucose, Whole Blood 113 mg/dL (60-115)
[2024-05-07 10:15] LABS: Anion Gap 11 (12-20); Blood Urea Nitrogen 25 mg/dL (9-16); Calcium 9.2 mg/dL (8.4-10.2); Carbon Dioxide 28 mmol/L (22-29); Chloride 109 mmol/L (96-108); Creatinine Clr Calc Pharmacy 50.7; Estimated Glomerular Filt Rate 58; Glucose Random 127 mg/dL (60-115); Magnesium 2.1 mg/dL (1.6-2.6); Potassium 4.2 mmol/L (3.3-5.1); Sodium 144 mmol/L (135-145)
[2024-05-07] MEDS: flumazeniL 0.5 MG/5 ML VIAL 0.2 MG IVPUSH ×2 (10:28→11:38)
--- NOTE | 2024-05-07 10:48 | PC.RT ---
Rapid response called, pt noted on bipap 16/8 with 2 lpm O2. Pt noted lethargic and diff to arouse. MD at bedside. Pt removed from bipap post administration of flumazanil and starr well. Nursing aware.
[2024-05-07 12:38] LABS: ABG Refer to POC result
--- NOTE | 2024-05-07 13:01 | HO.PM.IMPN ---
Subjective Subjective Date of Service: 05/07/24 Interval History: Si with clonazepam very sleepy this morning -aurosable only to sternal rub last nigth was on bipap. Review of Systems no new fevers responded well to flumazanil. Physical Exam Vital Signs: Vital Signs: Last Vital Signs Temp 97.6 F 05/07/24 11:13 Pulse 87 05/07/24 11:13 Resp 18 05/07/24 11:13 BP 127/86 05/07/24 11:13 Pulse Ox 97 05/07/24 11:13 O2 Del Method Nasal Cannula 05/07/24 11:13 O2 Flow Rate 3 05/07/24 11:13 BMI result Body Mass Index 38.6 Appearance: Alert.? Oriented X1-2 , sleepy this morning -more aursable after iv flumaznil. cvs: rrr, [id number] . res: clear to auscultation ,no rhonchii or wheezing abd: no rebound or guarding ,nt, bs present. ext pulses present , no cyanosis . neuro:moves all ext Objective Data Active Medications Acetaminophen (Acetaminophen 325 Mg Tablet) 650 mg PO Q6H PRN PRN Reason: Pain, Mild (Pain Scale 1-3), fever or headache Albuterol Sulfate (Albuterol Sulfate 90 Mcg 8 Gm Inhaler) 2 puff INHALE Q4H PRN PRN Reason: Shortness Of Breath Albuterol/Ipratropium (Albuterol/Iprat 2.5/0.5mg 3 Ml Ampul.Neb) 3 ml INHALE Q3H PRN PRN Reason: sob Last Admin: 05/06/24 22:20 Dose: 3 ml Documented By: FREDO Amphetamine/Dextroamphetamine (Amphetamine Mixed Salts 10 Mg Tablet) 15 mg PO DAILY PRN PRN Reason: Mood Apixaban (Apixaban 5 Mg Tablet) 5 mg PO BID [facility] [place] Last Admin: 05/06/24 21:37 Dose: Not Given Ascorbic Acid (Ascorbic Acid 500 Mg Tablet) 500 mg PO BID [facility] [place] Atorvastatin Calcium (Atorvastatin Calcium 80 Mg Tablet) 80 mg PO DAILY [facility] [place] Calcium Carbonate (Calcium Carbonate 750 Mg Tab.Chew) 750 mg PO Q4H PRN PRN Reason: Heartburn Clopidogrel Bisulfate (Clopidogrel Bisulfate 75 Mg Tablet) 75 mg PO DAILY [facility] [place] Last Admin: 05/07/24 08:50 Dose: Not Given Documented By: DENISSE Non-Admin Reason: lethqargic unable to swallow safely Cyanocobalamin (Cyanocobalamin (Vitamin B-12) 1,000 Mcg Tablet) 1,000 mcg PO DAILY [facility] [place] Last Admin: 05/07/24 08:50 Dose: Not Given Documented By: DENISSE Non-Admin Reason: lethqargic unable to swallow safely Donepezil HCl (Donepezil Hcl 10 Mg Tablet) 10 mg PO BEDTIME [facility] [place] Ceftriaxone Sodium 1 gm/ (Sodium Chloride) 50 mls @ 100 mls/hr IV Q24H [facility] [place] Last Infusion: 05/06/24 20:30 Dose: Infused Documented By: JESSICA-AIRAM Magnesium Hydroxide (Milk Of Magnesia 30 Ml Oral.Susp) 30 ml PO DAILY PRN PRN Reason: Constipation Melatonin (Melatonin 3 Mg Tablet) 6 mg PO BEDTIME PRN PRN Reason: Insomnia Melatonin (Melatonin 3 Mg Tablet) 18 mg PO BEDTIME PRN PRN Reason: Sleep Methenamine Hippurate (Methenamine Hippurate 1 Gm Tablet) 1 gm PO BID [facility] [place] Non-Formulary Medication (Umeclidinium-Vilanterol [Anoro Ellipta]) 1 puff PO DAILY [facility] [place] Sodium Chloride (0.9 % Sodium Chloride Flush 3 Ml Syringe) 3 ml IVFLUSH QSHIFT [facility] [place] Last Admin: 05/07/24 08:46 Dose: 3 ml Documented By: DENISSE Vitamin D (Cholecalciferol (Vitamin D3) 25 Mcg Tablet) 25 mcg PO DAILY [facility] [place] Labs 05/07/24 09:25 05/07/24 09:25 Labs: Laboratory Results - last 24 hr 05/06/24 05/06/24 05/06/24 17:25 18:10 19:03 MCV MCH MCHC RDW Plt Count MPV Absolute Nucleated RBC Nucleated RBC % (auto) O2 Saturation ABG pH at Pt Temp ABG pCO2 at Pt Temp ABG pO2 at Pt Temp ABG HCO3 ABG Base Excess (Actual) VBG pH VBG pCO2 VBG pO2 VBG HCO3 VBG O2 Saturation VBG Base Excess Anion Gap Estim Creat Clear Calc Estimated GFR POC Glucose 125 H Random Glucose Calcium Magnesium Troponin I High Sens 22.1 H Urine Color Yellow Urine Appearance Cloudy Urine pH 5.5 Ur Specific [place] 1.025 Urine Protein Trace Urine Glucose (UA) Negative Urine Ketones Negative Urine Blood Trace H Urine Nitrite Negative Ur Leukocyte Esterase Moderate (2+) H Urine RBC 0-2 Urine WBC 6-10 Ur Squamous Epith Cells 3-5 Urine Bacteria 4+ Hyaline Casts 11-20 Urine Opiates Screen Not Detected Ur Buprenorphine Scrn Not Detected Ur Oxycodone Screen Not Detected Urine Methadone Screen Not Detected Urine Fentanyl Screen Not Detected Ur Barbiturates Screen Not Detected Ur Phencyclidine Scrn Not Detected Ur Amphetamines Screen POSITIVE H U Benzodiazepines Scrn POSITIVE H Urine Cocaine Screen Not Detected U Marijuana (THC) Screen Not Detected 05/06/24 05/06/24 05/07/24 22:02 23:24 09:25 MCV 96.1 MCH 29.7 MCHC 30.9 L RDW 14.2 Plt Count 202 D MPV 10.4 Absolute Nucleated RBC 0.000 Nucleated RBC % (auto) 0.0 O2 Saturation 94.0 ABG pH at Pt Temp 7.34 L ABG pCO2 at Pt Temp 61 H* ABG pO2 at Pt Temp 76 L ABG HCO3 33 H ABG Base Excess (Actual) 6.3 VBG pH 7.30 L VBG pCO2 70 VBG pO2 9 VBG HCO3 34 H VBG O2 Saturation 52.0 VBG Base Excess 5.8 Anion Gap 11 L Estim Creat Clear Calc 50.7 Estimated GFR 58 POC Glucose Random Glucose 127 H Calcium 9.2 D Magnesium 2.1 Troponin I High Sens Urine Color Urine Appearance Urine pH Ur Specific [place] Urine Protein Urine Glucose (UA) Urine Ketones Urine Blood Urine Nitrite Ur Leukocyte Esterase Urine RBC Urine WBC Ur Squamous Epith Cells Urine Bacteria Hyaline Casts Urine Opiates Screen Ur Buprenorphine Scrn Ur Oxycodone Screen Urine Methadone Screen Urine Fentanyl Screen Ur Barbiturates Screen Ur Phencyclidine Scrn Ur Amphetamines Screen U Benzodiazepines Scrn Urine Cocaine Screen U Marijuana (THC) Screen 05/07/24 05/07/24 05/07/24 09:32 09:33 09:37 MCV MCH MCHC RDW Plt Count MPV Absolute Nucleated RBC Nucleated RBC % (auto) O2 Saturation 95.0 ABG pH at Pt Temp 7.44 ABG pCO2 at Pt Temp 48 H ABG pO2 at Pt Temp 76 L ABG HCO3 33 H ABG Base Excess (Actual) 8.5 VBG pH 7.56 H VBG pCO2 32 VBG pO2 83 VBG HCO3 28 H VBG O2 Saturation 98.0 VBG Base Excess 6.9 Anion Gap Estim Creat Clear Calc Estimated GFR POC Glucose 113 Random Glucose Calcium Magnesium Troponin I High Sens Urine Color Urine Appearance Urine pH Ur Specific [place] Urine Protein Urine Glucose (UA) Urine Ketones Urine Blood Urine Nitrite Ur Leukocyte Esterase Urine RBC Urine WBC Ur Squamous Epith Cells Urine Bacteria Hyaline Casts Urine Opiates Screen Ur Buprenorphine Scrn Ur Oxycodone Screen Urine Methadone Screen Urine Fentanyl Screen Ur Barbiturates Screen Ur Phencyclidine Scrn Ur Amphetamines Screen U Benzodiazepines Scrn Urine Cocaine Screen U Marijuana (THC) Screen Microbiology Microbiology Results: Microbiology 05/06/24 18:44 Urine Culture - Preliminary Urine clean catch - Clean Catch Midstream Culture in progress. Assessment and Plan (1) Hypernatremia: Status: Acute (2) UTI (urinary tract infection): Status: Acute (3) Drug overdose: Status: Acute Assessment and Plan: 78 y/o F cardiomyopathy, heart failure, COPD, hiatal presenting status post intentional drug overdose: Patient admitted for clonazepam overdose: toxic /metabolic encephalopathy sec to clonazepam overdose U tox is positive for amphetamine, benzos. vbg from night reviewed and abg done -ph -compensated. night events noted- patient was on bipap last night, added flumazanil -patient seems to be more awake ,still becomes intermitent sleepy plan: avoid sedating medications including clonazepam. neurochecks prn flumaznil off biapap d/w pulm and icu : moniter respiratory status closely ,prn flumazanil in addition d/w patient daughter-patient full code considering her si/depression as well as unable to make decision yet . moniter pulse oxymetry,tele . icu recomended -continue current management ,no need for icu transfer yet. Hypoxia- possible secondary to hypoventilation/atelectasis Continue pulse oximetry and oxygen, nebs, incentive spirometry,chest physiotherapy Possible UTI: patient is unable to say detail hx. leucocytosis improved. Started on ceftriaxone(05/06) Urine culture pending Cardiomyopathy ,history of CHF etiology unclear: added her meds back . hold lasix for today since very sleepy ,poor oral intake start back coreg,statin COPD:not in excerbation continue nebs history of DVT eliquis ADD hold adderall due to sleepiness mood disorder hold cymbalta added psych eval ongoing overdose need close monitoring of benzodiazepine overdose -need neuro checks, pulse oximetry and telemetry,flumaznil, also patiently supplement oxygen for hypoxia, and antibiotic for UTI. d/w her daughter as above -patient is full code for now. Quality Stroke Does the patient have a stroke diagnosis?: No VTE Prior VTE?: No VTE Risk Level:: Medical - moderate - high VTE Device Contraindication: N/A - Device Ordered VTE Drug Contraindication: N/A - Med Ordered
--- NOTE | 2024-05-07 13:02 | P.CONPL_ITS ---
History of Present Illness History of Present Illness Consult date: 05/07/24 Chief complaint: Clonazepam Overdose Narrative: This is an inpatient pulmonary consultation. The patient currently is having altered mental state and all the information was gathered from the chart. The patient is a 78 y/o F cardiomyopathy, heart failure, COPD, hiatal presenting status post intentional drug overdose, patient took clonazepam 0.5 mg unknown amount, between last night and this morning. Patient has been on the ground since last night at approximately 23:00. She has never done this before. She did endorse suicidal ideation with plan to overdose. She lives at home by herself. Initially she was groggy but during my examination she seems more awake could able to tell that she took unknown amount of clonazepam that is the only medication she overdosed. She unable to tell why she decided to to overdose of clonazepam. The patient is admitted to the floor and was placed on BiPAP initially. Then she was taken off BiPAP and condition worsened. She became somnolent. Therefore Pulmonary was consulted. The patient currently on BiPAP. 08/16. We did request a blood gas and acid-base status stable. The patient did receive flumazenil for an antidote for her benzodiazepine overdose. She did have a positive response. I did talk to the patient's daughter, the patient does have a DNR. But, with her suicidal attempt in her mental illness along with the fact that we are dealing with a reversible condition the patient DNR code status should not hold. I did speak to the daughter and she has agreed to also reverse her code status to full code. I did relay this information to the primary team and also relay that information while the patient was having a rapid response. ICU was called to further address the issue. Although the patient has a normal acid-base status the patient may have issues protecting her airway. Therefore she needs to be closely monitoring for that. Review of Systems 2 Review of Systems: Yes Unobtainable due to mental status Neurologic: Reports confusion Psychiatric: Psychiatric: Reports confusion PMFSH Past Medical History Medical History Asymptomatic bacteriuria Hiatal hernia Hypertension HTN (hypertension) DVT (deep venous thrombosis) COPD (chronic obstructive pulmonary disease) Family History Family History Father Pulmonary fibrosis Surgical History Surgical History Previous back surgery Social History Social History Household Members: None Housing: Apartment Do you presently have visiting nurse or other home services: No Unable to assess alcohol history related to: Unknown Patient Tobacco Use Status: Former Tobacco user Substance Use Type: Marijuana Advance Directives Date on File: 10/29/20 service: No Current occupational status: disabled Meds Allergies Allergy/AdvReac Type Severity Reaction Status Date / Time No Known Allergies Allergy Verified 05/06/24 11:26 Active Medications: Current Medications Acetaminophen (Acetaminophen 325 Mg Tablet) 650 mg PO Q6H PRN PRN Reason: Pain, Mild (Pain Scale 1-3), fever or headache Albuterol Sulfate (Albuterol Sulfate 90 Mcg 8 Gm Inhaler) 2 puff INHALE Q4H PRN PRN Reason: Shortness Of Breath Albuterol/Ipratropium (Albuterol/Iprat 2.5/0.5mg 3 Ml Ampul.Neb) 3 ml INHALE Q3H PRN PRN Reason: sob Last Admin: 05/06/24 22:20 Dose: 3 ml Amphetamine/Dextroamphetamine (Amphetamine Mixed Salts 10 Mg Tablet) 15 mg PO DAILY PRN PRN Reason: Mood Apixaban (Apixaban 5 Mg Tablet) 5 mg PO BID [facility]AR[facility] Last Admin: 05/06/24 21:37 Dose: Not Given Ascorbic Acid (Ascorbic Acid 500 Mg Tablet) 500 mg PO BID [facility] Atorvastatin Calcium (Atorvastatin Calcium 80 Mg Tablet) 80 mg PO DAILY [facility] Calcium Carbonate (Calcium Carbonate 750 Mg Tab.Chew) 750 mg PO Q4H PRN PRN Reason: Heartburn Clopidogrel Bisulfate (Clopidogrel Bisulfate 75 Mg Tablet) 75 mg PO DAILY [facility] Cyanocobalamin (Cyanocobalamin (Vitamin B-12) 1,000 Mcg Tablet) 1,000 mcg PO DAILY [facility] Donepezil HCl (Donepezil Hcl 10 Mg Tablet) 10 mg PO BEDTIME [facility] Ceftriaxone Sodium 1 gm/ (Sodium Chloride) 50 mls @ 100 mls/hr IV Q24H [facility] Last Infusion: 05/06/24 20:30 Dose: Infused Magnesium Hydroxide (Milk Of Magnesia 30 Ml Oral.Susp) 30 ml PO DAILY PRN PRN Reason: Constipation Melatonin (Melatonin 3 Mg Tablet) 6 mg PO BEDTIME PRN PRN Reason: Insomnia Melatonin (Melatonin 3 Mg Tablet) 18 mg PO BEDTIME PRN PRN Reason: Sleep Methenamine Hippurate (Methenamine Hippurate 1 Gm Tablet) 1 gm PO BID [facility] Non-Formulary Medication (Umeclidinium-Vilanterol [Anoro Ellipta]) 1 puff PO DAILY [facility] Sodium Chloride (0.9 % Sodium Chloride Flush 3 Ml Syringe) 3 ml IVFLUSH QSHIFT [facility] Last Admin: 05/07/24 08:46 Dose: 3 ml Vitamin D (Cholecalciferol (Vitamin D3) 25 Mcg Tablet) 25 mcg PO DAILY [facility] Home Medications ?Medication ?Instructions ?Recorded ?Confirmed ?Last Taken ?Type Bacillus subtilis 1.5 billion 1 tab PO DAILY 10/29/20 05/06/24 Unknown History cell-inulin 1 gram chewable tablet apixaban 5 mg tablet (Eliquis) 5 mg PO BID 10/29/20 05/06/24 02/16/22 History cholecalciferol (vitamin D3) 25 25 mcg PO DAILY 10/29/20 05/06/24 Unknown History mcg (1,000 unit) tablet dextroamphetamine-amphetamine 10 15 mg PO DAILY PRN Mood 10/29/20 05/06/24 Unknown History mg tablet (Adderall) duloxetine 60 mg capsule,delayed 60 mg PO BID 10/29/20 05/06/24 Unknown History release albuterol sulfate 90 mcg/actuation 2 puff inhalation Q4H PRN 02/16/22 05/06/24 02/16/22 History aerosol inhaler Shortness Of Breath umeclidinium 62.5 mcg-vilanterol 1 puff PO DAILY 02/16/22 05/06/24 Unknown History 25 mcg/actuation powdr for inhalation (Anoro Ellipta) ascorbic acid (vitamin C) 500 mg 500 mg PO BID 05/06/24 05/06/24 Unknown History tablet (Vitamin C) atorvastatin 80 mg tablet 80 mg PO DAILY 05/06/24 05/06/24 Unknown History carvedilol 6.25 mg tablet 6.25 mg PO BID 05/06/24 05/06/24 Unknown History clopidogrel 75 mg tablet 75 mg PO DAILY 05/06/24 05/06/24 Unknown History cyanocobalamin (vitamin B-12) 1,000 mcg PO DAILY 05/06/24 05/06/24 Unknown History 1,000 mcg tablet (Vitamin B-12) donepezil 10 mg tablet 10 mg PO BEDTIME 05/06/24 05/06/24 Unknown History furosemide 80 mg tablet 80 mg PO DAILY 05/06/24 05/06/24 Unknown History melatonin 10 mg tablet 20 mg PO BEDTIME PRN Sleep 05/06/24 05/06/24 Unknown History methenamine hippurate 1 gram tablet 1 g PO BID 05/06/24 05/06/24 Unknown History mirtazapine 15 mg tablet 15 mg PO BEDTIME 05/06/24 05/06/24 Unknown History naproxen 220 mg-diphenhydramine 25 1 tab PO BEDTIME PRN Headache 05/06/24 05/06/24 Unknown History mg tablet Physical Exam 2 Vital Signs: Vital Signs: Last Vital Signs Temp 97.6 F 05/07/24 11:13 Pulse 87 05/07/24 11:13 Resp 18 05/07/24 11:13 BP 127/86 05/07/24 11:13 Pulse Ox 97 05/07/24 11:13 O2 Del Method Nasal Cannula 05/07/24 11:13 O2 Flow Rate 3 05/07/24 11:13 BMI result Body Mass Index 38.6 Const: Other: Sitting in a wheelchair General: confusion and lethargic Orientation/consciousness: confusion and lethargic HEENT: Head: Yes normocephalic Eyes: Pupils: Equal, round and reactive pupils present Neck: Neck: Yes normal visual inspection and Yes no JVD Chest: Chest palpation & inspection: normal inspection of the chest Resp: Effort & Inspection: decreased respiratory effort Auscultation: d iminished lung sounds Cardio: Palpation: normal PMI Rate: regular rate Rhythm: regular rhythm Heart sounds: S1 normal heart sound present and S2 normal heart sound present Peripheral pulses: Peripheral pulses 2+ throughout GI: Palpation (GI): Soft to palpation Neuro: General: confusion Cranial nerves: Yes Equal, round and reactive pupils present Motor exam (neuro): No Asterixis during motor activity present Extrem: General: Yes normal to inspection and No edema Results Laboratory Findings 05/07/24 09:25 05/07/24 09:25 Abnormal lab findings: Abnormal Labs 0805/06/24 05/06/24 11:34 17:25 18:10 WBC 14.0 H Hct 48.2 H MCHC Immature Gran % (Auto) 0.5 H Neut % (Auto) 82.2 H Lymph % (Auto) 12.3 L Abs Immat Gran (auto) 0.07 H Absolute Neuts (auto) 11.5 H ABG pH at Pt Temp ABG pCO2 at Pt Temp ABG pO2 at Pt Temp ABG HCO3 VBG pH VBG HCO3 Sodium 146 H Potassium 3.0 L D Chloride Carbon Dioxide 36 H Anion Gap BUN 34 H POC Glucose 125 H Random Glucose 169 H Troponin I High Sens 24.1 H D Urine Blood Trace H Ur Leukocyte Esterase Moderate (2+) H Salicylates < 5.0 L Ur Amphetamines Screen POSITIVE H U Benzodiazepines Scrn POSITIVE H 05/06/24 05/06/24 05/06/24 19:03 22:02 23:24 WBC Hct MCHC Immature Gran % (Auto) Neut % (Auto) Lymph % (Auto) Abs Immat Gran (auto) Absolute Neuts (auto) ABG pH at Pt Temp 7.34 L ABG pCO2 at Pt Temp 61 H* ABG pO2 at Pt Temp 76 L ABG HCO3 33 H VBG pH 7.30 L VBG HCO3 34 H Sodium Potassium Chloride Carbon Dioxide Anion Gap BUN POC Glucose Random Glucose Troponin I High Sens 22.1 H Urine Blood Ur Leukocyte Esterase Salicylates Ur Amphetamines Screen U Benzodiazepines Scrn 05/07/24 05/07/24 05/07/24 09:25 09:32 09:33 WBC Hct MCHC 30.9 L Immature Gran % (Auto) Neut % (Auto) Lymph % (Auto) Abs Immat Gran (auto) Absolute Neuts (auto) ABG pH at Pt Temp ABG pCO2 at Pt Temp 48 H ABG pO2 at Pt Temp 76 L ABG HCO3 33 H VBG pH 7.56 H VBG HCO3 28 H Sodium Potassium Chloride 109 H Carbon Dioxide Anion Gap 11 L BUN 25 H POC Glucose Random Glucose 127 H Troponin I High Sens Urine Blood Ur Leukocyte Esterase Salicylates Ur Amphetamines Screen U Benzodiazepines Scrn Microbiology: Microbiology 05/06/24 18:44 Urine clean catch - Clean Catch Midstream Urine Culture - Preliminary Culture in progress. Assessment and Plan (1) Acute hypercapnic respiratory failure: Status: Acute better on BIPAP (2) COPD (chronic obstructive pulmonary disease): Qualifiers: COPD type: chronic bronchitis Chronic bronchitis type: simple Q ualified Code(s): J41.0 - Simple chronic bronchitis Status: Acute (3) Drug overdose: Qualifiers: Encounter type: initial encounter Injury intent: intentional self-harm Qualified Code(s): T50.902A - Poisoning by unspecified drugs, medicaments and biological substances, intentional self-harm, initial encounter Status: Acute (4) Altered mental state: Qualifiers: Altered mental status type: somnolence Qualified Code(s): R40.0 - Somnolence Status: Acute Plan Would reverse code status to Full code. Daughter is aware. I also spoke to the team Should be transferred to ICU if worsens and if not protecting airway continue oxygen supplementation to keep pox 90-96% respiratory therapy Guarded Total time managing care of this patient today: 35 minutes. Procedures Date of Service Date of Service: 05/07/24
[2024-05-07] MEDS: Apixaban 5 MG TABLET PO ×2 (13:17→19:57)
[2024-05-07] MEDS: Methenamine Hippurate 1 GM TABLET PO ×2 (13:17→19:56)
[2024-05-07] MEDS: Ascorbic Acid 500 MG TABLET PO ×2 (13:18→19:57)
[2024-05-07] MEDS: Atorvastatin Calcium 80 MG TABLET PO (13:18)
[2024-05-07] MEDS: Cholecalciferol (Vitamin D3) 25 MCG TABLET PO (13:19)
[2024-05-07] MEDS: Clopidogrel Bisulfate 75 MG TABLET PO (13:19)
[2024-05-07] MEDS: Cyanocobalamin (Vitamin B-12) 1,000 MCG TABLET 1000 MCG PO (13:19)
--- NOTE | 2024-05-07 14:01 | MHC.CLN ---
NUTRITION CURRENTLY NPO, LAKESHIA=11 WITH REDNESS TO COCCYX NOTED. FOLLOW FOR DIET ADVANCEMENT.
--- NOTE | 2024-05-07 15:41 | MHC.SL.SWA ---
Speech Pathologist Impression: Risk of Aspiration Due to: Lethargy Dysphasia Diet Status: Liquid Consistency and Strategies for Safe Swallow: Liquid Intake Recommendation: Thin Liquid Intake Strategies: Unrestricted Solid Food Consistency: Dietary Recommendations: Regular Additional Modifications to Solid Foods: COLLEGE SERVICE OFFICER recommend REGULAR SOLIDS and THIN LIQUIDS. MEDS WHOLE with PUREE. COLLEGE SERVICE OFFICER will follow-up x1 to ensure tolerance. Oral Medication Intake: Whole with Liquid Please contact the pharmacy regarding appropriate crushable or liquid drug formulations that are available whenever modified delivery is recommended. Compensatory Strategies and Precautions to be Taken for Safe Swallow: Sitting Upright (90 deg) Small Bites and Sips Rate of Ingestion Change Supervision While Eating and Drinking for Safe Swallow: Total Supervision (1:1) Swallowing Recommended Treatments: Compens. Strategy Educat. Recommendation for Speech: Inpatient Speech Therapy Comment: COLLEGE SERVICE OFFICER recommend REGULAR SOLIDS and THIN LIQUIDS. MEDS WHOLE with PUREE. COLLEGE SERVICE OFFICER will follow-up x1 to ensure tolerance. Frequency/Duration: Daily Date Range for Service Req: Admission - Discharge Timeline to reassess: PRN News Correspondent Clinican/Clinical Fellow: No Supervisory Statement: I have reviewed and agree with the student/clinical fellow's documentation: N/A Speech Language Pathologist: Eric Newton M.A., CCC-COLLEGE SERVICE OFFICER
--- NOTE | 2024-05-07 17:11 | PM.CNGS ---
History of Present Illness Consult details Consult date: 05/07/24 Narrative: 78 y/o F cardiomyopathy, heart failure, COPD, hiatal presenting status post intentional drug overdose, patient took clonazepam 0.5 mg unknown amount, between last night and this morning. Patient came in and there was concern for a fall so she had a CT scan workup total body which showed lateral abdominal wall hernia with intestine but no evidence of any compromise. Surgical consultation is being carried out for this. On exam with the patient she is still very lethargic secondary to her medication and is unable to give a good story or even physical exam as I would like to have her stand but she is too drowsy to do that. Nursing staff have her on one-to-one Review of Systems Review of Systems: Yes Unobtainable due to mental status PMFSH Past Medical History Medical History Asymptomatic bacteriuria Hiatal hernia Hypertension HTN (hypertension) DVT (deep venous thrombosis) COPD (chronic obstructive pulmonary disease) Family History Family History Father Pulmonary fibrosis Surgical History Surgical History Previous back surgery Social History Social History Household Members: None Housing: Apartment Do you presently have visiting nurse or other home services: No Unable to assess alcohol history related to: Unknown Comment: 1:1 sitter Patient Tobacco Use Status: Former Tobacco user Substance Use Type: Marijuana Advance Directives Date on File: 10/29/20 service: No Current occupational status: disabled Meds Allergies Allergy/AdvReac Type Severity Reaction Status Date / Time No Known Allergies Allergy Verified 05/06/24 11:26 Active Medications: Current Medications Acetaminophen (Acetaminophen 325 Mg Tablet) 650 mg PO Q6H PRN PRN Reason: Pain, Mild (Pain Scale 1-3), fever or headache Albuterol Sulfate (Albuterol Sulfate 90 Mcg 8 Gm Inhaler) 2 puff INHALE Q4H PRN PRN Reason: Shortness Of Breath Albuterol/Ipratropium (Albuterol/Iprat 2.5/0.5mg 3 Ml Ampul.Neb) 3 ml INHALE Q3H PRN PRN Reason: sob Last Admin: 05/06/24 22:20 Dose: 3 ml Amphetamine/Dextroamphetamine (Amphetamine Mixed Salts 10 Mg Tablet) 15 mg PO DAILY PRN PRN Reason: Mood Apixaban (Apixaban 5 Mg Tablet) 5 mg PO BID [facility] Last Admin: 05/07/24 13:17 Dose: 5 mg Ascorbic Acid (Ascorbic Acid 500 Mg Tablet) 500 mg PO BID [facility] Last Admin: 05/07/24 13:18 Dose: 500 mg Atorvastatin Calcium (Atorvastatin Calcium 80 Mg Tablet) 80 mg PO DAILY [facility] Last Admin: 05/07/24 13:18 Dose: 80 mg Calcium Carbonate (Calcium Carbonate 750 Mg Tab.Chew) 750 mg PO Q4H PRN PRN Reason: Heartburn Clopidogrel Bisulfate (Clopidogrel Bisulfate 75 Mg Tablet) 75 mg PO DAILY [facility] Last Admin: 05/07/24 13:19 Dose: 75 mg Cyanocobalamin (Cyanocobalamin (Vitamin B-12) 1,000 Mcg Tablet) 1,000 mcg PO DAILY [facility] Last Admin: 05/07/24 13:19 Dose: 1,000 mcg Donepezil HCl (Donepezil Hcl 10 Mg Tablet) 10 mg PO BEDTIME [facility] Flumazenil (Flumazenil 0.5 Mg/5 Ml Vial) 0.2 mg IVPUSH Q5M PRN PRN Reason: benzodiazepine overdose Stop: 05/08/24 13:49 Ceftriaxone Sodium 1 gm/ (Sodium Chloride) 50 mls @ 100 mls/hr IV Q24H [facility] Last Infusion: 05/06/24 20:30 Dose: Infused Magnesium Hydroxide (Milk Of Magnesia 30 Ml Oral.Susp) 30 ml PO DAILY PRN PRN Reason: Constipation Melatonin (Melatonin 3 Mg Tablet) 6 mg PO BEDTIME PRN PRN Reason: Insomnia Melatonin (Melatonin 3 Mg Tablet) 18 mg PO BEDTIME PRN PRN Reason: Sleep Methenamine Hippurate (Methenamine Hippurate 1 Gm Tablet) 1 gm PO BID [facility] Last Admin: 05/07/24 13:17 Dose: 1 gm Non-Formulary Medication (Umeclidinium-Vilanterol [Anoro Ellipta]) 1 puff PO DAILY [facility] Sodium Chloride (0.9 % Sodium Chloride Flush 3 Ml Syringe) 3 ml IVFLUSH QSHIFT [facility] Last Admin: 05/07/24 08:46 Dose: 3 ml Vitamin D (Cholecalciferol (Vitamin D3) 25 Mcg Tablet) 25 mcg PO DAILY [facility] Last Admin: 05/07/24 13:19 Dose: 25 mcg Home Medications ?Medication ?Instructions ?Recorded ?Confirmed ?Last Taken ?Type Bacillus subtilis 1.5 billion 1 tab PO DAILY 10/29/20 05/06/24 Unknown History cell-inulin 1 gram chewable tablet apixaban 5 mg tablet (Eliquis) 5 mg PO BID 10/29/20 05/06/24 02/16/22 History cholecalciferol (vitamin D3) 25 25 mcg PO DAILY 10/29/20 05/06/24 Unknown History mcg (1,000 unit) tablet dextroamphetamine-amphetamine 10 15 mg PO DAILY PRN Mood 10/29/20 05/06/24 Unknown History mg tablet (Adderall) duloxetine 60 mg capsule,delayed 60 mg PO BID 10/29/20 05/06/24 Unknown History release albuterol sulfate 90 mcg/actuation 2 puff inhalation Q4H PRN 02/16/22 05/06/24 02/16/22 History aerosol inhaler Shortness Of Breath umeclidinium 62.5 mcg-vilanterol 1 puff PO DAILY 02/16/22 05/06/24 Unknown History 25 mcg/actuation powdr for inhalation (Anoro Ellipta) ascorbic acid (vitamin C) 500 mg 500 mg PO BID 05/06/24 05/06/24 Unknown History tablet (Vitamin C) atorvastatin 80 mg tablet 80 mg PO DAILY 05/06/24 05/06/24 Unknown History carvedilol 6.25 mg tablet 6.25 mg PO BID 05/06/24 05/06/24 Unknown History clopidogrel 75 mg tablet 75 mg PO DAILY 05/06/24 05/06/24 Unknown History cyanocobalamin (vitamin B-12) 1,000 mcg PO DAILY 05/06/24 05/06/24 Unknown History 1,000 mcg tablet (Vitamin B-12) donepezil 10 mg tablet 10 mg PO BEDTIME 05/06/24 05/06/24 Unknown History furosemide 80 mg tablet 80 mg PO DAILY 05/06/24 05/06/24 Unknown History melatonin 10 mg tablet 20 mg PO BEDTIME PRN Sleep 05/06/24 05/06/24 Unknown History methenamine hippurate 1 gram tablet 1 g PO BID 05/06/24 05/06/24 Unknown History mirtazapine 15 mg tablet 15 mg PO BEDTIME 05/06/24 05/06/24 Unknown History naproxen 220 mg-diphenhydramine 25 1 tab PO BEDTIME PRN Headache 05/06/24 05/06/24 Unknown History mg tablet Physical Exam Vital Signs: Vital Signs: Last Vital Signs Temp 97.2 F 05/07/24 15:05 Pulse 99 05/07/24 15:05 Resp 18 05/07/24 15:05 BP 122/86 05/07/24 15:05 Pulse Ox 95 05/07/24 15:05 O2 Del Method Nasal Cannula 05/07/24 15:05 O2 Flow Rate 2 05/07/24 15:05 BMI result Body Mass Index 38.6 GI: Other: Abdomen is soft nondistended nontender patient is obese. On exam of the left lateral abdominal wall area there is a bit of a line but I do not know if it is a incision scar versus a stretch honey. No significant palpable masses are noted It is difficult to appreciate the hernia area but she is not tender anywhere in her abdomen. Results Labs 05/07/24 09:25 05/07/24 09:25 Labs: Abnormal lab results 05/06/24 05/06/24 05/06/24 Range/Units 17:25 18:10 19:03 MCHC (31.0-35.0) g/dl ABG pH at Pt Temp (7.35-7.45) ABG pCO2 at Pt Temp (32-45) mmHg ABG pO2 at Pt Temp (83-108) mmHg ABG HCO3 (22-26) mmol/L VBG pH (7.32-7.43) VBG HCO3 (22-26) mmol/L Chloride (96-108) mmol/L Anion Gap (12-20) BUN (9-16) mg/dL POC Glucose 125 H (60-115) mg/dL Random Glucose (60-115) mg/dL Troponin I High Sens 22.1 H (<3.5-17.0) ng/L Urine Blood Trace H (Negative) Ur Leukocyte Esterase Moderate (2+) H (Negative) Ur Amphetamines Screen POSITIVE H (Not Detect) U Benzodiazepines Scrn POSITIVE H (Not Detect) 05/06/24 05/06/24 05/07/24 Range/Units 22:02 23:24 09:25 MCHC 30.9 L (31.0-35.0) g/dl ABG pH at Pt Temp 7.34 L (7.35-7.45) ABG pCO2 at Pt Temp 61 H* (32-45) mmHg ABG pO2 at Pt Temp 76 L (83-108) mmHg ABG HCO3 33 H (22-26) mmol/L VBG pH 7.30 L (7.32-7.43) VBG HCO3 34 H (22-26) mmol/L Chloride 109 H (96-108) mmol/L Anion Gap 11 L (12-20) BUN 25 H (9-16) mg/dL POC Glucose (60-115) mg/dL Random Glucose 127 H (60-115) mg/dL Troponin I High Sens (<3.5-17.0) ng/L Urine Blood (Negative) Ur Leukocyte Esterase (Negative) Ur Amphetamines Screen (Not Detect) U Benzodiazepines Scrn (Not Detect) 05/07/24 05/07/24 Range/Units 09:32 09:33 MCHC (31.0-35.0) g/dl ABG pH at Pt Temp (7.35-7.45) ABG pCO2 at Pt Temp 48 H (32-45) mmHg ABG pO2 at Pt Temp 76 L (83-108) mmHg ABG HCO3 33 H (22-26) mmol/L VBG pH 7.56 H (7.32-7.43) VBG HCO3 28 H (22-26) mmol/L Chloride (96-108) mmol/L Anion Gap (12-20) BUN (9-16) mg/dL POC Glucose (60-115) mg/dL Random Glucose (60-115) mg/dL Troponin I High Sens (<3.5-17.0) ng/L Urine Blood (Negative) Ur Leukocyte Esterase (Negative) Ur Amphetamines Screen (Not Detect) U Benzodiazepines Scrn (Not Detect) Short CBC 05/07/24 Range/Units 09:25 WBC 10.7 (4.8-10.8) X10*3/uL Hgb 13.1 (12.0-16.0) g/dl Hct 42.4 (37.0-47.0) % Plt Count 202 D (160-400) X10*3/uL BMP 05/07/24 09:25 Sodium 144 Potassium 4.2 D Chloride 109 H Carbon Dioxide 28 BUN 25 H Creatinine 0.94 Calcium 9.2 D Urine 05/06/24 Range/Units 18:10 Urine Color Yellow Urine Appearance Cloudy Urine pH 5.5 (5.0-9.0) Ur Specific [place] 1.025 (1.005-1.025) Urine Protein Trace (Neg-Trace) mg/dL Urine Glucose (UA) Negative (Negative) mg/dL All other labs normal. Imaging Additional studies: [address] [address] [address] Scan Report Signed Patient: Qi Carrington MR#: [id number] : 1945 Acct:[id number] Age/Sex: 78 / F ADM Date: 05/06/24 Loc: [facility]: Jorge A York MD Ordering Physician: Nahum Newton Date of Service: 05/06/24 Procedure(s): CT abdomen pelvis w IV con Accession Number(s): [id number] cc: Nahum Newton; Katherine Slade MD~ EXAMINATION: CT CHEST, ABDOMEN AND PELVIS WITH CONTRAST CLINICAL INFORMATION: Chest and abdominal pain after fall COMPARISON: CT angiogram chest February 16, 2022, CT lumbar spine January 20, 2021 TECHNIQUE: Multidetector volumetric imaging was performed from the thoracic inlet through the pubic symphysis following administration of 85 mL of Omnipaque 350. Sagittal and coronal reformatted images were obtained on the technologist's workstation. This CT examination was performed using dose optimization techniques as appropriate, variously including the following: *Automated exposure control *Adjustment of mA and/or kV according to patient size (this includes techniques or standardized protocols for targeted exams where dose is matched to indication/reason for exam; i.e. extremities or head) *Use of iterative reconstruction technique DLP: 602 mGy-cm FINDINGS: CHEST: Lung: Left hemidiaphragm is elevated. Basilar atelectasis is seen. No suspicious lung mass is seen. Mediastinum: The mediastinum is unremarkable. The central vascular structures are unremarkable. No hilar or mediastinal lymphadenopathy. Coronary Artery Calcium: Mild Pericardium/Pleura: No significant effusion. No pleural mass or thickening. Chest Wall/Axilla: Unremarkable there is marked respiratory artifact severely limiting for evaluation of rib fractures which could be present. Recommend plain film radiography if exclusion of rib fractures is desired. Heart ABDOMEN/PELVIS: Peritoneal Space: No significant free air or free fluid identified. Liver, Gallbladder, Biliary Tree: The liver is normal in size, shape, and attenuation. Benign hepatic cysts are present. No solid focal hepatic lesion or biliary ductal dilatation is present. The gallbladder is unremarkable with no evidence of radiopaque gallstones, gallbladder wall thickening, or obvious pericholecystic inflammatory changes. Pancreas: Unremarkable Spleen: Unremarkable Adrenal Glands: Unremarkable Kidneys and Ureters: The kidneys are normal in size, shape, and attenuation. No hydronephrosis, hydroureter, or calculi seen. Multiple collateral benign Bosniak class I renal cysts are noted which require no additional imaging or follow-up. No solid renal masses are seen. No perinephric stranding. Bladder: Unremarkable Gastrointestinal Tract: There is colonic diverticulosis present without evidence of diverticulitis. A moderate portion descending colon is in the left lateral/lumbar hernia sac. The small and large bowel are otherwise unremarkable. The appendix is unremarkable. Abdominal Wall: A large collateral/lumbar hernia is present on the left with the defect measuring about 5.5 cm with the hernia sac containing descending colon. No other abdominal wall hernias are seen. Lymph Nodes: No lymphadenopathy. Vascular: Calcific atherosclerotic changes are present in the aorta and iliofemoral vessels. There is no evidence of an abdominal aortic aneurysm.. The IVC appears unremarkable. PELVIC VISCERA: Unremarkable OSSEUS STRUCTURES: Severe degenerative changes are present throughout posterior fusion with pedicular screws at L2-S1. No screws are present at the L2-L3 level with a disc spacer present. Some chronic appearing compression fractures are seen. CT/CT abdomen pelvis w IV con IMPRESSION: A definitive cause for the patient's chest and abdominal pain has not been found. Incidental findings as described above. As mentioned above, there is marked respiratory motion artifact limiting evaluation especially for rib fractures. Fleischner guidelines were followed. Electronically signed by: Adrien Calderon MD 05/06/2024 06:58 PM EDT Dictated By: Adrien Calderon MD Signed By: <Electronically signed by Adrien Calderon MD in OV> 05/06/24 1858 DD/ 1121 TD/TT: 05/06/24 1405 Quality Analyst/Technical Writer: GENO Assessment and Plan (1) Flank hernia: Status: Acute Plan 78-year-old female incidental finding of left flank hernia on CT scan workup no evidence of any obstruction not painful. Would just continue observation. This patient has more worrisome social issues that are her priority. I think when she is more stable then we can get her standing and examined her that way that could be helpful. If this area starts to bother her she can wear a brace binder to support that is structure by think the potential for an obstruction secondary to this very wide mouth hernia is very low. Procedures Date of Service Date of Service: 05/08/24
[2024-05-07] MEDS: cefTRIAXone sodium 1 GM in 0.9 % Sodium Chloride 50 ML IV (19:53)
[2024-05-07] MEDS: Donepezil HCl 10 MG TABLET PO (19:57)
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
[2024-05-08] MEDS: 0.9 % Sodium Chloride Flush 3 ML SYRINGE IVFLUSH ×3 (00:14→10:42)
[2024-05-08 03:25] VITALS: BP 119/59; PULSE 100; RESP 18; TEMP 36.4; O2SAT 95
[2024-05-08] MEDS: OLANZapine 10 MG VIAL 5 MG IM (05:21)
--- NOTE | 2024-05-08 06:18 | PC.NURSE ---
0515 - Pt alert to person only - becoming agitated and aggressive?with staff, demanding/yelling for water - pt is currently NPO. Pt offered mouth swabs/moisturizer and threw them at staff. Pt pulling off tele leads and nasal cannula, refusing to put?back on. Unable to be educated and redirected.? Dr Zhong notified - Zyprexa?5mg IM?ordered and administered to help pt participate in care.?
[2024-05-08 07:21] VITALS: BP 116/60; PULSE 101; RESP 17; TEMP 36.4; O2SAT 92
--- NOTE | 2024-05-08 08:25 | MHC.CM.PN ---
IMM 05/08/24, pt lives alone, she has HCP; Vilma on file and confirmed. She has 2 hours a day [employer] services and she said a nurse that visits through [facility]. She said that she does not use any medical equipment. transport home at DC is TBD. DCP is eval by CARE team due to pt suicide attempt. CM will follow for DC needs.
--- NOTE | 2024-05-08 08:47 | P.PNPL_ITS ---
Subjective Subjective Date of Service: 05/08/24 Interval history: The patient was seen examined this morning. Seems to be awake. She is answering questions and her mentation appears to be back to her baseline. Requesting to go home. She did not use BiPAP last night. No need to get a blood gas this time since the acute hypercarbic respiratory failure has improved. Objective Data Labs 05/07/24 09:25 05/07/24 09:25 Labs: Laboratory Results - last 24 hr 05/07/24 05/07/24 05/07/24 09:25 09:32 09:33 WBC 10.7 RBC 4.41 Hgb 13.1 Hct 42.4 MCV 96.1 MCH 29.7 MCHC 30.9 L RDW 14.2 Plt Count 202 D MPV 10.4 Absolute Nucleated RBC 0.000 Nucleated RBC % (auto) 0.0 O2 Saturation 95.0 ABG pH at Pt Temp 7.44 ABG pCO2 at Pt Temp 48 H ABG pO2 at Pt Temp 76 L ABG HCO3 33 H ABG Base Excess (Actual) 8.5 VBG pH 7.56 H VBG pCO2 32 VBG pO2 83 VBG HCO3 28 H VBG O2 Saturation 98.0 VBG Base Excess 6.9 Sodium 144 Potassium 4.2 D Chloride 109 H Carbon Dioxide 28 Anion Gap 11 L BUN 25 H Creatinine 0.94 Estim Creat Clear Calc 50.7 Estimated GFR 58 POC Glucose Random Glucose 127 H Calcium 9.2 D Magnesium 2.1 05/07/24 09:37 WBC RBC Hgb Hct MCV MCH MCHC RDW Plt Count MPV Absolute Nucleated RBC Nucleated RBC % (auto) O2 Saturation ABG pH at Pt Temp ABG pCO2 at Pt Temp ABG pO2 at Pt Temp ABG HCO3 ABG Base Excess (Actual) VBG pH VBG pCO2 VBG pO2 VBG HCO3 VBG O2 Saturation VBG Base Excess Sodium Potassium Chloride Carbon Dioxide Anion Gap BUN Creatinine Estim Creat Clear Calc Estimated GFR POC Glucose 113 Random Glucose Calcium Magnesium Microbiology Microbiology Results: Microbiology 05/06/24 18:44 Urine clean catch - Clean Catch Midstream Urine Culture - Preliminary Culture in progress. Review of Systems Constitutional: Denies fever(s) Eyes: Reports no additional eye complaints Reports system reviewed and no additional complaints, except as documented Cardiovascular: Reports no additional cardiovascular complaints Respiratory: Reports cough and Reports wheezing Gastrointestinal: Reports no additional gastrointestinal complaints Musculoskeletal: Reports no additional musculoskeletal complaints Reports system reviewed and no additional complaints, except as documented Psychiatric: Reports as per HPI Hematologic/Lymphatic: Reports no additional hematologic/lymphatic complaints Allergic/Immunologic: Reports wheezing Physical Exam 2 Vital Signs: Vital Signs: Last Vital Signs Temp 97.5 F 05/08/24 07:21 Pulse 101 H 05/08/24 07:21 Resp 17 05/08/24 07:21 BP 116/60 05/08/24 07:21 Pulse Ox 92 05/08/24 07:21 O2 Del Method Nasal Cannula 05/08/24 07:21 O2 Flow Rate 2 05/08/24 07:21 BMI result Body Mass Index 38.6 Const: General: comfortable Orientation/consciousness: oriented to person and oriented to place HEENT: Head: Yes normocephalic Neck: Neck: Yes supple Chest: Chest palpation & inspection: normal inspection of the chest Resp: Effort & Inspection: normal respiratory effort and able to speak in complete sentences Cardio: Heart sounds: S1 normal heart sound present and S2 normal heart sound present GI: Palpation (GI): Soft to palpation Neuro: General: oriented to person, oriented to place and moves all extremities Extrem: General: Yes no clubbing, cyanosis or edema Procedures Date of Service Date of Service: 05/08/24 Assessment and Plan Assessment and plan (1) Acute hypercapnic respiratory failure: Problem details: resolved Status: Acute (2) Drug overdose: Status: Acute (3) COPD (chronic obstructive pulmonary disease): Status: Acute Plan Clinically the patient is doing better this time. Her last blood gas was reassuring. No evidence of any further hypercarbia. Currently has a one-to-one because her suicidal attempt Continue respiratory therapy At this point will follow PRN Time Spent With Patient Time: Total time managing care of this patient today ____ minutes. Progress Note: Quality Stroke Does the patient have a stroke diagnosis?: No
[2024-05-08] MEDS: Clopidogrel Bisulfate 75 MG TABLET PO (10:41)
[2024-05-08] MEDS: Apixaban 5 MG TABLET PO (10:41)
[2024-05-08] MEDS: Methenamine Hippurate 1 GM TABLET PO (10:41)
[2024-05-08] MEDS: Ascorbic Acid 500 MG TABLET PO (10:41)
[2024-05-08] MEDS: Cholecalciferol (Vitamin D3) 25 MCG TABLET PO (10:41)
[2024-05-08] MEDS: Cyanocobalamin (Vitamin B-12) 1,000 MCG TABLET 1000 MCG PO (10:41)
[2024-05-08] MEDS: Atorvastatin Calcium 80 MG TABLET PO (10:41)
[2024-05-08 11:11] VITALS: BP 155/82; PULSE 93; RESP 17; TEMP 36.2; O2SAT 95
--- NOTE | 2024-05-08 13:24 | MHC.CLN ---
F/U DIET ADVANCED TO REGULAR. SKIN WITH STAGE I TO SACRUM/COCCYX. NO NEW NUTRITION INTERVENTIONS.
--- NOTE | 2024-05-08 14:10 | P.PNIM_ITS ---
Subjective Subjective Date of Service: 05/08/24 Interval History: sleepy, no complaints, denies SI Review of Systems Review of Systems: Yes all other systems are reviewed and are negative Physical Exam 2 Vital Signs: Vital Signs: Last Vital Signs Temp 97.1 F 05/08/24 11:11 Pulse 93 05/08/24 11:11 Resp 17 05/08/24 11:11 BP 155/82 H 05/08/24 11:11 Pulse Ox 95 05/08/24 11:11 O2 Del Method Nasal Cannula 05/08/24 11:11 O2 Flow Rate 2 05/08/24 11:11 BMI result Body Mass Index 38.6 lethargic, oriented to person, place, time no acute distress lungs clear Objective Data Active Medications Acetaminophen (Acetaminophen 325 Mg Tablet) 650 mg PO Q6H PRN PRN Reason: Pain, Mild (Pain Scale 1-3), fever or headache Albuterol Sulfate (Albuterol Sulfate 90 Mcg 8 Gm Inhaler) 2 puff INHALE Q4H PRN PRN Reason: Shortness Of Breath Albuterol/Ipratropium (Albuterol/Iprat 2.5/0.5mg 3 Ml Ampul.Neb) 3 ml INHALE Q3H PRN PRN Reason: sob Last Admin: 05/06/24 22:20 Dose: 3 ml Documented By: FREDO Amphetamine/Dextroamphetamine (Amphetamine Mixed Salts 10 Mg Tablet) 15 mg PO DAILY PRN PRN Reason: Mood Apixaban (Apixaban 5 Mg Tablet) 5 mg PO BID [facility] Last Admin: 05/08/24 10:41 Dose: 5 mg Documented By: JOSE Ascorbic Acid (Ascorbic Acid 500 Mg Tablet) 500 mg PO BID [facility] Last Admin: 05/08/24 10:41 Dose: 500 mg Documented By: JOSE Atorvastatin Calcium (Atorvastatin Calcium 80 Mg Tablet) 80 mg PO DAILY [facility] Last Admin: 05/08/24 10:41 Dose: 80 mg Documented By: JOSE Calcium Carbonate (Calcium Carbonate 750 Mg Tab.Chew) 750 mg PO Q4H PRN PRN Reason: Heartburn Clopidogrel Bisulfate (Clopidogrel Bisulfate 75 Mg Tablet) 75 mg PO DAILY [facility] Last Admin: 05/08/24 10:41 Dose: 75 mg Documented By: JOSE Cyanocobalamin (Cyanocobalamin (Vitamin B-12) 1,000 Mcg Tablet) 1,000 mcg PO DAILY [facility] Last Admin: 05/08/24 10:41 Dose: 1,000 mcg Documented By: JSOE Donepezil HCl (Donepezil Hcl 10 Mg Tablet) 10 mg PO BEDTIME [facility] Last Admin: 05/07/24 19:57 Dose: 10 mg Documented By: CHRISS Ceftriaxone Sodium 1 gm/ (Sodium Chloride) 50 mls @ 100 mls/hr IV Q24H [facility] Last Infusion: 05/07/24 20:28 Dose: Infused Documented By: CHRISS Magnesium Hydroxide (Milk Of Magnesia 30 Ml Oral.Susp) 30 ml PO DAILY PRN PRN Reason: Constipation Melatonin (Melatonin 3 Mg Tablet) 6 mg PO BEDTIME PRN PRN Reason: Insomnia Melatonin (Melatonin 3 Mg Tablet) 18 mg PO BEDTIME PRN PRN Reason: Sleep Methenamine Hippurate (Methenamine Hippurate 1 Gm Tablet) 1 gm PO BID [facility] Last Admin: 05/08/24 10:41 Dose: 1 gm Documented By: JOSE Non-Formulary Medication (Umeclidinium-Vilanterol [Anoro Ellipta]) 1 puff PO DAILY [facility] Sodium Chloride (0.9 % Sodium Chloride Flush 3 Ml Syringe) 3 ml IVFLUSH QSHIFT [facility] Last Admin: 05/08/24 10:42 Dose: 3 ml Documented By: JOSE Vitamin D (Cholecalciferol (Vitamin D3) 25 Mcg Tablet) 25 mcg PO DAILY [facility] Last Admin: 05/08/24 10:41 Dose: 25 mcg Documented By: JOSE Labs 05/07/24 09:25 05/07/24 09:25 Microbiology Microbiology Results: Microbiology 05/06/24 18:44 Urine Culture - Preliminary Urine clean catch - Clean Catch Midstream Gram negative hailey Assessment and Plan (1) Hypernatremia: Status: Acute (2) UTI (urinary tract infection): Status: Acute (3) Drug overdose: Status: Acute Assessment and Plan: 78F PMH cardiomyopathy, heart failure with recovered EF, COPD, hiatal presented status post intentional drug overdose Patient admitted for clonazepam overdose: acute toxic /metabolic encephalopathy sec to clonazepam overdose U tox is positive for amphetamine, benzos. mental status improving, but not at baseline will need crisis evla prior to discharge acute Hypoxic respiratory failure possible secondary to hypoventilation/atelectasis Continue pulse oximetry and oxygen, nebs, incentive spirometry,chest physiotherapy wean as toelrated Possible UTI: patient is unable to say detail hx. Started on ceftriaxone(05/06) Urine culture pending - GNR Cardiomyopathy ,chf with recovered EF stable lasix, coreg, statin COPD not in excerbation anoro ellipta history of DVT eliquis mood disorder cymbalta dvt prophylaxis - eliquis DNR/DNI reason for continued hospitalization: not at baseline mental status Quality Stroke Does the patient have a stroke diagnosis?: No VTE Prior VTE?: No VTE Risk Level:: Medical - moderate - high VTE Device Contraindication: N/A - Device Ordered VTE Drug Contraindication: N/A - Med Ordered
[2024-05-08 16:00] VITALS: BP 131/83; PULSE 95; RESP 18; TEMP 37; O2SAT 97
--- NOTE | 2024-05-08 19:27 | PC.NURSE ---
approx 1800 patient co difficulty breathing, she had removed her tele leads and oxygen sensor, rn called respiratory therapy, treatment administered and patient oxygen went from 88% to 98-100%. patient heart rate during episode 120's-130's. after patient was back to sleep and breathing easier heart rate down to mid teens. md aware during of episode. patient also verbally abusive towards rn at times earlier in shift
[2024-05-08 19:43] VITALS: BP 119/59; PULSE 114; RESP 18; TEMP 37.4; O2SAT 95
[2024-05-08] MEDS: cefTRIAXone sodium 1 GM in 0.9 % Sodium Chloride 50 ML IV (22:07)
[2024-05-09] VITALS (9 sets, daily range): BP systolic 94–145; BP diastolic 53–74; PULSE 88–99; RESP 18–20; TEMP 36.1–36.9; O2SAT 90–97
[2024-05-09] MEDS: 0.9 % Sodium Chloride Flush 3 ML SYRINGE IVFLUSH ×3 (00:09→17:29)
--- NOTE | 2024-05-09 05:32 | PM.EVENT ---
Event Note Date of Service: 05/09/24 Event Note: Blood pressure low on admission due to clonazepam overdose. No sepsis or severe sepsis on admission. Time Spent With Patient Time: Total time managing care of this patient today ____ minutes.
[2024-05-09] MEDS: Methenamine Hippurate 1 GM TABLET PO ×2 (09:15→20:52)
[2024-05-09] MEDS: Cholecalciferol (Vitamin D3) 25 MCG TABLET PO (09:15)
[2024-05-09] MEDS: Furosemide 40 MG TABLET 80 MG PO (09:15)
[2024-05-09] MEDS: DULoxetine HCl 60 MG CAPSULE.DR PO ×2 (09:15→20:52)
[2024-05-09] MEDS: Clopidogrel Bisulfate 75 MG TABLET PO (09:15)
[2024-05-09] MEDS: carvediloL 6.25 MG TABLET PO ×2 (09:15→20:52)
[2024-05-09] MEDS: Ascorbic Acid 500 MG TABLET PO ×2 (09:15→20:52)
[2024-05-09] MEDS: Atorvastatin Calcium 80 MG TABLET PO (09:15)
[2024-05-09] MEDS: Apixaban 5 MG TABLET PO ×2 (09:15→20:52)
[2024-05-09] MEDS: Cyanocobalamin (Vitamin B-12) 1,000 MCG TABLET 1000 MCG PO (09:15)
--- NOTE | 2024-05-09 10:30 | P.PNIM_ITS ---
Subjective Subjective Date of Service: 05/09/24 Interval History: more alert, wants to go home Physical Exam 2 Vital Signs: Vital Signs: Last Vital Signs Temp 98.0 F 05/09/24 08:00 Pulse 93 05/09/24 09:15 Resp 20 05/09/24 08:00 BP 145/74 H 05/09/24 09:15 Pulse Ox 97 05/09/24 08:00 O2 Del Method Room Air 05/09/24 08:00 O2 Flow Rate 2 05/09/24 03:59 BMI result Body Mass Index 38.6 lethargic, oriented to person, place, time no acute distress lungs clear Objective Data Active Medications Acetaminophen (Acetaminophen 325 Mg Tablet) 650 mg PO Q6H PRN PRN Reason: Pain, Mild (Pain Scale 1-3), fever or headache Albuterol Sulfate (Albuterol Sulfate 90 Mcg 8 Gm Inhaler) 2 puff INHALE Q4H PRN PRN Reason: Shortness Of Breath Albuterol/Ipratropium (Albuterol/Iprat 2.5/0.5mg 3 Ml Ampul.Neb) 3 ml INHALE Q3H PRN PRN Reason: sob Last Admin: 05/06/24 22:20 Dose: 3 ml Documented By: FREDO Amphetamine/Dextroamphetamine (Amphetamine Mixed Salts 10 Mg Tablet) 15 mg PO DAILY PRN PRN Reason: Mood Apixaban (Apixaban 5 Mg Tablet) 5 mg PO BID [facility] Last Admin: 05/09/24 09:15 Dose: 5 mg Documented By: JANES Ascorbic Acid (Ascorbic Acid 500 Mg Tablet) 500 mg PO BID [facility] Last Admin: 05/09/24 09:15 Dose: 500 mg Documented By: JANES Atorvastatin Calcium (Atorvastatin Calcium 80 Mg Tablet) 80 mg PO DAILY [facility] Last Admin: 05/09/24 09:15 Dose: 80 mg Documented By: JANES Calcium Carbonate (Calcium Carbonate 750 Mg Tab.Chew) 750 mg PO Q4H PRN PRN Reason: Heartburn Carvedilol (Carvedilol 6.25 Mg Tablet) 6.25 mg PO BID [facility]; Protocol Last Admin: 05/09/24 09:15 Dose: 6.25 mg Documented By: JANES Clopidogrel Bisulfate (Clopidogrel Bisulfate 75 Mg Tablet) 75 mg PO DAILY [facility] Last Admin: 05/09/24 09:15 Dose: 75 mg Documented By: JANES Cyanocobalamin (Cyanocobalamin (Vitamin B-12) 1,000 Mcg Tablet) 1,000 mcg PO DAILY [facility] Last Admin: 05/09/24 09:15 Dose: 1,000 mcg Documented By: JANES Donepezil HCl (Donepezil Hcl 10 Mg Tablet) 10 mg PO BEDTIME [facility] Last Admin: 05/08/24 22:25 Dose: Not Given Documented By: NATALIA Non-Admin Reason: Patient Asleep Duloxetine HCl (Duloxetine Hcl 60 Mg Capsule.Dr) 60 mg PO BID [facility] Last Admin: 05/09/24 09:15 Dose: 60 mg Documented By: AJNES Furosemide (Furosemide 40 Mg Tablet) 80 mg PO DAILY [facility]; Protocol Last Admin: 05/09/24 09:15 Dose: 80 mg Documented By: JANES Ceftriaxone Sodium 1 gm/ (Sodium Chloride) 50 mls @ 100 mls/hr IV Q24H [facility] Last Infusion: 05/08/24 23:03 Dose: Infused Documented By: NATALIA Magnesium Hydroxide (Milk Of Magnesia 30 Ml Oral.Susp) 30 ml PO DAILY PRN PRN Reason: Constipation Melatonin (Melatonin 3 Mg Tablet) 6 mg PO BEDTIME PRN PRN Reason: Insomnia Melatonin (Melatonin 3 Mg Tablet) 18 mg PO BEDTIME PRN PRN Reason: Sleep Methenamine Hippurate (Methenamine Hippurate 1 Gm Tablet) 1 gm PO BID [facility] Last Admin: 05/09/24 09:15 Dose: 1 gm Documented By: JANES Non-Formulary Medication (Umeclidinium-Vilanterol [Anoro Ellipta]) 1 puff PO DAILY [facility] Sodium Chloride (0.9 % Sodium Chloride Flush 3 Ml Syringe) 3 ml IVFLUSH QSHIFT [facility] Last Admin: 05/09/24 09:15 Dose: 3 ml Documented By: JANES Vitamin D (Cholecalciferol (Vitamin D3) 25 Mcg Tablet) 25 mcg PO DAILY [facility] Last Admin: 05/09/24 09:15 Dose: 25 mcg Documented By: JANES Labs 05/07/24 09:25 05/07/24 09:25 Microbiology Microbiology Results: Microbiology 05/06/24 18:44 Urine Culture - Final Urine clean catch - Clean Catch Midstream Escherichia coli Escherichia coli#2 Assessment and Plan (1) Hypernatremia: Status: Acute (2) UTI (urinary tract infection): Status: Acute (3) Drug overdose: Status: Acute Assessment and Plan: 78F PMH cardiomyopathy, heart failure with recovered EF, COPD, hiatal presented status post intentional drug overdose Patient admitted for clonazepam overdose: acute toxic /metabolic encephalopathy sec to clonazepam overdose U tox is positive for amphetamine, benzos. mental status improving, but not at baseline will need crisis evalutation prior to discharge acute Hypoxic respiratory failure possible secondary to hypoventilation/atelectasis Continue pulse oximetry and oxygen, nebs, incentive spirometry,chest physiotherapy wean as tolerated Possible UTI: patient is unable to say detail hx. Started on ceftriaxone(05/06) Urine culture - ecoli, sensitive to ceftriaxone Cardiomyopathy ,chf with recovered EF stable lasix, coreg, statin COPD not in excerbation anoro ellipta history of DVT eliquis mood disorder cymbalta dvt prophylaxis - eliquis DNR/DNI reason for continued hospitalization: not at baseline mental status Quality Stroke Does the patient have a stroke diagnosis?: No VTE Prior VTE?: No VTE Risk Level:: Medical - moderate - high VTE Device Contraindication: N/A - Device Ordered VTE Drug Contraindication: N/A - Med Ordered
--- NOTE | 2024-05-09 13:17 | MHC.SLORD ---
Speech Language Pathology Order Status: Attempted to see patient at lunch, RN reported patient had been medicated earlier, and was currently unarousable. RESEARCH DEVELOPMENT MANAGER will continue to follow X1.
[2024-05-09] MEDS: cefTRIAXone sodium 1 GM in 0.9 % Sodium Chloride 50 ML IV (17:29)
[2024-05-09] MEDS: Donepezil HCl 10 MG TABLET PO (20:52)
--- NOTE | 2024-05-09 23:50 | PM.EVENT ---
Event Note Date of Service: 05/09/24 Event Note: RN reported patient coughing after she ate sandwich and drank juice. Concern for aspiration pneumonitis. Obtaining xray. Will keep her npo and consult speech Time Spent With Patient Time: Total time managing care of this patient today ____ minutes.
[2024-05-09] MEDS: guaiFEN/Codeine SF 200/20/10ML 10 ML LIQUID PO (23:57)
[2024-05-10] VITALS (7 sets, daily range): BP systolic 101–155; BP diastolic 53–61; PULSE 83–89; RESP 18–22; TEMP 36.1–37.3; O2SAT 94–97
[2024-05-10] MEDS: Melatonin 3 MG TABLET 6 MG PO (01:47)
[2024-05-10] MEDS: Benzonatate 100 MG CAPSULE 200 MG PO (01:48)
[2024-05-10] MEDS: 0.9 % Sodium Chloride Flush 3 ML SYRINGE IVFLUSH ×4 (01:54→20:32)
--- NOTE | 2024-05-10 05:57 | PC.NURSE ---
Patient began coughing after eating a sandwich , and drinking juice. O2 sats in the 80's. Hospitalist notified, CXR ordered. Cought medication orderl Patient to kept NPO until speech can evauluate swallowing. Will conitinue to monitor.
[2024-05-10 06:48] LABS: Anion Gap 12 (12-20); Blood Urea Nitrogen 18 mg/dL (9-16); Calcium 8.9 mg/dL (8.4-10.2); Carbon Dioxide 32 mmol/L (22-29); Chloride 103 mmol/L (96-108); Creatinine Clr Calc Pharmacy 57.5; Estimated Glomerular Filt Rate > 60; Glucose Fasting 161 mg/dL (60-99); Potassium 3.9 mmol/L (3.3-5.1); Sodium 143 mmol/L (135-145)
[2024-05-10 09:07] LABS: VBG Base Excess 13.4 mmol/L; VBG HCO3 40 mmol/L (22-26); VBG pCO2 64 mmHg; VBG pO2 135 mmHg
[2024-05-10 09:16] LABS: Ammonia 39 umol/L (13-55)
[2024-05-10 09:18] LABS: Venous Blood Gas Refer to POC result
[2024-05-10] MEDS: Atorvastatin Calcium 80 MG TABLET PO (09:18)
[2024-05-10] MEDS: Furosemide 40 MG TABLET 80 MG PO (09:19)
[2024-05-10] MEDS: DULoxetine HCl 60 MG CAPSULE.DR PO ×2 (09:19→20:31)
[2024-05-10] MEDS: Clopidogrel Bisulfate 75 MG TABLET PO (09:19)
[2024-05-10] MEDS: Cholecalciferol (Vitamin D3) 25 MCG TABLET PO (09:19)
[2024-05-10] MEDS: Apixaban 5 MG TABLET PO ×2 (09:19→20:31)
[2024-05-10] MEDS: carvediloL 6.25 MG TABLET PO ×2 (09:19→20:31)
[2024-05-10] MEDS: Ascorbic Acid 500 MG TABLET PO ×2 (09:19→20:31)
[2024-05-10] MEDS: Cyanocobalamin (Vitamin B-12) 1,000 MCG TABLET 1000 MCG PO (09:19)
[2024-05-10] MEDS: Methenamine Hippurate 1 GM TABLET PO ×2 (09:19→20:31)
--- NOTE | 2024-05-10 09:53 | P.PNIM_ITS ---
Subjective Subjective Date of Service: 05/10/24 Interval History: had choking episode in morning, lethargic Physical Exam 2 Vital Signs: Vital Signs: Last Vital Signs Temp 98.3 F 05/10/24 08:00 Pulse 84 05/10/24 09:19 Resp 20 05/10/24 08:00 BP 110/55 L 05/10/24 09:19 Pulse Ox 96 05/10/24 08:00 O2 Del Method Nasal Cannula 05/10/24 08:00 O2 Flow Rate 4 05/10/24 08:00 BMI result Body Mass Index 38.6 lethargic, oriented to person, place, time no acute distress lungs clear Objective Data Active Medications Acetaminophen (Acetaminophen 325 Mg Tablet) 650 mg PO Q6H PRN PRN Reason: Pain, Mild (Pain Scale 1-3), fever or headache Albuterol Sulfate (Albuterol Sulfate 90 Mcg 8 Gm Inhaler) 2 puff INHALE Q4H PRN PRN Reason: Shortness Of Breath Albuterol/Ipratropium (Albuterol/Iprat 2.5/0.5mg 3 Ml Ampul.Neb) 3 ml INHALE Q3H PRN PRN Reason: sob Last Admin: 05/06/24 22:20 Dose: 3 ml Documented By: FREDO Amphetamine/Dextroamphetamine (Amphetamine Mixed Salts 10 Mg Tablet) 15 mg PO DAILY PRN PRN Reason: Mood Apixaban (Apixaban 5 Mg Tablet) 5 mg PO BID [facility] Last Admin: 05/10/24 09:19 Dose: 5 mg Documented By: JANES Ascorbic Acid (Ascorbic Acid 500 Mg Tablet) 500 mg PO BID [facility] Last Admin: 05/10/24 09:19 Dose: 500 mg Documented By: JANES Atorvastatin Calcium (Atorvastatin Calcium 80 Mg Tablet) 80 mg PO DAILY [facility] Last Admin: 05/10/24 09:18 Dose: 80 mg Documented By: JANES Benzonatate (Benzonatate 100 Mg Capsule) 200 mg PO TID PRN PRN Reason: cough Last Admin: 05/10/24 01:48 Dose: 200 mg Documented By: NATALIA Calcium Carbonate (Calcium Carbonate 750 Mg Tab.Chew) 750 mg PO Q4H PRN PRN Reason: Heartburn Carvedilol (Carvedilol 6.25 Mg Tablet) 6.25 mg PO BID [facility]; Protocol Last Admin: 05/10/24 09:19 Dose: 6.25 mg Documented By: JANES Clopidogrel Bisulfate (Clopidogrel Bisulfate 75 Mg Tablet) 75 mg PO DAILY [facility] Last Admin: 05/10/24 09:19 Dose: 75 mg Documented By: JANES Cyanocobalamin (Cyanocobalamin (Vitamin B-12) 1,000 Mcg Tablet) 1,000 mcg PO DAILY [facility] Last Admin: 05/10/24 09:19 Dose: 1,000 mcg Documented By: JANES Donepezil HCl (Donepezil Hcl 10 Mg Tablet) 10 mg PO BEDTIME [facility] Last Admin: 05/09/24 20:52 Dose: 10 mg Documented By: NATALIA Duloxetine HCl (Duloxetine Hcl 60 Mg Capsule.Dr) 60 mg PO BID [facility] Last Admin: 05/10/24 09:19 Dose: 60 mg Documented By: JANES Furosemide (Furosemide 40 Mg Tablet) 80 mg PO DAILY [facility]; Protocol Last Admin: 05/10/24 09:19 Dose: 80 mg Documented By: JANES Ceftriaxone Sodium 1 gm/ (Sodium Chloride) 50 mls @ 100 mls/hr IV Q24H [facility] Last Infusion: 05/09/24 18:15 Dose: Infused Documented By: JANES Magnesium Hydroxide (Milk Of Magnesia 30 Ml Oral.Susp) 30 ml PO DAILY PRN PRN Reason: Constipation Melatonin (Melatonin 3 Mg Tablet) 6 mg PO BEDTIME PRN PRN Reason: Insomnia Last Admin: 05/10/24 01:47 Dose: 6 mg Documented By: NATALIA Melatonin (Melatonin 3 Mg Tablet) 18 mg PO BEDTIME PRN PRN Reason: Sleep Methenamine Hippurate (Methenamine Hippurate 1 Gm Tablet) 1 gm PO BID [facility] Last Admin: 05/10/24 09:19 Dose: 1 gm Documented By: JANES Non-Formulary Medication (Umeclidinium-Vilanterol [Anoro Ellipta]) 1 puff PO DAILY [facility] Sodium Chloride (0.9 % Sodium Chloride Flush 3 Ml Syringe) 3 ml IVFLUSH QSHIFT [facility] Last Admin: 05/10/24 09:18 Dose: 3 ml Documented By: JANES Vitamin D (Cholecalciferol (Vitamin D3) 25 Mcg Tablet) 25 mcg PO DAILY [facility] Last Admin: 05/10/24 09:19 Dose: 25 mcg Documented By: JANES Labs 05/07/24 09:25 05/10/24 06:02 Labs: Laboratory Results - last 24 hr 05/10/24 05/10/24 05/10/24 06:02 08:57 09:01 Hold Purple Top SEE NOTE VBG pH 7.40 VBG pCO2 64 VBG pO2 135 VBG HCO3 40 H VBG O2 Saturation 100.0 VBG Base Excess 13.4 Anion Gap 12 Estim Creat Clear Calc 57.5 Estimated GFR > 60 Fasting Glucose 161 H Calcium 8.9 Ammonia 39 Microbiology Microbiology Results: Microbiology 05/06/24 18:44 Urine Culture - Final Urine clean catch - Clean Catch Midstream Escherichia coli Escherichia coli#2 Assessment and Plan (1) Hypernatremia: Status: Acute (2) UTI (urinary tract infection): Status: Acute (3) Drug overdose: Status: Acute Assessment and Plan: 78F PMH cardiomyopathy, heart failure with recovered EF, COPD, hiatal presented status post intentional drug overdose Patient admitted for clonazepam overdose: acute toxic /metabolic encephalopathy sec to clonazepam overdose U tox is positive for amphetamine, benzos. mental status improving, but not at baseline will need crisis evalutation prior to discharge acute Hypoxic and hypercapneic respiratory failure possible secondary to hypoventilation/atelectasis Continue pulse oximetry and oxygen, nebs, incentive spirometry,chest physiotherapy wean as tolerated also concern for aspiration npo for now cheese pancake roller eval Possible UTI: patient is unable to say detail hx. Started on ceftriaxone(05/06) Urine culture - ecoli, sensitive to ceftriaxone Cardiomyopathy ,chf with recovered EF stable lasix, coreg, statin COPD not in excerbation anoro ellipta history of DVT eliquis mood disorder cymbalta dvt prophylaxis - eliquis DNR/DNI reason for continued hospitalization: not at baseline mental status Quality Stroke Does the patient have a stroke diagnosis?: No VTE Prior VTE?: No VTE Risk Level:: Medical - moderate - high VTE Device Contraindication: N/A - Device Ordered VTE Drug Contraindication: N/A - Med Ordered
--- NOTE | 2024-05-10 10:16 | MHC.SL.SWA ---
Speech Pathologist Impression: Risk of Aspiration Due to: Lethargy Dysphasia Diet Status: Recommend RESTART diet of REGULAR, with THIN liquids (straw o.k.) with pills whole in puree or with liquid as preferred. Liquid Consistency and Strategies for Safe Swallow: Liquid Intake Recommendation: Thin Liquid Intake Strategies: Unrestricted Solid Food Consistency: Dietary Recommendations: Regular Additional Modifications to Solid Foods: It was recommended to patient that she take small bites and sips while eating, chew her food thoroughly and take frequent breaks for 02 and avoid breathing in when swallowing. Given recent choking event, supervision is recommended at this time. Oral Medication Intake: Whole with Liquid Please contact the pharmacy regarding appropriate crushable or liquid drug formulations that are available whenever modified delivery is recommended. Compensatory Strategies and Precautions to be Taken for Safe Swallow: Sitting Upright (90 deg) Small Bites and Sips Alternate Liquids/Solids Rate of Ingestion Change Supervision While Eating and Drinking for Safe Swallow: Total Supervision (1:1) Foods to Avoid: Swallowing Recommended Treatments: Compens. Strategy Educat. Recommendation for Speech: Inpatient Speech Therapy Comment: Patient seen for repeat swallow evaluation this morning, secondary to choking incident yesterday evening while eating a sandwich, and concern for aspiration. CXR taken last night had no new findings. Patient had been sleeping for most of the day, asked for a sandwich in the evening, reported suddenly starting to choke/cough, reporting to me this is not something that has happened previously, nor does she have any history of dysphagia. Patient has nasal cannula/, was awake/alert and cooperative with the assessment. Patient had been seen for an inital swallow assessment 05/08/24 with swallow noted to be WFL, and she was put on a regular diet with thin liquids. As noted patient was sleeping through the day yesterday, not assessed for toleration of diet. Patient's oral mechanism was assessed with all WFL, and has intact, well cared for dentition. Patient was given water by tsp, cup sip, self administered cup sip and by straw presenting with oral and pharyngeal phases of swallow wfl, laryngeal elevation on swallow timely and wfl, no clinical signs of aspiration. Patient had similar presentation on puree. On softened cracker in puree, patient was noted to mash cracker on roof of mouth and not initiate chewing, on second presentation was cued to chew which she did briefly. Pharyngeal phase of swallow this consistency was wfl. On hard piece of cracker in puree, patient was again cued to chew, produced a slow rotary chew, followed by a timely swallow, though with chewing/mastication noted increased mild SOB. On single hard piece of cracker, patient was noted to chew thoroughly, again mild increased SOB, and timely swallow. No clinical signs of aspiration on any presentation. Patient stated that she always gets short of breath when eating. Recommend RESTART diet of REGULAR, with THIN liquids (straw o.k.) with pills whole in puree or with liquid as preferred. It was recommended to patient that she chew her food thoroughly when eating, and take frequent breaks for 02 and avoid breathing in when swallowing. MD/RD advised of recommendation by secure text, RN in person. STAFF NURSE MIDWIFE will f/u 1-2X for toleration. Frequency/Duration: Daily Date Range for Service Req: Admission - Discharge Timeline to reassess: PRN Spot Worker Clinican/Clinical Fellow: No Supervisory Statement: I have reviewed and agree with the student/clinical fellow's documentation: N/A Speech Language Pathologist: Ute Montero M.A., CCC-STAFF NURSE MIDWIFE
[2024-05-10] MEDS: ALPRAZolam 0.25 MG TABLET PO (15:32)
[2024-05-10] MEDS: cefTRIAXone sodium 1 GM in 0.9 % Sodium Chloride 50 ML IV (18:24)
[2024-05-10] MEDS: Donepezil HCl 10 MG TABLET PO (20:31)
--- NOTE | 2024-05-10 23:17 | PC.RT ---
Pt refused NOC BIPAP. RN at bedside
[2024-05-11] VITALS (8 sets, daily range): BP systolic 102–135; BP diastolic 50–73; PULSE 76–94; RESP 14–20; TEMP 36.6–37.2; O2SAT 93–97
[2024-05-11 07:39] LABS: Hematocrit 37.5 % (37.0-47.0); Hemoglobin 11.5 g/dl (12.0-16.0); Mean Corpuscular HGB Conc 30.7 g/dl (31.0-35.0); Mean Corpuscular Hemoglobin 29.9 pg (27.0-33.0); Mean Corpuscular Volume 97.7 fL (80.0-98.0); Mean Platelet Volume 10.2 fL (9.4-12.3); Platelet Count 171 X10*3/uL (160-400); Red Blood Count 3.84 X10*6/uL (4.20-5.50); Red Cell Distribution Width 13.4 % (11.0-16.0); White Blood Count 10.4 X10*3/uL (4.8-10.8)
[2024-05-11 07:57] LABS: Alanine Aminotransferase 18 U/L (0-31); Alkaline Phosphatase 70 U/L (39-117); Aspartate Amino Transferase 14 U/L (5-31); Bilirubin Direct 0.1 mg/dL (0.0-0.5); Bilirubin Total 0.3 mg/dL (0.0-1.0); Blood Urea Nitrogen 17 mg/dL (9-16); Calcium 9.2 mg/dL (8.4-10.2); Creatinine Clr Calc Pharmacy 56.8; Estimated Glomerular Filt Rate > 60; Glucose Fasting 147 mg/dL (60-99); Magnesium 1.8 mg/dL (1.6-2.6)
[2024-05-11 08:08] LABS: Anion Gap 10 (12-20); Carbon Dioxide 39 mmol/L (22-29); Chloride 99 mmol/L (96-108); Potassium 3.8 mmol/L (3.3-5.1); Sodium 144 mmol/L (135-145)
[2024-05-11] MEDS: 0.9 % Sodium Chloride Flush 3 ML SYRINGE IVFLUSH ×3 (09:03→21:24)
[2024-05-11] MEDS: Clopidogrel Bisulfate 75 MG TABLET PO (09:04)
[2024-05-11] MEDS: carvediloL 6.25 MG TABLET PO ×2 (09:04→21:22)
[2024-05-11] MEDS: DULoxetine HCl 60 MG CAPSULE.DR PO ×2 (09:04→21:22)
[2024-05-11] MEDS: Apixaban 5 MG TABLET PO ×2 (09:04→21:22)
[2024-05-11] MEDS: Ascorbic Acid 500 MG TABLET PO ×2 (09:08→21:22)
[2024-05-11] MEDS: Cholecalciferol (Vitamin D3) 25 MCG TABLET PO (09:10)
[2024-05-11] MEDS: Atorvastatin Calcium 80 MG TABLET PO (09:10)
[2024-05-11] MEDS: Methenamine Hippurate 1 GM TABLET PO ×2 (09:10→21:22)
[2024-05-11] MEDS: Furosemide 40 MG TABLET 80 MG PO (09:11)
[2024-05-11] MEDS: Cyanocobalamin (Vitamin B-12) 1,000 MCG TABLET 1000 MCG PO (09:16)
--- NOTE | 2024-05-11 12:02 | HO.PM.IMPN ---
Subjective Subjective Date of Service: 05/11/24 Interval History: earlier in am alert, poor recall, calm, now more somnolent Physical Exam Vital Signs: Vital Signs: Last Vital Signs Temp 98.5 F 05/11/24 11:43 Pulse 84 05/11/24 11:43 Resp 14 05/11/24 11:43 BP 106/55 L 05/11/24 11:43 Pulse Ox 94 05/11/24 11:43 O2 Del Method Nasal Cannula 05/11/24 11:43 O2 Flow Rate 3 05/11/24 11:43 BMI result Body Mass Index 38.6 lethargic, oriented to person, place, time no acute distress lungs crackly, some accessory muscles, tachypnea Objective Data Active Medications Acetaminophen (Acetaminophen 325 Mg Tablet) 650 mg PO Q6H PRN PRN Reason: Pain, Mild (Pain Scale 1-3), fever or headache Albuterol Sulfate (Albuterol Sulfate 90 Mcg 8 Gm Inhaler) 2 puff INHALE Q4H PRN PRN Reason: Shortness Of Breath Albuterol/Ipratropium (Albuterol/Iprat 2.5/0.5mg 3 Ml Ampul.Neb) 3 ml INHALE Q3H PRN PRN Reason: sob Last Admin: 05/06/24 22:20 Dose: 3 ml Documented By: FREDO Amphetamine/Dextroamphetamine (Amphetamine Mixed Salts 10 Mg Tablet) 15 mg PO DAILY PRN PRN Reason: Mood Apixaban (Apixaban 5 Mg Tablet) 5 mg PO BID [facility] Last Admin: 05/11/24 09:04 Dose: 5 mg Documented By: ASHA Ascorbic Acid (Ascorbic Acid 500 Mg Tablet) 500 mg PO BID [facility] Last Admin: 05/11/24 09:08 Dose: 500 mg Documented By: ASHA Atorvastatin Calcium (Atorvastatin Calcium 80 Mg Tablet) 80 mg PO DAILY [facility] Last Admin: 05/11/24 09:10 Dose: 80 mg Documented By: ASHA Benzonatate (Benzonatate 100 Mg Capsule) 200 mg PO TID PRN PRN Reason: cough Last Admin: 05/10/24 01:48 Dose: 200 mg Documented By: NATALIA Calcium Carbonate (Calcium Carbonate 750 Mg Tab.Chew) 750 mg PO Q4H PRN PRN Reason: Heartburn Carvedilol (Carvedilol 6.25 Mg Tablet) 6.25 mg PO BID [facility]; Protocol Last Admin: 05/11/24 09:04 Dose: 6.25 mg Documented By: ASHA Clopidogrel Bisulfate (Clopidogrel Bisulfate 75 Mg Tablet) 75 mg PO DAILY [facility] Last Admin: 05/11/24 09:04 Dose: 75 mg Documented By: ASHA Cyanocobalamin (Cyanocobalamin (Vitamin B-12) 1,000 Mcg Tablet) 1,000 mcg PO DAILY [facility] Last Admin: 05/11/24 09:16 Dose: 1,000 mcg Documented By: ASHA Donepezil HCl (Donepezil Hcl 10 Mg Tablet) 10 mg PO BEDTIME [facility] Last Admin: 05/10/24 20:31 Dose: 10 mg Documented By: SHANNAN Duloxetine HCl (Duloxetine Hcl 60 Mg Capsule.Dr) 60 mg PO BID [facility] Last Admin: 05/11/24 09:04 Dose: 60 mg Documented By: ASHA Furosemide (Furosemide 40 Mg Tablet) 80 mg PO DAILY [facility]; Protocol Last Admin: 05/11/24 09:11 Dose: 80 mg Documented By: ASHA Ceftriaxone Sodium 1 gm/ (Sodium Chloride) 50 mls @ 100 mls/hr IV Q24H [facility] Last Infusion: 05/10/24 20:32 Dose: Infused Documented By: SHANNAN Magnesium Hydroxide (Milk Of Magnesia 30 Ml Oral.Susp) 30 ml PO DAILY PRN PRN Reason: Constipation Methenamine Hippurate (Methenamine Hippurate 1 Gm Tablet) 1 gm PO BID [facility] Last Admin: 05/11/24 09:10 Dose: 1 gm Documented By: ASHA Non-Formulary Medication (Umeclidinium-Vilanterol [Anoro Ellipta]) 1 puff PO DAILY [facility] Sodium Chloride (0.9 % Sodium Chloride Flush 3 Ml Syringe) 3 ml IVFLUSH QSHIFT [facility] Last Admin: 05/11/24 09:03 Dose: 3 ml Documented By: ASHA Vitamin D (Cholecalciferol (Vitamin D3) 25 Mcg Tablet) 25 mcg PO DAILY [facility] Last Admin: 05/11/24 09:10 Dose: 25 mcg Documented By: ASHA Labs 05/11/24 07:20 05/11/24 07:20 Labs: Laboratory Results - last 24 hr 05/11/24 07:20 MCV 97.7 MCH 29.9 MCHC 30.7 L RDW 13.4 Plt Count 171 MPV 10.2 Absolute Nucleated RBC 0.000 Nucleated RBC % (auto) 0.0 Anion Gap 10 L Estim Creat Clear Calc 56.8 Estimated GFR > 60 Fasting Glucose 147 H Calcium 9.2 Magnesium 1.8 Total Bilirubin 0.3 Direct Bilirubin 0.1 AST 14 ALT 18 Alkaline Phosphatase 70 Total Protein 6.0 L Albumin 3.0 L Assessment and Plan (1) Hypernatremia: Status: Acute (2) UTI (urinary tract infection): Status: Acute (3) Drug overdose: Status: Acute Assessment and Plan: 78F PMH cardiomyopathy, heart failure with recovered EF, COPD, hiatal presented status post intentional drug overdose Patient admitted for clonazepam overdose: acute toxic /metabolic encephalopathy sec to clonazepam overdose U tox is positive for amphetamine, benzos. mental status fluctuating, likely delerium as well will need crisis evalutation prior to discharge acute Hypoxic and hypercapneic respiratory failure possible secondary to hypoventilation/atelectasis Continue pulse oximetry and oxygen, nebs, incentive spirometry,chest physiotherapy wean as tolerated also concern for aspiration PRODUCT MARKETING ANALYST appreciated, rec regular with thins Possible UTI: patient is unable to say detail hx. Started on ceftriaxone(05/06) Urine culture - ecoli, sensitive to ceftriaxone Cardiomyopathy ,chf with recovered EF stable lasix, coreg, statin COPD not in excerbation anoro ellipta history of DVT eliquis mood disorder cymbalta dvt prophylaxis - eliquis DNR/DNI reason for continued hospitalization: not at baseline mental status Quality Stroke Does the patient have a stroke diagnosis?: No VTE Prior VTE?: No VTE Risk Level:: Medical - moderate - high VTE Device Contraindication: N/A - Device Ordered VTE Drug Contraindication: N/A - Med Ordered
[2024-05-11 13:12] LABS: VBG Base Excess 18.4 mmol/L; VBG HCO3 45 mmol/L (22-26); VBG pCO2 66 mmHg; VBG pH 7.44 (7.32-7.43); VBG pO2 80 mmHg
[2024-05-11 13:16] LABS: Venous Blood Gas Refer to POC result
[2024-05-11] MEDS: cefTRIAXone sodium 1 GM in 0.9 % Sodium Chloride 50 ML IV (18:36)
[2024-05-11] MEDS: Donepezil HCl 10 MG TABLET PO (21:22)
[2024-05-12] VITALS: BP 114/71; PULSE 84; RESP 20; TEMP 36.8; O2SAT 93
[2024-05-12 03:47] VITALS: BP 107/65; PULSE 80; RESP 20; TEMP 36.6; O2SAT 95
[2024-05-12 07:04] VITALS: BP 105/53; PULSE 78; RESP 20; TEMP 36.7; O2SAT 95
[2024-05-12 07:20] LABS: Hematocrit 38.7 % (37.0-47.0); Hemoglobin 11.8 g/dl (12.0-16.0); Mean Corpuscular HGB Conc 30.5 g/dl (31.0-35.0); Mean Corpuscular Hemoglobin 29.9 pg (27.0-33.0); Mean Platelet Volume 10.4 fL (9.4-12.3); Platelet Count 176 X10*3/uL (160-400); Red Blood Count 3.95 X10*6/uL (4.20-5.50); Red Cell Distribution Width 13.1 % (11.0-16.0); White Blood Count 10.2 X10*3/uL (4.8-10.8)
[2024-05-12 07:24] LABS: Blood Urea Nitrogen 18 mg/dL (9-16); Calcium 9.2 mg/dL (8.4-10.2); Creatinine Clr Calc Pharmacy 63.6; Estimated Glomerular Filt Rate > 60; Glucose Fasting 137 mg/dL (60-99); Magnesium 1.9 mg/dL (1.6-2.6)
[2024-05-12 07:25] LABS: B Type Natriuretic Peptide 18 pg/mL (<100)
[2024-05-12] MEDS: 0.9 % Sodium Chloride Flush 3 ML SYRINGE IVFLUSH ×3 (07:37→20:27)
[2024-05-12] MEDS: carvediloL 6.25 MG TABLET PO (07:42)
[2024-05-12] MEDS: DULoxetine HCl 60 MG CAPSULE.DR PO ×2 (07:42→20:24)
[2024-05-12] MEDS: Cholecalciferol (Vitamin D3) 25 MCG TABLET PO (07:42)
[2024-05-12] MEDS: Ascorbic Acid 500 MG TABLET PO ×2 (07:42→20:24)
[2024-05-12] MEDS: Furosemide 40 MG TABLET 80 MG PO (07:42)
[2024-05-12] MEDS: Clopidogrel Bisulfate 75 MG TABLET PO (07:42)
[2024-05-12] MEDS: Cyanocobalamin (Vitamin B-12) 1,000 MCG TABLET 1000 MCG PO (07:42)
[2024-05-12] MEDS: Apixaban 5 MG TABLET PO ×2 (07:42→20:24)
[2024-05-12] MEDS: Atorvastatin Calcium 80 MG TABLET PO (07:42)
[2024-05-12] MEDS: Methenamine Hippurate 1 GM TABLET PO ×2 (07:43→20:24)
[2024-05-12 07:51] LABS: Anion Gap 12 (12-20); Carbon Dioxide 41 mmol/L (22-29); Chloride 97 mmol/L (96-108); Potassium 3.5 mmol/L (3.3-5.1); Sodium 146 mmol/L (135-145)
[2024-05-12] MEDS: acetaZOLAMIDE sodium 500 MG VIAL IVPUSH ×2 (08:34→15:50)
--- NOTE | 2024-05-12 09:28 | HO.PM.IMPN ---
Subjective Subjective Date of Service: 05/12/24 Interval History: fluctuating mental status, currently alert, calm confused Physical Exam Vital Signs: Vital Signs: Last Vital Signs Temp 98.0 F 05/12/24 07:04 Pulse 78 05/12/24 07:04 Resp 20 05/12/24 07:04 BP 105/53 L 05/12/24 07:04 Pulse Ox 95 05/12/24 07:04 O2 Del Method Nasal Cannula 05/12/24 07:04 O2 Flow Rate 2 05/12/24 07:04 BMI result Body Mass Index 38.6 fluctuating mental status, currently alert, calm confused Objective Data Active Medications Acetaminophen (Acetaminophen 325 Mg Tablet) 650 mg PO Q6H PRN PRN Reason: Pain, Mild (Pain Scale 1-3), fever or headache Acetazolamide (Acetazolamide Sodium 500 Mg Vial) 500 mg IVPUSH Q8H [facility] Stop: 05/12/24 16:01 Last Admin: 05/12/24 08:34 Dose: 500 mg Documented By: KIRA Albuterol Sulfate (Albuterol Sulfate 90 Mcg 8 Gm Inhaler) 2 puff INHALE Q4H PRN PRN Reason: Shortness Of Breath Albuterol/Ipratropium (Albuterol/Iprat 2.5/0.5mg 3 Ml Ampul.Neb) 3 ml INHALE Q3H PRN PRN Reason: sob Last Admin: 05/06/24 22:20 Dose: 3 ml Documented By: FREDO Amphetamine/Dextroamphetamine (Amphetamine Mixed Salts 10 Mg Tablet) 15 mg PO DAILY PRN PRN Reason: Mood Apixaban (Apixaban 5 Mg Tablet) 5 mg PO BID [facility] Last Admin: 05/12/24 07:42 Dose: 5 mg Documented By: KIRA Ascorbic Acid (Ascorbic Acid 500 Mg Tablet) 500 mg PO BID [facility] Last Admin: 05/12/24 07:42 Dose: 500 mg Documented By: KIRA Atorvastatin Calcium (Atorvastatin Calcium 80 Mg Tablet) 80 mg PO DAILY [facility] Last Admin: 05/12/24 07:42 Dose: 80 mg Documented By: KIRA Benzonatate (Benzonatate 100 Mg Capsule) 200 mg PO TID PRN PRN Reason: cough Last Admin: 05/10/24 01:48 Dose: 200 mg Documented By: NATALIA Calcium Carbonate (Calcium Carbonate 750 Mg Tab.Chew) 750 mg PO Q4H PRN PRN Reason: Heartburn Carvedilol (Carvedilol 6.25 Mg Tablet) 6.25 mg PO BID [facility]; Protocol Last Admin: 05/12/24 07:42 Dose: 6.25 mg Documented By: KIRA Clopidogrel Bisulfate (Clopidogrel Bisulfate 75 Mg Tablet) 75 mg PO DAILY [facility] Last Admin: 05/12/24 07:42 Dose: 75 mg Documented By: KIRA Cyanocobalamin (Cyanocobalamin (Vitamin B-12) 1,000 Mcg Tablet) 1,000 mcg PO DAILY [facility] Last Admin: 05/12/24 07:42 Dose: 1,000 mcg Documented By: KIRA Donepezil HCl (Donepezil Hcl 10 Mg Tablet) 10 mg PO BEDTIME [facility] Last Admin: 05/11/24 21:22 Dose: 10 mg Documented By: SHANNAN Duloxetine HCl (Duloxetine Hcl 60 Mg Capsule.Dr) 60 mg PO BID [facility] Last Admin: 05/12/24 07:42 Dose: 60 mg Documented By: KIRA Furosemide (Furosemide 40 Mg Tablet) 80 mg PO DAILY [facility]; Protocol Last Admin: 05/12/24 07:42 Dose: 80 mg Documented By: KIRA Ceftriaxone Sodium 1 gm/ (Sodium Chloride) 50 mls @ 100 mls/hr IV Q24H [facility] Last Infusion: 05/11/24 23:31 Dose: Infused Documented By: SHANNAN Magnesium Hydroxide (Milk Of Magnesia 30 Ml Oral.Susp) 30 ml PO DAILY PRN PRN Reason: Constipation Methenamine Hippurate (Methenamine Hippurate 1 Gm Tablet) 1 gm PO BID [facility] Last Admin: 05/12/24 07:43 Dose: 1 gm Documented By: KIRA Non-Formulary Medication (Umeclidinium-Vilanterol [Anoro Ellipta]) 1 puff PO DAILY [facility] Sodium Chloride (0.9 % Sodium Chloride Flush 3 Ml Syringe) 3 ml IVFLUSH QSHIFT [facility] Last Admin: 05/12/24 07:37 Dose: 3 ml Documented By: KIRA Vitamin D (Cholecalciferol (Vitamin D3) 25 Mcg Tablet) 25 mcg PO DAILY [facility] Last Admin: 05/12/24 07:42 Dose: 25 mcg Documented By: KIRA Labs 05/12/24 06:58 05/12/24 06:58 Labs: Laboratory Results - last 24 hr 05/11/24 05/12/24 13:06 06:58 MCV 98.0 MCH 29.9 MCHC 30.5 L RDW 13.1 Plt Count 176 MPV 10.4 Absolute Nucleated RBC 0.000 Nucleated RBC % (auto) 0.0 VBG pH 7.44 H VBG pCO2 66 VBG pO2 80 VBG HCO3 45 H VBG O2 Saturation 99.0 VBG Base Excess 18.4 Anion Gap 12 Estim Creat Clear Calc 63.6 Estimated GFR > 60 Fasting Glucose 137 H Calcium 9.2 Magnesium 1.9 B-Natriuretic Peptide 18 Assessment and Plan (1) Hypernatremia: Status: Acute (2) UTI (urinary tract infection): Status: Acute (3) Drug overdose: Status: Acute Assessment and Plan: 78F PMH cardiomyopathy, heart failure with recovered EF, COPD, hiatal presented status post intentional drug overdose Patient admitted for clonazepam overdose: acute toxic /metabolic encephalopathy sec to clonazepam overdose U tox is positive for amphetamine, benzos. mental status fluctuating, likely delerium as well will need crisis evalutation prior to discharge acute Hypoxic and hypercapneic respiratory failure in addition to acute metabolic alkalosis possible secondary to hypoventilation/atelectasis Continue pulse oximetry and oxygen, nebs, incentive spirometry,chest physiotherapy wean as tolerated also concern for aspiration SHORT PIECE HANDLER appreciated, rec regular with thins diamox, monitor Possible UTI: patient is unable to say detail hx. Started on ceftriaxone(05/06) Urine culture - ecoli, sensitive to ceftriaxone Cardiomyopathy ,chf with recovered EF stable lasix, coreg, statin COPD not in exacerbation anoro ellipta history of DVT eliquis mood disorder cymbalta dvt prophylaxis - eliquis DNR/DNI reason for continued hospitalization: not at baseline mental status Quality Stroke Does the patient have a stroke diagnosis?: No VTE Prior VTE?: No VTE Risk Level:: Medical - moderate - high VTE Device Contraindication: N/A - Device Ordered VTE Drug Contraindication: N/A - Med Ordered
[2024-05-12 11:00] VITALS: BP 102/57; PULSE 80; RESP 20; TEMP 36.3; O2SAT 91
[2024-05-12 14:58] VITALS: BP 135/69; PULSE 77; RESP 20; TEMP 36.1; O2SAT 95
[2024-05-12] MEDS: Acetaminophen 325 MG TABLET 650 MG PO (18:26)
[2024-05-12] MEDS: cefTRIAXone sodium 1 GM in 0.9 % Sodium Chloride 50 ML IV (18:26)
[2024-05-12 20:00] VITALS: BP 94/44; PULSE 87; RESP 20; TEMP 36.9; O2SAT 95
[2024-05-12] MEDS: Donepezil HCl 10 MG TABLET PO (20:24)
[2024-05-13] VITALS (7 sets, daily range): BP systolic 100–115; BP diastolic 52–71; PULSE 72–88; RESP 18–20; TEMP 36.1–36.9; O2SAT 93–98
[2024-05-13 08:01] LABS: Hematocrit 38.1 % (37.0-47.0); Hemoglobin 11.6 g/dl (12.0-16.0); Mean Corpuscular HGB Conc 30.4 g/dl (31.0-35.0); Mean Corpuscular Hemoglobin 29.6 pg (27.0-33.0); Mean Corpuscular Volume 97.2 fL (80.0-98.0); Mean Platelet Volume 10.9 fL (9.4-12.3); Platelet Count 197 X10*3/uL (160-400); Red Blood Count 3.92 X10*6/uL (4.20-5.50); Red Cell Distribution Width 13.1 % (11.0-16.0); White Blood Count 9.8 X10*3/uL (4.8-10.8)
[2024-05-13 08:54] LABS: Anion Gap 16 (12-20); Blood Urea Nitrogen 20 mg/dL (9-16); Calcium 9.4 mg/dL (8.4-10.2); Carbon Dioxide 36 mmol/L (22-29); Chloride 97 mmol/L (96-108); Creatinine Clr Calc Pharmacy 60.4; Estimated Glomerular Filt Rate > 60; Glucose Fasting 113 mg/dL (60-99); Potassium 3.5 mmol/L (3.3-5.1); Sodium 145 mmol/L (135-145)
[2024-05-13] MEDS: Ascorbic Acid 500 MG TABLET PO (08:57)
[2024-05-13] MEDS: DULoxetine HCl 60 MG CAPSULE.DR PO (08:57)
[2024-05-13] MEDS: carvediloL 6.25 MG TABLET PO (08:57)
[2024-05-13] MEDS: Cholecalciferol (Vitamin D3) 25 MCG TABLET PO (08:57)
[2024-05-13] MEDS: Atorvastatin Calcium 80 MG TABLET PO (08:57)
[2024-05-13] MEDS: Clopidogrel Bisulfate 75 MG TABLET PO (08:57)
[2024-05-13] MEDS: Cyanocobalamin (Vitamin B-12) 1,000 MCG TABLET 1000 MCG PO (08:57)
[2024-05-13] MEDS: Apixaban 5 MG TABLET PO (08:57)
[2024-05-13] MEDS: Methenamine Hippurate 1 GM TABLET PO (08:57)
--- NOTE | 2024-05-13 09:04 | MHC.SL.SWA ---
Speech Pathologist Impression: Risk of Aspiration Due to: Lethargy Dysphasia Diet Status: DOWNGRADE diet to Chopped/Advanced (NDD3), so that food is precut into smaller bites; continue on THIN liquids, pills whole with liquid. Patient requires FULL SUPERVISION at meals, with direct assistance as needed. Liquid Consistency and Strategies for Safe Swallow: Liquid Intake Recommendation: Thin Liquid Intake Strategies: Unrestricted Solid Food Consistency: Dietary Recommendations: Chopped/Advanced (NDD3) Additional Modifications to Solid Foods: It was recommended to patient that she take small bites and sips while eating, chew her food thoroughly and take frequent breaks for 02 and avoid breathing in when swallowing. Patient requires FULL SUPERVISION at meals, with direct assistance as needed. Oral Medication Intake: Whole with Liquid Please contact the pharmacy regarding appropriate crushable or liquid drug formulations that are available whenever modified delivery is recommended. Compensatory Strategies and Precautions to be Taken for Safe Swallow: Sitting Upright (90 deg) Small Bites and Sips Alternate Liquids/Solids Rate of Ingestion Change Supervision While Eating and Drinking for Safe Swallow: Total Supervision (1:1) Foods to Avoid: Swallowing Recommended Treatments: Compens. Strategy Educat. Recommendation for Speech: Inpatient Speech Therapy Comment: Patient seen at breakfast this morning for toleration of recommended diet. Patient currently is allowed only plastic fork and spoon cutlery, today's breakfast of pancake, eggs, farina came in take out paper containers, uncut (e.g. slab of pancake on top of eggs). BUSHER HELPER obtained plastic knife, cut up pancake and generally prepared tray for consumption. Patient then observed independently eating meal, though struggling to do so (had difficulty stabbing/scooping food, occasionally took too large pieces, dropped food on herself); BUSHER HELPER assisted for a brief periods to assure patient was accessing food and eating safely and pausing to take sips of liquid periodically. Due to current restrictions and patient's generalized weakness/SOB when eating, recommend DOWNGRADE diet to Chopped/Advanced (NDD3), so that food is precut into smaller bites; continue on THIN liquids, pills whole with liquid. Patient requires FULL SUPERVISION at meals, with direct assistance as needed. Patient has sitter present, BUSHER HELPER advised current sitter that she should provide this level of active supervision at meals. BUSHER HELPER made diet change in expanse. Frequency/Duration: Daily Date Range for Service Req: Admission - Discharge Timeline to reassess: PRN Paint Mixer Machine Clinican/Clinical Fellow: No Supervisory Statement: I have reviewed and agree with the student/clinical fellow's documentation: N/A Speech Language Pathologist: Ute Montero M.A., [facility]-BUSHER HELPER
[2024-05-13] MEDS: 0.9 % Sodium Chloride Flush 3 ML SYRINGE IVFLUSH ×3 (09:06→22:24)
--- NOTE | 2024-05-13 10:10 | P.PNIM_ITS ---
Subjective Subjective Date of Service: 05/13/24 Interval History: more alert and calm this morning, but ongoing poor recall Physical Exam 2 Vital Signs: Vital Signs: Last Vital Signs Temp 98.2 F 05/13/24 07:34 Pulse 80 05/13/24 07:34 Resp 20 05/13/24 07:34 BP 114/56 L 05/13/24 07:34 Pulse Ox 95 05/13/24 07:34 O2 Del Method Nasal Cannula 05/13/24 07:34 O2 Flow Rate 2 05/13/24 07:34 BMI result Body Mass Index 38.6 fluctuating mental status, currently alert, calm confused Objective Data Active Medications Acetaminophen (Acetaminophen 325 Mg Tablet) 650 mg PO Q6H PRN PRN Reason: Pain, Mild (Pain Scale 1-3), fever or headache Last Admin: 05/12/24 18:26 Dose: 650 mg Documented By: KIRA Albuterol Sulfate (Albuterol Sulfate 90 Mcg 8 Gm Inhaler) 2 puff INHALE Q4H PRN PRN Reason: Shortness Of Breath Albuterol/Ipratropium (Albuterol/Iprat 2.5/0.5mg 3 Ml Ampul.Neb) 3 ml INHALE Q3H PRN PRN Reason: sob Last Admin: 05/06/24 22:20 Dose: 3 ml Documented By: FREDO Amphetamine/Dextroamphetamine (Amphetamine Mixed Salts 10 Mg Tablet) 15 mg PO DAILY PRN PRN Reason: Mood Apixaban (Apixaban 5 Mg Tablet) 5 mg PO BID [facility] Last Admin: 05/13/24 08:57 Dose: 5 mg Documented By: RIGO Ascorbic Acid (Ascorbic Acid 500 Mg Tablet) 500 mg PO BID [facility] Last Admin: 05/13/24 08:57 Dose: 500 mg Documented By: RIGO Atorvastatin Calcium (Atorvastatin Calcium 80 Mg Tablet) 80 mg PO DAILY [facility] Last Admin: 05/13/24 08:57 Dose: 80 mg Documented By: RIGO Benzonatate (Benzonatate 100 Mg Capsule) 200 mg PO TID PRN PRN Reason: cough Last Admin: 05/10/24 01:48 Dose: 200 mg Documented By: NATALIA Calcium Carbonate (Calcium Carbonate 750 Mg Tab.Chew) 750 mg PO Q4H PRN PRN Reason: Heartburn Carvedilol (Carvedilol 6.25 Mg Tablet) 6.25 mg PO BID [facility]; Protocol Last Admin: 05/13/24 08:57 Dose: 6.25 mg Documented By: RIGO Clopidogrel Bisulfate (Clopidogrel Bisulfate 75 Mg Tablet) 75 mg PO DAILY [facility] Last Admin: 05/13/24 08:57 Dose: 75 mg Documented By: RIGO Cyanocobalamin (Cyanocobalamin (Vitamin B-12) 1,000 Mcg Tablet) 1,000 mcg PO DAILY [facility] Last Admin: 05/13/24 08:57 Dose: 1,000 mcg Documented By: RIGO Donepezil HCl (Donepezil Hcl 10 Mg Tablet) 10 mg PO BEDTIME [facility] Last Admin: 05/12/24 20:24 Dose: 10 mg Documented By: JEFFREY Duloxetine HCl (Duloxetine Hcl 60 Mg Capsule.Dr) 60 mg PO BID [facility] Last Admin: 05/13/24 08:57 Dose: 60 mg Documented By: RIGO Furosemide (Furosemide 40 Mg Tablet) 80 mg PO DAILY [facility]; Protocol Last Admin: 05/12/24 07:42 Dose: 80 mg Documented By: KIRA Ceftriaxone Sodium 1 gm/ (Sodium Chloride) 50 mls @ 100 mls/hr IV Q24H [facility] Last Infusion: 05/12/24 19:43 Dose: Infused Documented By: JEFFREY Magnesium Hydroxide (Milk Of Magnesia 30 Ml Oral.Susp) 30 ml PO DAILY PRN PRN Reason: Constipation Methenamine Hippurate (Methenamine Hippurate 1 Gm Tablet) 1 gm PO BID [facility] Last Admin: 05/13/24 08:57 Dose: 1 gm Documented By: RIGO Non-Formulary Medication (Umeclidinium-Vilanterol [Anoro Ellipta]) 1 puff PO DAILY [facility] Sodium Chloride (0.9 % Sodium Chloride Flush 3 Ml Syringe) 3 ml IVFLUSH QSHIFT [facility] Last Admin: 05/13/24 09:06 Dose: 3 ml Documented By: RIGO Vitamin D (Cholecalciferol (Vitamin D3) 25 Mcg Tablet) 25 mcg PO DAILY [facility] Last Admin: 05/13/24 08:57 Dose: 25 mcg Documented By: RIGO Labs 05/13/24 05:54 05/13/24 05:54 Labs: Laboratory Results - last 24 hr 05/13/24 05:54 MCV 97.2 MCH 29.6 MCHC 30.4 L RDW 13.1 Plt Count 197 MPV 10.9 Absolute Nucleated RBC 0.000 Nucleated RBC % (auto) 0.0 Anion Gap 16 Estim Creat Clear Calc 60.4 Estimated GFR > 60 Fasting Glucose 113 H Calcium 9.4 Assessment and Plan (1) Hypernatremia: Status: Acute (2) UTI (urinary tract infection): Status: Acute (3) Drug overdose: Status: Acute Assessment and Plan: 78F PMH cardiomyopathy, heart failure with recovered EF, COPD, hiatal presented status post intentional drug overdose Patient admitted for clonazepam overdose: acute toxic /metabolic encephalopathy sec to clonazepam overdose U tox is positive for amphetamine, benzos. mental status fluctuating, likely delerium as well will need crisis evalutation prior to discharge acute Hypoxic and hypercapneic respiratory failure in addition to acute metabolic alkalosis possible secondary to hypoventilation/atelectasis Continue pulse oximetry and oxygen, nebs, incentive spirometry,chest physiotherapy wean as tolerated also concern for aspiration COUNTY TAX ASSESSOR appreciated, rec regular with thins continue another day of diamox, monitor Possible UTI: patient is unable to say detail hx. Started on ceftriaxone(05/06) Urine culture - ecoli, sensitive to ceftriaxone Cardiomyopathy ,chf with recovered EF stable lasix, coreg, statin COPD not in exacerbation anoro ellipta history of DVT eliquis mood disorder cymbalta dvt prophylaxis - eliquis DNR/DNI reason for continued hospitalization: not at baseline mental status Quality Stroke Does the patient have a stroke diagnosis?: No VTE Prior VTE?: No VTE Risk Level:: Medical - moderate - high VTE Device Contraindication: N/A - Device Ordered VTE Drug Contraindication: N/A - Med Ordered
[2024-05-13] MEDS: acetaZOLAMIDE sodium 500 MG VIAL IVPUSH ×2 (11:26→22:24)
[2024-05-13] MEDS: Dextroamphetamine/Amphetamine XR 5 MG CAP.ER.24H 15 MG PO (12:44)
[2024-05-13] MEDS: cefTRIAXone sodium 1 GM in 0.9 % Sodium Chloride 50 ML IV (18:37)
[2024-05-14] VITALS (10 sets, daily range): BP systolic 107–128; BP diastolic 59–78; PULSE 77–89; RESP 17–24; TEMP 36.2–36.5; O2SAT 93–96
[2024-05-14] MEDS: DULoxetine HCl 60 MG CAPSULE.DR PO ×2 (02:50→08:34)
[2024-05-14] MEDS: carvediloL 6.25 MG TABLET PO ×3 (02:51→23:16)
[2024-05-14] MEDS: Apixaban 5 MG TABLET PO ×3 (02:52→23:17)
[2024-05-14] MEDS: Methenamine Hippurate 1 GM TABLET PO ×3 (02:52→23:16)
[2024-05-14] MEDS: Donepezil HCl 10 MG TABLET PO ×2 (02:52→23:16)
[2024-05-14] MEDS: Ascorbic Acid 500 MG TABLET PO ×3 (02:52→23:17)
[2024-05-14 06:18] LABS: Hematocrit 39.8 % (37.0-47.0); Hemoglobin 12.3 g/dl (12.0-16.0); Mean Corpuscular HGB Conc 30.9 g/dl (31.0-35.0); Mean Corpuscular Hemoglobin 30.1 pg (27.0-33.0); Mean Corpuscular Volume 97.5 fL (80.0-98.0); Mean Platelet Volume 10.5 fL (9.4-12.3); Platelet Count 210 X10*3/uL (160-400); Red Blood Count 4.08 X10*6/uL (4.20-5.50)
[2024-05-14 06:21] LABS: VBG Base Excess 13.2 mmol/L; VBG HCO3 40 mmol/L (22-26); VBG pCO2 64 mmHg; VBG pO2 59 mmHg
--- NOTE | 2024-05-14 06:28 | PC.NURSE ---
Admission note:Patient admitted from the ED around 2100. Patient arrived on a stretcher and was able to walk independently to the bed. Patient denies pain, sob, nausea, vomiting upon arriving to the room. CIWA score =0 x 3. Night time snack offered and taken. Assessment unremarkable. VSS. skin is intact. IVF:0.9 NS started at 100 ml/hr. Patient is oriented to unit routine, bed control, call light, TV, Tel bathroom, safety precautions etc. Questions and concerns addressed. Patient verbalized understanding and remained asleep throughout the night.
[2024-05-14 06:30] LABS: Venous Blood Gas Refer to POC result
[2024-05-14 06:34] LABS: Anion Gap 14 (12-20); Blood Urea Nitrogen 19 mg/dL (9-16); Calcium 9.9 mg/dL (8.4-10.2); Carbon Dioxide 33 mmol/L (22-29); Chloride 99 mmol/L (96-108); Creatinine Clr Calc Pharmacy 56.8; Estimated Glomerular Filt Rate > 60; Glucose Fasting 190 mg/dL (60-99); Magnesium 2.3 mg/dL (1.6-2.6); Sodium 143 mmol/L (135-145)
--- NOTE | 2024-05-14 07:30 | PC.NURSE ---
Assumed care of patient since 1844 on 05/13/24. Patient is alert, awake and confused. Sitter 1:1 at bedside for SI. Patient remains on O2 at 2l. Medications refused at the beginning of the shift and taken later, after midnight, whole in apple sauce. Assisted with turning and repositioning and incontinence care. VSS. NSR on telemetry. No signs of acute distress noted.
[2024-05-14] MEDS: Potassium Chloride ER 20 MEQ TAB.ER.PRT 40 MEQ PO (08:34)
[2024-05-14] MEDS: Dextroamphetamine/Amphetamine XR 5 MG CAP.ER.24H 15 MG PO (08:34)
[2024-05-14] MEDS: Cyanocobalamin (Vitamin B-12) 1,000 MCG TABLET 1000 MCG PO (08:34)
[2024-05-14] MEDS: Atorvastatin Calcium 80 MG TABLET PO (08:34)
[2024-05-14] MEDS: Cholecalciferol (Vitamin D3) 25 MCG TABLET PO (08:35)
[2024-05-14] MEDS: Clopidogrel Bisulfate 75 MG TABLET PO (08:35)
[2024-05-14] MEDS: 0.9 % Sodium Chloride Flush 3 ML SYRINGE IVFLUSH ×2 (08:35→15:18)
[2024-05-14] MEDS: Milk of Magnesia 30 ML ORAL.SUSP PO (08:54)
--- NOTE | 2024-05-14 10:25 | MHC.CM.PN ---
Pt will need CARE team eval to assist with disposition for SI. PT eval rec. STR for weakness, deconditioning. CM to follow for DC needs.
--- NOTE | 2024-05-14 10:36 | P.CDIM_ITS ---
PROVIDER RESPONSE TEXT: To clarify, the appropriate diagnosis supported by the clinical indicators: Pressure Injury Sacrum Stage 1 QUERY TEXT: PHYSICIAN'S DOCUMENTATION REQUEST Date of Query: 05/14/2024 10:28 AM EDT Patient Name: Qi Carrington Admit Date: 05/06/2024 Dear Luigi Barnhart MD, A review of the medical record indicates additional documentation may be needed. Please review below and update the documentation accordingly. Clinical Indicators: Wound care consult note - Pressure injury sacrum Stage 1- present on arrival. Sacral foam dressing peel back and assess Q shift change every 5 days and PRN. Based on the above, could you please provide further information regarding the ulcer/wound/injury: Pressure Injury Sacrum Stage 1 Other Other (explain) Clinically unable to determine (explain) Thank you, Divya Jolly, CCS, CDIS Use of terms such as suspected, likely, concern for, or probable (associated with a specific diagnosi s that is being evaluated, monitored, or treated as if it exists) are acceptable and can be coded in the inpatient se tting, when documented at the time of discharge. Please use your independent medical judgment in providing your response. THIS QUERY IS PART OF THE PERMANENT MEDICAL RECORD
--- NOTE | 2024-05-14 10:51 | HO.PM.IMPN ---
Subjective Subjective Date of Service: 05/14/24 Interval History: no complaints Physical Exam Vital Signs: Vital Signs: Last Vital Signs Temp 97.5 F 05/14/24 07:38 Pulse 77 05/14/24 09:26 Resp 20 05/14/24 07:38 BP 111/59 L 05/14/24 09:26 Pulse Ox 96 05/14/24 09:26 O2 Del Method Nasal Cannula 05/14/24 07:38 O2 Flow Rate 2 05/14/24 07:38 BMI result Body Mass Index 38.6 lethargic but easily responsive, communicative but confused, poor insight, poor recall, oriented to person place and time Objective Data Active Medications Acetaminophen (Acetaminophen 325 Mg Tablet) 650 mg PO Q6H PRN PRN Reason: Pain, Mild (Pain Scale 1-3), fever or headache Last Admin: 05/12/24 18:26 Dose: 650 mg Documented By: KIRA Albuterol Sulfate (Albuterol Sulfate 90 Mcg 8 Gm Inhaler) 2 puff INHALE Q4H PRN PRN Reason: Shortness Of Breath Amphetamine/Dextroamphetamine (Amphetamine Mixed Salts 10 Mg Tablet) 15 mg PO DAILY PRN PRN Reason: Mood Amphetamine/Dextroamphetamine (Dextroamphetamine/Amphetamine Xr 5 Mg Cap.Er.24h) 15 mg PO DAILY [facility] Last Admin: 05/14/24 08:34 Dose: 15 mg Documented By: VICTOR M Apixaban (Apixaban 5 Mg Tablet) 5 mg PO BID [facility] Last Admin: 05/14/24 08:34 Dose: 5 mg Documented By: VICTOR M Ascorbic Acid (Ascorbic Acid 500 Mg Tablet) 500 mg PO BID [facility] Last Admin: 05/14/24 08:35 Dose: 500 mg Documented By: VICTOR M Atorvastatin Calcium (Atorvastatin Calcium 80 Mg Tablet) 80 mg PO DAILY [facility] Last Admin: 05/14/24 08:34 Dose: 80 mg Documented By: VICTOR M Benzonatate (Benzonatate 100 Mg Capsule) 200 mg PO TID PRN PRN Reason: cough Last Admin: 05/10/24 01:48 Dose: 200 mg Documented By: NATALIA Calcium Carbonate (Calcium Carbonate 750 Mg Tab.Chew) 750 mg PO Q4H PRN PRN Reason: Heartburn Carvedilol (Carvedilol 6.25 Mg Tablet) 6.25 mg PO BID [facility]; Protocol Last Admin: 05/14/24 08:34 Dose: 6.25 mg Documented By: VICTOR M Clopidogrel Bisulfate (Clopidogrel Bisulfate 75 Mg Tablet) 75 mg PO DAILY [facility] Last Admin: 05/14/24 08:35 Dose: 75 mg Documented By: VICTOR M Cyanocobalamin (Cyanocobalamin (Vitamin B-12) 1,000 Mcg Tablet) 1,000 mcg PO DAILY [facility] Last Admin: 05/14/24 08:34 Dose: 1,000 mcg Documented By: VICTOR M Donepezil HCl (Donepezil Hcl 10 Mg Tablet) 10 mg PO BEDTIME [facility] Last Admin: 05/14/24 02:52 Dose: 10 mg Documented By: JANET Duloxetine HCl (Duloxetine Hcl 60 Mg Capsule.Dr) 60 mg PO BID [facility] Last Admin: 05/14/24 08:34 Dose: 60 mg Documented By: VICTOR M Furosemide (Furosemide 40 Mg Tablet) 80 mg PO DAILY [facility]; Protocol Last Admin: 05/12/24 07:42 Dose: 80 mg Documented By: KIRA Ceftriaxone Sodium 1 gm/ (Sodium Chloride) 50 mls @ 100 mls/hr IV Q24H [facility] Last Infusion: 05/13/24 19:07 Dose: Infused Documented By: RIGO Magnesium Hydroxide (Milk Of Magnesia 30 Ml Oral.Susp) 30 ml PO DAILY PRN PRN Reason: Constipation Last Admin: 05/14/24 08:54 Dose: 30 ml Documented By: VICTOR M Methenamine Hippurate (Methenamine Hippurate 1 Gm Tablet) 1 gm PO BID [facility] Last Admin: 05/14/24 08:34 Dose: 1 gm Documented By: VICTOR M Non-Formulary Medication (Umeclidinium-Vilanterol [Anoro Ellipta]) 1 puff PO DAILY [facility] Sodium Chloride (0.9 % Sodium Chloride Flush 3 Ml Syringe) 3 ml IVFLUSH QSHIFT [facility] Last Admin: 05/14/24 08:35 Dose: 3 ml Documented By: VICTOR M Vitamin D (Cholecalciferol (Vitamin D3) 25 Mcg Tablet) 25 mcg PO DAILY [facility] Last Admin: 05/14/24 08:35 Dose: 25 mcg Documented By: VICTOR M Labs 05/14/24 06:10 05/14/24 06:10 Labs: Laboratory Results - last 24 hr 05/14/24 05/14/24 06:10 06:15 MCV 97.5 MCH 30.1 MCHC 30.9 L RDW 13.0 Plt Count 210 MPV 10.5 Absolute Nucleated RBC 0.000 Nucleated RBC % (auto) 0.0 VBG pH 7.40 VBG pCO2 64 VBG pO2 59 VBG HCO3 40 H VBG O2 Saturation 91.0 VBG Base Excess 13.2 Anion Gap 14 Estim Creat Clear Calc 56.8 Estimated GFR > 60 Fasting Glucose 190 H Calcium 9.9 Magnesium 2.3 Assessment and Plan (1) Hypernatremia: Status: Acute (2) UTI (urinary tract infection): Status: Acute (3) Drug overdose: Status: Acute Assessment and Plan: 78F PMH cardiomyopathy, heart failure with recovered EF, COPD, hiatal presented status post intentional drug overdose Patient admitted for clonazepam overdose: acute toxic /metabolic encephalopathy sec to clonazepam overdose U tox is positive for amphetamine, benzos. mental status fluctuating, at this point appears to be mostly delerium will need crisis evalutation prior to discharge acute Hypoxic and hypercapneic respiratory failure in addition to acute metabolic alkalosis possible secondary to hypoventilation/atelectasis Continue pulse oximetry and oxygen, nebs, incentive spirometry,chest physiotherapy wean as tolerated also concern for aspiration LEAD TELLER appreciated, rec regular with thins refusing BIPAP at night Possible UTI: patient is unable to say detail hx. completed course of ceftriaxone Urine culture - ecoli, sensitive to ceftriaxone Cardiomyopathy ,chf with recovered EF stable lasix, coreg, statin COPD not in exacerbation anoro ellipta history of DVT eliquis mood disorder cymbalta dvt prophylaxis - eliquis DNR/DNI reason for continued hospitalization: not at baseline mental status Quality Stroke Does the patient have a stroke diagnosis?: No VTE Prior VTE?: No VTE Risk Level:: Medical - moderate - high VTE Device Contraindication: N/A - Device Ordered VTE Drug Contraindication: N/A - Med Ordered
--- NOTE | 2024-05-14 13:29 | MHC.SPEECHCO ---
FILENET ADMIN attempted x 2 today. She sleeping both times. At the second attempt she declines any offerings from the remainder of her Lunch tray. Per MINIATURE TRAIN DRIVER at bedside she tolerated breakfast and lunch with no overt s/s of aspiration. FILENET ADMIN will continue to follow.
[2024-05-14] MEDS: modafiniL 100 MG TABLET 200 MG PO (15:17)
[2024-05-14] MEDS: DULoxetine HCl 30 MG CAPSULE.DR PO (23:18)
[2024-05-15] VITALS (10 sets, daily range): BP systolic 98–125; BP diastolic 53–75; PULSE 75–97; RESP 20; TEMP 36–37.1; O2SAT 91–97
[2024-05-15] MEDS: 0.9 % Sodium Chloride Flush 3 ML SYRINGE IVFLUSH ×4 (00:37→20:20)
[2024-05-15 06:51] LABS: Hemoglobin 11.5 g/dl (12.0-16.0); Mean Corpuscular HGB Conc 31.1 g/dl (31.0-35.0); Mean Corpuscular Hemoglobin 29.4 pg (27.0-33.0); Mean Corpuscular Volume 94.6 fL (80.0-98.0); Mean Platelet Volume 10.4 fL (9.4-12.3); Platelet Count 218 X10*3/uL (160-400); Red Blood Count 3.91 X10*6/uL (4.20-5.50); Red Cell Distribution Width 13.1 % (11.0-16.0); White Blood Count 9.7 X10*3/uL (4.8-10.8)
[2024-05-15 07:12] LABS: Anion Gap 11 (12-20); Blood Urea Nitrogen 20 mg/dL (9-16); Carbon Dioxide 37 mmol/L (22-29); Chloride 100 mmol/L (96-108); Creatinine Clr Calc Pharmacy 58.1; Estimated Glomerular Filt Rate > 60; Glucose Fasting 151 mg/dL (60-99); Magnesium 2.5 mg/dL (1.6-2.6); Potassium 3.7 mmol/L (3.3-5.1); Sodium 144 mmol/L (135-145)
[2024-05-15] MEDS: Atorvastatin Calcium 80 MG TABLET PO (09:51)
[2024-05-15] MEDS: modafiniL 100 MG TABLET 200 MG PO (09:51)
[2024-05-15] MEDS: Dextroamphetamine/Amphetamine XR 5 MG CAP.ER.24H 15 MG PO (09:52)
[2024-05-15] MEDS: Clopidogrel Bisulfate 75 MG TABLET PO (09:52)
[2024-05-15] MEDS: Apixaban 5 MG TABLET PO ×2 (09:52→20:20)
[2024-05-15] MEDS: DULoxetine HCl 30 MG CAPSULE.DR PO ×2 (09:52→20:20)
[2024-05-15] MEDS: Cyanocobalamin (Vitamin B-12) 1,000 MCG TABLET 1000 MCG PO (09:52)
[2024-05-15] MEDS: Cholecalciferol (Vitamin D3) 25 MCG TABLET PO (09:52)
[2024-05-15] MEDS: Methenamine Hippurate 1 GM TABLET PO ×2 (09:52→20:20)
[2024-05-15] MEDS: Ascorbic Acid 500 MG TABLET PO ×2 (09:52→20:20)
--- NOTE | 2024-05-15 11:47 | MHC.SL.SWA ---
Risk of Aspiration Due to: Lethargy Cognition Dysphasia Diet Status: NO CHANGE Liquid Consistency and Strategies for Safe Swallow: Liquid Intake Recommendation: Thin Liquid Intake Strategies: Small Sips Solid Food Consistency: Dietary Recommendations: Chopped/Advanced (NDD3) Additional Modifications to Solid Foods: Add sauce/gravy to moisten solids Oral Medication Intake: Whole with Liquid Please contact the pharmacy regarding appropriate crushable or liquid drug formulations that are available whenever modified delivery is recommended. Compensatory Strategies and Precautions to be Taken for Safe Swallow: Sitting Upright (90 deg) Small Bites and Sips Alternate Liquids/Solids Rate of Ingestion Change Supervision While Eating and Drinking for Safe Swallow: Total Supervision (1:1) Swallowing Recommended Treatments: Compens. Strategy Educat. Recommendation for Speech: Inpatient Speech Therapy Comment: Due to patient's generalized weakness/SOB/confusion when eating, recommend patient continue with CHOPPED/ADVANCED solids (NDD3). Continue w/ THIN liquids and pills whole with liquid. Patient requires FULL SUPERVISION at meals, with direct assistance as needed. It was recommended to patient that she take small bites and sips while eating, chew her food thoroughly and take frequent breaks for 02. MOGUL OPERATOR to continue to follow. Optical Store Manager Clinican/Clinical Fellow: No Supervisory Statement: I have reviewed and agree with the student/clinical fellow's documentation: N/A Speech Language Pathologist: Yamilet Villarreal M.A., [facility] OPERATOR
--- NOTE | 2024-05-15 12:03 | MHC.CARE ---
Pt was seen by CARE team and meets criteria for inpatient level of care due to suicide attempt via overdose.
--- NOTE | 2024-05-15 12:14 | P.PNIM_ITS ---
Subjective Subjective Date of Service: 05/15/24 Interval History: Seen and evaluated this morning More alert and interactive frail overall no reported overnight events Review of Systems Review of Systems: Yes all other systems are reviewed and are negative Physical Exam 2 Vital Signs: Vital Signs: Last Vital Signs Temp 96.8 F 05/15/24 11:08 Pulse 75 05/15/24 11:08 Resp 20 05/15/24 11:08 BP 106/58 L 05/15/24 11:08 Pulse Ox 94 05/15/24 11:08 O2 Del Method Nasal Cannula 05/15/24 11:08 O2 Flow Rate 2 05/15/24 11:08 BMI result Body Mass Index 38.6 Const: Other: Constitutional : Awake, interactive, not in distress Neck : Normal inspection, Supple Cardiovascular : RRR, no JVP, no lower extremity edema Respiratory : good bilateral air entry, no crackles, wheezes or rhonchi Gastrointestinal: soft, lax, Normal bowel sounds, Non tender Skin : Warm, Dry Neurological : Alert & oriented to self and place, No focal deficit Objective Data Active Medications Acetaminophen (Acetaminophen 325 Mg Tablet) 650 mg PO Q6H PRN PRN Reason: Pain, Mild (Pain Scale 1-3), fever or headache Last Admin: 05/12/24 18:26 Dose: 650 mg Documented By: KIRA Albuterol Sulfate (Albuterol Sulfate 90 Mcg 8 Gm Inhaler) 2 puff INHALE Q4H PRN PRN Reason: Shortness Of Breath Amphetamine/Dextroamphetamine (Amphetamine Mixed Salts 10 Mg Tablet) 15 mg PO DAILY PRN PRN Reason: Mood Amphetamine/Dextroamphetamine (Dextroamphetamine/Amphetamine Xr 5 Mg Cap.Er.24h) 15 mg PO DAILY [facility] Last Admin: 05/15/24 09:52 Dose: 15 mg Documented By: VICTOR M Apixaban (Apixaban 5 Mg Tablet) 5 mg PO BID [facility] Last Admin: 05/15/24 09:52 Dose: 5 mg Documented By: VICTOR M Ascorbic Acid (Ascorbic Acid 500 Mg Tablet) 500 mg PO BID [facility] Last Admin: 05/15/24 09:52 Dose: 500 mg Documented By: VICTOR M Atorvastatin Calcium (Atorvastatin Calcium 80 Mg Tablet) 80 mg PO DAILY [facility] Last Admin: 05/15/24 09:51 Dose: 80 mg Documented By: VICTOR M Benzonatate (Benzonatate 100 Mg Capsule) 200 mg PO TID PRN PRN Reason: cough Last Admin: 05/10/24 01:48 Dose: 200 mg Documented By: NATALIA Calcium Carbonate (Calcium Carbonate 750 Mg Tab.Chew) 750 mg PO Q4H PRN PRN Reason: Heartburn Carvedilol (Carvedilol 6.25 Mg Tablet) 6.25 mg PO BID [facility]; Protocol Last Admin: 05/15/24 10:14 Dose: Not Given Documented By: VICTOR M Non-Admin Reason: Physician Held Med Clopidogrel Bisulfate (Clopidogrel Bisulfate 75 Mg Tablet) 75 mg PO DAILY [facility] Last Admin: 05/15/24 09:52 Dose: 75 mg Documented By: VICTOR M Cyanocobalamin (Cyanocobalamin (Vitamin B-12) 1,000 Mcg Tablet) 1,000 mcg PO DAILY [facility] Last Admin: 05/15/24 09:52 Dose: 1,000 mcg Documented By: VICTOR M Donepezil HCl (Donepezil Hcl 10 Mg Tablet) 10 mg PO BEDTIME [facility] Last Admin: 05/14/24 23:16 Dose: 10 mg Documented By: JANET Duloxetine HCl (Duloxetine Hcl 30 Mg Capsule.Dr) 30 mg PO BID [facility] Last Admin: 05/15/24 09:52 Dose: 30 mg Documented By: VICTOR M Furosemide (Furosemide 40 Mg Tablet) 80 mg PO DAILY [facility]; Protocol Last Admin: 05/15/24 10:15 Dose: Not Given Documented By: VICTOR M Non-Admin Reason: Physician Held Med Magnesium Hydroxide (Milk Of Magnesia 30 Ml Oral.Susp) 30 ml PO DAILY PRN PRN Reason: Constipation Last Admin: 05/14/24 08:54 Dose: 30 ml Documented By: VICTOR M Methenamine Hippurate (Methenamine Hippurate 1 Gm Tablet) 1 gm PO BID [facility] Last Admin: 05/15/24 09:52 Dose: 1 gm Documented By: VICTOR M Modafinil (Modafinil 100 Mg Tablet) 200 mg PO DAILY [facility] Last Admin: 05/15/24 09:51 Dose: 200 mg Documented By: VICTOR M Sodium Chloride (0.9 % Sodium Chloride Flush 3 Ml Syringe) 3 ml IVFLUSH QSHIFT [facility] Last Admin: 05/15/24 09:53 Dose: 3 ml Documented By: VICTOR M Vitamin D (Cholecalciferol (Vitamin D3) 25 Mcg Tablet) 25 mcg PO DAILY [facility] Last Admin: 05/15/24 09:52 Dose: 25 mcg Documented By: VICTOR M Labs 05/15/24 06:35 05/15/24 06:35 Labs: Laboratory Results - last 24 hr 05/15/24 06:35 MCV 94.6 MCH 29.4 MCHC 31.1 RDW 13.1 Plt Count 218 MPV 10.4 Absolute Nucleated RBC 0.000 Nucleated RBC % (auto) 0.0 Anion Gap 11 L Estim Creat Clear Calc 58.1 Estimated GFR > 60 Fasting Glucose 151 H Calcium 10.0 Magnesium 2.5 Assessment and Plan (1) Drug overdose: Status: Acute Assessment and Plan: 78F PMH cardiomyopathy, heart failure with recovered EF, COPD, hiatal presented status post intentional drug overdose Clonazepam overdose complicated with acute toxic metabolic encephalopathy U tox is positive for amphetamine, benzos. mental status improving care team evaluation today, no reported SI acute Hypoxic and hypercapneic respiratory failure in addition to acute metabolic alkalosis secondary to hypoventilation/atelectasis Continue pulse oximetry and oxygen, nebs, incentive spirometry and chest physiotherapy wean as tolerated SMALL PARTS SHAPER OPERATOR appreciated, rec regular with thins as no signs of aspiration refusing BIPAP at night E.Coli UTI completed course of ceftriaxone Physical deconditioning PT rec STR Cardiomyopathy ,chf with recovered EF stable, Continue lasix, coreg, statin COPD not in exacerbation anoro ellipta history of DVT eliquis mood disorder cymbalta dvt prophylaxis - eliquis DNR/DNI reason for continued hospitalization: not at baseline mental status pending improvement (2) Hypernatremia: Status: Acute (3) UTI (urinary tract infection): Status: Acute (4) Toxic metabolic encephalopathy: Status: Acute Quality Stroke Does the patient have a stroke diagnosis?: No VTE Prior VTE?: No VTE Risk Level:: Medical - moderate - high VTE Device Contraindication: N/A - Device Ordered VTE Drug Contraindication: N/A - Med Ordered
[2024-05-15] MEDS: Milk of Magnesia 30 ML ORAL.SUSP PO (17:52)
[2024-05-15] MEDS: carvediloL 6.25 MG TABLET PO (20:20)
[2024-05-15] MEDS: Donepezil HCl 10 MG TABLET PO (20:20)
[2024-05-16 04:00] VITALS: BP 119/62; PULSE 78; RESP 16; TEMP 36.5; O2SAT 94
[2024-05-16 08:00] VITALS: BP 126/66; PULSE 78; RESP 20; TEMP 36.6; O2SAT 94
[2024-05-16] MEDS: Atorvastatin Calcium 80 MG TABLET PO (09:34)
[2024-05-16] MEDS: Dextroamphetamine/Amphetamine XR 5 MG CAP.ER.24H 15 MG PO (09:34)
[2024-05-16] MEDS: Cholecalciferol (Vitamin D3) 25 MCG TABLET PO (09:34)
[2024-05-16] MEDS: Ascorbic Acid 500 MG TABLET PO (09:34)
[2024-05-16] MEDS: DULoxetine HCl 30 MG CAPSULE.DR PO (09:34)
[2024-05-16] MEDS: carvediloL 6.25 MG TABLET PO (09:34)
[2024-05-16] MEDS: modafiniL 100 MG TABLET 200 MG PO (09:34)
[2024-05-16] MEDS: Apixaban 5 MG TABLET PO (09:35)
[2024-05-16] MEDS: Furosemide 40 MG TABLET 80 MG PO (09:35)
[2024-05-16] MEDS: Cyanocobalamin (Vitamin B-12) 1,000 MCG TABLET 1000 MCG PO (09:35)
[2024-05-16] MEDS: Methenamine Hippurate 1 GM TABLET PO (09:35)
[2024-05-16] MEDS: 0.9 % Sodium Chloride Flush 3 ML SYRINGE IVFLUSH (09:41)
[2024-05-16] MEDS: Clopidogrel Bisulfate 75 MG TABLET PO (09:47)
[2024-05-16] MEDS: Furosemide 40 MG/4 ML VIAL IVPUSH (10:29)
[2024-05-16 11:00] VITALS: BP 139/63; PULSE 79; RESP 16; TEMP 36.3; O2SAT 96
--- NOTE | 2024-05-16 12:29 | PM.DS ---
DS: Providers Provider Date of Service: 05/16/24 Date of admission: 05/06/24 18:54 Date of discharge: 05/16/24 Primary care physician: Katherine Slade MD Consults: 05/07/24 02:00 Consult to Wound Care Routine Reason for consultation: redness to coccyx,rash to left thigh 05/07/24 08:51 Consult to Pulmonology Routine Consulting Provider: [facility] [place] [facility] Reason for consultation: Hypodermic respiratory failure / clonidine overdose Has provider been notified: No 05/07/24 09:06 Consult to General Surgery Routine Consulting Provider: [facility] Reason for consultation: Descending colon hernia 05/07/24 09:26 Consult to Critical Care Stat Consulting Provider: Dustin Reaves Reason for consultation: Hypoxia - level of care Has provider been notified: No 05/07/24 19:08 Consult to Psychiatry Routine Consulting Provider: Psych Covering Reason for consultation: depression/SI Has provider been notified: No 05/15/24 07:52 Consult to Care Team Routine Comment: Reason for consultation: eval for need of psych placement. Medically free for placement. DS: Diagnosis Discharge Diagnosis (1) Drug overdose: Status: Acute (2) Hypernatremia: Status: Acute (3) UTI (urinary tract infection): Status: Acute (4) Toxic metabolic encephalopathy: Status: Acute (5) Acute hypercapnic respiratory failure: Status: Acute (6) Altered mental state: Status: Acute DS: Summary Hospital Course Hospital Course: Admission note HPI 78 y/o F cardiomyopathy, heart failure, COPD, hiatal presenting status post intentional drug overdose, patient took clonazepam 0.5 mg unknown amount, between last night and this morning. Patient has been on the ground since last night at approximately 23:00. She has never done this before. She did endorse suicidal ideation with plan to overdose. She lives at home by herself. Initially she was groggy but during my examination she seems more awake could able to tell that she took unknown amount of clonazepam that is the only medication she overdosed. She unable to tell why she decided to to overdose of clonazepam. Denies any nausea vomiting abdominal pain or chest pain or fever or chills She has some dry cough otherwise, no new complaints-but because still somewhat sleepy so could not able to provide appropriate history. Sats were 73% on room air initially. Hospital course The patient was primarly admitted for Clonazepam overdose complicated with acute toxic metabolic encephalopathy as U tox was positive for amphetamine, benzos. She was managed with supportive measures with IV fluids and respiratory support with mental status improving back to baseline. Evaluated by care team who recommended placement in Psychiatry unit. Upon admission she was acute Hypoxic and hypercapneic respiratory failure in addition to acute metabolic alkalosis secondary to hypoventilation/atelectasis requiring pulse oximetry and oxygen monitoring, Nebulizer treatment and short term of BiPAP which she refued to wear afterward when her mentation improved. Evaluated by speech team who advanced her diet to regular as she continued to improve physically and mentally. Started on Megace with fair response. Adderall was changed to daily instead of PRN with fair response as well. Continued to require O2 supplement of 2-4L. CXR showed no signs of infection but minimal left sided effusion. Started on incentive spirometry and chest physiotherapy. wean as tolerated to 2L for now. To be discharged to psych floor on O2 supplement and continue to wean down as tolerated soon. - E.Coli UTI, completed course of ceftriaxone - Physical deconditioning, PT rec STR after psych admission - Cardiomyopathy ,chf with recovered EF. stable, Continue lasix, coreg, statin - COPD, Not in exacerbation. Did not use her inhaler during most of hospital stay. Psychiatrist to decide if Mirtazapine is needed. Time Attestation Discharge Coordination Time (in mins): 56 Quality: Safe Use of Opioids Does Pt have an Active Cancer Diagnosis on the Problem List?: No Quality: Stroke Does the patient have a stroke diagnosis?: No Physical Exam Vital Signs: Vital Signs: Last Vital Signs Temp 97.3 F 05/16/24 11:00 Pulse 79 05/16/24 11:00 Resp 16 05/16/24 11:00 BP 139/63 05/16/24 11:00 Pulse Ox 96 05/16/24 11:00 O2 Del Method Nasal Cannula 05/16/24 11:00 O2 Flow Rate 4 05/16/24 11:00 BMI result Body Mass Index 38.6 Const: Other: Constitutional : Awake, interactive, not in distress Neck : Normal inspection, Supple Cardiovascular : RRR, no JVP, no lower extremity edema Respiratory : good bilateral air entry decreased at the bases, no crackles, wheezes or rhonchi, On O2 supplement Gastrointestinal: soft, lax, Normal bowel sounds, Non tender Skin : Warm, Dry Neurological : Alert & oriented to self and place, No focal deficit, lower extremities weakness DS: Data Imaging Chest x-ray: Radiologist's impression: ITS Impressions Head CT 05/06/24 11:17 IMPRESSION: 1. No evidence of acute intracranial hemorrhage or edematous territorial infarction. Moderate underlying microangiopathy and generalized cerebral volume loss. 2. No evidence of acute fracture or traumatic subluxation of the cervical spine. Moderate to advanced multilevel degenerative spondyloarthropathy of the cervical spine. Electronically signed by: Fili Munoz DO 05/06/2024 06:03 PM EDT RP Abdomen/Pelvis CT 05/06/24 11:21 IMPRESSION: A definitive cause for the patient's chest and abdominal pain has not been found. Incidental findings as described above. As mentioned above, there is marked respiratory motion artifact limiting evaluation especially for rib fractures. Fleischner guidelines were followed. Electronically signed by: Adrien Calderon MD 05/06/2024 06:58 PM EDT RP Chest CT 05/06/24 11:21 IMPRESSION: A definitive cause for the patient's chest and abdominal pain has not been found. Incidental findings as described above. As mentioned above, there is marked respiratory motion artifact limiting evaluation especially for rib fractures. Fleischner guidelines were followed. Electronically signed by: Adrien Calderon MD 05/06/2024 06:58 PM EDT RP Cervical Spine CT 05/06/24 13:14 IMPRESSION: 1. No evidence of acute intracranial hemorrhage or edematous territorial infarction. Moderate underlying microangiopathy and generalized cerebral volume loss. 2. No evidence of acute fracture or traumatic subluxation of the cervical spine. Moderate to advanced multilevel degenerative spondyloarthropathy of the cervical spine. Electronically signed by: Fili Munoz DO 05/06/2024 06:03 PM EDT RP Chest X-Ray 05/06/24 21:45 IMPRESSION: Left basilar and midlung consolidation. Electronically signed by: Liza Whelan MD 05/07/2024 04:09 AM EDT RP Chest X-Ray 05/07/24 09:18 IMPRESSION: No acute intrathoracic disease. Chronically elevated left hemidiaphragm with left basilar atelectasis. Electronically signed by: Adrien Calderon MD 05/07/2024 10:49 AM EDT RP Chest X-Ray 05/09/24 23:59 IMPRESSION: Left-sided pleural effusion with left basilar and right perihilar opacities, similar when compared to the prior examination. Electronically signed by: Alton Avitia MD 05/10/2024 05:34 AM EDT RP Chest X-Ray 05/11/24 13:00 IMPRESSION: Stable exam. Electronically signed by: Liza Whelan MD 05/11/2024 03:08 PM EDT RP Chest X-Ray 05/16/24 10:20 IMPRESSION: No significant change compared to 05/11/2024. Electronically signed by: Gretta Rojas MD 05/16/2024 11:30 AM EDT RP Discharge Plan Discharge Anticipated Discharge Date/Time: 05/16/24 12:20 Patient Disposition: Xfer Psychiatric Hosp Discharge Diagnosis: Toxic metabolic encephalopathy UTI Suicidal attempt: Benzodiazepine overdose Referrals: Katherine Slade MD [Primary Care Provider] - 1 Week Discharge Medications: New modafinil [Provigil] 100 mg Tablet 200 mg PO DAILY Qty: 90 0RF Continued Eliquis 5 mg Tablet 5 mg PO BID duloxetine 60 mg Capsule,Delayed Release(Dr/Ec) 60 mg PO BID cholecalciferol (vitamin D3) 25 mcg (1,000 unit) Tablet 25 mcg PO DAILY Bacillus subtilis-inulin 1.5 billion cell-1 gram Tablet,Chewable 1 tab PO DAILY albuterol sulfate 90 mcg/actuation HFA aerosol inhaler 2 puff inhalation Q4H PRN (Reason: Shortness Of Breath) Anoro Ellipta 62.5-25 mcg/actuation blister with device 1 puff PO DAILY Entresto 24-26 mg Tablet 1 tab PO BID Qty: 60 0RF Protocol: Hold for SBP< HOLD for SBP < : 90 atorvastatin 80 mg tablet 80 mg PO DAILY donepezil 10 mg tablet 10 mg PO BEDTIME clopidogrel 75 mg tablet 75 mg PO DAILY methenamine hippurate 1 gram tablet 1 g PO BID Rx Instructions: Take with Vitamin C tablet. furosemide 80 mg tablet 80 mg PO DAILY cyanocobalamin (vitamin B-12) [Vitamin B-12] 1,000 mcg Tablet 1,000 mcg PO DAILY melatonin 10 mg Tablet 20 mg PO BEDTIME PRN (Reason: Sleep) carvedilol 6.25 mg tablet 6.25 mg PO BID ascorbic acid (vitamin C) [Vitamin C] 500 mg Tablet 500 mg PO BID dextroamphetamine-amphetamine [Adderall] 10 mg Tablet 15 mg PO DAILY PRN (Reason: Mood) Qty: 30 0RF Held mirtazapine 15 mg tablet 15 mg PO BEDTIME Hold Instructions: Psychiatrist to decide if needed. naproxen-diphenhydramine 220-25 mg Tablet 1 tab PO BEDTIME PRN (Reason: Headache) Hold Instructions: Psychiatrist to decide if needed. Discharge Orders: Discharge Order (Routine); Ordered 05/16/24 Ordered By: Pacheco Sanchez Diet: Low salt diet Activity on Discharge: As tolerated Stand Alone Forms: Patient Portal Discharge page Print Language: [place]
--- NOTE | 2024-05-16 12:31 | MHC.CM.PN ---
Pt to be transferred to [facility] unit.
== END 2024-05-16 14:07 | DRG 917 ==
LOC: HO.ED 18:19 → HO.EDOVER 18:59 → HO.IMC 05-07 00:35
PROVIDERS: Internal Medicine; Physician Assistant; Student in an Organized Health Care Education/Training Program; Admitting Provider Internal Medicine; Emergency Provider Emergency Medicine; PCP Student in an Organized Health Care Education/Training Program; Visit Provider Student in an Organized Health Care Education/Training Program
DX: T42.4X2A Poisoning by benzodiazepines, intentional self-harm, initial encounter (principal); G92.8 Other toxic encephalopathy; J96.02 Acute respiratory failure with hypercapnia; J96.01 Acute respiratory failure with hypoxia; N30.00 Acute cystitis without hematuria; J98.11 Atelectasis; I42.9 Cardiomyopathy, unspecified; I50.22 Chronic systolic (congestive) heart failure; E87.4 Mixed disorder of acid-base balance; F05 Delirium due to known physiological condition; E87.0 Hyperosmolality and hypernatremia; F39 Unspecified mood [affective] disorder; B96.20 Unspecified Escherichia coli [E. coli] as the cause of diseases classified elsewhere; L89.151 Pressure ulcer of sacral region, stage 1; J44.9 Chronic obstructive pulmonary disease, unspecified; Z66 Do not resuscitate; F98.8 Other specified behavioral and emotional disorders with onset usually occurring in childhood and adolescence; Z86.718 Personal history of other venous thrombosis and embolism; Z87.891 Personal history of nicotine dependence; Z79.01 Long term (current) use of anticoagulants; Z79.02 Long term (current) use of antithrombotics/antiplatelets; Z79.899 Other long term (current) drug therapy
CPT/HCPCS: 36415; 36600; 70450; 71045; 71260; 72125; 74177; 80048; 80053; 80076; 80143; 80179; 80307; 81001; 82140; 82550; 82803; 82947; 83690; 83735; 83880; 84484; 85025; 85027; 87086; 87088; 87186; 92526; 92610; 92950; 93005; 93306; 94640; 94660; 94799; 97162; 97530; 99285; J0696; J1120; J1940; J2359; J3475; J3480; J7120; Q9957; Q9967; S9485

== ENCOUNTER 2024-05-06 18:54 | Outpatient (BNV) | payer MEDICARE, SELFPAY | END 2024-05-07 07:00 | PROVIDERS: Admitting Provider Internal Medicine; Emergency Provider Emergency Medicine; PCP Student in an Organized Health Care Education/Training Program; Visit Provider Internal Medicine Cardiovascular Disease | DX: I35.8 Other nonrheumatic aortic valve disorders (principal); R93.1 Abnormal findings on diagnostic imaging of heart and coronary circulation | CPT/HCPCS: 93306 ==

== ENCOUNTER → 2024-05-06 18:54 | Outpatient (BNV) | payer MEDICARE, SELFPAY | PROVIDERS: Admitting Provider Internal Medicine; Emergency Provider Emergency Medicine; PCP Student in an Organized Health Care Education/Training Program; Visit Provider Hospitalist | DX: J96.02 Acute respiratory failure with hypercapnia (principal); T50.902A Poisoning by unspecified drugs, medicaments and biological substances, intentional self-harm, initial encounter; J41.0 Simple chronic bronchitis | CPT/HCPCS: 99223; 99233 ==

== ENCOUNTER → 2024-05-06 18:54 | Outpatient (BNV) | payer MEDICARE, SELFPAY | PROVIDERS: Admitting Provider Internal Medicine; Emergency Provider Emergency Medicine; PCP Student in an Organized Health Care Education/Training Program; Visit Provider Internal Medicine | DX: E87.0 Hyperosmolality and hypernatremia (principal); N30.00 Acute cystitis without hematuria; T50.902A Poisoning by unspecified drugs, medicaments and biological substances, intentional self-harm, initial encounter | CPT/HCPCS: 99222; 99232; 99239 ==

== ENCOUNTER → 2024-05-06 18:54 | Outpatient (BNV) | payer MEDICARE, SELFPAY | PROVIDERS: Admitting Provider Internal Medicine; Emergency Provider Emergency Medicine; PCP Student in an Organized Health Care Education/Training Program; Visit Provider Surgery | DX: K45.8 Other specified abdominal hernia without obstruction or gangrene (principal) | CPT/HCPCS: 99222 ==

== ENCOUNTER 2024-05-16 13:32 | Inpatient (IN) | payer MEDICARE, SELFPAY ==
--- NOTE | ~2024-05-16 | XR_ITS ---
EXAMINATION: XR CHEST CLINICAL INFORMATION: Hypoxia. COMPARISON: May 16, 2024. TECHNIQUE: 2 views of the chest were obtained. FINDINGS: Moderate to severe elevation of the left hemidiaphragm appears unchanged. Mild diffuse interstitial prominence. It is uncertain whether this represents artifactual crowding of the interstitium related to suboptimal inspiration versus true infiltrate. No gross focal infiltrate, effusion, or pneumothorax is appreciated. The cardiac silhouette is poorly evaluated. The aorta may be mildly uncoiled, suggesting hypertension. Severe degenerative changes of the shoulders. Degenerative changes of the spine. Postsurgical changes involving the distention of the visualized portion of the upper lumbar spine. Mild multilevel lower thoracic and/or upper lumbar wedge compression deformity, age-indeterminate. Recommend clinical correlation. XR/XR chest 2V IMPRESSION: Findings as above. Electronically signed by: Jorge Galeas MD 05/28/2024 05:43 PM EDT
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
[2024-05-16 17:37] VITALS: BP 130/61; PULSE 81; RESP 18; TEMP 36.3; O2SAT 92
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
[2024-05-16 20:00] VITALS: BP 131/69; PULSE 93; RESP 18; TEMP 36.4; O2SAT 96
[2024-05-16] MEDS: Apixaban 5 MG TABLET PO (21:06)
[2024-05-16] MEDS: Ascorbic Acid 500 MG TABLET PO (21:06)
[2024-05-16] MEDS: Sacubitril/Valsartan 24/26 1 TAB TABLET PO (21:06)
[2024-05-16] MEDS: traZODone HCL 50 MG TABLET PO (21:06)
[2024-05-16] MEDS: carvediloL 6.25 MG TABLET PO (21:06)
[2024-05-16] MEDS: Donepezil HCl 10 MG TABLET PO (21:06)
[2024-05-16] MEDS: Methenamine Hippurate 1 GM TABLET PO (21:06)
[2024-05-17 08:00] VITALS: BP 135/82; PULSE 77; RESP 18; TEMP 36.2; O2SAT 93
[2024-05-17 09:11] LABS: Alanine Aminotransferase 56 U/L (0-31); Albumin Level 2.9 g/dL (3.5-5.0); Alkaline Phosphatase 92 U/L (39-117); Anion Gap 16 (12-20); Aspartate Amino Transferase 35 U/L (5-31); Bilirubin Total 0.3 mg/dL (0.0-1.0); Blood Urea Nitrogen 26 mg/dL (9-16); Calcium 9.9 mg/dL (8.4-10.2); Carbon Dioxide 36 mmol/L (22-29); Chloride 99 mmol/L (96-108); Cholesterol 117 mg/dL (<200); Estimated Glomerular Filt Rate > 60; Glucose Fasting 131 mg/dL (60-99); HDL Cholesterol 33 mg/dL (>40); LDL Cholesterol Calculated 64 mg/dL (<100); Potassium 4.5 mmol/L (3.3-5.1); Sodium 146 mmol/L (135-145); Total Protein 6.5 g/dL (6.5-8.0); Triglycerides 101 mg/dL (<150)
[2024-05-17] MEDS: Fluticasone/Umeclidinium/Vilanterol 100/62.5/25 BLST.W.DEV 1 PUFF INHALE (09:12)
[2024-05-17] MEDS: carvediloL 6.25 MG TABLET PO ×2 (09:12→20:36)
[2024-05-17] MEDS: Methenamine Hippurate 1 GM TABLET PO ×2 (09:13→20:36)
[2024-05-17] MEDS: Apixaban 5 MG TABLET PO ×2 (09:13→20:37)
[2024-05-17] MEDS: Cyanocobalamin (Vitamin B-12) 1,000 MCG TABLET 1000 MCG PO (09:13)
[2024-05-17] MEDS: Ascorbic Acid 500 MG TABLET PO ×2 (09:13→20:36)
[2024-05-17] MEDS: Clopidogrel Bisulfate 75 MG TABLET PO (09:13)
[2024-05-17] MEDS: Sacubitril/Valsartan 24/26 1 TAB TABLET PO ×2 (09:13→20:36)
[2024-05-17] MEDS: Atorvastatin Calcium 80 MG TABLET PO (09:13)
[2024-05-17] MEDS: Cholecalciferol (Vitamin D3) 25 MCG TABLET PO (09:13)
[2024-05-17] MEDS: Furosemide 40 MG TABLET 80 MG PO (09:13)
[2024-05-17 09:18] LABS: Thyroid Stimulating Hormone 1.65 uIU/mL (0.32-4.0)
[2024-05-17 09:37] LABS: Folate 14.3 ng/mL (> or = 4.0); Vitamin B12 > 2000 pg/mL (200-900)
[2024-05-17 10:54] LABS: Estimated Average Glucose 134 mg/dL; Hemoglobin A1c % 6.3 % (<6.0)
[2024-05-17 11:22] VITALS: BMI 38.6
[2024-05-17 20:00] VITALS: BP 108/59; PULSE 81; RESP 18; TEMP 36.9; O2SAT 94
[2024-05-17] MEDS: Donepezil HCl 10 MG TABLET PO (20:36)
[2024-05-17] MEDS: traZODone HCL 50 MG TABLET PO (20:37)
--- NOTE | 2024-05-17 20:43 | P.PNPSI_ITS ---
Subjective Subjective Date of Service: 05/17/24 Reason For Visit: Post OD Subjective Notes: Conditional Voluntary Interim History: Pt slept most of the night. No worsening in oxygen saturation, on 3L. She reports doing well. She denies SI/HI. She asks for meeting with her daughter. ordered wound consult and PT order to assess need for STR Review of Systems Review of Systems No chest pain No constipation or loose stools. She is incontinent of both. Some SOB, on nasal canula, underlying COPD. Mental Status Exam Mental Status Exam Narrative: Appearance: wearing hospital gown, fair hygiene in NAD behavior: cooperative and friendly Psychomotor: some retardation, somnolent Speech: clear, some delay suspect due to somnolence, spontaneous TP: mostly linear, poverty of thought TC: accepting treatment but states won't sign any papers without her daughter present who is HCP Mood: okay Affect: somnolent SI: denies HI: denies VH/AH: none Delusions: none Insight/judgment: poor x 2. Memory/cog: alert, oriented to place, month, year. pending moca Diagnostics Vital Signs (24Hr): Vital Signs - 24 hr 05/17/24 08:00 05/17/24 20:00 Temperature 97.2 F 98.4 F Pulse Rate 77 81 Respiratory Rate 18 18 Blood Pressure 135/82 108/59 L Pulse Oximetry 93 94 Oxygen Delivery Method Nasal Cannula Nasal Cannula Oxygen Flow Rate 3 BMI result Body Mass Index 38.6 Labs 05/17/24 08:23 Labs: Laboratory Results - last 48 hr 05/17/24 08:23 Sodium 146 H Potassium 4.5 D Chloride 99 Carbon Dioxide 36 H Anion Gap 16 BUN 26 H Creatinine 0.81 Estim Creat Clear Calc TNP Estimated GFR > 60 Fasting Glucose 131 H Estimat Average Glucose 134 Hemoglobin A1c % 6.3 H Calcium 9.9 Total Bilirubin 0.3 AST 35 H ALT 56 H Alkaline Phosphatase 92 Total Protein 6.5 Albumin 2.9 L Triglycerides 101 Cholesterol 117 LDL Cholesterol, Calc 64 HDL Cholesterol 33 L Vitamin B12 > 2000 H Folate 14.3 TSH 1.65 Medications Medications Current Medications Acetaminophen (Acetaminophen 325 Mg Tablet) 650 mg PO Q6H PRN PRN Reason: Headache/Pain Mild Scale (1-3) Al Hydroxide/Mg Hydroxide (Magnesium Hydrox/Alum Hydrox 30 Ml Oral.Susp) 30 ml PO Q6H PRN PRN Reason: Heartburn/Nausea Albuterol Sulfate (Albuterol Sulfate 90 Mcg 8 Gm Inhaler) 2 puff INHALE Q4H PRN PRN Reason: Shortness of Breath/Wheezing Apixaban (Apixaban 5 Mg Tablet) 5 mg PO BID [facility] Last Admin: 05/17/24 20:37 Dose: 5 mg Ascorbic Acid (Ascorbic Acid 500 Mg Tablet) 500 mg PO BID [facility] Last Admin: 05/17/24 20:36 Dose: 500 mg Atorvastatin Calcium (Atorvastatin Calcium 80 Mg Tablet) 80 mg PO DAILY [facility] Last Admin: 05/17/24 09:13 Dose: 80 mg Carvedilol (Carvedilol 6.25 Mg Tablet) 6.25 mg PO BID [facility]; Protocol Last Admin: 05/17/24 20:36 Dose: 6.25 mg Clopidogrel Bisulfate (Clopidogrel Bisulfate 75 Mg Tablet) 75 mg PO DAILY [facility] Last Admin: 05/17/24 09:13 Dose: 75 mg Cyanocobalamin (Cyanocobalamin (Vitamin B-12) 1,000 Mcg Tablet) 1,000 mcg PO DAILY [facility] Last Admin: 05/17/24 09:13 Dose: 1,000 mcg Donepezil HCl (Donepezil Hcl 10 Mg Tablet) 10 mg PO BEDTIME [facility] Last Admin: 05/17/24 20:36 Dose: 10 mg Fluticasone/Umeclidinium/Vilanterol (Fluticasone/Umeclidinium/Vilanterol 100/62.5/25 Blst.W.Dev) 1 puff INHALE RDAILY [facility] Last Admin: 05/17/24 09:12 Dose: 1 puff Furosemide (Furosemide 40 Mg Tablet) 80 mg PO DAILY [facility]; Protocol Last Admin: 05/17/24 09:13 Dose: 80 mg Magnesium Hydroxide (Milk Of Magnesia 30 Ml Oral.Susp) 30 ml PO DAILY PRN PRN Reason: Constipation Methenamine Hippurate (Methenamine Hippurate 1 Gm Tablet) 1 gm PO BID [facility] Last Admin: 05/17/24 20:36 Dose: 1 gm Sacubitril/Valsartan (Sacubitril/Valsartan 1 Tab Tablet) 1 tab PO BID [facility]; Protocol Last Admin: 05/17/24 20:36 Dose: 1 tab Trazodone HCl (Trazodone Hcl 50 Mg Tablet) 50 mg PO BEDTIME PRN PRN Reason: Insomnia Last Admin: 05/17/24 20:37 Dose: 50 mg Vitamin D (Cholecalciferol (Vitamin D3) 25 Mcg Tablet) 25 mcg PO DAILY [facility] Last Admin: 05/17/24 09:13 Dose: 25 mcg Allergies Allergies Allergy/AdvReac Type Severity Reaction Status Date / Time No Known Allergies Allergy Verified 05/06/24 11:26 Assessment & Plan Assessment & Plan (1) MDD (major depressive disorder), recurrent episode, moderate: Status: Acute Code(s): F33.1 - Major depressive disorder, recurrent, moderate (2) Alzheimer dementia: Status: Acute Code(s): G30.9 - Alzheimer's disease, unspecified; F02.80 - Dementia in other diseases classified elsewhere, unspecified severity, without behavioral disturbance, psychotic disturbance, mood disturbance, and anxiety Plan Ms. Carrington is a 78 year-old woman admitted post intentional OD on clonazepam. Pt denies current SI, plan or intent. Coordinate dispo with daughter, needs STR. Reason for continued inpatient stay Substantial Risk for: inability to function Time Spent With Patient Time: Total time managing care of this patient today ____ minutes.
[2024-05-18 08:35] VITALS: BP 115/71; PULSE 99; RESP 16; TEMP 36.3; O2SAT 94
[2024-05-18] MEDS: Cyanocobalamin (Vitamin B-12) 1,000 MCG TABLET 1000 MCG PO (08:36)
[2024-05-18] MEDS: Ascorbic Acid 500 MG TABLET PO ×2 (08:36→20:16)
[2024-05-18] MEDS: Fluticasone/Umeclidinium/Vilanterol 100/62.5/25 BLST.W.DEV 1 PUFF INHALE (08:36)
[2024-05-18] MEDS: Atorvastatin Calcium 80 MG TABLET PO (08:36)
[2024-05-18] MEDS: Furosemide 40 MG TABLET 80 MG PO (08:37)
[2024-05-18] MEDS: carvediloL 6.25 MG TABLET PO ×2 (08:37→20:16)
[2024-05-18] MEDS: Sacubitril/Valsartan 24/26 1 TAB TABLET PO ×2 (08:37→20:16)
[2024-05-18] MEDS: Cholecalciferol (Vitamin D3) 25 MCG TABLET PO (08:37)
[2024-05-18] MEDS: Apixaban 5 MG TABLET PO ×2 (08:37→20:16)
[2024-05-18] MEDS: Clopidogrel Bisulfate 75 MG TABLET PO (08:37)
[2024-05-18] MEDS: Methenamine Hippurate 1 GM TABLET PO ×2 (08:40→20:16)
--- NOTE | 2024-05-18 09:40 | P.PNPSI_ITS ---
Subjective Subjective Date of Service: 05/18/24 Reason For Visit: Post OD Subjective Notes: Conditional Voluntary Interim History: The nursing staff reported the patient had been on bed most of the time, she is alert oriented x3 and her saturations what been between 94 96%. In bed on one-to-one for equipment observation. She has been pleasant and cooperative with medications. On interview the patient reported that she is feeling better. Mental Status Exam Mental Status Exam Patient Appearance: Appropriate Patient Orientation: Person and Situation Level of Consciousness: Awake Patient Behavior: Appropriate Mood Description: Withdrawn Affect Description: Constricted Patient Cognition Impaired: Yes Ability to Follow Directions: Good Speech Pattern: Clear Hallucinations: None Delusions: Ideas of Reference Thought Process: Distracted and Slowed Thinking Thought Content: positive for [place] and positive for Poverty of Content Judgement: Fair Diagnostics Vital Signs (24Hr): Vital Signs - 24 hr 05/17/24 20:00 05/18/24 08:35 Temperature 98.4 F 97.4 F Pulse Rate 81 99 Respiratory Rate 18 16 Blood Pressure 108/59 L 115/71 Pulse Oximetry 94 94 Oxygen Delivery Method Nasal Cannula Nasal Cannula Oxygen Flow Rate 3 BMI result Body Mass Index 38.6 Labs 05/17/24 08:23 Labs: Laboratory Results - last 48 hr 05/17/24 08:23 Sodium 146 H Potassium 4.5 D Chloride 99 Carbon Dioxide 36 H Anion Gap 16 BUN 26 H Creatinine 0.81 Estim Creat Clear Calc TNP Estimated GFR > 60 Fasting Glucose 131 H Estimat Average Glucose 134 Hemoglobin A1c % 6.3 H Calcium 9.9 Total Bilirubin 0.3 AST 35 H ALT 56 H Alkaline Phosphatase 92 Total Protein 6.5 Albumin 2.9 L Triglycerides 101 Cholesterol 117 LDL Cholesterol, Calc 64 HDL Cholesterol 33 L Vitamin B12 > 2000 H Folate 14.3 TSH 1.65 Medications Medications Current Medications Acetaminophen (Acetaminophen 325 Mg Tablet) 650 mg PO Q6H PRN PRN Reason: Headache/Pain Mild Scale (1-3) Al Hydroxide/Mg Hydroxide (Magnesium Hydrox/Alum Hydrox 30 Ml Oral.Susp) 30 ml PO Q6H PRN PRN Reason: Heartburn/Nausea Albuterol Sulfate (Albuterol Sulfate 90 Mcg 8 Gm Inhaler) 2 puff INHALE Q4H PRN PRN Reason: Shortness of Breath/Wheezing Apixaban (Apixaban 5 Mg Tablet) 5 mg PO BID [facility] Last Admin: 05/18/24 08:37 Dose: 5 mg Ascorbic Acid (Ascorbic Acid 500 Mg Tablet) 500 mg PO BID [facility] Last Admin: 05/18/24 08:36 Dose: 500 mg Atorvastatin Calcium (Atorvastatin Calcium 80 Mg Tablet) 80 mg PO DAILY [facility] Last Admin: 05/18/24 08:36 Dose: 80 mg Carvedilol (Carvedilol 6.25 Mg Tablet) 6.25 mg PO BID [facility]; Protocol Last Admin: 05/18/24 08:37 Dose: 6.25 mg Clopidogrel Bisulfate (Clopidogrel Bisulfate 75 Mg Tablet) 75 mg PO DAILY [facility] Last Admin: 05/18/24 08:37 Dose: 75 mg Cyanocobalamin (Cyanocobalamin (Vitamin B-12) 1,000 Mcg Tablet) 1,000 mcg PO DAILY [facility] Last Admin: 05/18/24 08:36 Dose: 1,000 mcg Donepezil HCl (Donepezil Hcl 10 Mg Tablet) 10 mg PO BEDTIME [facility] Last Admin: 05/17/24 20:36 Dose: 10 mg Fluticasone/Umeclidinium/Vilanterol (Fluticasone/Umeclidinium/Vilanterol 100/62.5/25 Blst.W.Dev) 1 puff INHALE RDAILY [facility] Last Admin: 05/18/24 08:36 Dose: 1 puff Furosemide (Furosemide 40 Mg Tablet) 80 mg PO DAILY [facility]; Protocol Last Admin: 05/18/24 08:37 Dose: 80 mg Magnesium Hydroxide (Milk Of Magnesia 30 Ml Oral.Susp) 30 ml PO DAILY PRN PRN Reason: Constipation Methenamine Hippurate (Methenamine Hippurate 1 Gm Tablet) 1 gm PO BID [facility] Last Admin: 05/18/24 08:40 Dose: 1 gm Sacubitril/Valsartan (Sacubitril/Valsartan 1 Tab Tablet) 1 tab PO BID [facility]; Protocol Last Admin: 05/18/24 08:37 Dose: 1 tab Trazodone HCl (Trazodone Hcl 50 Mg Tablet) 50 mg PO BEDTIME PRN PRN Reason: Insomnia Last Admin: 05/17/24 20:37 Dose: 50 mg Vitamin D (Cholecalciferol (Vitamin D3) 25 Mcg Tablet) 25 mcg PO DAILY [facility] Last Admin: 05/18/24 08:37 Dose: 25 mcg Allergies Allergies Allergy/AdvReac Type Severity Reaction Status Date / Time No Known Allergies Allergy Verified 05/06/24 11:26 Assessment & Plan Assessment & Plan (1) Toxic metabolic encephalopathy: Status: Acute Code(s): G92.8 - Other toxic encephalopathy (2) UTI (urinary tract infection): Qualifiers: Hematuria presence: without hematuria Urinary tract infection type: a cute cystitis Qualified Code(s): N30.00 - Acute cystitis without hematuria Status: Acute Code(s): N39.0 - Urinary tract infection, site not specified (3) Drug overdose: Qualifiers: Encounter type: initial encounter Injury intent: intentional self-harm Qualified Code(s): T50.902A - Poisoning by unspecified drugs, medicaments and biological substances, intentional self-harm, initial encounter Status: Acute Code(s): T50.901A - Poisoning by unspecified drugs, medicaments and biological substances, accidental (unintentional), initial encounter (4) COPD (chronic obstructive pulmonary disease): Qualifiers: COPD type: chronic bronchitis Chronic bronchitis type: simple Q ualified Code(s): J41.0 - Simple chronic bronchitis Status: Acute Code(s): J44.9 - Chronic obstructive pulmonary disease, unspecified (5) Mood disorder: Status: Acute Code(s): F39 - Unspecified mood [affective] disorder Plan The patient is a 78-year-old male transferred from Medicine after she intentionally overdosed on Klonopin in a suicidal attempt and was medically cleared after being several days in Medicine. She has COPD she is oxygen dependent at this point that she has other medical comorbidities. Plan 1. Gather collateral information. 2. Continue with same treatment. Reason for continued inpatient stay Substantial Risk for: inability to function, rapid decompensation and med/psych decompensation Time Spent With Patient Time: Total time managing care of this patient today _20___ minutes.
[2024-05-18 20:00] VITALS: BP 100/55; PULSE 71; RESP 18; TEMP 37.1; O2SAT 92
[2024-05-18] MEDS: Donepezil HCl 10 MG TABLET PO (20:16)
[2024-05-19] MEDS: Ascorbic Acid 500 MG TABLET PO ×2 (08:45→20:22)
[2024-05-19] MEDS: Atorvastatin Calcium 80 MG TABLET PO (08:45)
[2024-05-19] MEDS: Clopidogrel Bisulfate 75 MG TABLET PO (08:45)
[2024-05-19] MEDS: Methenamine Hippurate 1 GM TABLET PO ×2 (08:45→20:22)
[2024-05-19] MEDS: Apixaban 5 MG TABLET PO ×2 (08:45→20:22)
[2024-05-19] MEDS: Cholecalciferol (Vitamin D3) 25 MCG TABLET PO (08:45)
[2024-05-19] MEDS: Cyanocobalamin (Vitamin B-12) 1,000 MCG TABLET 1000 MCG PO (08:45)
[2024-05-19 08:46] VITALS: BP 116/59; PULSE 96; RESP 16; TEMP 36.4
[2024-05-19] MEDS: Sacubitril/Valsartan 24/26 1 TAB TABLET PO ×2 (08:47→20:22)
[2024-05-19] MEDS: Furosemide 40 MG TABLET 80 MG PO (08:47)
[2024-05-19] MEDS: carvediloL 6.25 MG TABLET PO ×2 (08:48→20:22)
[2024-05-19] MEDS: Fluticasone/Umeclidinium/Vilanterol 100/62.5/25 BLST.W.DEV 1 PUFF INHALE (08:48)
--- NOTE | 2024-05-19 10:46 | HO.PSYCHPN ---
Subjective Subjective Date of Service: 05/19/24 Reason For Visit: Post OD Subjective Notes: Conditional Voluntary Interim History: The nursing staff reported the patient signed her CV, she still on oxygen alert oriented. Apparently she is DNR DNI and she had a MOLST. She slept all night. She attended to group AM On interview the patient denies new symptoms looks, pleasant, attended to AM group. Mental Status Exam Mental Status Exam Patient Appearance: Appropriate Patient Orientation: Person and Situation Level of Consciousness: Awake and Appropriate Patient Behavior: Guarded and Passive Mood Description: Withdrawn Affect Description: Constricted Patient Cognition Impaired: Yes Ability to Follow Directions: Good Speech Pattern: Clear Hallucinations: None Delusions: Not Present Thought Process: Distracted and Slowed Thinking Thought Content: positive for Margaret and positive for Poverty of Content Judgement: Poor Diagnostics Vital Signs (24Hr): Vital Signs - 24 hr 05/18/24 20:00 05/19/24 08:46 Temperature 98.8 F 97.5 F Pulse Rate 71 96 Respiratory Rate 18 16 Blood Pressure 100/55 L 116/59 L Pulse Oximetry 92 Oxygen Delivery Method Nasal Cannula Room Air BMI result Body Mass Index 38.6 Labs 05/17/24 08:23 Labs: Laboratory Results - last 48 hr 05/17/24 08:23 Estimat Average Glucose 134 Hemoglobin A1c % 6.3 H Medications Medications Current Medications Acetaminophen (Acetaminophen 325 Mg Tablet) 650 mg PO Q6H PRN PRN Reason: Headache/Pain Mild Scale (1-3) Al Hydroxide/Mg Hydroxide (Magnesium Hydrox/Alum Hydrox 30 Ml Oral.Susp) 30 ml PO Q6H PRN PRN Reason: Heartburn/Nausea Albuterol Sulfate (Albuterol Sulfate 90 Mcg 8 Gm Inhaler) 2 puff INHALE Q4H PRN PRN Reason: Shortness of Breath/Wheezing Apixaban (Apixaban 5 Mg Tablet) 5 mg PO BID [facility] Last Admin: 05/19/24 08:45 Dose: 5 mg Ascorbic Acid (Ascorbic Acid 500 Mg Tablet) 500 mg PO BID [facility] Last Admin: 05/19/24 08:45 Dose: 500 mg Atorvastatin Calcium (Atorvastatin Calcium 80 Mg Tablet) 80 mg PO DAILY [facility] Last Admin: 05/19/24 08:45 Dose: 80 mg Carvedilol (Carvedilol 6.25 Mg Tablet) 6.25 mg PO BID [facility]; Protocol Last Admin: 05/19/24 08:48 Dose: 6.25 mg Clopidogrel Bisulfate (Clopidogrel Bisulfate 75 Mg Tablet) 75 mg PO DAILY [facility] Last Admin: 05/19/24 08:45 Dose: 75 mg Cyanocobalamin (Cyanocobalamin (Vitamin B-12) 1,000 Mcg Tablet) 1,000 mcg PO DAILY [facility] Last Admin: 05/19/24 08:45 Dose: 1,000 mcg Donepezil HCl (Donepezil Hcl 10 Mg Tablet) 10 mg PO BEDTIME [facility] Last Admin: 05/18/24 20:16 Dose: 10 mg Fluticasone/Umeclidinium/Vilanterol (Fluticasone/Umeclidinium/Vilanterol 100/62.5/25 Blst.W.Dev) 1 puff INHALE RDAILY [facility] Last Admin: 05/19/24 08:48 Dose: 1 puff Furosemide (Furosemide 40 Mg Tablet) 80 mg PO DAILY [facility]; Protocol Last Admin: 05/19/24 08:47 Dose: 80 mg Magnesium Hydroxide (Milk Of Magnesia 30 Ml Oral.Susp) 30 ml PO DAILY PRN PRN Reason: Constipation Methenamine Hippurate (Methenamine Hippurate 1 Gm Tablet) 1 gm PO BID [facility] Last Admin: 05/19/24 08:45 Dose: 1 gm Sacubitril/Valsartan (Sacubitril/Valsartan 1 Tab Tablet) 1 tab PO BID [facility]; Protocol Last Admin: 05/19/24 08:47 Dose: 1 tab Trazodone HCl (Trazodone Hcl 50 Mg Tablet) 50 mg PO BEDTIME PRN PRN Reason: Insomnia Last Admin: 05/17/24 20:37 Dose: 50 mg Vitamin D (Cholecalciferol (Vitamin D3) 25 Mcg Tablet) 25 mcg PO DAILY [facility] Last Admin: 05/19/24 08:45 Dose: 25 mcg Allergies Allergies Allergy/AdvReac Type Severity Reaction Status Date / Time No Known Allergies Allergy Verified 05/06/24 11:26 Assessment & Plan Assessment & Plan (1) MDD (major depressive disorder), recurrent episode, moderate: Status: Acute Code(s): F33.1 - Major depressive disorder, recurrent, moderate (2) Alzheimer dementia: Status: Acute Code(s): G30.9 - Alzheimer's disease, unspecified; F02.80 - Dementia in other diseases classified elsewhere, unspecified severity, without behavioral disturbance, psychotic disturbance, mood disturbance, and anxiety Plan Mrs. Carrington is a 78 year-old woman with hx of Dementia (per records AD type), MDD, who was brought to [facility] after intentional OD on clonazepam. Pt medically admitted, currently on nasal canula to maintain O2sat 90-96% Pt denies that OD was with intent to end her life. However, is vague in her report, just wanted to see what would happen. She denies SI now. It appears that here was plan to transition pt to [facility] as she is not able to care for herself independently. PLAN 1. Admit to S1. sect 12b, 1:1 due to nasal canula. Now on a CV 2. obtain collateral information- regarding current meds of adderall and provigil for unclear therapeutic indication 3. aftercare planning 4. invoke HCP. Reason for continued inpatient stay Substantial Risk for: inability to function, rapid decompensation and med/psych decompensation Time Spent With Patient Time: Total time managing care of this patient today _20___ minutes.
[2024-05-19 20:00] VITALS: BP 110/59; PULSE 76; RESP 16; TEMP 36.6; O2SAT 93
[2024-05-19] MEDS: Donepezil HCl 10 MG TABLET PO (20:22)
[2024-05-19] MEDS: traZODone HCL 50 MG TABLET PO (20:22)
[2024-05-20] VITALS (9 sets, daily range): BP systolic 113; BP diastolic 51–56; PULSE 79–80; RESP 18–20; TEMP 36.4–36.9; O2SAT 92–98
[2024-05-20] MEDS: Cyanocobalamin (Vitamin B-12) 1,000 MCG TABLET 1000 MCG PO (08:34)
[2024-05-20] MEDS: Fluticasone/Umeclidinium/Vilanterol 100/62.5/25 BLST.W.DEV 1 PUFF INHALE (08:35)
[2024-05-20] MEDS: Ascorbic Acid 500 MG TABLET PO ×2 (08:35→20:39)
[2024-05-20] MEDS: Atorvastatin Calcium 80 MG TABLET PO (08:35)
[2024-05-20] MEDS: Methenamine Hippurate 1 GM TABLET PO ×2 (08:36→20:39)
[2024-05-20] MEDS: carvediloL 6.25 MG TABLET PO ×2 (08:36→20:39)
[2024-05-20] MEDS: Clopidogrel Bisulfate 75 MG TABLET PO (08:36)
[2024-05-20] MEDS: Cholecalciferol (Vitamin D3) 25 MCG TABLET PO (08:37)
[2024-05-20] MEDS: Sacubitril/Valsartan 24/26 1 TAB TABLET PO ×2 (08:37→20:39)
[2024-05-20] MEDS: Furosemide 40 MG TABLET 80 MG PO (08:37)
[2024-05-20] MEDS: Apixaban 5 MG TABLET PO ×2 (08:38→20:38)
--- NOTE | 2024-05-20 08:53 | P.PNPSI_ITS ---
Subjective Subjective Date of Service: 05/20/24 Reason For Visit: Post OD Subjective Notes: Conditional Voluntary Interim History: Pt slept about 7hrs. She was up for breakfast and then attended one groups. She then went to her bed, but was not sleeping. She continues to denied suicidal ideation. She reports she vaguely remember what happened in terms of OD on clonazepam. She does endorse depression, which reports all my life. Spoke with daughter who reports at the time of OD, pt was upset about daughter looking for long-term placement. Daughter reports pt is forgetful. In terms of medication, pt has been on adderall for about 15 years, daughter reports without it she is very sleepy. no dx of narcolepsy. pt has also been on cymbalta 60mg po BID. Medication Compliance: Yes Review of Systems Review of Systems No chest pain No constipation or loose stools. She is incontinent of both. Some SOB, on nasal canula, underlying COPD. Mental Status Exam Mental Status Exam Narrative: Appearance: wearing hospital gown, fair hygiene in NAD behavior: cooperative and friendly Psychomotor: some retardation, somnolent Speech: clear, some delay suspect due to somnolence, spontaneous TP: mostly linear, poverty of thought TC: accepting treatment but states won't sign any papers without her daughter present who is HCP Mood: okay Affect: somnolent SI: denies HI: denies VH/AH: none Delusions: none Insight/judgment: poor x 2. Memory/cog: alert, oriented to place, month, year. pending moca Diagnostics Vital Signs (24Hr): Vital Signs - 24 hr 05/19/24 20:00 05/20/24 08:28 Temperature 97.8 F 98.4 F Pulse Rate 76 79 Respiratory Rate 16 20 Blood Pressure 110/59 L 113/56 L Pulse Oximetry 93 98 Oxygen Delivery Method Nasal Cannula Nasal Cannula Oxygen Flow Rate 1.5 2 BMI result Body Mass Index 38.6 Labs 05/20/24 12:37 Medications Medications Current Medications Acetaminophen (Acetaminophen 325 Mg Tablet) 650 mg PO Q6H PRN PRN Reason: Headache/Pain Mild Scale (1-3) Al Hydroxide/Mg Hydroxide (Magnesium Hydrox/Alum Hydrox 30 Ml Oral.Susp) 30 ml PO Q6H PRN PRN Reason: Heartburn/Nausea Albuterol Sulfate (Albuterol Sulfate 90 Mcg 8 Gm Inhaler) 2 puff INHALE Q4H PRN PRN Reason: Shortness of Breath/Wheezing Apixaban (Apixaban 5 Mg Tablet) 5 mg PO BID [facility] Last Admin: 05/20/24 08:38 Dose: 5 mg Ascorbic Acid (Ascorbic Acid 500 Mg Tablet) 500 mg PO BID [facility] Last Admin: 05/20/24 08:35 Dose: 500 mg Atorvastatin Calcium (Atorvastatin Calcium 80 Mg Tablet) 80 mg PO DAILY [facility] Last Admin: 05/20/24 08:35 Dose: 80 mg Carvedilol (Carvedilol 6.25 Mg Tablet) 6.25 mg PO BID [facility]; Protocol Last Admin: 05/20/24 08:36 Dose: 6.25 mg Clopidogrel Bisulfate (Clopidogrel Bisulfate 75 Mg Tablet) 75 mg PO DAILY [facility] Last Admin: 05/20/24 08:36 Dose: 75 mg Cyanocobalamin (Cyanocobalamin (Vitamin B-12) 1,000 Mcg Tablet) 1,000 mcg PO DAILY [facility] Last Admin: 05/20/24 08:34 Dose: 1,000 mcg Donepezil HCl (Donepezil Hcl 10 Mg Tablet) 10 mg PO BEDTIME [facility] Last Admin: 05/19/24 20:22 Dose: 10 mg Fluticasone/Umeclidinium/Vilanterol (Fluticasone/Umeclidinium/Vilanterol 100/62.5/25 Blst.W.Dev) 1 puff INHALE RDAILY [facility] Last Admin: 05/20/24 08:35 Dose: 1 puff Furosemide (Furosemide 40 Mg Tablet) 80 mg PO DAILY [facility]; Protocol Last Admin: 05/20/24 08:37 Dose: 80 mg Magnesium Hydroxide (Milk Of Magnesia 30 Ml Oral.Susp) 30 ml PO DAILY PRN PRN Reason: Constipation Methenamine Hippurate (Methenamine Hippurate 1 Gm Tablet) 1 gm PO BID [facility] Last Admin: 05/20/24 08:36 Dose: 1 gm Sacubitril/Valsartan (Sacubitril/Valsartan 1 Tab Tablet) 1 tab PO BID [facility]; Protocol Last Admin: 05/20/24 08:37 Dose: 1 tab Trazodone HCl (Trazodone Hcl 50 Mg Tablet) 50 mg PO BEDTIME PRN PRN Reason: Insomnia Last Admin: 05/19/24 20:22 Dose: 50 mg Vitamin D (Cholecalciferol (Vitamin D3) 25 Mcg Tablet) 25 mcg PO DAILY [facility] Last Admin: 05/20/24 08:37 Dose: 25 mcg Allergies Allergies Allergy/AdvReac Type Severity Reaction Status Date / Time No Known Allergies Allergy Verified 05/06/24 11:26 Assessment & Plan Assessment & Plan (1) MDD (major depressive disorder), recurrent episode, moderate: Status: Acute Code(s): F33.1 - Major depressive disorder, recurrent, moderate (2) Alzheimer dementia: Status: Acute Code(s): G30.9 - Alzheimer's disease, unspecified; F02.80 - Dementia in other diseases classified elsewhere, unspecified severity, without behavioral disturbance, psychotic disturbance, mood disturbance, and anxiety Plan Mrs. Carrington is a 78 year-old woman with hx of Dementia (per records AD type), MDD, who was brought to [facility] [place] [place] [facility] after intentional OD on clonazepam. Pt medically admitted, currently on nasal canula to maintain O2sat 90-96% Pt denies that OD was with intent to end her life. However, is vague in her report, just wanted to see what would happen. She denies SI now. It appears that here was plan to transition pt to [facility] as she is not able to care for herself independently. PLAN 05/20- pt has been off adderall here on the unit. pt noted to be sleeping on and off. Sleep has improved. we discussed starting effexor. she has also been off cymbalta. Reason for continued inpatient stay Substantial Risk for: inability to function Time Spent With Patient Time: Total time managing care of this patient today ____ minutes.
[2024-05-20] MEDS: Venlafaxine HCl ER 37.5 MG CAP.ER.24H PO (11:23)
[2024-05-20 13:19] LABS: Alanine Aminotransferase 35 U/L (0-31); Albumin Level 3.3 g/dL (3.5-5.0); Alkaline Phosphatase 85 U/L (39-117); Anion Gap 17 (12-20); Aspartate Amino Transferase 20 U/L (5-31); Bilirubin Total 0.2 mg/dL (0.0-1.0); Blood Urea Nitrogen 31 mg/dL (9-16); Calcium 10.2 mg/dL (8.4-10.2); Carbon Dioxide 39 mmol/L (22-29); Chloride 95 mmol/L (96-108); Creatinine Clr Calc Pharmacy 54.8; Estimated Glomerular Filt Rate > 60; Glucose Random 272 mg/dL (60-115); Potassium 3.4 mmol/L (3.3-5.1); Sodium 148 mmol/L (135-145); Total Protein 6.6 g/dL (6.5-8.0)
[2024-05-20] MEDS: traZODone HCL 50 MG TABLET PO ×2 (20:39→21:29)
[2024-05-20] MEDS: Donepezil HCl 10 MG TABLET PO (20:39)
[2024-05-21] VITALS: O2SAT 87
[2024-05-21 04:00] VITALS: O2SAT 93
--- NOTE | 2024-05-21 08:52 | P.PNPSI_ITS ---
Subjective Subjective Date of Service: 05/21/24 Reason For Visit: Post OD Subjective Notes: Conditional Voluntary Interim History: Pt slept about 8hrs. She was up for breakfast. ordered consult for hospitalist- hypernatremia seems in context of dehydration- she is on lasix, has been eating and drinking fluids. Monitoring alertness and level of somnolence during the day as this has been concern at home. Review of Systems Review of Systems No chest pain No constipation or loose stools. She is incontinent of both. Some SOB, on nasal canula, underlying COPD. Mental Status Exam Mental Status Exam Narrative: Appearance: wearing hospital gown, fair hygiene in NAD behavior: cooperative and friendly Psychomotor: some retardation, somnolent Speech: clear, some delay suspect due to somnolence, spontaneous TP: mostly linear, poverty of thought TC: accepting treatment but states won't sign any papers without her daughter present who is HCP Mood: okay Affect: more awake, congruent SI: denies HI: denies VH/AH: none Delusions: none Insight/judgment: poor x 2. Memory/cog: alert, oriented to place, month, year. pending MOCA/ACL. Diagnostics Vital Signs (24Hr): Vital Signs - 24 hr 05/20/24 09:00 05/20/24 09:30 05/20/24 10:30 Temperature Pulse Rate Respiratory Rate Blood Pressure Pulse Oximetry 93 96 93 Oxygen Delivery Method Room Air Room Air Room Air Oxygen Flow Rate 05/20/24 12:15 05/20/24 14:30 05/20/24 18:16 Temperature Pulse Rate Respiratory Rate Blood Pressure Pulse Oximetry 92 95 94 Oxygen Delivery Method Room Air Room Air Room Air Oxygen Flow Rate 05/20/24 20:00 05/21/24 00:00 05/21/24 04:00 Temperature 97.6 F Pulse Rate 80 Respiratory Rate 18 Blood Pressure 113/51 L Pulse Oximetry 95 87 L 93 Oxygen Delivery Method Room Air Room Air Oxygen Flow Rate 2 BMI result Body Mass Index 38.6 Labs 05/21/24 14:06 Labs: Laboratory Results - last 48 hr 05/20/24 12:37 Sodium 148 H Potassium 3.4 D Chloride 95 L Carbon Dioxide 39 H Anion Gap 17 BUN 31 H Creatinine 0.87 Estim Creat Clear Calc 54.8 Estimated GFR > 60 Random Glucose 272 H Calcium 10.2 Total Bilirubin 0.2 AST 20 ALT 35 H Alkaline Phosphatase 85 Total Protein 6.6 Albumin 3.3 L Medications Medications Current Medications Acetaminophen (Acetaminophen 325 Mg Tablet) 650 mg PO Q6H PRN PRN Reason: Headache/Pain Mild Scale (1-3) Al Hydroxide/Mg Hydroxide (Magnesium Hydrox/Alum Hydrox 30 Ml Oral.Susp) 30 ml PO Q6H PRN PRN Reason: Heartburn/Nausea Albuterol Sulfate (Albuterol Sulfate 90 Mcg 8 Gm Inhaler) 2 puff INHALE Q4H PRN PRN Reason: Shortness of Breath/Wheezing Apixaban (Apixaban 5 Mg Tablet) 5 mg PO BID [facility] Last Admin: 05/20/24 20:38 Dose: 5 mg Ascorbic Acid (Ascorbic Acid 500 Mg Tablet) 500 mg PO BID [facility] Last Admin: 05/20/24 20:39 Dose: 500 mg Atorvastatin Calcium (Atorvastatin Calcium 80 Mg Tablet) 80 mg PO DAILY [facility] Last Admin: 05/20/24 08:35 Dose: 80 mg Carvedilol (Carvedilol 6.25 Mg Tablet) 6.25 mg PO BID [facility]; Protocol Last Admin: 05/20/24 20:39 Dose: 6.25 mg Clopidogrel Bisulfate (Clopidogrel Bisulfate 75 Mg Tablet) 75 mg PO DAILY [facility] Last Admin: 05/20/24 08:36 Dose: 75 mg Cyanocobalamin (Cyanocobalamin (Vitamin B-12) 1,000 Mcg Tablet) 1,000 mcg PO DAILY [facility] Last Admin: 05/20/24 08:34 Dose: 1,000 mcg Donepezil HCl (Donepezil Hcl 10 Mg Tablet) 10 mg PO BEDTIME [facility] Last Admin: 05/20/24 20:39 Dose: 10 mg Fluticasone/Umeclidinium/Vilanterol (Fluticasone/Umeclidinium/Vilanterol 100/62.5/25 Blst.W.Dev) 1 puff INHALE RDAILY [facility] Last Admin: 05/20/24 08:35 Dose: 1 puff Furosemide (Furosemide 40 Mg Tablet) 80 mg PO DAILY [facility]; Protocol Last Admin: 05/20/24 08:37 Dose: 80 mg Magnesium Hydroxide (Milk Of Magnesia 30 Ml Oral.Susp) 30 ml PO DAILY PRN PRN Reason: Constipation Methenamine Hippurate (Methenamine Hippurate 1 Gm Tablet) 1 gm PO BID [facility] Last Admin: 05/20/24 20:39 Dose: 1 gm Sacubitril/Valsartan (Sacubitril/Valsartan 1 Tab Tablet) 1 tab PO BID [facility]; Protocol Last Admin: 05/20/24 20:39 Dose: 1 tab Trazodone HCl (Trazodone Hcl 50 Mg Tablet) 50 mg PO BEDTIME PRN PRN Reason: Insomnia Last Admin: 05/20/24 21:29 Dose: 50 mg Venlafaxine HCl (Venlafaxine Hcl Er 75 Mg Cap.Er.24h) 75 mg PO DAILY [facility] Vitamin D (Cholecalciferol (Vitamin D3) 25 Mcg Tablet) 25 mcg PO DAILY [facility] Last Admin: 05/20/24 08:37 Dose: 25 mcg Allergies Allergies Allergy/AdvReac Type Severity Reaction Status Date / Time No Known Allergies Allergy Verified 05/06/24 11:26 Assessment & Plan Assessment & Plan (1) MDD (major depressive disorder), recurrent episode, moderate: Status: Acute Code(s): F33.1 - Major depressive disorder, recurrent, moderate (2) Alzheimer dementia: Status: Acute Code(s): G30.9 - Alzheimer's disease, unspecified; F02.80 - Dementia in other diseases classified elsewhere, unspecified severity, without behavioral disturbance, psychotic disturbance, mood disturbance, and anxiety Plan Mrs. Carrington is a 78 year-old woman with hx of Dementia (per records AD type), MDD, who was brought to [facility] after intentional OD on clonazepam. Pt medically admitted, currently on nasal canula to maintain O2sat 90-96% Pt denies that OD was with intent to end her life. However, is vague in her report, just wanted to see what would happen. She denies SI now. It appears that here was plan to transition pt to [facility] as she is not able to care for herself independently. PLAN 05/20- pt has been off adderall here on the unit. pt noted to be sleeping on and off. Sleep has improved. we discussed starting effexor. she has also been off cymbalta. 05/21 continue tx. increase effexor to 75mg po daily. Reason for continued inpatient stay Substantial Risk for: inability to function Time Spent With Patient Time: Total time managing care of this patient today ____ minutes.
--- NOTE | 2024-05-21 09:03 | PM.EVENT ---
Event Note Date of Service: 05/21/24 Event Note: Pt will mild hypernatremia of 148, cl 95. Renal function wnl. Per RN, patient eating and drinking appropriately. Will administer 1L D5w and reassess lytes. Encourage adequate PO intake Time Spent With Patient Time: Total time managing care of this patient today ____ minutes.
[2024-05-21] MEDS: carvediloL 6.25 MG TABLET PO ×2 (10:18→20:25)
[2024-05-21] MEDS: Ascorbic Acid 500 MG TABLET PO ×2 (10:18→20:25)
[2024-05-21] MEDS: Cholecalciferol (Vitamin D3) 25 MCG TABLET PO (10:18)
[2024-05-21] MEDS: Furosemide 40 MG TABLET 80 MG PO (10:19)
[2024-05-21] MEDS: Sacubitril/Valsartan 24/26 1 TAB TABLET PO ×2 (10:19→20:25)
[2024-05-21] MEDS: Apixaban 5 MG TABLET PO ×2 (10:20→20:25)
[2024-05-21] MEDS: Methenamine Hippurate 1 GM TABLET PO ×2 (10:20→20:25)
[2024-05-21] MEDS: Clopidogrel Bisulfate 75 MG TABLET PO (10:20)
[2024-05-21] MEDS: Fluticasone/Umeclidinium/Vilanterol 100/62.5/25 BLST.W.DEV 1 PUFF INHALE (10:21)
[2024-05-21] MEDS: Atorvastatin Calcium 80 MG TABLET PO (10:21)
[2024-05-21] MEDS: Cyanocobalamin (Vitamin B-12) 1,000 MCG TABLET 1000 MCG PO (10:21)
[2024-05-21] MEDS: Venlafaxine HCl ER 75 MG CAP.ER.24H PO (10:26)
[2024-05-21 12:00] VITALS: BP 135/71; PULSE 64; RESP 18; TEMP 36; O2SAT 92
[2024-05-21 15:38] LABS: Anion Gap 12 (12-20); Blood Urea Nitrogen 31 mg/dL (9-16); Carbon Dioxide 41 mmol/L (22-29); Chloride 96 mmol/L (96-108); Creatinine Clr Calc Pharmacy 56.8; Estimated Glomerular Filt Rate > 60; Glucose Random 180 mg/dL (60-115); Potassium 3.9 mmol/L (3.3-5.1); Sodium 145 mmol/L (135-145)
--- NOTE | 2024-05-21 15:42 | PC.NURSE ---
Priority message sent to Tania Finley with critical lab result of [id number].
[2024-05-21 16:00] VITALS: BP 119/58; PULSE 65; RESP 18; TEMP 36.9; O2SAT 95
[2024-05-21] MEDS: Dextrose 5 % 500 ML 999 ML IV (16:29)
[2024-05-21 20:00] VITALS: BP 100/59; PULSE 64; RESP 18; TEMP 36.3; O2SAT 95
[2024-05-21] MEDS: Donepezil HCl 10 MG TABLET PO (20:25)
[2024-05-21] MEDS: 0.9 % Sodium Chloride Flush 10 ML SYRINGE 5 ML IVFLUSH (23:08)
[2024-05-21] MEDS: traZODone HCL 50 MG TABLET PO (23:43)
[2024-05-22] VITALS (7 sets, daily range): BP systolic 102–124; BP diastolic 66–70; PULSE 58–75; RESP 17–18; TEMP 36.3–36.4; O2SAT 94–97
[2024-05-22] MEDS: traZODone HCL 50 MG TABLET PO ×2 (02:36→22:33)
[2024-05-22] MEDS: Apixaban 5 MG TABLET PO ×2 (08:57→20:15)
[2024-05-22] MEDS: Sacubitril/Valsartan 24/26 1 TAB TABLET PO ×2 (08:57→20:14)
[2024-05-22] MEDS: Cholecalciferol (Vitamin D3) 25 MCG TABLET PO (08:57)
[2024-05-22] MEDS: Atorvastatin Calcium 80 MG TABLET PO (08:57)
[2024-05-22] MEDS: Ascorbic Acid 500 MG TABLET PO ×2 (08:57→20:15)
[2024-05-22] MEDS: Cyanocobalamin (Vitamin B-12) 1,000 MCG TABLET 1000 MCG PO (08:57)
[2024-05-22] MEDS: Methenamine Hippurate 1 GM TABLET PO ×2 (08:58→20:14)
[2024-05-22] MEDS: Clopidogrel Bisulfate 75 MG TABLET PO (08:58)
[2024-05-22] MEDS: Venlafaxine HCl ER 75 MG CAP.ER.24H PO (08:58)
[2024-05-22] MEDS: 0.9 % Sodium Chloride Flush 10 ML SYRINGE 5 ML IVFLUSH ×3 (09:00→23:00)
[2024-05-22] MEDS: Fluticasone/Umeclidinium/Vilanterol 100/62.5/25 BLST.W.DEV 1 PUFF INHALE (09:04)
--- NOTE | 2024-05-22 09:07 | P.PNPSI_ITS ---
Subjective Subjective Date of Service: 05/22/24 Reason For Visit: Post OD Subjective Notes: Conditional Voluntary Interim History: Pt slept 2 hrs. She was up for breakfast and other meals but mostly in bed in her room. She denies SI/HI. She denies physical concerns. No behavioral concerns. Diagnostics Vital Signs (24Hr): Vital Signs - 24 hr 05/21/24 12:00 05/21/24 16:00 05/21/24 20:00 Temperature 96.8 F 98.4 F 97.4 F Pulse Rate 64 65 64 Respiratory Rate 18 18 18 Blood Pressure 135/71 119/58 L 100/59 L Pulse Oximetry 92 95 95 Oxygen Delivery Method Nasal Cannula Nasal Cannula Nasal Cannula Oxygen Flow Rate 2 05/22/24 00:00 05/22/24 04:00 05/22/24 08:53 Temperature 97.5 F Pulse Rate 58 Respiratory Rate 17 Blood Pressure 102/70 Pulse Oximetry 95 94 94 Oxygen Delivery Method Nasal Cannula Nasal Cannula Nasal Cannula Oxygen Flow Rate BMI result Body Mass Index 38.6 Labs 05/22/24 08:20 Labs: Laboratory Results - last 48 hr 05/20/24 05/21/24 12:37 14:06 Sodium 148 H 145 Potassium 3.4 D 3.9 Chloride 95 L 96 Carbon Dioxide 39 H 41 H* Anion Gap 17 12 BUN 31 H 31 H Creatinine 0.87 0.84 Estim Creat Clear Calc 54.8 56.8 Estimated GFR > 60 > 60 Random Glucose 272 H 180 H Calcium 10.2 10.0 Total Bilirubin 0.2 AST 20 ALT 35 H Alkaline Phosphatase 85 Total Protein 6.6 Albumin 3.3 L Medications Medications Current Medications Acetaminophen (Acetaminophen 325 Mg Tablet) 650 mg PO Q6H PRN PRN Reason: Headache/Pain Mild Scale (1-3) Al Hydroxide/Mg Hydroxide (Magnesium Hydrox/Alum Hydrox 30 Ml Oral.Susp) 30 ml PO Q6H PRN PRN Reason: Heartburn/Nausea Albuterol Sulfate (Albuterol Sulfate 90 Mcg 8 Gm Inhaler) 2 puff INHALE Q4H PRN PRN Reason: Shortness of Breath/Wheezing Apixaban (Apixaban 5 Mg Tablet) 5 mg PO BID [facility] Last Admin: 05/22/24 08:57 Dose: 5 mg Ascorbic Acid (Ascorbic Acid 500 Mg Tablet) 500 mg PO BID [facility] Last Admin: 05/22/24 08:57 Dose: 500 mg Atorvastatin Calcium (Atorvastatin Calcium 80 Mg Tablet) 80 mg PO DAILY [facility] Last Admin: 05/22/24 08:57 Dose: 80 mg Carvedilol (Carvedilol 6.25 Mg Tablet) 6.25 mg PO BID [facility]; Protocol Last Admin: 05/22/24 09:04 Dose: Not Given Clopidogrel Bisulfate (Clopidogrel Bisulfate 75 Mg Tablet) 75 mg PO DAILY [facility] Last Admin: 05/22/24 08:58 Dose: 75 mg Cyanocobalamin (Cyanocobalamin (Vitamin B-12) 1,000 Mcg Tablet) 1,000 mcg PO DAILY [facility] Last Admin: 05/22/24 08:57 Dose: 1,000 mcg Donepezil HCl (Donepezil Hcl 10 Mg Tablet) 10 mg PO BEDTIME [facility] Last Admin: 05/21/24 20:25 Dose: 10 mg Fluticasone/Umeclidinium/Vilanterol (Fluticasone/Umeclidinium/Vilanterol 100/62.5/25 Blst.W.Dev) 1 puff INHALE RDAILY [facility] Last Admin: 05/22/24 09:04 Dose: 1 puff Furosemide (Furosemide 40 Mg Tablet) 40 mg PO DAILY [facility]; Protocol Magnesium Hydroxide (Milk Of Magnesia 30 Ml Oral.Susp) 30 ml PO DAILY PRN PRN Reason: Constipation Methenamine Hippurate (Methenamine Hippurate 1 Gm Tablet) 1 gm PO BID [facility] Last Admin: 05/22/24 08:58 Dose: 1 gm Sacubitril/Valsartan (Sacubitril/Valsartan 1 Tab Tablet) 1 tab PO BID [facility]; Protocol Last Admin: 05/22/24 08:57 Dose: 1 tab Sodium Chloride (0.9 % Sodium Chloride Flush 10 Ml Syringe) [facility] Last Admin: 05/22/24 09:00 Dose: 5 ml Trazodone HCl (Trazodone Hcl 50 Mg Tablet) 50 mg PO BEDTIME PRN PRN Reason: Insomnia Last Admin: 05/22/24 02:36 Dose: 50 mg Venlafaxine HCl (Venlafaxine Hcl Er 75 Mg Cap.Er.24h) 75 mg PO DAILY [facility] Last Admin: 05/22/24 08:58 Dose: 75 mg Vitamin D (Cholecalciferol (Vitamin D3) 25 Mcg Tablet) 25 mcg PO DAILY [facility] Last Admin: 05/22/24 08:57 Dose: 25 mcg Allergies Allergies Allergy/AdvReac Type Severity Reaction Status Date / Time No Known Allergies Allergy Verified 05/06/24 11:26 Assessment & Plan Assessment & Plan (1) MDD (major depressive disorder), recurrent episode, moderate: Status: Acute Code(s): F33.1 - Major depressive disorder, recurrent, moderate (2) Alzheimer dementia: Status: Acute Code(s): G30.9 - Alzheimer's disease, unspecified; F02.80 - Dementia in other diseases classified elsewhere, unspecified severity, without behavioral disturbance, psychotic disturbance, mood disturbance, and anxiety Plan Mrs. Carrington is a 78 year-old woman with hx of Dementia (per records AD type), MDD, who was brought to [facility] after intentional OD on clonazepam. Pt medically admitted, currently on nasal canula to maintain O2sat 90-96% Pt denies that OD was with intent to end her life. However, is vague in her report, just wanted to see what would happen. She denies SI now. It appears that here was plan to transition pt to [facility] as she is not able to care for herself independently. PLAN 05/20- pt has been off adderall here on the unit. pt noted to be sleeping on and off. Sleep has improved. we discussed starting effexor. she has also been off cymbalta. 05/21 continue tx. increase effexor to 75mg po daily. 05/22 continue tx. Reason for continued inpatient stay Substantial Risk for: inability to function Time Spent With Patient Time: Total time managing care of this patient today ____ minutes.
[2024-05-22 09:28] LABS: Blood Urea Nitrogen 28 mg/dL (9-16); Calcium 9.4 mg/dL (8.4-10.2); Creatinine Clr Calc Pharmacy 57.5; Estimated Glomerular Filt Rate > 60; Glucose Random 137 mg/dL (60-115)
[2024-05-22 09:47] LABS: Anion Gap 15 (12-20); Carbon Dioxide 38 mmol/L (22-29); Chloride 94 mmol/L (96-108); Sodium 144 mmol/L (135-145)
[2024-05-22] MEDS: Donepezil HCl 10 MG TABLET PO (20:15)
[2024-05-22] MEDS: carvediloL 6.25 MG TABLET PO (20:15)
[2024-05-23] MEDS: traZODone HCL 50 MG TABLET PO (00:01)
[2024-05-23] MEDS: Acetaminophen 325 MG TABLET 650 MG PO (02:03)
[2024-05-23 04:00] VITALS: O2SAT 94
[2024-05-23 08:27] VITALS: BP 120/60; PULSE 63; RESP 17; TEMP 36.7; O2SAT 94
[2024-05-23] MEDS: carvediloL 6.25 MG TABLET PO (08:56)
[2024-05-23] MEDS: Furosemide 40 MG TABLET PO (08:56)
[2024-05-23] MEDS: Ascorbic Acid 500 MG TABLET PO ×2 (08:56→20:46)
[2024-05-23] MEDS: Sacubitril/Valsartan 24/26 1 TAB TABLET PO (08:56)
[2024-05-23] MEDS: Clopidogrel Bisulfate 75 MG TABLET PO (08:57)
[2024-05-23] MEDS: Atorvastatin Calcium 80 MG TABLET PO (08:57)
[2024-05-23] MEDS: Cholecalciferol (Vitamin D3) 25 MCG TABLET PO (08:57)
[2024-05-23] MEDS: Venlafaxine HCl ER 75 MG CAP.ER.24H PO (08:57)
[2024-05-23] MEDS: Cyanocobalamin (Vitamin B-12) 1,000 MCG TABLET 1000 MCG PO (08:57)
[2024-05-23] MEDS: Methenamine Hippurate 1 GM TABLET PO ×2 (08:57→20:48)
[2024-05-23] MEDS: Apixaban 5 MG TABLET PO ×2 (08:57→20:46)
--- NOTE | 2024-05-23 08:57 | HO.PSYCHPN ---
Subjective Subjective Date of Service: 05/23/24 Reason For Visit: Post OD Subjective Notes: Conditional Voluntary Healthcare Proxy: Yes Interim History: Pt slept 7 hrs. She was up in the morning. She smiles. She denies SI/HI. She is mostly in her room. Does not appear over sedated by motivation is poor. No behavioral concerns. Review of Systems Review of Systems No chest pain No constipation or loose stools. She is incontinent of both. Some SOB, on nasal canula, underlying COPD. Mental Status Exam Mental Status Exam Narrative: Appearance: wearing hospital gown, fair hygiene in NAD behavior: cooperative and friendly Psychomotor: some retardation, somnolent Speech: clear, some delay suspect due to somnolence, spontaneous TP: mostly linear, poverty of thought TC: accepting treatment but states won't sign any papers without her daughter present who is HCP Mood: okay Affect: more awake, congruent SI: denies HI: denies VH/AH: none Delusions: none Insight/judgment: poor x 2. Memory/cog: alert, oriented to place, month, year. pending MOCA/ACL. Diagnostics Vital Signs (24Hr): Vital Signs - 24 hr 05/22/24 12:00 05/22/24 16:00 05/22/24 20:00 Temperature 97.3 F Pulse Rate 75 Respiratory Rate 18 Blood Pressure 124/66 Pulse Oximetry 95 97 97 Oxygen Delivery Method Nasal Cannula Nasal Cannula Room Air Oxygen Flow Rate 05/22/24 23:16 05/23/24 04:00 05/23/24 08:27 Temperature 98.1 F Pulse Rate 63 Respiratory Rate 17 Blood Pressure 120/60 Pulse Oximetry 94 94 94 Oxygen Delivery Method Nasal Cannula Room Air Nasal Cannula Oxygen Flow Rate 2 BMI result Body Mass Index 38.6 Labs 05/22/24 08:20 Labs: Laboratory Results - last 48 hr 05/21/24 05/22/24 14:06 08:20 Sodium 145 144 Potassium 3.9 3.0 L D Chloride 96 94 L Carbon Dioxide 41 H* 38 H Anion Gap 12 15 BUN 31 H 28 H Creatinine 0.84 0.83 Estim Creat Clear Calc 56.8 57.5 Estimated GFR > 60 > 60 Random Glucose 180 H 137 H Calcium 10.0 9.4 Medications Medications Current Medications Acetaminophen (Acetaminophen 325 Mg Tablet) 650 mg PO Q6H PRN PRN Reason: Headache/Pain Mild Scale (1-3) Last Admin: 05/23/24 02:03 Dose: 650 mg Al Hydroxide/Mg Hydroxide (Magnesium Hydrox/Alum Hydrox 30 Ml Oral.Susp) 30 ml PO Q6H PRN PRN Reason: Heartburn/Nausea Albuterol Sulfate (Albuterol Sulfate 90 Mcg 8 Gm Inhaler) 2 puff INHALE Q4H PRN PRN Reason: Shortness of Breath/Wheezing Apixaban (Apixaban 5 Mg Tablet) 5 mg PO BID [facility] Last Admin: 05/22/24 20:15 Dose: 5 mg Ascorbic Acid (Ascorbic Acid 500 Mg Tablet) 500 mg PO BID [facility] Last Admin: 05/22/24 20:15 Dose: 500 mg Atorvastatin Calcium (Atorvastatin Calcium 80 Mg Tablet) 80 mg PO DAILY [facility] Last Admin: 05/22/24 08:57 Dose: 80 mg Carvedilol (Carvedilol 6.25 Mg Tablet) 6.25 mg PO BID [facility]; Protocol Last Admin: 05/22/24 20:15 Dose: 6.25 mg Clopidogrel Bisulfate (Clopidogrel Bisulfate 75 Mg Tablet) 75 mg PO DAILY [facility] Last Admin: 05/22/24 08:58 Dose: 75 mg Cyanocobalamin (Cyanocobalamin (Vitamin B-12) 1,000 Mcg Tablet) 1,000 mcg PO DAILY [facility] Last Admin: 05/22/24 08:57 Dose: 1,000 mcg Donepezil HCl (Donepezil Hcl 10 Mg Tablet) 10 mg PO BEDTIME [facility] Last Admin: 05/22/24 20:15 Dose: 10 mg Fluticasone/Umeclidinium/Vilanterol (Fluticasone/Umeclidinium/Vilanterol 100/62.5/25 Blst.W.Dev) 1 puff INHALE RDAILY [facility] Last Admin: 05/22/24 09:04 Dose: 1 puff Furosemide (Furosemide 40 Mg Tablet) 40 mg PO DAILY [facility]; Protocol Magnesium Hydroxide (Milk Of Magnesia 30 Ml Oral.Susp) 30 ml PO DAILY PRN PRN Reason: Constipation Methenamine Hippurate (Methenamine Hippurate 1 Gm Tablet) 1 gm PO BID [facility] Last Admin: 05/22/24 20:14 Dose: 1 gm Sacubitril/Valsartan (Sacubitril/Valsartan 1 Tab Tablet) 1 tab PO BID [facility]; Protocol Last Admin: 05/22/24 20:14 Dose: 1 tab Sodium Chloride (0.9 % Sodium Chloride Flush 10 Ml Syringe) 5 ml IVFLUSH QSHIFT [facility] Last Admin: 05/22/24 23:00 Dose: 5 ml Trazodone HCl (Trazodone Hcl 50 Mg Tablet) 50 mg PO BEDTIME PRN PRN Reason: Insomnia Last Admin: 05/23/24 00:01 Dose: 50 mg Venlafaxine HCl (Venlafaxine Hcl Er 75 Mg Cap.Er.24h) 75 mg PO DAILY [facility] Last Admin: 05/22/24 08:58 Dose: 75 mg Vitamin D (Cholecalciferol (Vitamin D3) 25 Mcg Tablet) 25 mcg PO DAILY [facility] Last Admin: 05/22/24 08:57 Dose: 25 mcg Allergies Allergies Allergy/AdvReac Type Severity Reaction Status Date / Time No Known Allergies Allergy Verified 05/06/24 11:26 Assessment & Plan Assessment & Plan (1) MDD (major depressive disorder), recurrent episode, moderate: Status: Acute Code(s): F33.1 - Major depressive disorder, recurrent, moderate (2) Alzheimer dementia: Status: Acute Code(s): G30.9 - Alzheimer's disease, unspecified; F02.80 - Dementia in other diseases classified elsewhere, unspecified severity, without behavioral disturbance, psychotic disturbance, mood disturbance, and anxiety Plan Mrs. Carrington is a 78 year-old woman with hx of Dementia (per records AD type), MDD, who was brought to [facility] after intentional OD on clonazepam. Pt medically admitted, currently on nasal canula to maintain O2sat 90-96% Pt denies that OD was with intent to end her life. However, is vague in her report, just wanted to see what would happen. She denies SI now. It appears that here was plan to transition pt to [facility] as she is not able to care for herself independently. PLAN 05/20- pt has been off adderall here on the unit. pt noted to be sleeping on and off. Sleep has improved. we discussed starting effexor. she has also been off cymbalta. 05/21 continue tx. increase effexor to 75mg po daily. 05/22 continue tx. 05/23 continue tx. can consider restarting adderall lower dose 5mg po daily. Reason for continued inpatient stay Substantial Risk for: inability to function Time Spent With Patient Time: Total time managing care of this patient today ____ minutes.
[2024-05-23] MEDS: 0.9 % Sodium Chloride Flush 10 ML SYRINGE 5 ML IVFLUSH (09:00)
[2024-05-23] MEDS: Fluticasone/Umeclidinium/Vilanterol 100/62.5/25 BLST.W.DEV 1 PUFF INHALE (09:03)
[2024-05-23 09:47] VITALS: O2SAT 92
[2024-05-23 12:00] VITALS: O2SAT 97
[2024-05-23] MEDS: Potassium Chloride Packet 20 MEQ PACKET 40 MEQ PO (12:24)
[2024-05-23 16:00] VITALS: O2SAT 94
[2024-05-23 20:00] VITALS: BP 95/49; PULSE 81; RESP 18; TEMP 36.6; O2SAT 94
[2024-05-23] MEDS: Donepezil HCl 10 MG TABLET PO (20:48)
[2024-05-24] VITALS (7 sets, daily range): BP systolic 94–109; BP diastolic 53–64; PULSE 66–80; RESP 16–18; TEMP 36–37; O2SAT 92–95
--- NOTE | 2024-05-24 08:47 | HO.PSYCHPN ---
Subjective Subjective Date of Service: 05/24/24 Reason For Visit: Post OD Subjective Notes: Conditional Voluntary Interim History: Pt slept 8hrs. She reports feeling tired, resting in bed, but awake. She denies SI/HI. no overt depression, she states she wants to go home soon if possible. Diagnostics Vital Signs (24Hr): Vital Signs - 24 hr 05/23/24 09:47 05/23/24 12:00 05/23/24 16:00 Temperature Pulse Rate Respiratory Rate Blood Pressure Pulse Oximetry 92 97 94 Oxygen Delivery Method Nasal Cannula Nasal Cannula Oxygen Flow Rate 2 05/23/24 20:00 05/24/24 00:00 05/24/24 04:00 Temperature 98 F 96.8 F Pulse Rate 81 80 66 Respiratory Rate 18 17 17 Blood Pressure 95/49 L 101/53 L Pulse Oximetry 94 92 94 Oxygen Delivery Method Nasal Cannula Nasal Cannula Nasal Cannula Oxygen Flow Rate 2 2 2 BMI result Body Mass Index 38.6 Labs 05/24/24 08:37 Labs: Laboratory Results - last 48 hr 05/22/24 08:20 Sodium 144 Potassium 3.0 L D Chloride 94 L Carbon Dioxide 38 H Anion Gap 15 BUN 28 H Creatinine 0.83 Estim Creat Clear Calc 57.5 Estimated GFR > 60 Random Glucose 137 H Calcium 9.4 Medications Medications Current Medications Acetaminophen (Acetaminophen 325 Mg Tablet) 650 mg PO Q6H PRN PRN Reason: Headache/Pain Mild Scale (1-3) Last Admin: 05/23/24 02:03 Dose: 650 mg Al Hydroxide/Mg Hydroxide (Magnesium Hydrox/Alum Hydrox 30 Ml Oral.Susp) 30 ml PO Q6H PRN PRN Reason: Heartburn/Nausea Albuterol Sulfate (Albuterol Sulfate 90 Mcg 8 Gm Inhaler) 2 puff INHALE Q4H PRN PRN Reason: Shortness of Breath/Wheezing Apixaban (Apixaban 5 Mg Tablet) 5 mg PO BID [facility] Last Admin: 05/23/24 20:46 Dose: 5 mg Ascorbic Acid (Ascorbic Acid 500 Mg Tablet) 500 mg PO BID [facility] Last Admin: 05/23/24 20:46 Dose: 500 mg Atorvastatin Calcium (Atorvastatin Calcium 80 Mg Tablet) 80 mg PO DAILY [facility] Last Admin: 05/23/24 08:57 Dose: 80 mg Carvedilol (Carvedilol 6.25 Mg Tablet) 6.25 mg PO BID [facility]; Protocol Last Admin: 05/23/24 21:24 Dose: Not Given Clopidogrel Bisulfate (Clopidogrel Bisulfate 75 Mg Tablet) 75 mg PO DAILY [facility] Last Admin: 05/23/24 08:57 Dose: 75 mg Cyanocobalamin (Cyanocobalamin (Vitamin B-12) 1,000 Mcg Tablet) 1,000 mcg PO DAILY [facility] Last Admin: 05/23/24 08:57 Dose: 1,000 mcg Donepezil HCl (Donepezil Hcl 10 Mg Tablet) 10 mg PO BEDTIME [facility] Last Admin: 05/23/24 20:48 Dose: 10 mg Fluticasone/Umeclidinium/Vilanterol (Fluticasone/Umeclidinium/Vilanterol 100/62.5/25 Blst.W.Dev) 1 puff INHALE RDAILY [facility] Last Admin: 05/23/24 09:03 Dose: 1 puff Furosemide (Furosemide 40 Mg Tablet) 40 mg PO DAILY [facility]; Protocol Last Admin: 05/23/24 08:56 Dose: 40 mg Magnesium Hydroxide (Milk Of Magnesia 30 Ml Oral.Susp) 30 ml PO DAILY PRN PRN Reason: Constipation Methenamine Hippurate (Methenamine Hippurate 1 Gm Tablet) 1 gm PO BID [facility] Last Admin: 05/23/24 20:48 Dose: 1 gm Sacubitril/Valsartan (Sacubitril/Valsartan 1 Tab Tablet) 1 tab PO BID [facility]; Protocol Last Admin: 05/23/24 21:24 Dose: Not Given Trazodone HCl (Trazodone Hcl 50 Mg Tablet) 50 mg PO BEDTIME PRN PRN Reason: Insomnia Last Admin: 05/23/24 00:01 Dose: 50 mg Venlafaxine HCl (Venlafaxine Hcl Er 75 Mg Cap.Er.24h) 75 mg PO DAILY [facility] Last Admin: 05/23/24 08:57 Dose: 75 mg Vitamin D (Cholecalciferol (Vitamin D3) 25 Mcg Tablet) 25 mcg PO DAILY [facility] Last Admin: 05/23/24 08:57 Dose: 25 mcg Allergies Allergies Allergy/AdvReac Type Severity Reaction Status Date / Time No Known Allergies Allergy Verified 05/06/24 11:26 Assessment & Plan Assessment & Plan (1) MDD (major depressive disorder), recurrent episode, moderate: Status: Acute Code(s): F33.1 - Major depressive disorder, recurrent, moderate (2) Alzheimer dementia: Status: Acute Code(s): G30.9 - Alzheimer's disease, unspecified; F02.80 - Dementia in other diseases classified elsewhere, unspecified severity, without behavioral disturbance, psychotic disturbance, mood disturbance, and anxiety Plan Mrs. Carrington is a 78 year-old woman with hx of Dementia (per records AD type), MDD, who was brought to [facility] after intentional OD on clonazepam. Pt medically admitted, currently on nasal canula to maintain O2sat 90-96% Pt denies that OD was with intent to end her life. However, is vague in her report, just wanted to see what would happen. She denies SI now. It appears that here was plan to transition pt to [facility] as she is not able to care for herself independently. PLAN 05/20- pt has been off adderall here on the unit. pt noted to be sleeping on and off. Sleep has improved. we discussed starting effexor. she has also been off cymbalta. 05/21 continue tx. increase effexor to 75mg po daily. 05/22 continue tx. 05/23 continue tx. can consider restarting adderall lower dose 5mg po daily. 05/24 continue tx. Reason for continued inpatient stay Substantial Risk for: inability to function Time Spent With Patient Time: Total time managing care of this patient today ____ minutes.
[2024-05-24] MEDS: Venlafaxine HCl ER 75 MG CAP.ER.24H PO (09:01)
[2024-05-24] MEDS: Furosemide 40 MG TABLET PO (09:01)
[2024-05-24] MEDS: Atorvastatin Calcium 80 MG TABLET PO (09:01)
[2024-05-24] MEDS: Ascorbic Acid 500 MG TABLET PO ×2 (09:01→20:33)
[2024-05-24] MEDS: Sacubitril/Valsartan 24/26 1 TAB TABLET PO (09:01)
[2024-05-24] MEDS: Clopidogrel Bisulfate 75 MG TABLET PO (09:01)
[2024-05-24] MEDS: Fluticasone/Umeclidinium/Vilanterol 100/62.5/25 BLST.W.DEV 1 PUFF INHALE (09:01)
[2024-05-24] MEDS: Cholecalciferol (Vitamin D3) 25 MCG TABLET PO (09:02)
[2024-05-24] MEDS: carvediloL 6.25 MG TABLET PO (09:02)
[2024-05-24] MEDS: Cyanocobalamin (Vitamin B-12) 1,000 MCG TABLET 1000 MCG PO (09:02)
[2024-05-24] MEDS: Methenamine Hippurate 1 GM TABLET PO ×2 (09:02→20:33)
[2024-05-24] MEDS: Apixaban 5 MG TABLET PO ×2 (09:03→20:32)
[2024-05-24 09:04] LABS: Anion Gap 13 (12-20); Blood Urea Nitrogen 26 mg/dL (9-16); Calcium 9.9 mg/dL (8.4-10.2); Carbon Dioxide 39 mmol/L (22-29); Chloride 97 mmol/L (96-108); Creatinine Clr Calc Pharmacy 57.5; Estimated Glomerular Filt Rate > 60; Glucose Random 156 mg/dL (60-115); Potassium 4.2 mmol/L (3.3-5.1); Sodium 145 mmol/L (135-145)
--- NOTE | 2024-05-24 15:07 | HO.WOUND ---
Wound Consult: Initial 78yr old?[place] [facility] [place] 13:32 - to the Behavioral Health Unit - See progress notes and H&P for detailed history.? Wound consult placed for stage 1 pressure injury to coccyx.? Patient agreeable to assessment and photo documentation.? Coccyx Etiology: ??Stage 1 Pressure Injury Present on Admission Measurements: 1cm x 0.5cm x 0cm Wound Bed: pink intact nonblanhcble tissue Drainage / Odor: None Edges: ? irregular Adelina wound: pink blanchable tissue ? No Induration, Fluctuance or Warmth noted Pain: denies Goals of Treatment: ? Off Load Pressure and protect from friction and pressure Recommendations: 1. Turn and Reposition every 2 hours and as needed for patient comfort.? Use pillows or wedges to support off loading positions. 2. Off Load all bony prominences with use of pillows and heel boots if needed.? Apply Preventative foams where needed. ? 3. Monitor for incontinence and moisture control, use barrier creams when needed for prevention and treatment. 4. Provide adequate and supplemental nutrition.? 5. Order low air loss mattress. 6. When applicable maintain blood glucose levels per Providers order. 7. Coccyx - Off Load Pressure with Q 2 hr turns and use of pillows. Apply sacral foam dressing - peel back and assess Q shift and change every 5 days and PRN. Re-consult wound care Nurse for wound deterioration or wound changes.
[2024-05-24] MEDS: Donepezil HCl 10 MG TABLET PO (20:32)
[2024-05-24] MEDS: traZODone HCL 50 MG TABLET PO ×2 (20:32→21:55)
[2024-05-25] VITALS (7 sets, daily range): BP systolic 111–130; BP diastolic 56–87; PULSE 71–77; RESP 16–17; TEMP 36.1–36.9; O2SAT 94–95
[2024-05-25] MEDS: Methenamine Hippurate 1 GM TABLET PO ×2 (09:15→20:54)
[2024-05-25] MEDS: carvediloL 6.25 MG TABLET PO ×2 (09:15→20:53)
[2024-05-25] MEDS: Ascorbic Acid 500 MG TABLET PO ×2 (09:15→20:54)
[2024-05-25] MEDS: Cholecalciferol (Vitamin D3) 25 MCG TABLET PO (09:15)
[2024-05-25] MEDS: Furosemide 40 MG TABLET PO (09:15)
[2024-05-25] MEDS: Atorvastatin Calcium 80 MG TABLET PO (09:16)
[2024-05-25] MEDS: Venlafaxine HCl ER 75 MG CAP.ER.24H PO (09:16)
[2024-05-25] MEDS: Apixaban 5 MG TABLET PO ×2 (09:16→20:53)
[2024-05-25] MEDS: Cyanocobalamin (Vitamin B-12) 1,000 MCG TABLET 1000 MCG PO (09:16)
[2024-05-25] MEDS: Sacubitril/Valsartan 24/26 1 TAB TABLET PO ×2 (09:16→20:54)
[2024-05-25] MEDS: Clopidogrel Bisulfate 75 MG TABLET PO (09:16)
[2024-05-25] MEDS: Dextroamphetamine/Amphetamine XR 5 MG CAP.ER.24H PO (09:20)
[2024-05-25] MEDS: Fluticasone/Umeclidinium/Vilanterol 100/62.5/25 BLST.W.DEV 1 PUFF INHALE (09:24)
--- NOTE | 2024-05-25 09:28 | P.PNPSI_ITS ---
Subjective Subjective Date of Service: 05/25/24 Reason For Visit: Post OD Subjective Notes: Conditional Voluntary Interim History: Pt slept 8hrs. She still reports feeling tired in the morning. She has a big smile, reports mood is good otherwise. She is very pleasant on approach but physically weak. Labs stable on nasal 2L. No behavioral concerns. Review of Systems Review of Systems No chest pain No constipation or loose stools. She is incontinent of both. Some SOB, on nasal canula, underlying COPD. Mental Status Exam Mental Status Exam Narrative: Appearance: wearing hospital gown, fair hygiene in NAD behavior: cooperative and friendly Psychomotor: some retardation, somnolent Speech: clear, some delay suspect due to somnolence, spontaneous TP: mostly linear, poverty of thought TC: accepting treatment but states won't sign any papers without her daughter present who is HCP Mood: okay Affect: more awake, congruent SI: denies HI: denies VH/AH: none Delusions: none Insight/judgment: poor x 2. Memory/cog: alert, oriented to place, month, year. pending MOCA/ACL. Diagnostics Vital Signs (24Hr): Vital Signs - 24 hr 05/24/24 12:25 05/24/24 17:01 05/24/24 20:00 Temperature 98.3 F 98.6 F 98.1 F Pulse Rate 69 71 80 Respiratory Rate 16 18 Blood Pressure 96/60 94/64 109/54 L Pulse Oximetry 95 95 93 Oxygen Delivery Method Nasal Cannula Nasal Cannula Room Air Oxygen Flow Rate 2 2 05/24/24 20:37 05/24/24 20:37 05/25/24 00:00 Temperature 97 F Pulse Rate 80 72 Respiratory Rate 16 Blood Pressure 109/54 L 109/54 L 111/87 Pulse Oximetry 94 Oxygen Delivery Method Room Air Oxygen Flow Rate 05/25/24 09:13 Temperature 96.9 F Pulse Rate 71 Respiratory Rate 17 Blood Pressure 123/56 L Pulse Oximetry 94 Oxygen Delivery Method Nasal Cannula Oxygen Flow Rate 2 BMI result Body Mass Index 38.6 Labs 05/24/24 08:37 Labs: Laboratory Results - last 48 hr 05/24/24 08:37 Sodium 145 Potassium 4.2 D Chloride 97 Carbon Dioxide 39 H Anion Gap 13 BUN 26 H Creatinine 0.83 Estim Creat Clear Calc 57.5 Estimated GFR > 60 Random Glucose 156 H Calcium 9.9 Medications Medications Current Medications Acetaminophen (Acetaminophen 325 Mg Tablet) 650 mg PO Q6H PRN PRN Reason: Headache/Pain Mild Scale (1-3) Last Admin: 05/23/24 02:03 Dose: 650 mg Al Hydroxide/Mg Hydroxide (Magnesium Hydrox/Alum Hydrox 30 Ml Oral.Susp) 30 ml PO Q6H PRN PRN Reason: Heartburn/Nausea Albuterol Sulfate (Albuterol Sulfate 90 Mcg 8 Gm Inhaler) 2 puff INHALE Q4H PRN PRN Reason: Shortness of Breath/Wheezing Amphetamine/Dextroamphetamine (Dextroamphetamine/Amphetamine Xr 5 Mg Cap.Er.24h) 5 mg PO DAILY [facility] Last Admin: 05/25/24 09:20 Dose: 5 mg Apixaban (Apixaban 5 Mg Tablet) 5 mg PO BID [facility] Last Admin: 05/25/24 09:16 Dose: 5 mg Ascorbic Acid (Ascorbic Acid 500 Mg Tablet) 500 mg PO BID [facility] Last Admin: 05/25/24 09:15 Dose: 500 mg Atorvastatin Calcium (Atorvastatin Calcium 80 Mg Tablet) 80 mg PO DAILY [facility] Last Admin: 05/25/24 09:16 Dose: 80 mg Carvedilol (Carvedilol 6.25 Mg Tablet) 6.25 mg PO BID [facility]; Protocol Last Admin: 05/25/24 09:15 Dose: 6.25 mg Clopidogrel Bisulfate (Clopidogrel Bisulfate 75 Mg Tablet) 75 mg PO DAILY [facility] Last Admin: 05/25/24 09:16 Dose: 75 mg Cyanocobalamin (Cyanocobalamin (Vitamin B-12) 1,000 Mcg Tablet) 1,000 mcg PO DAILY [facility] Last Admin: 05/25/24 09:16 Dose: 1,000 mcg Donepezil HCl (Donepezil Hcl 10 Mg Tablet) 10 mg PO BEDTIME [facility] Last Admin: 05/24/24 20:32 Dose: 10 mg Fluticasone/Umeclidinium/Vilanterol (Fluticasone/Umeclidinium/Vilanterol 100/62.5/25 Blst.W.Dev) 1 puff INHALE RDAILY [facility] Last Admin: 05/25/24 09:24 Dose: 1 puff Furosemide (Furosemide 40 Mg Tablet) 40 mg PO DAILY [facility]; Protocol Last Admin: 05/25/24 09:15 Dose: 40 mg Magnesium Hydroxide (Milk Of Magnesia 30 Ml Oral.Susp) 30 ml PO DAILY PRN PRN Reason: Constipation Methenamine Hippurate (Methenamine Hippurate 1 Gm Tablet) 1 gm PO BID [facility] Last Admin: 05/25/24 09:15 Dose: 1 gm Sacubitril/Valsartan (Sacubitril/Valsartan 1 Tab Tablet) 1 tab PO BID [facility]; Protocol Last Admin: 05/25/24 09:16 Dose: 1 tab Trazodone HCl (Trazodone Hcl 50 Mg Tablet) 50 mg PO BEDTIME PRN PRN Reason: Insomnia Last Admin: 05/24/24 21:55 Dose: 50 mg Venlafaxine HCl (Venlafaxine Hcl Er 75 Mg Cap.Er.24h) 75 mg PO DAILY [facility] Last Admin: 05/25/24 09:16 Dose: 75 mg Vitamin D (Cholecalciferol (Vitamin D3) 25 Mcg Tablet) 25 mcg PO DAILY [facility] Last Admin: 05/25/24 09:15 Dose: 25 mcg Allergies Allergies Allergy/AdvReac Type Severity Reaction Status Date / Time No Known Allergies Allergy Verified 05/06/24 11:26 Assessment & Plan Assessment & Plan (1) MDD (major depressive disorder), recurrent episode, moderate: Status: Acute Code(s): F33.1 - Major depressive disorder, recurrent, moderate (2) Alzheimer dementia: Status: Acute Code(s): G30.9 - Alzheimer's disease, unspecified; F02.80 - Dementia in other diseases classified elsewhere, unspecified severity, without behavioral disturbance, psychotic disturbance, mood disturbance, and anxiety Plan Mrs. Carrington is a 78 year-old woman with hx of Dementia (per records AD type), MDD, who was [place] [facility] [place] OD on clonazepam. Pt medically admitted, currently on nasal canula to maintain O2sat 90-96% Pt denies that OD was with intent to end her life. However, is vague in her report, just wanted to see what would happen. She denies SI now. It appears that here was plan to transition pt to [facility] as she is not able to care for herself independently. PLAN 05/20- pt has been off adderall here on the unit. pt noted to be sleeping on and off. Sleep has improved. we discussed starting effexor. she has also been off cymbalta. 05/21 continue tx. increase effexor to 75mg po daily. 05/22 continue tx. 05/23 continue tx. can consider restarting adderall lower dose 5mg po daily. 05/24 continue tx. 05/25 continue tx. Reason for continued inpatient stay Substantial Risk for: inability to function Time Spent With Patient Time: Total time managing care of this patient today ____ minutes.
[2024-05-25] MEDS: Donepezil HCl 10 MG TABLET PO (20:55)
[2024-05-25] MEDS: traZODone HCL 50 MG TABLET PO ×2 (21:00→23:45)
[2024-05-26] VITALS: O2SAT 94
[2024-05-26] MEDS: Acetaminophen 325 MG TABLET 650 MG PO (01:19)
[2024-05-26 04:00] VITALS: O2SAT 94
[2024-05-26 08:29] VITALS: BP 121/59; PULSE 72; RESP 16; TEMP 36.6; O2SAT 96
[2024-05-26] MEDS: Venlafaxine HCl ER 75 MG CAP.ER.24H PO (08:30)
[2024-05-26] MEDS: Sacubitril/Valsartan 24/26 1 TAB TABLET PO ×2 (08:31→20:34)
[2024-05-26] MEDS: carvediloL 6.25 MG TABLET PO ×2 (08:31→20:34)
[2024-05-26] MEDS: Clopidogrel Bisulfate 75 MG TABLET PO (08:31)
[2024-05-26] MEDS: Methenamine Hippurate 1 GM TABLET PO ×2 (08:31→20:34)
[2024-05-26] MEDS: Furosemide 40 MG TABLET PO (08:31)
[2024-05-26] MEDS: Atorvastatin Calcium 80 MG TABLET PO (08:31)
[2024-05-26] MEDS: Cyanocobalamin (Vitamin B-12) 1,000 MCG TABLET 1000 MCG PO (08:31)
[2024-05-26] MEDS: Ascorbic Acid 500 MG TABLET PO ×2 (08:31→20:34)
[2024-05-26] MEDS: Dextroamphetamine/Amphetamine XR 5 MG CAP.ER.24H PO (08:31)
[2024-05-26] MEDS: Cholecalciferol (Vitamin D3) 25 MCG TABLET PO (08:31)
[2024-05-26] MEDS: Apixaban 5 MG TABLET PO ×2 (08:31→20:34)
[2024-05-26] MEDS: Fluticasone/Umeclidinium/Vilanterol 100/62.5/25 BLST.W.DEV 1 PUFF INHALE (08:33)
--- NOTE | 2024-05-26 11:15 | P.PNPSI_ITS ---
Subjective Subjective Date of Service: 05/26/24 Reason For Visit: Post OD Interim History: Pt slept 8hrs. She still reports feeling tired in the morning. She has a big smile, reports mood is good otherwise. She is very pleasant on approach but physically weak. Labs stable on nasal 2L. No behavioral concerns. Review of Systems Review of Systems No chest pain No constipation or loose stools. She is incontinent of both. Some SOB, on nasal canula, underlying COPD. Mental Status Exam Mental Status Exam Narrative: Appearance: wearing hospital gown, fair hygiene in NAD behavior: cooperative and friendly Psychomotor: some retardation, somnolent Speech: clear, some delay suspect due to somnolence, spontaneous TP: mostly linear, poverty of thought TC: accepting treatment but states won't sign any papers without her daughter present who is HCP Mood: okay Affect: more awake, congruent SI: denies HI: denies VH/AH: none Delusions: none Insight/judgment: poor x 2. Memory/cog: alert, oriented to place, month, year. pending MOCA/ACL. Diagnostics Vital Signs (24Hr): Vital Signs - 24 hr 05/25/24 12:00 05/25/24 16:00 05/25/24 20:00 Temperature 98.5 F Pulse Rate 77 Respiratory Rate 16 Blood Pressure 130/80 Pulse Oximetry 94 95 94 Oxygen Delivery Method Nasal Cannula Nasal Cannula Nasal Cannula Oxygen Flow Rate 2 2 2 05/25/24 20:53 05/25/24 20:54 05/26/24 00:00 Temperature Pulse Rate 77 Respiratory Rate Blood Pressure 130/80 130/80 Pulse Oximetry 94 Oxygen Delivery Method Nasal Cannula Oxygen Flow Rate 2 05/26/24 04:00 05/26/24 08:29 Temperature 97.9 F Pulse Rate 72 Respiratory Rate 16 Blood Pressure 121/59 L Pulse Oximetry 94 96 Oxygen Delivery Method Nasal Cannula Nasal Cannula Oxygen Flow Rate 2 2 BMI result Body Mass Index 38.6 Labs 05/24/24 08:37 Medications Medications Current Medications Acetaminophen (Acetaminophen 325 Mg Tablet) 650 mg PO Q6H PRN PRN Reason: Headache/Pain Mild Scale (1-3) Last Admin: 05/26/24 01:19 Dose: 650 mg Al Hydroxide/Mg Hydroxide (Magnesium Hydrox/Alum Hydrox 30 Ml Oral.Susp) 30 ml PO Q6H PRN PRN Reason: Heartburn/Nausea Albuterol Sulfate (Albuterol Sulfate 90 Mcg 8 Gm Inhaler) 2 puff INHALE Q4H PRN PRN Reason: Shortness of Breath/Wheezing Amphetamine/Dextroamphetamine (Dextroamphetamine/Amphetamine Xr 5 Mg Cap.Er.24h) 5 mg PO DAILY [facility] Last Admin: 05/26/24 08:31 Dose: 5 mg Apixaban (Apixaban 5 Mg Tablet) 5 mg PO BID [facility] Last Admin: 05/26/24 08:31 Dose: 5 mg Ascorbic Acid (Ascorbic Acid 500 Mg Tablet) 500 mg PO BID [facility] Last Admin: 05/26/24 08:31 Dose: 500 mg Atorvastatin Calcium (Atorvastatin Calcium 80 Mg Tablet) 80 mg PO DAILY [facility] Last Admin: 05/26/24 08:31 Dose: 80 mg Carvedilol (Carvedilol 6.25 Mg Tablet) 6.25 mg PO BID [facility]; Protocol Last Admin: 05/26/24 08:31 Dose: 6.25 mg Clopidogrel Bisulfate (Clopidogrel Bisulfate 75 Mg Tablet) 75 mg PO DAILY [facility] Last Admin: 05/26/24 08:31 Dose: 75 mg Cyanocobalamin (Cyanocobalamin (Vitamin B-12) 1,000 Mcg Tablet) 1,000 mcg PO DAILY [facility] Last Admin: 05/26/24 08:31 Dose: 1,000 mcg Donepezil HCl (Donepezil Hcl 10 Mg Tablet) 10 mg PO BEDTIME [facility] Last Admin: 05/25/24 20:55 Dose: 10 mg Fluticasone/Umeclidinium/Vilanterol (Fluticasone/Umeclidinium/Vilanterol 100/62.5/25 Blst.W.Dev) 1 puff INHALE RDAILY [facility] Last Admin: 05/26/24 08:33 Dose: 1 puff Furosemide (Furosemide 40 Mg Tablet) 40 mg PO DAILY [facility]; Protocol Last Admin: 05/26/24 08:31 Dose: 40 mg Magnesium Hydroxide (Milk Of Magnesia 30 Ml Oral.Susp) 30 ml PO DAILY PRN PRN Reason: Constipation Methenamine Hippurate (Methenamine Hippurate 1 Gm Tablet) 1 gm PO BID [facility] Last Admin: 05/26/24 08:31 Dose: 1 gm Sacubitril/Valsartan (Sacubitril/Valsartan 1 Tab Tablet) 1 tab PO BID [facility]; Protocol Last Admin: 05/26/24 08:31 Dose: 1 tab Trazodone HCl (Trazodone Hcl 50 Mg Tablet) 50 mg PO BEDTIME PRN PRN Reason: Insomnia Last Admin: 05/25/24 23:45 Dose: 50 mg Venlafaxine HCl (Venlafaxine Hcl Er 75 Mg Cap.Er.24h) 75 mg PO DAILY [facility] Last Admin: 05/26/24 08:30 Dose: 75 mg Vitamin D (Cholecalciferol (Vitamin D3) 25 Mcg Tablet) 25 mcg PO DAILY [facility] Last Admin: 05/26/24 08:31 Dose: 25 mcg Allergies Allergies Allergy/AdvReac Type Severity Reaction Status Date / Time No Known Allergies Allergy Verified 05/06/24 11:26 Assessment & Plan Assessment & Plan (1) MDD (major depressive disorder), recurrent episode, moderate: Status: Acute Code(s): F33.1 - Major depressive disorder, recurrent, moderate (2) Alzheimer dementia: Status: Acute Code(s): G30.9 - Alzheimer's disease, unspecified; F02.80 - Dementia in other diseases classified elsewhere, unspecified severity, without behavioral disturbance, psychotic disturbance, mood disturbance, and anxiety Plan Mrs. Carrington is a 78 year-old woman with hx of Dementia (per records AD type), MDD, who was [place] [facility] [place] intentional OD on clonazepam. Pt medically admitted, currently on nasal canula to maintain O2sat 90-96% Pt denies that OD was with intent to end her life. However, is vague in her report, just wanted to see what would happen. She denies SI now. It appears that here was plan to transition pt to [facility] as she is not able to care for herself independently. PLAN 05/20- pt has been off adderall here on the unit. pt noted to be sleeping on and off. Sleep has improved. we discussed starting effexor. she has also been off cymbalta. 05/21 continue tx. increase effexor to 75mg po daily. 05/22 continue tx. 05/23 continue tx. can consider restarting adderall lower dose 5mg po daily. 05/24 continue tx. 05/25 continue tx. 05/26 continue tx. Reason for continued inpatient stay Substantial Risk for: inability to function Time Spent With Patient Time: Total time managing care of this patient today ____ minutes.
[2024-05-26 12:00] VITALS: O2SAT 93
[2024-05-26 16:00] VITALS: O2SAT 94
[2024-05-26 20:00] VITALS: BP 121/82; PULSE 68; RESP 18; TEMP 36.5; O2SAT 95
[2024-05-26] MEDS: Donepezil HCl 10 MG TABLET PO (20:34)
[2024-05-26] MEDS: traZODone HCL 50 MG TABLET PO (20:34)
[2024-05-27] VITALS (7 sets, daily range): BP systolic 98–123; BP diastolic 62–75; PULSE 69–75; RESP 16–18; TEMP 36.1–36.3; O2SAT 94–100
[2024-05-27] MEDS: Sacubitril/Valsartan 24/26 1 TAB TABLET PO ×2 (09:04→20:28)
[2024-05-27] MEDS: Atorvastatin Calcium 80 MG TABLET PO (09:04)
[2024-05-27] MEDS: Cyanocobalamin (Vitamin B-12) 1,000 MCG TABLET 1000 MCG PO (09:05)
[2024-05-27] MEDS: Cholecalciferol (Vitamin D3) 25 MCG TABLET PO (09:05)
[2024-05-27] MEDS: Ascorbic Acid 500 MG TABLET PO ×2 (09:05→20:28)
[2024-05-27] MEDS: Venlafaxine HCl ER 75 MG CAP.ER.24H PO (09:05)
[2024-05-27] MEDS: carvediloL 6.25 MG TABLET PO ×2 (09:05→20:27)
[2024-05-27] MEDS: Clopidogrel Bisulfate 75 MG TABLET PO (09:05)
[2024-05-27] MEDS: Apixaban 5 MG TABLET PO ×2 (09:05→20:27)
[2024-05-27] MEDS: Methenamine Hippurate 1 GM TABLET PO ×2 (09:05→20:27)
[2024-05-27] MEDS: Furosemide 40 MG TABLET PO (09:05)
[2024-05-27] MEDS: Dextroamphetamine/Amphetamine XR 5 MG CAP.ER.24H PO (09:06)
--- NOTE | 2024-05-27 09:41 | HO.PSYCHPN ---
Subjective Subjective Date of Service: 05/28/24 Reason For Visit: Post OD Subjective Notes: Conditional Voluntary Interim History: Pt slept 8hrs. She still reports feeling tired in the morning. She has a big smile, reports mood is good otherwise. She is very pleasant on approach but physically weak. Labs stable on nasal 2L pending consult with duck operator as target O2sat 96% No behavioral concerns. Review of Systems Review of Systems No chest pain No constipation or loose stools. She is incontinent of both. Some SOB, on nasal canula, underlying COPD. Constitutional: Denies fever(s) Eyes: Reports no additional eye complaints Cardiovascular: Denies chest pain and Denies dyspnea on exertion Respiratory: Denies cough, Denies dyspnea on exertion and Denies wheezing Gastrointestinal: Reports no additional gastrointestinal complaints Allergic/Immunologic: Denies wheezing Mental Status Exam Mental Status Exam Narrative: Appearance: wearing hospital gown, fair hygiene in NAD behavior: cooperative and friendly Psychomotor: some retardation, somnolent Speech: clear, some delay suspect due to somnolence, spontaneous TP: mostly linear, poverty of thought TC: accepting treatment but states won't sign any papers without her daughter present who is HCP Mood: okay Affect: more awake, congruent SI: denies HI: denies VH/AH: none Delusions: none Insight/judgment: poor x 2. Memory/cog: alert, oriented to place, month, year. pending MOCA/ACL. Diagnostics Vital Signs (24Hr): Vital Signs - 24 hr 05/26/24 12:00 05/26/24 16:00 05/26/24 20:00 Temperature 97.7 F Pulse Rate 68 Respiratory Rate 18 Blood Pressure 121/82 Pulse Oximetry 93 94 95 Oxygen Delivery Method Nasal Cannula Nasal Cannula Nasal Cannula Oxygen Flow Rate 2 2 2 05/27/24 00:00 05/27/24 04:00 05/27/24 09:03 Temperature 97 F Pulse Rate 69 Respiratory Rate 16 Blood Pressure 98/62 Pulse Oximetry 94 94 94 Oxygen Delivery Method Nasal Cannula Room Air Room Air Oxygen Flow Rate 2 2 BMI result Body Mass Index 38.6 Labs 05/24/24 08:37 Medications Medications Current Medications Acetaminophen (Acetaminophen 325 Mg Tablet) 650 mg PO Q6H PRN PRN Reason: Headache/Pain Mild Scale (1-3) Last Admin: 05/26/24 01:19 Dose: 650 mg Al Hydroxide/Mg Hydroxide (Magnesium Hydrox/Alum Hydrox 30 Ml Oral.Susp) 30 ml PO Q6H PRN PRN Reason: Heartburn/Nausea Albuterol Sulfate (Albuterol Sulfate 90 Mcg 8 Gm Inhaler) 2 puff INHALE Q4H PRN PRN Reason: Shortness of Breath/Wheezing Amphetamine/Dextroamphetamine (Dextroamphetamine/Amphetamine Xr 5 Mg Cap.Er.24h) 5 mg PO DAILY [facility] Last Admin: 05/27/24 09:06 Dose: 5 mg Apixaban (Apixaban 5 Mg Tablet) 5 mg PO BID [facility] Last Admin: 05/27/24 09:05 Dose: 5 mg Ascorbic Acid (Ascorbic Acid 500 Mg Tablet) 500 mg PO BID [facility] Last Admin: 05/27/24 09:05 Dose: 500 mg Atorvastatin Calcium (Atorvastatin Calcium 80 Mg Tablet) 80 mg PO DAILY [facility] Last Admin: 05/27/24 09:04 Dose: 80 mg Carvedilol (Carvedilol 6.25 Mg Tablet) 6.25 mg PO BID [facility]; Protocol Last Admin: 05/27/24 09:05 Dose: 6.25 mg Clopidogrel Bisulfate (Clopidogrel Bisulfate 75 Mg Tablet) 75 mg PO DAILY [facility] Last Admin: 05/27/24 09:05 Dose: 75 mg Cyanocobalamin (Cyanocobalamin (Vitamin B-12) 1,000 Mcg Tablet) 1,000 mcg PO DAILY [facility] Last Admin: 05/27/24 09:05 Dose: 1,000 mcg Donepezil HCl (Donepezil Hcl 10 Mg Tablet) 10 mg PO BEDTIME [facility] Last Admin: 05/26/24 20:34 Dose: 10 mg Fluticasone/Umeclidinium/Vilanterol (Fluticasone/Umeclidinium/Vilanterol 100/62.5/25 Blst.W.Dev) 1 puff INHALE RDAILY [facility] Last Admin: 05/26/24 08:33 Dose: 1 puff Furosemide (Furosemide 40 Mg Tablet) 40 mg PO DAILY [facility]; Protocol Last Admin: 05/27/24 09:05 Dose: 40 mg Magnesium Hydroxide (Milk Of Magnesia 30 Ml Oral.Susp) 30 ml PO DAILY PRN PRN Reason: Constipation Methenamine Hippurate (Methenamine Hippurate 1 Gm Tablet) 1 gm PO BID [facility] Last Admin: 05/27/24 09:05 Dose: 1 gm Sacubitril/Valsartan (Sacubitril/Valsartan 1 Tab Tablet) 1 tab PO BID [facility]; Protocol Last Admin: 05/27/24 09:04 Dose: 1 tab Trazodone HCl (Trazodone Hcl 50 Mg Tablet) 50 mg PO BEDTIME PRN PRN Reason: Insomnia Last Admin: 05/26/24 20:34 Dose: 50 mg Venlafaxine HCl (Venlafaxine Hcl Er 75 Mg Cap.Er.24h) 75 mg PO DAILY [facility] Last Admin: 05/27/24 09:05 Dose: 75 mg Vitamin D (Cholecalciferol (Vitamin D3) 25 Mcg Tablet) 25 mcg PO DAILY [facility] Last Admin: 05/27/24 09:05 Dose: 25 mcg Allergies Allergies Allergy/AdvReac Type Severity Reaction Status Date / Time No Known Allergies Allergy Verified 05/06/24 11:26 Assessment & Plan Assessment & Plan (1) MDD (major depressive disorder), recurrent episode, moderate: Status: Acute Code(s): F33.1 - Major depressive disorder, recurrent, moderate (2) Alzheimer dementia: Status: Acute Code(s): G30.9 - Alzheimer's disease, unspecified; F02.80 - Dementia in other diseases classified elsewhere, unspecified severity, without behavioral disturbance, psychotic disturbance, mood disturbance, and anxiety Plan Mrs. Carrington is a 78 year-old woman with hx of Dementia (per records AD type), MDD, who was [place] [facility] [place] intentional OD on clonazepam. Pt medically admitted, currently on nasal canula to maintain O2sat 90-96% Pt denies that OD was with intent to end her life. However, is vague in her report, just wanted to see what would happen. She denies SI now. It appears that here was plan to transition pt to [facility] as she is not able to care for herself independently. PLAN 05/20- pt has been off adderall here on the unit. pt noted to be sleeping on and off. Sleep has improved. we discussed starting effexor. she has also been off cymbalta. 05/21 continue tx. increase effexor to 75mg po daily. 05/22 continue tx. 05/23 continue tx. can consider restarting adderall lower dose 5mg po daily. 05/24 continue tx. 05/25 continue tx. 05/26 continue tx. 05/27 continue tx. Reason for continued inpatient stay Substantial Risk for: inability to function Time Spent With Patient Time: Total time managing care of this patient today ____ minutes.
[2024-05-27] MEDS: Fluticasone/Umeclidinium/Vilanterol 100/62.5/25 BLST.W.DEV 1 PUFF INHALE (09:46)
--- NOTE | 2024-05-27 14:24 | PC.NURSE ---
MOCA/ACLS scores: Qi Carrington scored a 22/30 on the MOCA indicating mild cognitive impairment. Particular deficits with STM. She scored a 4.8 on the ACLS indicating the cusp of mild to moderate cognitive functional deficits and the need for 25% min cognitive assistance for safety and consistency in ADLs, problem solving.
[2024-05-27] MEDS: traZODone HCL 50 MG TABLET PO ×2 (20:28→21:52)
[2024-05-27] MEDS: Donepezil HCl 10 MG TABLET PO (20:28)
[2024-05-28] VITALS (9 sets, daily range): BP systolic 106–135; BP diastolic 55–63; PULSE 66–71; RESP 14–16; TEMP 36.6–36.8; O2SAT 85–97
[2024-05-28] MEDS: Ascorbic Acid 500 MG TABLET PO ×2 (08:24→20:37)
[2024-05-28] MEDS: Cyanocobalamin (Vitamin B-12) 1,000 MCG TABLET 1000 MCG PO (08:24)
[2024-05-28] MEDS: Clopidogrel Bisulfate 75 MG TABLET PO (08:24)
[2024-05-28] MEDS: Cholecalciferol (Vitamin D3) 25 MCG TABLET PO (08:24)
[2024-05-28] MEDS: Venlafaxine HCl ER 75 MG CAP.ER.24H PO (08:24)
[2024-05-28] MEDS: Dextroamphetamine/Amphetamine XR 5 MG CAP.ER.24H PO (08:24)
[2024-05-28] MEDS: Apixaban 5 MG TABLET PO ×2 (08:24→20:36)
[2024-05-28] MEDS: Atorvastatin Calcium 80 MG TABLET PO (08:25)
[2024-05-28] MEDS: Methenamine Hippurate 1 GM TABLET PO ×2 (08:25→20:37)
[2024-05-28] MEDS: Furosemide 40 MG TABLET PO (08:25)
[2024-05-28] MEDS: Sacubitril/Valsartan 24/26 1 TAB TABLET PO ×2 (08:25→20:35)
[2024-05-28] MEDS: carvediloL 6.25 MG TABLET PO ×2 (08:25→20:35)
[2024-05-28] MEDS: Fluticasone/Umeclidinium/Vilanterol 100/62.5/25 BLST.W.DEV 1 PUFF INHALE (08:26)
--- NOTE | 2024-05-28 09:23 | P.PNPL_ITS ---
Subjective Subjective Date of Service: 05/28/24 Interval history: The patient was seen on exam. She had been in the hospital with Klonopin overdose acute on chronic hypercarbic respiratory failure. The patient does have evidence of emphysema COPD on imaging studies. And she also has evidence of chronic hypercarbic state with a baseline pCO2 of 64 mmHg consistent with a chronic retainer. Now she has been transferred to the [facility] psych unit. The patient has been hypoxic at times in the high 80s requiring oxygen. Denies any shortness of breath cough wheezing or chest congestion. Objective Data Labs 05/24/24 08:37 Review of Systems Constitutional: Denies fever(s) Eyes: Reports no additional eye complaints Cardiovascular: Denies chest pain and Denies dyspnea on exertion Respiratory: Denies cough, Denies dyspnea on exertion and Denies wheezing Gastrointestinal: Reports no additional gastrointestinal complaints Allergic/Immunologic: Denies wheezing Physical Exam 2 Vital Signs: Vital Signs: Last Vital Signs Temp 98 F 05/28/24 08:00 Pulse 66 05/28/24 08:00 Resp 14 05/28/24 08:00 BP 106/55 L 05/28/24 08:00 Pulse Ox 95 05/28/24 08:00 O2 Del Method Room Air 05/28/24 08:00 O2 Flow Rate 2 05/28/24 04:00 BMI result Body Mass Index 38.6 Const: General: comfortable Neck: Neck: Yes supple Chest: Chest palpation & inspection: normal inspection of the chest Resp: Effort & Inspection: normal respiratory effort Auscultation: d iminished lung sounds Cardio: Heart sounds: S1 normal heart sound present and S2 normal heart sound present Skin: General skin exam: no rashes or lesions noted Extrem: General: Yes no clubbing, cyanosis or edema Procedures Date of Service Date of Service: 05/28/24 Assessment and Plan Assessment and plan (1) COPD (chronic obstructive pulmonary disease): Status: Acute (2) Chronic hypercapnic respiratory failure: Status: Acute (3) Hypoxia: Status: Inactive Plan continue Trelegy daily continue Deep breathing exercises with ISS will repeat blood gas to assess PCO2 repeat CXR Titrate Oxygen supplementation to keep pox 89-96% Time Spent With Patient Time: Total time managing care of this patient today ____ minutes.
[2024-05-28 10:03] LABS: Venous Blood Gas Refer to POC result
[2024-05-28 10:03] LABS: VBG Base Excess 15.2 mmol/L; VBG HCO3 42 mmol/L (22-26); VBG pCO2 66 mmHg; VBG pH 7.41 (7.32-7.43); VBG pO2 53 mmHg
--- NOTE | 2024-05-28 15:50 | P.PNPSI_ITS ---
Subjective Subjective Date of Service: 05/28/24 Reason For Visit: Post OD Subjective Notes: Conditional Voluntary Interim History: Pt slept 6hrs. She still reports feeling tired in the morning. She has a brighter affect, reports mood is good otherwise. She is very pleasant on approach but physically weak. NO SI/HI. No behavioral concerns. Review of Systems Review of Systems No chest pain No constipation or loose stools. She is incontinent of both. Some SOB, on nasal canula, underlying COPD. Constitutional: Denies fever(s) Eyes: Reports no additional eye complaints Cardiovascular: Denies chest pain and Denies dyspnea on exertion Respiratory: Denies cough, Denies dyspnea on exertion and Denies wheezing Gastrointestinal: Reports no additional gastrointestinal complaints Allergic/Immunologic: Denies wheezing Mental Status Exam Mental Status Exam Narrative: Appearance: wearing hospital gown, fair hygiene in NAD behavior: cooperative and friendly Psychomotor: some retardation, somnolent Speech: clear, some delay suspect due to somnolence, spontaneous TP: mostly linear, poverty of thought TC: accepting treatment but states won't sign any papers without her daughter present who is HCP Mood: okay Affect: more awake, congruent SI: denies HI: denies VH/AH: none Delusions: none Insight/judgment: poor x 2. Memory/cog: alert, oriented to place, month, year. MOCA 22/, ACL 4.8 Patient Appearance: Appropriate Patient Orientation: Person and Situation Level of Consciousness: Awake and Appropriate Patient Behavior: Guarded and Passive Mood Description: Withdrawn Affect Description: Constricted Patient Cognition Impaired: Yes Ability to Follow Directions: Good Speech Pattern: Clear Diagnostics Vital Signs (24Hr): Vital Signs - 24 hr 05/27/24 20:00 05/28/24 00:00 05/28/24 04:00 Temperature 97.3 F Pulse Rate 75 Respiratory Rate 18 Blood Pressure 123/75 Pulse Oximetry 95 97 96 Oxygen Delivery Method Nasal Cannula Nasal Cannula Nasal Cannula Oxygen Flow Rate 2 2 2 05/28/24 08:00 05/28/24 11:40 05/28/24 12:00 Temperature 98 F Pulse Rate 66 Respiratory Rate 14 Blood Pressure 106/55 L Pulse Oximetry 95 90 L 93 Oxygen Delivery Method Room Air Oxygen Flow Rate 0.5 BMI result Body Mass Index 38.6 Labs 05/24/24 08:37 Labs: Laboratory Results - last 48 hr 05/28/24 09:59 VBG pH 7.41 VBG pCO2 66 VBG pO2 53 VBG HCO3 42 H VBG O2 Saturation 82.0 VBG Base Excess 15.2 Medications Medications Current Medications Acetaminophen (Acetaminophen 325 Mg Tablet) 650 mg PO Q6H PRN PRN Reason: Headache/Pain Mild Scale (1-3) Last Admin: 05/26/24 01:19 Dose: 650 mg Al Hydroxide/Mg Hydroxide (Magnesium Hydrox/Alum Hydrox 30 Ml Oral.Susp) 30 ml PO Q6H PRN PRN Reason: Heartburn/Nausea Albuterol Sulfate (Albuterol Sulfate 90 Mcg 8 Gm Inhaler) 2 puff INHALE Q4H PRN PRN Reason: Shortness of Breath/Wheezing Amphetamine/Dextroamphetamine (Dextroamphetamine/Amphetamine Xr 5 Mg Cap.Er.24h) 5 mg PO DAILY [facility] Last Admin: 05/28/24 08:24 Dose: 5 mg Apixaban (Apixaban 5 Mg Tablet) 5 mg PO BID [facility] Last Admin: 05/28/24 08:24 Dose: 5 mg Ascorbic Acid (Ascorbic Acid 500 Mg Tablet) 500 mg PO BID [facility] Last Admin: 05/28/24 08:24 Dose: 500 mg Atorvastatin Calcium (Atorvastatin Calcium 80 Mg Tablet) 80 mg PO DAILY [facility] Last Admin: 05/28/24 08:25 Dose: 80 mg Carvedilol (Carvedilol 6.25 Mg Tablet) 6.25 mg PO BID [facility]; Protocol Last Admin: 05/28/24 08:25 Dose: 6.25 mg Clopidogrel Bisulfate (Clopidogrel Bisulfate 75 Mg Tablet) 75 mg PO DAILY [facility] Last Admin: 05/28/24 08:24 Dose: 75 mg Cyanocobalamin (Cyanocobalamin (Vitamin B-12) 1,000 Mcg Tablet) 1,000 mcg PO DAILY [facility] Last Admin: 05/28/24 08:24 Dose: 1,000 mcg Donepezil HCl (Donepezil Hcl 10 Mg Tablet) 10 mg PO BEDTIME [facility] Last Admin: 05/27/24 20:28 Dose: 10 mg Fluticasone/Umeclidinium/Vilanterol (Fluticasone/Umeclidinium/Vilanterol 100/62.5/25 Blst.W.Dev) 1 puff INHALE RDAILY [facility] Last Admin: 05/28/24 08:26 Dose: 1 puff Furosemide (Furosemide 40 Mg Tablet) 40 mg PO DAILY [facility]; Protocol Last Admin: 05/28/24 08:25 Dose: 40 mg Magnesium Hydroxide (Milk Of Magnesia 30 Ml Oral.Susp) 30 ml PO DAILY PRN PRN Reason: Constipation Methenamine Hippurate (Methenamine Hippurate 1 Gm Tablet) 1 gm PO BID [facility] Last Admin: 05/28/24 08:25 Dose: 1 gm Sacubitril/Valsartan (Sacubitril/Valsartan 1 Tab Tablet) 1 tab PO BID [facility]; Protocol Last Admin: 05/28/24 08:25 Dose: 1 tab Trazodone HCl (Trazodone Hcl 50 Mg Tablet) 50 mg PO BEDTIME PRN PRN Reason: Insomnia Last Admin: 05/27/24 21:52 Dose: 50 mg Venlafaxine HCl (Venlafaxine Hcl Er 75 Mg Cap.Er.24h) 75 mg PO DAILY [facility] Last Admin: 05/28/24 08:24 Dose: 75 mg Vitamin D (Cholecalciferol (Vitamin D3) 25 Mcg Tablet) 25 mcg PO DAILY [facility] Last Admin: 05/28/24 08:24 Dose: 25 mcg Allergies Allergies Allergy/AdvReac Type Severity Reaction Status Date / Time No Known Allergies Allergy Verified 05/06/24 11:26 Assessment & Plan Assessment & Plan (1) MDD (major depressive disorder), recurrent episode, moderate: Status: Acute Code(s): F33.1 - Major depressive disorder, recurrent, moderate (2) Alzheimer dementia: Status: Acute Code(s): G30.9 - Alzheimer's disease, unspecified; F02.80 - Dementia in other diseases classified elsewhere, unspecified severity, without behavioral disturbance, psychotic disturbance, mood disturbance, and anxiety Plan Mrs. Carrington is a 78 year-old woman with hx of Dementia (per records AD type), MDD, who [place] [facility] [place] OD on clonazepam. Pt medically admitted, currently on nasal canula to maintain O2sat 90-96% Pt denies that OD was with intent to end her life. However, is vague in her report, just wanted to see what would happen. She denies SI now. It appears that here was plan to transition pt to [facility] as she is not able to care for herself independently. PLAN 05/20- pt has been off adderall here on the unit. pt noted to be sleeping on and off. Sleep has improved. we discussed starting effexor. she has also been off cymbalta. 05/21 continue tx. increase effexor to 75mg po daily. 05/22 continue tx. 05/23 continue tx. can consider restarting adderall lower dose 5mg po daily. 05/24 continue tx. 05/25 continue tx. 05/26 continue tx. 05/27 continue tx. Reason for continued inpatient stay Substantial Risk for: inability to function Time Spent With Patient Time: Total time managing care of this patient today ____ minutes.
[2024-05-28] MEDS: Donepezil HCl 10 MG TABLET PO (20:35)
[2024-05-28] MEDS: traZODone HCL 50 MG TABLET PO (20:37)
[2024-05-29] VITALS: RESP 14; O2SAT 92
[2024-05-29 04:00] VITALS: O2SAT 94
[2024-05-29 07:55] VITALS: BP 118/62; PULSE 82; RESP 18; TEMP 37.2; O2SAT 94
[2024-05-29] MEDS: Sacubitril/Valsartan 24/26 1 TAB TABLET PO ×2 (08:09→20:08)
[2024-05-29] MEDS: Venlafaxine HCl ER 75 MG CAP.ER.24H PO (08:09)
[2024-05-29] MEDS: Cholecalciferol (Vitamin D3) 25 MCG TABLET PO (08:10)
[2024-05-29] MEDS: Dextroamphetamine/Amphetamine XR 5 MG CAP.ER.24H PO (08:10)
[2024-05-29] MEDS: Cyanocobalamin (Vitamin B-12) 1,000 MCG TABLET 1000 MCG PO (08:10)
[2024-05-29] MEDS: Apixaban 5 MG TABLET PO ×2 (08:10→20:03)
[2024-05-29] MEDS: carvediloL 6.25 MG TABLET PO ×2 (08:10→20:07)
[2024-05-29] MEDS: Methenamine Hippurate 1 GM TABLET PO ×2 (08:10→20:04)
[2024-05-29] MEDS: Ascorbic Acid 500 MG TABLET PO ×2 (08:10→20:03)
[2024-05-29] MEDS: Furosemide 40 MG TABLET PO (08:11)
[2024-05-29] MEDS: Clopidogrel Bisulfate 75 MG TABLET PO (08:11)
[2024-05-29] MEDS: Fluticasone/Umeclidinium/Vilanterol 100/62.5/25 BLST.W.DEV 1 PUFF INHALE (08:11)
[2024-05-29] MEDS: Atorvastatin Calcium 80 MG TABLET PO (08:11)
--- NOTE | 2024-05-29 11:38 | PC.NURSE ---
pt SPO2 95 on RA at 11:30am
[2024-05-29 11:39] VITALS: BP 120/68; PULSE 80; RESP 18; TEMP 36.8; O2SAT 95
[2024-05-29 16:00] VITALS: BP 120/58; PULSE 80; RESP 18; TEMP 36.8; O2SAT 94
[2024-05-29 20:00] VITALS: BP 116/74; PULSE 77; RESP 16; TEMP 36.4; O2SAT 93
[2024-05-29] MEDS: Donepezil HCl 10 MG TABLET PO (20:03)
[2024-05-29] MEDS: traZODone HCL 50 MG TABLET PO ×2 (20:50→22:11)
[2024-05-30] VITALS (8 sets, daily range): BP systolic 124–141; BP diastolic 67–70; PULSE 77–94; RESP 17–18; TEMP 36.1; O2SAT 87–99; BMI 32.2
[2024-05-30] MEDS: Cyanocobalamin (Vitamin B-12) 1,000 MCG TABLET 1000 MCG PO (08:31)
[2024-05-30] MEDS: Sacubitril/Valsartan 24/26 1 TAB TABLET PO ×2 (08:31→20:16)
[2024-05-30] MEDS: Ascorbic Acid 500 MG TABLET PO ×2 (08:31→20:15)
[2024-05-30] MEDS: Atorvastatin Calcium 80 MG TABLET PO (08:31)
[2024-05-30] MEDS: Venlafaxine HCl ER 75 MG CAP.ER.24H PO (08:31)
[2024-05-30] MEDS: Dextroamphetamine/Amphetamine XR 5 MG CAP.ER.24H PO (08:32)
[2024-05-30] MEDS: Methenamine Hippurate 1 GM TABLET PO ×2 (08:32→20:16)
[2024-05-30] MEDS: Furosemide 40 MG TABLET PO (08:32)
[2024-05-30] MEDS: Apixaban 5 MG TABLET PO ×2 (08:32→20:15)
[2024-05-30] MEDS: Clopidogrel Bisulfate 75 MG TABLET PO (08:32)
[2024-05-30] MEDS: Cholecalciferol (Vitamin D3) 25 MCG TABLET PO (08:32)
[2024-05-30] MEDS: carvediloL 6.25 MG TABLET PO ×2 (08:32→20:15)
[2024-05-30] MEDS: Fluticasone/Umeclidinium/Vilanterol 100/62.5/25 BLST.W.DEV 1 PUFF INHALE (08:34)
--- NOTE | 2024-05-30 09:11 | PC.NURSE ---
Addendum entered by Yun Connelly RN 05/30/24 11:57: Around 11:20 patient started reporting some dizziness and feeling disoriented . O2 sat was checked and fluctuating between 87-89%. Provider Tania Finley was notified via tiger text and Qi was placed back on 2L via NC and is now sating at 94%. Orders have been placed and the patient is back on close observation for use of equipment. Original Note: Patient's o2 this morning has been reading between 89-90% on RA. No respiratory distress noted and patient is denying any respiratory issues/complaints. Provider Tania Finley notified via tiger text.
[2024-05-30] MEDS: traZODone HCL 50 MG TABLET PO ×2 (20:16→21:48)
[2024-05-30] MEDS: Donepezil HCl 10 MG TABLET PO (20:16)
[2024-05-31 04:00] VITALS: O2SAT 92
[2024-05-31 08:35] VITALS: BP 129/81; PULSE 62; RESP 18; TEMP 36.2; O2SAT 94
--- NOTE | 2024-05-31 08:43 | P.PNPSI_ITS ---
Subjective Subjective Date of Service: 05/30/24 Reason For Visit: Post OD Subjective Notes: Conditional Voluntary Interim History: Pt slept 6hrs. She still reports feeling tired in the morning. She has a brighter affect, reports mood is good otherwise. She is very pleasant on approach but physically weak. No SI/HI. No behavioral concerns. working with PT, pending acceptance to [facility] we had meeting with daughter who reports this is the best she has seen pt, but also reports pt crying at times when she is with her because she wants to go home. daughter asked if effexor can be increased. will wait monday to increase to 112.5 Medication Compliance: Yes Review of Systems Review of Systems No chest pain No constipation or loose stools. She is incontinent of both. Some SOB, on nasal canula, underlying COPD. Constitutional: Denies fever(s) Eyes: Reports no additional eye complaints Cardiovascular: Denies chest pain and Denies dyspnea on exertion Respiratory: Denies cough, Denies dyspnea on exertion and Denies wheezing Gastrointestinal: Reports no additional gastrointestinal complaints Allergic/Immunologic: Denies wheezing Mental Status Exam Mental Status Exam Narrative: Appearance: wearing hospital gown, fair hygiene in NAD behavior: cooperative and friendly Psychomotor: some retardation, somnolent Speech: clear, some delay suspect due to somnolence, spontaneous TP: mostly linear, poverty of thought TC: accepting treatment but states won't sign any papers without her daughter present who is HCP Mood: okay Affect: more awake, congruent SI: denies HI: denies VH/AH: none Delusions: none Insight/judgment: poor x 2. Memory/cog: alert, oriented to place, month, year. MOCA /, ACL 4.8 Diagnostics Vital Signs (24Hr): Vital Signs - 24 hr 05/30/24 11:25 05/30/24 11:57 05/30/24 16:00 Temperature Pulse Rate Respiratory Rate Blood Pressure Pulse Oximetry 87 L 94 95 Oxygen Delivery Method Room Air Nasal Cannula Nasal Cannula Oxygen Flow Rate 2 2 05/30/24 20:00 05/30/24 23:40 05/31/24 04:00 Temperature 96.9 F Pulse Rate 77 Respiratory Rate 18 Blood Pressure 124/67 Pulse Oximetry 98 93 92 Oxygen Delivery Method Room Air Nasal Cannula Nasal Cannula Nasal Cannula Oxygen Flow Rate 2 2 2 BMI result Body Mass Index 38.6 Labs 05/24/24 08:37 Imaging Radiology Impressions: ITS Impressions Chest X-Ray 05/28/24 10:50 IMPRESSION: Findings as above. Electronically signed by: Jorge Galeas MD 05/28/2024 05:43 PM EDT Medications Medications Current Medications Acetaminophen (Acetaminophen 325 Mg Tablet) 650 mg PO Q6H PRN PRN Reason: Headache/Pain Mild Scale (1-3) Last Admin: 05/26/24 01:19 Dose: 650 mg Al Hydroxide/Mg Hydroxide (Magnesium Hydrox/Alum Hydrox 30 Ml Oral.Susp) 30 ml PO Q6H PRN PRN Reason: Heartburn/Nausea Albuterol Sulfate (Albuterol Sulfate 90 Mcg 8 Gm Inhaler) 2 puff INHALE Q4H PRN PRN Reason: Shortness of Breath/Wheezing Amphetamine/Dextroamphetamine (Dextroamphetamine/Amphetamine Xr 5 Mg Cap.Er.24h) 5 mg PO DAILY [facility] Last Admin: 05/30/24 08:32 Dose: 5 mg Apixaban (Apixaban 5 Mg Tablet) 5 mg PO BID [facility] Last Admin: 05/30/24 20:15 Dose: 5 mg Ascorbic Acid (Ascorbic Acid 500 Mg Tablet) 500 mg PO BID [facility] Last Admin: 05/30/24 20:15 Dose: 500 mg Atorvastatin Calcium (Atorvastatin Calcium 80 Mg Tablet) 80 mg PO DAILY [facility] Last Admin: 05/30/24 08:31 Dose: 80 mg Carvedilol (Carvedilol 6.25 Mg Tablet) 6.25 mg PO BID [facility]; Protocol Last Admin: 05/30/24 20:15 Dose: 6.25 mg Clopidogrel Bisulfate (Clopidogrel Bisulfate 75 Mg Tablet) 75 mg PO DAILY [facility] Last Admin: 05/30/24 08:32 Dose: 75 mg Cyanocobalamin (Cyanocobalamin (Vitamin B-12) 1,000 Mcg Tablet) 1,000 mcg PO DAILY [facility] Last Admin: 05/30/24 08:31 Dose: 1,000 mcg Donepezil HCl (Donepezil Hcl 10 Mg Tablet) 10 mg PO BEDTIME [facility] Last Admin: 05/30/24 20:16 Dose: 10 mg Fluticasone/Umeclidinium/Vilanterol (Fluticasone/Umeclidinium/Vilanterol 100/62.5/25 Blst.W.Dev) 1 puff INHALE RDAILY [facility] Last Admin: 05/30/24 08:34 Dose: 1 puff Furosemide (Furosemide 40 Mg Tablet) 40 mg PO DAILY [facility]; Protocol Last Admin: 05/30/24 08:32 Dose: 40 mg Magnesium Hydroxide (Milk Of Magnesia 30 Ml Oral.Susp) 30 ml PO DAILY PRN PRN Reason: Constipation Methenamine Hippurate (Methenamine Hippurate 1 Gm Tablet) 1 gm PO BID [facility] Last Admin: 05/30/24 20:16 Dose: 1 gm Sacubitril/Valsartan (Sacubitril/Valsartan 1 Tab Tablet) 1 tab PO BID [facility]; Protocol Last Admin: 05/30/24 20:16 Dose: 1 tab Trazodone HCl (Trazodone Hcl 50 Mg Tablet) 50 mg PO BEDTIME PRN PRN Reason: Insomnia Last Admin: 05/30/24 21:48 Dose: 50 mg Venlafaxine HCl (Venlafaxine Hcl Er 75 Mg Cap.Er.24h) 75 mg PO DAILY [facility] Last Admin: 05/30/24 08:31 Dose: 75 mg Vitamin D (Cholecalciferol (Vitamin D3) 25 Mcg Tablet) 25 mcg PO DAILY [facility] Last Admin: 05/30/24 08:32 Dose: 25 mcg Allergies Allergies Allergy/AdvReac Type Severity Reaction Status Date / Time No Known Allergies Allergy Verified 05/06/24 11:26 Assessment & Plan Assessment & Plan (1) MDD (major depressive disorder), recurrent episode, moderate: Status: Acute Code(s): F33.1 - Major depressive disorder, recurrent, moderate (2) Alzheimer dementia: Status: Acute Code(s): G30.9 - Alzheimer's disease, unspecified; F02.80 - Dementia in other diseases classified elsewhere, unspecified severity, without behavioral disturbance, psychotic disturbance, mood disturbance, and anxiety Plan Mrs. Carrington is a 78 year-old woman with hx of Dementia (per records AD type), MDD, who was brought [place] [facility] after intentional OD on clonazepam. Pt medically admitted, currently on nasal canula to maintain O2sat 90-96% Pt denies that OD was with intent to end her life. However, is vague in her report, just wanted to see what would happen. She denies SI now. It appears that here was plan to transition pt to [facility] as she is not able to care for herself independently. PLAN 05/20- pt has been off adderall here on the unit. pt noted to be sleeping on and off. Sleep has improved. we discussed starting effexor. she has also been off cymbalta. 05/21 continue tx. increase effexor to 75mg po daily. 05/22 continue tx. 05/23 continue tx. can consider restarting adderall lower dose 5mg po daily. 05/24 continue tx. 05/25 continue tx. 05/26 continue tx. 05/27 continue tx. 05/30 continue tx. may increase effexor 112.5mg po daily. Reason for continued inpatient stay Substantial Risk for: inability to function Time Spent With Patient Time: Total time managing care of this patient today ____ minutes.
--- NOTE | 2024-05-31 08:43 | P.PNPSI_ITS ---
Subjective Subjective Date of Service: 05/29/24 Reason For Visit: Post OD Subjective Notes: Conditional Voluntary Interim History: Pt slept 6hrs. She still reports feeling tired in the morning. She has a brighter affect, reports mood is good otherwise. She is very pleasant on approach but physically weak. NO SI/HI. No behavioral concerns. working with PT, pending acceptace to [facility] Review of Systems Review of Systems No chest pain No constipation or loose stools. She is incontinent of both. Some SOB, on nasal canula, underlying COPD. Constitutional: Denies fever(s) Eyes: Reports no additional eye complaints Cardiovascular: Denies chest pain and Denies dyspnea on exertion Respiratory: Denies cough, Denies dyspnea on exertion and Denies wheezing Gastrointestinal: Reports no additional gastrointestinal complaints Allergic/Immunologic: Denies wheezing Mental Status Exam Mental Status Exam Narrative: Appearance: wearing hospital gown, fair hygiene in NAD behavior: cooperative and friendly Psychomotor: some retardation, somnolent Speech: clear, some delay suspect due to somnolence, spontaneous TP: mostly linear, poverty of thought TC: accepting treatment but states won't sign any papers without her daughter present who is HCP Mood: okay Affect: more awake, congruent SI: denies HI: denies VH/AH: none Delusions: none Insight/judgment: poor x 2. Memory/cog: alert, oriented to place, month, year. MOCA , ACL 4.8 Diagnostics Vital Signs (24Hr): Vital Signs - 24 hr 05/30/24 11:25 05/30/24 11:57 05/30/24 16:00 Temperature Pulse Rate Respiratory Rate Blood Pressure Pulse Oximetry 87 L 94 95 Oxygen Delivery Method Room Air Nasal Cannula Nasal Cannula Oxygen Flow Rate 2 2 05/30/24 20:00 05/30/24 23:40 05/31/24 04:00 Temperature 96.9 F Pulse Rate 77 Respiratory Rate 18 Blood Pressure 124/67 Pulse Oximetry 98 93 92 Oxygen Delivery Method Room Air Nasal Cannula Nasal Cannula Nasal Cannula Oxygen Flow Rate 2 2 2 BMI result Body Mass Index 38.6 Labs 05/24/24 08:37 Imaging Radiology Impressions: ITS Impressions Chest X-Ray 05/28/24 10:50 IMPRESSION: Findings as above. Electronically signed by: Jorge Galeas MD 05/28/2024 05:43 PM EDT RP Medications Medications Current Medications Acetaminophen (Acetaminophen 325 Mg Tablet) 650 mg PO Q6H PRN PRN Reason: Headache/Pain Mild Scale (1-3) Last Admin: 05/26/24 01:19 Dose: 650 mg Al Hydroxide/Mg Hydroxide (Magnesium Hydrox/Alum Hydrox 30 Ml Oral.Susp) 30 ml PO Q6H PRN PRN Reason: Heartburn/Nausea Albuterol Sulfate (Albuterol Sulfate 90 Mcg 8 Gm Inhaler) 2 puff INHALE Q4H PRN PRN Reason: Shortness of Breath/Wheezing Amphetamine/Dextroamphetamine (Dextroamphetamine/Amphetamine Xr 5 Mg Cap.Er.24h) 5 mg PO DAILY [facility] Last Admin: 05/30/24 08:32 Dose: 5 mg Apixaban (Apixaban 5 Mg Tablet) 5 mg PO BID [facility] Last Admin: 05/30/24 20:15 Dose: 5 mg Ascorbic Acid (Ascorbic Acid 500 Mg Tablet) 500 mg PO BID [facility] Last Admin: 05/30/24 20:15 Dose: 500 mg Atorvastatin Calcium (Atorvastatin Calcium 80 Mg Tablet) 80 mg PO DAILY [facility] Last Admin: 05/30/24 08:31 Dose: 80 mg Carvedilol (Carvedilol 6.25 Mg Tablet) 6.25 mg PO BID [facility]; Protocol Last Admin: 05/30/24 20:15 Dose: 6.25 mg Clopidogrel Bisulfate (Clopidogrel Bisulfate 75 Mg Tablet) 75 mg PO DAILY [facility] Last Admin: 05/30/24 08:32 Dose: 75 mg Cyanocobalamin (Cyanocobalamin (Vitamin B-12) 1,000 Mcg Tablet) 1,000 mcg PO DAILY [facility] Last Admin: 05/30/24 08:31 Dose: 1,000 mcg Donepezil HCl (Donepezil Hcl 10 Mg Tablet) 10 mg PO BEDTIME [facility] Last Admin: 05/30/24 20:16 Dose: 10 mg Fluticasone/Umeclidinium/Vilanterol (Fluticasone/Umeclidinium/Vilanterol 100/62.5/25 Blst.W.Dev) 1 puff INHALE RDAILY [facility] Last Admin: 05/30/24 08:34 Dose: 1 puff Furosemide (Furosemide 40 Mg Tablet) 40 mg PO DAILY [facility]; Protocol Last Admin: 09/19/24 08:32 Dose: 40 mg Magnesium Hydroxide (Milk Of Magnesia 30 Ml Oral.Susp) 30 ml PO DAILY PRN PRN Reason: Constipation Methenamine Hippurate (Methenamine Hippurate 1 Gm Tablet) 1 gm PO BID [facility] Last Admin: 05/30/24 20:16 Dose: 1 gm Sacubitril/Valsartan (Sacubitril/Valsartan 1 Tab Tablet) 1 tab PO BID [facility]; Protocol Last Admin: 05/30/24 20:16 Dose: 1 tab Trazodone HCl (Trazodone Hcl 50 Mg Tablet) 50 mg PO BEDTIME PRN PRN Reason: Insomnia Last Admin: 05/30/24 21:48 Dose: 50 mg Venlafaxine HCl (Venlafaxine Hcl Er 75 Mg Cap.Er.24h) 75 mg PO DAILY [facility] Last Admin: 05/30/24 08:31 Dose: 75 mg Vitamin D (Cholecalciferol (Vitamin D3) 25 Mcg Tablet) 25 mcg PO DAILY [facility] Last Admin: 05/30/24 08:32 Dose: 25 mcg Allergies Allergies Allergy/AdvReac Type Severity Reaction Status Date / Time No Known Allergies Allergy Verified 05/06/24 11:26 Assessment & Plan Assessment & Plan (1) MDD (major depressive disorder), recurrent episode, moderate: Status: Acute Code(s): F33.1 - Major depressive disorder, recurrent, moderate (2) Alzheimer dementia: Status: Acute Code(s): G30.9 - Alzheimer's disease, unspecified; F02.80 - Dementia in other diseases classified elsewhere, unspecified severity, without behavioral disturbance, psychotic disturbance, mood disturbance, and anxiety Plan Mrs. Carrington is a 78 year-old woman with hx of Dementia (per records AD type), MDD, who was brought to [facility] after intentional OD on clonazepam. Pt medically admitted, currently on nasal canula to maintain O2sat 90-96% Pt denies that OD was with intent to end her life. However, is vague in her report, just wanted to see what would happen. She denies SI now. It appears that here was plan to transition pt to [facility] as she is not able to care for herself independently. PLAN 05/20- pt has been off adderall here on the unit. pt noted to be sleeping on and off. Sleep has improved. we discussed starting effexor. she has also been off cymbalta. 05/21 continue tx. increase effexor to 75mg po daily. 05/22 continue tx. 05/23 continue tx. can consider restarting adderall lower dose 5mg po daily. 05/24 continue tx. 05/25 continue tx. 05/26 continue tx. 05/27 continue tx. Reason for continued inpatient stay Substantial Risk for: inability to function Time Spent With Patient Time: Total time managing care of this patient today ____ minutes.
[2024-05-31] MEDS: Fluticasone/Umeclidinium/Vilanterol 100/62.5/25 BLST.W.DEV 1 PUFF INHALE (09:16)
[2024-05-31] MEDS: Venlafaxine HCl ER 75 MG CAP.ER.24H PO (09:17)
[2024-05-31] MEDS: Atorvastatin Calcium 80 MG TABLET PO (09:17)
[2024-05-31] MEDS: Clopidogrel Bisulfate 75 MG TABLET PO (09:17)
[2024-05-31] MEDS: carvediloL 6.25 MG TABLET PO ×2 (09:17→19:52)
[2024-05-31] MEDS: Cyanocobalamin (Vitamin B-12) 1,000 MCG TABLET 1000 MCG PO (09:17)
[2024-05-31] MEDS: Dextroamphetamine/Amphetamine XR 5 MG CAP.ER.24H PO (09:17)
[2024-05-31] MEDS: Methenamine Hippurate 1 GM TABLET PO ×2 (09:17→19:52)
[2024-05-31] MEDS: Apixaban 5 MG TABLET PO ×2 (09:17→20:19)
[2024-05-31] MEDS: Cholecalciferol (Vitamin D3) 25 MCG TABLET PO (09:17)
[2024-05-31] MEDS: Furosemide 40 MG TABLET PO (09:17)
[2024-05-31] MEDS: Sacubitril/Valsartan 24/26 1 TAB TABLET PO ×2 (09:17→19:52)
[2024-05-31] MEDS: Ascorbic Acid 500 MG TABLET PO ×2 (09:17→19:51)
--- NOTE | 2024-05-31 11:38 | P.PNPSI_ITS ---
Subjective Subjective Date of Service: 05/31/24 Reason For Visit: Post OD Interim History: Pt resting in bed. Awakens easily. Denies current issues or concerns, denies pain. Team report a reversal of sleep cycle which she continues at home. She does not want further changes to attempt correction of this. Planning discharge next week she reports and team concurs. Reports she is comfortable and doing well. Medication Compliance: Yes Side effects from medications: No Attending Groups: Intermittent Review of Systems Acute medical concerns: No Medical Review of Systems: unchanged Review of Systems Review of Systems Yes all other systems are reviewed and are negative Mental Status Exam Mental Status Exam Patient Appearance: Appropriate Patient Orientation: Person, Place and Situation Level of Consciousness: Alert Patient Behavior: Talkative, Cooperative and Good Eye Contact Mood Description: Appropriate Affect Description: Flat Ability to Follow Directions: Good Speech Pattern: Spontaneous Speech Hallucinations: None Delusions: Not Present Judgement: Fair Diagnostics Vital Signs (24Hr): Vital Signs - 24 hr 05/30/24 11:57 05/30/24 16:00 05/30/24 20:00 Temperature 96.9 F Pulse Rate 77 Respiratory Rate 18 Blood Pressure 124/67 Pulse Oximetry 94 95 98 Oxygen Delivery Method Nasal Cannula Nasal Cannula Room Air Nasal Cannula Oxygen Flow Rate 2 2 2 05/30/24 23:40 05/31/24 04:00 05/31/24 08:35 Temperature 97.2 F Pulse Rate 62 Respiratory Rate 18 Blood Pressure 129/81 Pulse Oximetry 93 92 94 Oxygen Delivery Method Nasal Cannula Nasal Cannula Nasal Cannula Oxygen Flow Rate 2 2 2 BMI result Body Mass Index 38.6 Labs 05/24/24 08:37 Imaging Radiology Impressions: ITS Impressions Chest X-Ray 05/28/24 10:50 IMPRESSION: Findings as above. Electronically signed by: Jorge Galeas MD 05/28/2024 05:43 PM EDT Medications Medications Current Medications Acetaminophen (Acetaminophen 325 Mg Tablet) 650 mg PO Q6H PRN PRN Reason: Headache/Pain Mild Scale (1-3) Last Admin: 05/26/24 01:19 Dose: 650 mg Al Hydroxide/Mg Hydroxide (Magnesium Hydrox/Alum Hydrox 30 Ml Oral.Susp) 30 ml PO Q6H PRN PRN Reason: Heartburn/Nausea Albuterol Sulfate (Albuterol Sulfate 90 Mcg 8 Gm Inhaler) 2 puff INHALE Q4H PRN PRN Reason: Shortness of Breath/Wheezing Amphetamine/Dextroamphetamine (Dextroamphetamine/Amphetamine Xr 5 Mg Cap.Er.24h) 5 mg PO DAILY [facility] Last Admin: 05/31/24 09:17 Dose: 5 mg Apixaban (Apixaban 5 Mg Tablet) 5 mg PO BID [facility] Last Admin: 05/31/24 09:17 Dose: 5 mg Ascorbic Acid (Ascorbic Acid 500 Mg Tablet) 500 mg PO BID [facility] Last Admin: 05/31/24 09:17 Dose: 500 mg Atorvastatin Calcium (Atorvastatin Calcium 80 Mg Tablet) 80 mg PO DAILY [facility] Last Admin: 05/31/24 09:17 Dose: 80 mg Carvedilol (Carvedilol 6.25 Mg Tablet) 6.25 mg PO BID [facility]; Protocol Last Admin: 05/31/24 09:17 Dose: 6.25 mg Clopidogrel Bisulfate (Clopidogrel Bisulfate 75 Mg Tablet) 75 mg PO DAILY [facility] Last Admin: 05/31/24 09:17 Dose: 75 mg Cyanocobalamin (Cyanocobalamin (Vitamin B-12) 1,000 Mcg Tablet) 1,000 mcg PO DAILY [facility] Last Admin: 05/31/24 09:17 Dose: 1,000 mcg Donepezil HCl (Donepezil Hcl 10 Mg Tablet) 10 mg PO BEDTIME [facility] Last Admin: 05/30/24 20:16 Dose: 10 mg Fluticasone/Umeclidinium/Vilanterol (Fluticasone/Umeclidinium/Vilanterol 100/62.5/25 Blst.W.Dev) 1 puff INHALE RDAILY [facility] Last Admin: 05/31/24 09:16 Dose: 1 puff Furosemide (Furosemide 40 Mg Tablet) 40 mg PO DAILY [facility]; Protocol Last Admin: 05/31/24 09:17 Dose: 40 mg Magnesium Hydroxide (Milk Of Magnesia 30 Ml Oral.Susp) 30 ml PO DAILY PRN PRN Reason: Constipation Methenamine Hippurate (Methenamine Hippurate 1 Gm Tablet) 1 gm PO BID [facility] Last Admin: 05/31/24 09:17 Dose: 1 gm Sacubitril/Valsartan (Sacubitril/Valsartan 1 Tab Tablet) 1 tab PO BID [facility]; Protocol Last Admin: 05/31/24 09:17 Dose: 1 tab Trazodone HCl (Trazodone Hcl 50 Mg Tablet) 50 mg PO BEDTIME PRN PRN Reason: Insomnia Last Admin: 05/30/24 21:48 Dose: 50 mg Venlafaxine HCl (Venlafaxine Hcl Er 75 Mg Cap.Er.24h) 75 mg PO DAILY [facility] Last Admin: 05/31/24 09:17 Dose: 75 mg Vitamin D (Cholecalciferol (Vitamin D3) 25 Mcg Tablet) 25 mcg PO DAILY [facility] Last Admin: 05/31/24 09:17 Dose: 25 mcg Allergies Allergies Allergy/AdvReac Type Severity Reaction Status Date / Time No Known Allergies Allergy Verified 05/06/24 11:26 Assessment & Plan Assessment & Plan (1) MDD (major depressive disorder), recurrent episode, moderate: Status: Acute Code(s): F33.1 - Major depressive disorder, recurrent, moderate (2) Alzheimer dementia: Status: Acute Code(s): G30.9 - Alzheimer's disease, unspecified; F02.80 - Dementia in other diseases classified elsewhere, unspecified severity, without behavioral disturbance, psychotic disturbance, mood disturbance, and anxiety Plan Mrs. Carrington is a 78 year-old woman with hx of Dementia (per records AD type), MDD, who was brought to [facility] ED after intentional OD on clonazepam. Pt medically admitted, currently on nasal canula to maintain O2sat 90-96% Pt denies that OD was with intent to end her life. However, is vague in her report, just wanted to see what would happen. She denies SI now. It appears that here was plan to transition pt to [facility] as she is not able to care for herself independently. PLAN 05/20- pt has been off adderall here on the unit. pt noted to be sleeping on and off. Sleep has improved. we discussed starting effexor. she has also been off cymbalta. 05/21 continue tx. increase effexor to 75mg po daily. 05/22 continue tx. 05/23 continue tx. can consider restarting adderall lower dose 5mg po daily. 05/24 continue tx. 05/25 continue tx. 05/26 continue tx. 05/27 continue tx. 05/30 continue tx. may increase effexor 112.5mg po daily. 05/31 continue tx. Reason for continued inpatient stay Substantial Risk for: rapid decompensation Time Spent With Patient Time: Total time managing care of this patient today ____ minutes.
[2024-05-31 12:00] VITALS: O2SAT 93
[2024-05-31 16:00] VITALS: O2SAT 97
[2024-05-31 19:46] VITALS: BP 112/57; PULSE 71; RESP 18; TEMP 36.9; O2SAT 98
[2024-05-31 19:52] VITALS: BP 112/57; PULSE 71
[2024-05-31] MEDS: Donepezil HCl 10 MG TABLET PO (19:52)
[2024-05-31] MEDS: traZODone HCL 50 MG TABLET PO (23:14)
[2024-06-01] VITALS (8 sets, daily range): BP systolic 105–123; BP diastolic 52–77; PULSE 63–78; RESP 16; TEMP 36.3–36.6; O2SAT 93–98
[2024-06-01] MEDS: Fluticasone/Umeclidinium/Vilanterol 100/62.5/25 BLST.W.DEV 1 PUFF INHALE (08:10)
[2024-06-01] MEDS: Cyanocobalamin (Vitamin B-12) 1,000 MCG TABLET 1000 MCG PO (08:11)
[2024-06-01] MEDS: carvediloL 6.25 MG TABLET PO ×2 (08:11→20:07)
[2024-06-01] MEDS: Dextroamphetamine/Amphetamine XR 5 MG CAP.ER.24H PO (08:11)
[2024-06-01] MEDS: Ascorbic Acid 500 MG TABLET PO ×2 (08:11→20:07)
[2024-06-01] MEDS: Sacubitril/Valsartan 24/26 1 TAB TABLET PO ×2 (08:11→20:06)
[2024-06-01] MEDS: Atorvastatin Calcium 80 MG TABLET PO (08:11)
[2024-06-01] MEDS: Methenamine Hippurate 1 GM TABLET PO ×2 (08:11→20:05)
[2024-06-01] MEDS: Clopidogrel Bisulfate 75 MG TABLET PO (08:11)
[2024-06-01] MEDS: Venlafaxine HCl ER 75 MG CAP.ER.24H PO (08:11)
[2024-06-01] MEDS: Apixaban 5 MG TABLET PO ×2 (08:12→20:06)
[2024-06-01] MEDS: Cholecalciferol (Vitamin D3) 25 MCG TABLET PO (08:12)
[2024-06-01] MEDS: Furosemide 40 MG TABLET PO (08:12)
--- NOTE | 2024-06-01 17:29 | P.PNPSI_ITS ---
Subjective Subjective Date of Service: 06/01/24 Reason For Visit: Post OD Interim History: Met with patient; discussed with team Patient said that she has doing okay... She is hoping to discharge soon. She was unaware that she had been off O2 for some period of time but of course understands she is back on it. Otherwise no complaints and no requests Mental Status Exam Mental Status Exam Patient Appearance: Appropriate Patient Orientation: Person, Place and Situation Level of Consciousness: Alert Patient Behavior: Talkative, Cooperative and Good Eye Contact Mood Description: Appropriate Affect Description: Flat Ability to Follow Directions: Good Speech Pattern: Spontaneous Speech Hallucinations: None Delusions: Not Present Judgement: Fair Diagnostics Vital Signs (24Hr): Vital Signs - 24 hr 05/31/24 19:46 05/31/24 19:52 05/31/24 19:52 Temperature 98.4 F Pulse Rate 71 71 Respiratory Rate 18 Blood Pressure 112/57 L 112/57 L 112/57 L Pulse Oximetry 98 Oxygen Delivery Method Nasal Cannula Oxygen Flow Rate 2 06/01/24 04:00 06/01/24 06:13 06/01/24 08:07 Temperature 97.6 F Pulse Rate 63 Respiratory Rate 16 Blood Pressure 114/53 L Pulse Oximetry 98 95 94 Oxygen Delivery Method Nasal Cannula Nasal Cannula Nasal Cannula Oxygen Flow Rate 2 2 06/01/24 12:00 06/01/24 16:00 Temperature 97.4 F Pulse Rate 78 Respiratory Rate 16 Blood Pressure 105/52 L Pulse Oximetry 94 93 Oxygen Delivery Method Nasal Cannula Nasal Cannula Oxygen Flow Rate 2 1.5 BMI result Body Mass Index 32.2 Labs 05/24/24 08:37 Imaging Radiology Impressions: ITS Impressions Chest X-Ray 05/28/24 10:50 IMPRESSION: Findings as above. Electronically signed by: Jorge Galeas MD 05/28/2024 05:43 PM EDT RP Medications Medications Current Medications Acetaminophen (Acetaminophen 325 Mg Tablet) 650 mg PO Q6H PRN PRN Reason: Headache/Pain Mild Scale (1-3) Last Admin: 05/26/24 01:19 Dose: 650 mg Al Hydroxide/Mg Hydroxide (Magnesium Hydrox/Alum Hydrox 30 Ml Oral.Susp) 30 ml PO Q6H PRN PRN Reason: Heartburn/Nausea Albuterol Sulfate (Albuterol Sulfate 90 Mcg 8 Gm Inhaler) 2 puff INHALE Q4H PRN PRN Reason: Shortness of Breath/Wheezing Amphetamine/Dextroamphetamine (Dextroamphetamine/Amphetamine Xr 5 Mg Cap.Er.24h) 5 mg PO DAILY [facility] Last Admin: 06/01/24 08:11 Dose: 5 mg Apixaban (Apixaban 5 Mg Tablet) 5 mg PO BID [facility] Last Admin: 06/01/24 08:12 Dose: 5 mg Ascorbic Acid (Ascorbic Acid 500 Mg Tablet) 500 mg PO BID [facility] Last Admin: 06/01/24 08:11 Dose: 500 mg Atorvastatin Calcium (Atorvastatin Calcium 80 Mg Tablet) 80 mg PO DAILY [facility] Last Admin: 06/01/24 08:11 Dose: 80 mg Carvedilol (Carvedilol 6.25 Mg Tablet) 6.25 mg PO BID [facility]; Protocol Last Admin: 06/01/24 08:11 Dose: 6.25 mg Clopidogrel Bisulfate (Clopidogrel Bisulfate 75 Mg Tablet) 75 mg PO DAILY [facility] Last Admin: 06/01/24 08:11 Dose: 75 mg Cyanocobalamin (Cyanocobalamin (Vitamin B-12) 1,000 Mcg Tablet) 1,000 mcg PO DAILY [facility] Last Admin: 06/01/24 08:11 Dose: 1,000 mcg Donepezil HCl (Donepezil Hcl 10 Mg Tablet) 10 mg PO BEDTIME [facility] Last Admin: 05/31/24 19:52 Dose: 10 mg Fluticasone/Umeclidinium/Vilanterol (Fluticasone/Umeclidinium/Vilanterol 100/62.5/25 Blst.W.Dev) 1 puff INHALE RDAILY [facility] Last Admin: 06/01/24 08:10 Dose: 1 puff Furosemide (Furosemide 40 Mg Tablet) 40 mg PO DAILY [facility]; Protocol Last Admin: 06/01/24 08:12 Dose: 40 mg Magnesium Hydroxide (Milk Of Magnesia 30 Ml Oral.Susp) 30 ml PO DAILY PRN PRN Reason: Constipation Methenamine Hippurate (Methenamine Hippurate 1 Gm Tablet) 1 gm PO BID [facility] Last Admin: 06/01/24 08:11 Dose: 1 gm Sacubitril/Valsartan (Sacubitril/Valsartan 1 Tab Tablet) 1 tab PO BID [facility]; Protocol Last Admin: 06/01/24 08:11 Dose: 1 tab Trazodone HCl (Trazodone Hcl 50 Mg Tablet) 50 mg PO BEDTIME PRN PRN Reason: Insomnia Last Admin: 05/31/24 23:14 Dose: 50 mg Venlafaxine HCl (Venlafaxine Hcl Er 75 Mg Cap.Er.24h) 75 mg PO DAILY [facility] Last Admin: 06/01/24 08:11 Dose: 75 mg Vitamin D (Cholecalciferol (Vitamin D3) 25 Mcg Tablet) 25 mcg PO DAILY [facility] Last Admin: 06/01/24 08:12 Dose: 25 mcg Allergies Allergies Allergy/AdvReac Type Severity Reaction Status Date / Time No Known Allergies Allergy Verified 05/06/24 11:26 Assessment & Plan Assessment & Plan (1) MDD (major depressive disorder), recurrent episode, moderate: Status: Acute Code(s): F33.1 - Major depressive disorder, recurrent, moderate (2) Alzheimer dementia: Status: Acute Code(s): G30.9 - Alzheimer's disease, unspecified; F02.80 - Dementia in other diseases classified elsewhere, unspecified severity, without behavioral disturbance, psychotic disturbance, mood disturbance, and anxiety Plan Mrs. Carrington is a 78 year-old woman with hx of Dementia (per records AD type), MDD, who was brought to [facility] after intentional OD on clonazepam. Pt medically admitted, currently on nasal canula to maintain O2sat 90-96% Pt denies that OD was with intent to end her life. However, is vague in her report, just wanted to see what would happen. She denies SI now. It appears that here was plan to transition pt to [facility] as she is not able to care for herself independently. PLAN 05/20- pt has been off adderall here on the unit. pt noted to be sleeping on and off. Sleep has improved. we discussed starting effexor. she has also been off cymbalta. 05/21 continue tx. increase effexor to 75mg po daily. 05/22 continue tx. 05/23 continue tx. can consider restarting adderall lower dose 5mg po daily. 05/24 continue tx. 05/25 continue tx. 05/26 continue tx. 05/27 continue tx. 05/30 continue tx. may increase effexor 112.5mg po daily. 05/31 continue tx. 06/01 continue treatment plan Patient educated on: diagnosis and medical condition Informed Consent: understands Reason for continued inpatient stay Substantial Risk for: med/psych decompensation Time Spent With Patient Time: Total time managing care of this patient today ____ minutes.
[2024-06-01] MEDS: Donepezil HCl 10 MG TABLET PO (20:06)
[2024-06-01] MEDS: traZODone HCL 50 MG TABLET PO (20:07)
[2024-06-02] VITALS (8 sets, daily range): BP systolic 88–136; BP diastolic 50–76; PULSE 68–77; RESP 16–18; TEMP 36–36.7; O2SAT 93–98
[2024-06-02] MEDS: Fluticasone/Umeclidinium/Vilanterol 100/62.5/25 BLST.W.DEV 1 PUFF INHALE (08:31)
[2024-06-02] MEDS: Cyanocobalamin (Vitamin B-12) 1,000 MCG TABLET 1000 MCG PO (08:32)
[2024-06-02] MEDS: Cholecalciferol (Vitamin D3) 25 MCG TABLET PO (08:33)
[2024-06-02] MEDS: Ascorbic Acid 500 MG TABLET PO ×2 (08:33→20:38)
[2024-06-02] MEDS: Dextroamphetamine/Amphetamine XR 5 MG CAP.ER.24H PO (08:33)
[2024-06-02] MEDS: Venlafaxine HCl ER 75 MG CAP.ER.24H PO (08:33)
[2024-06-02] MEDS: Methenamine Hippurate 1 GM TABLET PO ×2 (08:33→20:38)
[2024-06-02] MEDS: Clopidogrel Bisulfate 75 MG TABLET PO (08:33)
[2024-06-02] MEDS: Atorvastatin Calcium 80 MG TABLET PO (08:33)
[2024-06-02] MEDS: Apixaban 5 MG TABLET PO ×2 (08:43→20:38)
--- NOTE | 2024-06-02 09:31 | PC.NURSE ---
AM BP 99/57, P 71. Re-check an hr later for BP 88/50, P 74. Pt alert, denies any symptoms. Provider Abbe Moore notified by tiger text. Will continue to monitor.
--- NOTE | 2024-06-02 13:02 | PC.NURSE ---
At noontime BP 120/65, P 77. Pt alert, oriented, pleasant on approach. Denies pain, no SOB or respiratory distress noted. O2sat 95% on 2L via N/C. Sacral area healed, new protective foam dressing applied. Good appetite. Pt utilizing w/c for long distances. Using bathroom for toileting, had BM this shift. Will continue to monitor.
--- NOTE | 2024-06-02 13:05 | P.PNPSI_ITS ---
Subjective Subjective Date of Service: 06/02/24 Reason For Visit: Post OD Interim History: Met with patient; discussed with team Patient reports that she is doing well, good mood, no SI hoping to discharge soon. Discussed with patient that she was hypotensive earlier today and blood pressure meds held; she denied any symptoms and BP returned to [facility] Nursing staff reports that sacrum well healed Mental Status Exam Mental Status Exam Narrative: Appearance: wearing hospital gown, fair hygiene in NAD behavior: cooperative and friendly Psychomotor: no psychomotor agitation or retardation. Speech: clear, regular rate/rhythm/volume, spontaneous TP: mostly linear, poverty of thought TC:looking forward to go home Mood: Good Affect: brighter, smiling SI: None HI: None VH/AH: none Delusions: none Insight/judgment: Impaired but improved Memory/cog: alert, oriented x4. MOCA , ACL 4.8 Diagnostics Vital Signs (24Hr): Vital Signs - 24 hr 06/01/24 16:00 06/01/24 20:00 06/01/24 20:06 Temperature 97.4 F 98 F Pulse Rate 78 69 Respiratory Rate 16 16 Blood Pressure 105/52 L 123/77 123/77 Pulse Oximetry 93 95 Oxygen Delivery Method Nasal Cannula Nasal Cannula Oxygen Flow Rate 1.5 2 06/01/24 20:07 06/02/24 00:00 06/02/24 08:00 Temperature 96.8 F Pulse Rate 69 71 Respiratory Rate 18 Blood Pressure 123/77 99/57 L Pulse Oximetry 93 95 Oxygen Delivery Method Nasal Cannula Nasal Cannula Oxygen Flow Rate 2 2 06/02/24 09:15 06/02/24 09:28 06/02/24 09:29 Temperature Pulse Rate 74 74 Respiratory Rate 16 Blood Pressure 88/50 L 88/50 L 88/50 L Pulse Oximetry Oxygen Delivery Method Oxygen Flow Rate 06/02/24 09:29 06/02/24 12:00 Temperature 97.0 F Pulse Rate 77 Respiratory Rate 16 Blood Pressure 88/50 L 120/65 Pulse Oximetry 95 Oxygen Delivery Method Nasal Cannula Oxygen Flow Rate 2 BMI result Body Mass Index 32.2 Labs 05/24/24 08:37 Imaging Radiology Impressions: ITS Impressions Chest X-Ray 05/28/24 10:50 IMPRESSION: Findings as above. Electronically signed by: Jorge Galeas MD 05/28/2024 05:43 PM EDT RP Medications Medications Current Medications Acetaminophen (Acetaminophen 325 Mg Tablet) 650 mg PO Q6H PRN PRN Reason: Headache/Pain Mild Scale (1-3) Last Admin: 05/26/24 01:19 Dose: 650 mg Al Hydroxide/Mg Hydroxide (Magnesium Hydrox/Alum Hydrox 30 Ml Oral.Susp) 30 ml PO Q6H PRN PRN Reason: Heartburn/Nausea Albuterol Sulfate (Albuterol Sulfate 90 Mcg 8 Gm Inhaler) 2 puff INHALE Q4H PRN PRN Reason: Shortness of Breath/Wheezing Amphetamine/Dextroamphetamine (Dextroamphetamine/Amphetamine Xr 5 Mg Cap.Er.24h) 5 mg PO DAILY [facility] Last Admin: 06/02/24 08:33 Dose: 5 mg Apixaban (Apixaban 5 Mg Tablet) 5 mg PO BID [facility] Last Admin: 06/02/24 08:43 Dose: 5 mg Ascorbic Acid (Ascorbic Acid 500 Mg Tablet) 500 mg PO BID [facility] Last Admin: 06/02/24 08:33 Dose: 500 mg Atorvastatin Calcium (Atorvastatin Calcium 80 Mg Tablet) 80 mg PO DAILY [facility] Last Admin: 06/02/24 08:33 Dose: 80 mg Carvedilol (Carvedilol 6.25 Mg Tablet) 6.25 mg PO BID [facility]; Protocol Last Admin: 06/02/24 09:28 Dose: Not Given Clopidogrel Bisulfate (Clopidogrel Bisulfate 75 Mg Tablet) 75 mg PO DAILY [facility] Last Admin: 06/02/24 08:33 Dose: 75 mg Cyanocobalamin (Cyanocobalamin (Vitamin B-12) 1,000 Mcg Tablet) 1,000 mcg PO DAILY [facility] Last Admin: 06/02/24 08:32 Dose: 1,000 mcg Donepezil HCl (Donepezil Hcl 10 Mg Tablet) 10 mg PO BEDTIME [facility] Last Admin: 06/01/24 20:06 Dose: 10 mg Fluticasone/Umeclidinium/Vilanterol (Fluticasone/Umeclidinium/Vilanterol 100/62.5/25 Blst.W.Dev) 1 puff INHALE RDAILY [facility] Last Admin: 06/02/24 08:31 Dose: 1 puff Furosemide (Furosemide 40 Mg Tablet) 40 mg PO DAILY [facility]; Protocol Last Admin: 06/02/24 09:29 Dose: Not Given Magnesium Hydroxide (Milk Of Magnesia 30 Ml Oral.Susp) 30 ml PO DAILY PRN PRN Reason: Constipation Methenamine Hippurate (Methenamine Hippurate 1 Gm Tablet) 1 gm PO BID [facility] Last Admin: 06/02/24 08:33 Dose: 1 gm Sacubitril/Valsartan (Sacubitril/Valsartan 1 Tab Tablet) 1 tab PO BID [facility]; Protocol Last Admin: 06/02/24 09:29 Dose: Not Given Trazodone HCl (Trazodone Hcl 50 Mg Tablet) 50 mg PO BEDTIME PRN PRN Reason: Insomnia Last Admin: 06/01/24 20:07 Dose: 50 mg Venlafaxine HCl (Venlafaxine Hcl Er 75 Mg Cap.Er.24h) 75 mg PO DAILY [facility] Last Admin: 06/02/24 08:33 Dose: 75 mg Vitamin D (Cholecalciferol (Vitamin D3) 25 Mcg Tablet) 25 mcg PO DAILY [facility] Last Admin: 06/02/24 08:33 Dose: 25 mcg Allergies Allergies Allergy/AdvReac Type Severity Reaction Status Date / Time No Known Allergies Allergy Verified 05/06/24 11:26 Assessment & Plan Assessment & Plan (1) MDD (major depressive disorder), recurrent episode, moderate: Status: Acute Code(s): F33.1 - Major depressive disorder, recurrent, moderate (2) Alzheimer dementia: Status: Acute Code(s): G30.9 - Alzheimer's disease, unspecified; F02.80 - Dementia in other diseases classified elsewhere, unspecified severity, without behavioral disturbance, psychotic disturbance, mood disturbance, and anxiety Plan Mrs. Carrington is a 78 year-old woman with hx of Dementia (per records AD type), MDD, who was brought to [facility] [place] [facility] after intentional OD on clonazepam. Pt medically admitted, currently on nasal canula to maintain O2sat 90-96% Pt denies that OD was with intent to end her life. However, is vague in her report, just wanted to see what would happen. She denies SI now. It appears that here was plan to transition pt to [facility] as she is not able to care for herself independently. PLAN 05/20- pt has been off adderall here on the unit. pt noted to be sleeping on and off. Sleep has improved. we discussed starting effexor. she has also been off cymbalta. 05/21 continue tx. increase effexor to 75mg po daily. 05/22 continue tx. 05/23 continue tx. can consider restarting adderall lower dose 5mg po daily. 05/24 continue tx. 05/25 continue tx. 05/26 continue tx. 05/27 continue tx. 05/30 continue tx. may increase effexor 112.5mg po daily. 05/31 continue tx. 06/01 continue treatment plan 06/02 continue treatment plan Patient educated on: diagnosis and medical condition Informed Consent: understands and further education needed Reason for continued inpatient stay Substantial Risk for: stable for discharge and med/psych decompensation Time Spent With Patient Time: Total time managing care of this patient today ____ minutes.
[2024-06-02] MEDS: Donepezil HCl 10 MG TABLET PO (20:38)
[2024-06-02] MEDS: carvediloL 6.25 MG TABLET PO (20:38)
[2024-06-02] MEDS: Sacubitril/Valsartan 24/26 1 TAB TABLET PO (20:39)
[2024-06-02] MEDS: traZODone HCL 50 MG TABLET PO (21:01)
[2024-06-03] VITALS: O2SAT 92
[2024-06-03 04:00] VITALS: O2SAT 93
[2024-06-03 08:31] VITALS: BP 116/63; PULSE 70; RESP 17; TEMP 36.1; O2SAT 97
[2024-06-03] MEDS: Furosemide 40 MG TABLET PO (08:33)
[2024-06-03] MEDS: Venlafaxine HCl ER 75 MG CAP.ER.24H PO (08:33)
[2024-06-03] MEDS: Atorvastatin Calcium 80 MG TABLET PO (08:33)
[2024-06-03] MEDS: Methenamine Hippurate 1 GM TABLET PO (08:33)
[2024-06-03] MEDS: Cyanocobalamin (Vitamin B-12) 1,000 MCG TABLET 1000 MCG PO (08:33)
[2024-06-03] MEDS: Sacubitril/Valsartan 24/26 1 TAB TABLET PO (08:33)
[2024-06-03] MEDS: Cholecalciferol (Vitamin D3) 25 MCG TABLET PO (08:33)
[2024-06-03] MEDS: Clopidogrel Bisulfate 75 MG TABLET PO (08:33)
[2024-06-03] MEDS: carvediloL 6.25 MG TABLET PO (08:33)
[2024-06-03] MEDS: Ascorbic Acid 500 MG TABLET PO (08:33)
[2024-06-03] MEDS: Dextroamphetamine/Amphetamine XR 5 MG CAP.ER.24H PO (08:33)
[2024-06-03] MEDS: Apixaban 5 MG TABLET PO (08:34)
[2024-06-03] MEDS: Fluticasone/Umeclidinium/Vilanterol 100/62.5/25 BLST.W.DEV 1 PUFF INHALE (08:37)
--- NOTE | 2024-06-03 08:53 | P.PNPSI_ITS ---
Subjective Subjective Reason For Visit: Post OD Diagnostics Vital Signs (24Hr): Vital Signs - 24 hr 06/02/24 09:15 06/02/24 09:28 06/02/24 09:29 Temperature Pulse Rate 74 74 Respiratory Rate 16 Blood Pressure 88/50 L 88/50 L 88/50 L Pulse Oximetry Oxygen Delivery Method Oxygen Flow Rate 06/02/24 09:29 06/02/24 12:00 06/02/24 16:00 Temperature 97.0 F 98.1 F Pulse Rate 77 68 Respiratory Rate 16 16 Blood Pressure 88/50 L 120/65 121/59 L Pulse Oximetry 95 95 Oxygen Delivery Method Nasal Cannula Nasal Cannula Oxygen Flow Rate 2 2 06/02/24 20:00 06/03/24 00:00 06/03/24 04:00 Temperature 97.8 F Pulse Rate 73 Respiratory Rate 16 Blood Pressure 136/76 Pulse Oximetry 98 92 93 Oxygen Delivery Method Nasal Cannula Nasal Cannula Nasal Cannula Oxygen Flow Rate 2 06/03/24 08:31 Temperature 96.9 F Pulse Rate 70 Respiratory Rate 17 Blood Pressure 116/63 Pulse Oximetry 97 Oxygen Delivery Method Nasal Cannula Oxygen Flow Rate 2 BMI result Body Mass Index 32.2 Labs 05/24/24 08:37 Imaging Radiology Impressions: ITS Impressions Chest X-Ray 05/28/24 10:50 IMPRESSION: Findings as above. Electronically signed by: Jorge Galeas MD 05/28/2024 05:43 PM EDT Medications Medications Current Medications Acetaminophen (Acetaminophen 325 Mg Tablet) 650 mg PO Q6H PRN PRN Reason: Headache/Pain Mild Scale (1-3) Last Admin: 05/26/24 01:19 Dose: 650 mg Al Hydroxide/Mg Hydroxide (Magnesium Hydrox/Alum Hydrox 30 Ml Oral.Susp) 30 ml PO Q6H PRN PRN Reason: Heartburn/Nausea Albuterol Sulfate (Albuterol Sulfate 90 Mcg 8 Gm Inhaler) 2 puff INHALE Q4H PRN PRN Reason: Shortness of Breath/Wheezing Amphetamine/Dextroamphetamine (Dextroamphetamine/Amphetamine Xr 5 Mg Cap.Er.24h) 5 mg PO DAILY [facility] Last Admin: 06/03/24 08:33 Dose: 5 mg Apixaban (Apixaban 5 Mg Tablet) 5 mg PO BID [facility] Last Admin: 06/03/24 08:34 Dose: 5 mg Ascorbic Acid (Ascorbic Acid 500 Mg Tablet) 500 mg PO BID [facility] Last Admin: 06/03/24 08:33 Dose: 500 mg Atorvastatin Calcium (Atorvastatin Calcium 80 Mg Tablet) 80 mg PO DAILY [facility] Last Admin: 06/03/24 08:33 Dose: 80 mg Carvedilol (Carvedilol 6.25 Mg Tablet) 6.25 mg PO BID [facility]; Protocol Last Admin: 06/03/24 08:33 Dose: 6.25 mg Clopidogrel Bisulfate (Clopidogrel Bisulfate 75 Mg Tablet) 75 mg PO DAILY [facility] Last Admin: 06/03/24 08:33 Dose: 75 mg Cyanocobalamin (Cyanocobalamin (Vitamin B-12) 1,000 Mcg Tablet) 1,000 mcg PO DAILY [facility] Last Admin: 06/03/24 08:33 Dose: 1,000 mcg Donepezil HCl (Donepezil Hcl 10 Mg Tablet) 10 mg PO BEDTIME [facility] Last Admin: 06/02/24 20:38 Dose: 10 mg Fluticasone/Umeclidinium/Vilanterol (Fluticasone/Umeclidinium/Vilanterol 100/62.5/25 Blst.W.Dev) 1 puff INHALE RDAILY [facility] Last Admin: 06/03/24 08:37 Dose: 1 puff Furosemide (Furosemide 40 Mg Tablet) 40 mg PO DAILY [facility]; Protocol Last Admin: 06/03/24 08:33 Dose: 40 mg Magnesium Hydroxide (Milk Of Magnesia 30 Ml Oral.Susp) 30 ml PO DAILY PRN PRN Reason: Constipation Methenamine Hippurate (Methenamine Hippurate 1 Gm Tablet) 1 gm PO BID [facility] Last Admin: 06/03/24 08:33 Dose: 1 gm Sacubitril/Valsartan (Sacubitril/Valsartan 1 Tab Tablet) 1 tab PO BID [facility]; Protocol Last Admin: 06/03/24 08:33 Dose: 1 tab Trazodone HCl (Trazodone Hcl 50 Mg Tablet) 50 mg PO BEDTIME PRN PRN Reason: Insomnia Last Admin: 06/02/24 21:01 Dose: 50 mg Venlafaxine HCl (Venlafaxine Hcl Er 75 Mg Cap.Er.24h) 75 mg PO DAILY [facility] Last Admin: 06/03/24 08:33 Dose: 75 mg Vitamin D (Cholecalciferol (Vitamin D3) 25 Mcg Tablet) 25 mcg PO DAILY [facility] Last Admin: 06/03/24 08:33 Dose: 25 mcg Allergies Allergies Allergy/AdvReac Type Severity Reaction Status Date / Time No Known Allergies Allergy Verified 05/06/24 11:26 Assessment & Plan Assessment & Plan (1) MDD (major depressive disorder), recurrent episode, moderate: Status: Acute Code(s): F33.1 - Major depressive disorder, recurrent, moderate (2) Alzheimer dementia: Status: Acute Code(s): G30.9 - Alzheimer's disease, unspecified; F02.80 - Dementia in other diseases classified elsewhere, unspecified severity, without behavioral disturbance, psychotic disturbance, mood disturbance, and anxiety Plan Mrs. Carrington is a 78 year-old woman with hx of Dementia (per records AD type), MDD, who was brought to [facility] [place] [facility] after intentional OD on clonazepam. Pt medically admitted, currently on nasal canula to maintain O2sat 90-96% Pt denies that OD was with intent to end her life. However, is vague in her report, just wanted to see what would happen. She denies SI now. It appears that here was plan to transition pt to [facility] as she is not able to care for herself independently. PLAN 05/20- pt has been off adderall here on the unit. pt noted to be sleeping on and off. Sleep has improved. we discussed starting effexor. she has also been off cymbalta. 05/21 continue tx. increase effexor to 75mg po daily. 05/22 continue tx. 05/23 continue tx. can consider restarting adderall lower dose 5mg po daily. 05/24 continue tx. 05/25 continue tx. 05/26 continue tx. 05/27 continue tx. 05/30 continue tx. may increase effexor 112.5mg po daily. 05/31 continue tx. 06/01 continue treatment plan Time Spent With Patient Time: Total time managing care of this patient today ____ minutes.
--- NOTE | 2024-06-03 09:31 | P.DS_ITS ---
DS: Providers Provider Date of Service: 06/03/24 Date of admission: 05/16/24 13:32 Date of discharge: 06/03/24 Primary care physician: Unknown Physician Consults: 05/17/24 15:18 Consult to Wound Care Routine Reason for consultation: stage 1 ulcer on coccyx 05/21/24 08:54 Consult to Hospitalist Routine Comment: Consulting Provider: Hospitalist Reason For Exam: hypernatremia, ?dehydration 05/27/24 15:12 Consult to Pulmonology Routine Consulting Provider: [facility] [place] [place] Pulmonology Services Reason for consultation: need for continuos O2, COPD Has provider been notified: Yes DS: Diagnosis Discharge Diagnosis (1) MDD (major depressive disorder), recurrent episode, moderate: Status: Acute (2) Alzheimer dementia: Status: Acute DS: Medications Discharge Medications Home Medications: Home Medications ?Medication ?Instructions ?Recorded ?Confirmed Bacillus subtilis 1.5 billion 1 tab PO DAILY 10/29/20 05/06/24 cell-inulin 1 gram chewable tablet Previous Rx's ?Medication ?Instructions ?Recorded albuterol sulfate 90 mcg/actuation 2 puff inhalation Q4H PRN 06/03/24 aerosol inhaler (Ventolin HFA) Shortness Of Breath/Wheezing #6.7 grams apixaban 5 mg tablet (Eliquis) 5 mg PO BID #60 tabs 06/03/24 ascorbic acid (vitamin C) 500 mg 500 mg PO BID #60 tabs 06/03/24 tablet (Vitamin C) atorvastatin 80 mg tablet 80 mg PO DAILY #30 tabs 06/03/24 carvedilol 6.25 mg tablet 6.25 mg PO BID #30 tabs 06/03/24 carvedilol 6.25 mg tablet 6.25 mg PO BID #60 tabs 06/03/24 cholecalciferol (vitamin D3) 25 25 mcg PO DAILY #30 tabs 06/03/24 mcg (1,000 unit) tablet clopidogrel 75 mg tablet 75 mg PO DAILY #30 tabs 06/03/24 cyanocobalamin (vitamin B-12) 1,000 mcg PO DAILY #30 tabs 06/03/24 1,000 mcg tablet (Vitamin B-12) dextroamphetamine-amphetamine ER 5 5 mg PO DAILY #30 caps 06/03/24 mg 24hr capsule,extend release donepezil 10 mg tablet 10 mg PO BEDTIME #30 tabs 06/03/24 fluticasone fur. 100 mcg-umeclid 1 inh inhalation RDAILY #28 ea 06/03/24 62.5 mcg-vilant 25 mcg inhalat.powder (Trelegy Ellipta) furosemide 40 mg tablet 40 mg PO DAILY #30 tabs 06/03/24 methenamine hippurate 1 gram tablet 1 g PO BID #60 tabs 06/03/24 sacubitril 24 mg-valsartan 26 mg 1 tab PO BID #60 tabs 06/03/24 tablet (Entresto) sacubitril 24 mg-valsartan 26 mg 1 tab PO BID #60 tabs 06/03/24 tablet (Entresto) trazodone 50 mg tablet 50 mg PO BEDTIME PRN Insomnia #30 06/03/24 tabs venlafaxine 75 mg capsule,extended 75 mg PO DAILY #30 caps 06/03/24 release 24 hr Mental Status Exam Mental Status Exam Narrative: Appearance: wearing hospital gown, fair hygiene in NAD behavior: cooperative and friendly Psychomotor: no psychomotor agitation or retardation. Speech: clear, regular rate/rhythm/volume, spontaneous TP: mostly linear, poverty of thought TC:looking forward to go home Mood: okay Affect: brighter, smiling SI: denies HI: denies VH/AH: none Delusions: none Insight/judgment: poor x 2. Memory/cog: alert, oriented x4. MOCA /30, ACL 4.8 Data Data Completed and Pending Completed studies during hospitalization [Text1]: 05/28/24 09:59 VBG pH 7.41 VBG pCO2 66 VBG pO2 53 VBG HCO3 42 H VBG O2 Saturation 82.0 VBG Base Excess 15.2 Imaging Diagnostic Imaging Impressions Chest X-Ray 05/28/24 10:50 IMPRESSION: Findings as above. Electronically signed by: Jorge Galeas MD 05/28/2024 05:43 PM EDT DS: Summary Hospital Course Hospital Course: Subjective Notes: [place]ell Warning and Section 12B Narrative: Ms. Carrington is a 78 year-old woman with hx of MDD and dementia, who was brought to the ED after intentional OD on clonazepam of unknown quantity. Her O2sat on arrival on RA was 78%. There was indication that this was a suicide attempt per daughter in context of daughter looking for placement due to cognitive impairments and needing more supports at home. On the unit, pt denies that overdose was with intent to end her life. She states I just wanted to know what would happen. when asked what were the possibilities in her mind prior to doing it, she states I don't know. Pt reports she has suffered from depression most of her life. She denies that depression has increased recently. She denies any current plan or intent to harm herself. She reports she feels physically tired, but describes mood as okay. She has been prescribed combination of adderall and clonazepam by her PCP. Pt reports adderall helps her stay awake. She has also been on provigil. She reports sleep is fair. She denies hx of visual or auditory hallucinations. Medical Evaluation Reviewed: Yes HOSPITAL COURSE On the unit, pt was admitted on a CV and placed on 5 mins checks due to nasal canula need. She reported long hisotry of depression. However, pt reported no increase in symptoms of depression lately, although her daughter reported that conversations about needing more supports did prompt exacerbation of depression and intentional OD. We discussed risks, benefits and alternative treatment options. We switched cymbalta to effexor. Pt had been for several years on higher doses of adderall for mood. This medication was lowered to 5mg po daily, recommend to consider completely dc as mood improves. Pt tolerated increase in Venlafaxine to 75mg po daily, can continue titration if needed, monitoring closely her BP. Pt often presented as fatigue but this is also thought to be related to her own medical conditions including COPD/Emphysema, cardiomyopathy. She worked with PT for rehab. Recommended to continue OP. Pt denied SI/HI. She reported some improvement in mood. No signs of psychosis or delusions. Memory and cognitive screenings were completed- pt scored MOCA 22/30 with most impairments in executive function, recall with intact orientation and language. ACL scored 4.8 indicating mild cognitive impairements. Status at Discharge Cognitive/behavioral status at discharge: Pt with brighter, non labile affect. No SI/HI. No psychosis or delusions. Sleeping better. Appetite is good. No behavioral concerns. Increasingly more future oriented looking forward to go back home. Functional status at discharge: wheelchair bound Overall status at discharge: patient is progressing back to baseline Time Spent with Patient Time attestation: Total time managing care of this patient today ___35_ minutes. Discharge Plan Discharge Anticipated Discharge Date/Time: 06/03/24 09:18 Patient Disposition: Home, Self-Care Discharge Diagnosis: Major Neurocognitive Disorder MDD, recurrent, moderate Referrals: [facility] [place] [facility] [Other] - 06/03/24 (Your CM Marilou Neville will be in contact with you and request for increase in homecare service hours has been made. You have 1hr of personal care 5 days a week, 1 hour of homemaking 5 days a week, home delivered meals, laundry service, emergency call button, and foot care for services. CM will contact your daughter in regard to request for increase in hours. Your homecare services will resume on day of discharge. ) [facility] [Other] - 06/04/24 (Your have been referred to [facility] for prison, and PT/OT. They will begin Monday 06/04.) [facility] [Other] - 06/17/24 10:00 am (Your first appointment for psychiatry is scheduled with Mirian Carrillo NP for 06/17/24 at 10am. You will be sent a link for telehealth appointment via text on your cell phone the day of appointment. You will be sent forms to complete before appointment as well. ) [facility] (Deyanira Denis has been notified of your discharge from [facility] and has notified [facility] nurse who will be in contact with you to schedule home visit for your [facility] nursing assessment. ) Dr Forrester [Other] - 06/06/24 10:00 am (Your follow up appointment has been scheduled for 06/06/24 at 10am.) Dr Oliveira [Other] - 08/06/24 2:00 pm (Your appointment will be on at 2pm. The office will call you again if there is a cancelation and you can be seen sooner. Otherwise the appointment will stand.) Discharge Medications: New furosemide 40 mg Tablet 40 mg PO DAILY Qty: 30 0RF Protocol: Hold for SBP< HOLD for SBP < : 90 carvedilol 6.25 mg Tablet 6.25 mg PO BID Qty: 60 0RF Protocol: Hold for SBP/HR < HOLD for SBP < : 90 HOLD for HR < : 60 venlafaxine 75 mg Capsule,Extended Release 24hr 75 mg PO DAILY Qty: 30 0RF trazodone 50 mg Tablet 50 mg PO BEDTIME PRN (Reason: Insomnia) Qty: 30 0RF donepezil 10 mg Tablet 10 mg PO BEDTIME Qty: 30 0RF clopidogrel 75 mg Tablet 75 mg PO DAILY Qty: 30 0RF methenamine hippurate 1 gram Tablet 1 g PO BID Qty: 60 0RF albuterol sulfate [Ventolin HFA] 90 mcg/actuation Hfa Aerosol Inhaler 2 puff inhalation Q4H PRN (Reason: Shortness Of Breath/Wheezing) Qty: 6.7 0RF dextroamphetamine-amphetamine 5 mg Capsule,Extended Release 24hr 5 mg PO DAILY Qty: 30 0RF Rx Instructions: Partial Fill upon patient request. Eliquis 5 mg Tablet 5 mg PO BID Qty: 60 0RF Entresto 24-26 mg Tablet 1 tab PO BID Qty: 60 0RF Protocol: Hold for SBP< HOLD for SBP < : 90 Trelegy Ellipta 100-62.5-25 mcg Blister With Device 1 inh inhalation RDAILY Qty: 28 0RF cyanocobalamin (vitamin B-12) [Vitamin B-12] 1,000 mcg Tablet 1,000 mcg PO DAILY Qty: 30 0RF ascorbic acid (vitamin C) [Vitamin C] 500 mg Tablet 500 mg PO BID Qty: 60 0RF cholecalciferol (vitamin D3) 25 mcg (1,000 unit) Tablet 25 mcg PO DAILY Qty: 30 0RF Continued Bacillus subtilis-inulin 1.5 billion cell-1 gram Tablet,Chewable 1 tab PO DAILY atorvastatin 80 mg tablet 80 mg PO DAILY Qty: 30 0RF carvedilol 6.25 mg tablet 6.25 mg PO BID Qty: 30 0RF Entresto 24-26 mg Tablet 1 tab PO BID Qty: 60 0RF Protocol: Hold for SBP< HOLD for SBP < : 90 Discontinued Eliquis 5 mg Tablet 5 mg PO BID duloxetine 60 mg Capsule,Delayed Release(Dr/Ec) 60 mg PO BID cholecalciferol (vitamin D3) 25 mcg (1,000 unit) Tablet 25 mcg PO DAILY albuterol sulfate 90 mcg/actuation HFA aerosol inhaler 2 puff inhalation Q4H PRN (Reason: Shortness Of Breath) Anoro Ellipta 62.5-25 mcg/actuation blister with device 1 puff PO DAILY donepezil 10 mg tablet 10 mg PO BEDTIME clopidogrel 75 mg tablet 75 mg PO DAILY methenamine hippurate 1 gram tablet 1 g PO BID Rx Instructions: Take with Vitamin C tablet. furosemide 80 mg tablet 80 mg PO DAILY cyanocobalamin (vitamin B-12) [Vitamin B-12] 1,000 mcg Tablet 1,000 mcg PO DAILY mirtazapine 15 mg tablet 15 mg PO BEDTIME melatonin 10 mg Tablet 20 mg PO BEDTIME PRN (Reason: Sleep) naproxen-diphenhydramine 220-25 mg Tablet 1 tab PO BEDTIME PRN (Reason: Headache) ascorbic acid (vitamin C) [Vitamin C] 500 mg Tablet 500 mg PO BID modafinil [Provigil] 100 mg Tablet 200 mg PO DAILY Qty: 90 0RF dextroamphetamine-amphetamine [Adderall] 10 mg Tablet 15 mg PO DAILY PRN (Reason: Mood) Qty: 30 0RF Discharge Orders: Discharge Order (Routine); Ordered 06/03/24 Ordered By: Tania Finley Diet: Regular diet Activity on Discharge: As tolerated Stand Alone Forms: Patient Portal Discharge page, Community Support Print Language: Vincentian Care Plan Goals: 1. Maintain mood 2. No SI/HI Health Concerns: Follow up with PCP Plan of Treatment: 1. Take medications as prescribed 2. Go to nearest ED or call 911 in event of emergency Assessment: Pt with brighter affect. No SI/HI. No VH/AH. Sleeping most of the nights.
[2024-06-03] MEDS: Loperamide HCl 2 MG CAPSULE PO (09:42)
[2024-06-03 10:17] VITALS: PULSE 122; PULSE 78; O2SAT 89; O2SAT 91
[2024-06-03 12:00] VITALS: O2SAT 89
--- NOTE | 2024-06-03 12:05 | PC.NURSE ---
Respiratory came this morning to evaluate the need for home oxygen use for Qi. Patient was assessed and per the Respiratory Therapist Rita Coronel, patient does not meet the criteria for Home oxygen. (Sat. dropped from 91% to 89% when ambulating, RT states under 88% is criteria for needing o2).
== END 2024-06-03 14:40 | disposition home or self-care (01) | DRG 885 ==
PROVIDERS: Hospitalist; Physician Assistant; Student in an Organized Health Care Education/Training Program; Admitting Provider Social Worker; Visit Provider Social Worker
DX: F33.1 Major depressive disorder, recurrent, moderate (principal); R45.851 Suicidal ideations; E87.0 Hyperosmolality and hypernatremia; G30.9 Alzheimer's disease, unspecified; F02.80 Dementia in other diseases classified elsewhere, unspecified severity, without behavioral disturbance, psychotic disturbance, mood disturbance, and anxiety; J43.9 Emphysema, unspecified; Z87.891 Personal history of nicotine dependence; Z91.51 Personal history of suicidal behavior; Z79.01 Long term (current) use of anticoagulants; Z79.02 Long term (current) use of antithrombotics/antiplatelets; Z79.51 Long term (current) use of inhaled steroids; Z79.899 Other long term (current) drug therapy
CPT/HCPCS: 36415; 71046; 80048; 80053; 80061; 82607; 82746; 82803; 83036; 84443; 97110; 97162; 97530

== ENCOUNTER → 2024-05-16 13:32 | Outpatient (BNV) | payer MEDICARE, SELFPAY | PROVIDERS: Admitting Provider Social Worker; Visit Provider Hospitalist | DX: J41.0 Simple chronic bronchitis (principal); J96.12 Chronic respiratory failure with hypercapnia | CPT/HCPCS: 99233 ==

== ENCOUNTER → 2024-05-16 13:32 | Outpatient (BNV) | payer MEDICARE, SELFPAY | PROVIDERS: Admitting Provider Social Worker; Visit Provider Social Worker | DX: F33.1 Major depressive disorder, recurrent, moderate (principal); G30.9 Alzheimer's disease, unspecified; F02.80 Dementia in other diseases classified elsewhere, unspecified severity, without behavioral disturbance, psychotic disturbance, mood disturbance, and anxiety | CPT/HCPCS: 90792; 99231; 99232; 99239 ==